=== PATIENT | female | born 1950 | race Caucasian/White ===

== ENCOUNTER 2018-03-25 13:15 | Inpatient (IN) | payer OTHER ==
[2018-03-25] MEDS ORDERED: morphine CARPU-JECT 4 MG/1 ML DISP.SYRIN IVPUSH ONE ×2 (14:17→17:52)
--- NOTE | 2018-03-25 14:26 | PDOC ---
History of Present Illness - General History Source: Patient Exam Limitations: No Limitations - History of Present Illness Initial Comments: 03/25/18 14:40 The patient is a 67 year old female with a significant PMH of HTN, DM, uterine cancer in remission, and recently diagnosed DVT who presents to the emergency department with worsening right sided hip pain. Patient had this right leg pain for the past 4 months, which seemed to improve after starting lovenox for a diagnosed dvt. Patient states she was taking oxycodone for pain but ran out of it this past week. Patient has been unable to ambulate secondary to the pain. Patient also had an MRI on 03/22/18 which showed a moderate L5/ S1 dis bulging and associated degenerative disc disease and foraminal stenosis with compression of L5 nerve root. disc protrusion of S1 right nerve root . She endorses chills but denies fever, chest pain, nausea, vomiting, vaginal bleeding, rectal bleeding, or changes with urination or bowel movements. Allergies: NKA Past surgical history: Social history: No reported PCP: Dr. Pryor [place] [phone] <Shameka Barker - Last Filed: 03/25/18 14:43> <Marilu Bazan - Last Filed: 03/25/18 18:24> - General Chief Complaint: Pain Stated Complaint: FOOT PAIN Time Seen by Provider: 03/25/18 13:30 Past History <Shameka Barker - Last Filed: 03/25/18 14:43> - Past Medical History COPD: No CHF: No DVT: Yes Diabetes: Yes HTN: Yes - Suicide/Smoking/Psychosocial Hx Smoking Status: No Smoking History: Never smoked Have you smoked in the past 12 months: No Number of Cigarettes Smoked Daily: 0 Information on smoking cessation initiated: No Hx Alcohol Use: No Drug/Substance Use Hx: No Substance Use Type: None <Marilu Bazan - Last Filed: 03/25/18 18:24> - Past Medical History Allergies/Adverse Reactions: Allergies Allergy/AdvReac Type Severity Reaction Status Date / Time No Known Allergies Allergy Verified 03/25/18 13:19 Home Medications: Ambulatory Orders Canagliflozin [Invokana] 100 mg PO DAILY 03/21/17 Clopidogrel Bisulfate [Clopidogrel] 75 mg PO DAILY 03/21/17 Duloxetine HCl 60 mg PO DAILY 03/21/17 Ibuprofen 600 mg PO PRN 03/21/17 Lisinopril 10 mg PO DAILY 03/21/17 Montelukast Na [Singulair -] 10 mg PO DAILY 03/21/17 Oxycodone HCl/Acetaminophen [Endocet 5-325 Tablet] 1 tab PO PRN 03/21/17 Prochlorperazine Maleate 10 mg PO DAILY 03/21/17 Famotidine [Pepcid] 20 mg PO BID PRN #28 tablet 03/22/17 Review of Systems - Review of Systems Able to Perform ROS?: Yes Comments:: 03/25/18 14:46 ADULT ROS GENERAL/CONSTITUTIONAL: No fever or chills. No weakness. HEAD, EYES, EARS, NOSE AND THROAT: No change in vision. No ear pain or discharge. No sore throat. CARDIOVASCULAR: No chest pain or shortness of breath. RESPIRATORY: No cough, wheezing, or hemoptysis. GASTROINTESTINAL: No nausea, vomiting, diarrhea or constipation. GENITOURINARY: No dysuria, frequency, or change in urination. MUSCULOSKELETAL: (+) Right hip pain. No neck or back pain. SKIN: No rash NEUROLOGIC: No headache, vertigo, loss of consciousness, or change in strength/ sensation. ENDOCRINE: No increased thirst. No abnormal weight change. HEMATOLOGIC/LYMPHATIC: No anemia, easy bleeding, or history of blood clots. ALLERGIC/IMMUNOLOGIC: No hives or skin allergy. <Shameka Barker - Last Filed: 03/25/18 14:43> *Physical Exam - Vital Signs Last Vital Signs Temp Pulse Resp BP Pulse Ox 98 F 95 H 16 102/60 98 03/25/18 13:22 03/25/18 13:22 03/25/18 13:22 03/25/18 13:22 03/25/18 13:22 - Physical Exam Comments: 03/25/18 14:40 ADULT EXAM GENERAL: Awake, alert, and fully oriented, in no acute distress HEAD: No signs of trauma EYES: PERRLA, EOMI, sclera anicteric, conjunctiva clear ENT: Auricles normal inspection, hearing grossly normal, nares patent. Moist mucosa NECK: Normal ROM, supple, no lymphadenopathy, JVD, or masses LUNGS: Breath sounds equal, clear to auscultation bilaterally. No wheezes, and no crackles HEART: Regular rate and rhythm, normal S1 and S2, no murmurs, rubs or gallops ABDOMEN: Soft, nontender, normoactive bowel sounds. No guarding, no rebound. No masses EXTREMITIES: (+) Right leg tenderness, pain with movement of the right hip. Dorsiflexion and plantar flexion is 5/5 strength. (+) Hip flexion limited due to pain. (+) Sensation decreased to the right inner thigh. No edema. Warm and well perfused. NEUROLOGICAL: Moves all extremities. Normal speech, normal gait SKIN: Warm, Dry, normal turgor, no rashes or lesions noted. <Shameka Barker - Last Filed: 03/25/18 14:43> - Vital Signs Last Vital Signs Temp Pulse Resp BP Pulse Ox 98 F 95 H 16 102/60 98 03/25/18 13:22 03/25/18 13:22 03/25/18 13:22 03/25/18 13:22 03/25/18 13:22 <Marilu Bazan - Last Filed: 03/25/18 18:24> ED Treatment Course - LABORATORY CBC & Chemistry Diagram: 03/25/18 14:58 03/25/18 15:04 - RADIOLOGY Radiology Studies Ordered: Category Date Time Status DUPLEX VASCUL US-1 LEG [US] Stat Ultrasound 03/25/18 14:17 Ordered <Marilu Bazan - Last Filed: 03/25/18 18:24> Medical Decision Making - Medical Decision Making 03/25/18 14:20 67 yo F with h/o uterine ca, dm, in remission, recently diagnosed right leg dvt , and back pain here today c/o worsening pain right leg. pt states she has been having pain for several months, became slightly better after starting lovenox for dvt, but then becamse acutely worse last pm. today is unable to walk due to pain. pt had recent MRI on 03/22/18 showing mod L5/ S1 dis bulging and associated dgd and foraminal stenosis with compression of L5 nerve root. disc protrusion of S1 right nerve root . she had been on cymbalta in the past , was also taking oxycodone for pain which she ran out of last few weeks. d/w pt pcp dr. Dc, who states he was unaware of dvt. differential : dvt worsenig, disc disease. plan cbc lytes rpt us , if pt unable to walk due to pain will madonna have to admit for pt 03/25/18 17:48 pt with no dvt on ultrasound. states on lovenox currently . states her decreased sensation in her right leg is new, but has had pain for 4 months. pt unable to ambulate, will require admission for pt eval, pain control and eval by nuerosurgery. dw dr flores, will admit 03/25/18 17:55 03/25/18 18:21 outpt MRI 03/22 shows: moderate L5S1 dis bulging and associated degenerative changes resulting in ild spinal canal stenosis and mild to moderate bilateral foraminal stenosis compressing L5 nerve roots. incomlete visualiation of possible small inferiorloy extruded right sided disc herniation ildly compressing the right s! nerve root . disc bulging and assoc degenerative changes L2-3, L4 -5 with mild thecal sac compresion wihtout significant spinal canal stenosis. post radiation fatty marrow replacemetn L5 through visuzlied sacrum . (only report no cd) obtained at [facility] [phone] <Marilu Bazan - Last Filed: 03/25/18 18:24> *DC/Admit/Observation/Transfer - Attestations Scribe Attestion: 03/25/18 14:49 Documentation prepared by Shameka Barker, acting as medical policy specialist for Marilu Bazan MD. <Shameka Barker - Last Filed: 03/25/18 14:43> - Discharge Dispostion Decision to Admit order: Yes <Marilu Bazan - Last Filed: 03/25/18 18:24> Diagnosis at time of Disposition: Back pain, Cannot walk
[2018-03-25 15:15] LABS: BASO % 0.4 % (0-2.0); EOS % 0.1 % (0-4.5); HEMATOCRIT 26.4 % (32.4-45.2); HEMOGLOBIN 8.5 GM/dL (10.7-15.3); LYMPH % 7.8 % (8-40); MCHC 32.2 g/dl (32.0-36.0); MEAN CELL VOLUME 80.7 fl (80-96); NEUT % 86.7 % (42.8-82.8); PLATELET COUNT 329 K/MM3 (134-434); RBC 3.27 M/mm3 (3.60-5.2); WHITE BLOOD COUNT 12.4 K/mm3 (4.0-10.0)
[2018-03-25 15:55] LABS: INR 1.33 (0.83-1.09); PROTHROMBIN TIME (PATIENT) 15.7 SEC (9.7-13.0)
[2018-03-25 15:57] LABS: ACTIVATED PTT 31.8 SECONDS (25.2-36.5)
[2018-03-25] MEDS ORDERED: DEXAMETHASONE SOD PHOSPHATE 20 MG/5 ML VIAL IVPB ONE (17:17)
[2018-03-25] MEDS ORDERED: ACETAMINOPHEN 1000 MG/100 ML VIAL (NON FORMULARY) IVPB ONE (17:52)
[2018-03-25] MEDS ORDERED: RANITIDINE HCL 150 MG TABLET (FP) PO PRN (19:54)
--- NOTE | 2018-03-25 19:54 | HP ---
Admitting History and Physical - Primary Care Physician PCP: Slim Zavala - Admission History of Present Illness: 67 year old female with a significant PMH of HTN, DM, uterine cancer in remission, and recently diagnosed DVT who presents to the emergency department with worsening right sided hip pain. Patient had this right leg pain for the past 4 months, which seemed to improve after starting lovenox for a diagnosed dvt. Patient states she was taking oxycodone for pain but ran out of it this past week. Patient has been unable to ambulate secondary to the pain. Patient also had an MRI on 03/22/18 which showed a moderate L5/ S1 dis bulging and associated degenerative disc disease and foraminal stenosis with compression of L5 nerve root. disc protrusion of S1 right nerve root . - Past Medical History Cardiovascular: Yes: HTN Endocrine: Yes: Diabetes Mellitus - Smoking History Smoking history: Never smoked Have you smoked in the past 12 months: No Aproximately how many cigarettes per day: 0 - Alcohol/Substance Use Hx Alcohol Use: No Home Medications - Allergies Allergies/Adverse Reactions: Allergies Allergy/AdvReac Type Severity Reaction Status Date / Time No Known Allergies Allergy Verified 03/25/18 13:19 - Home Medications Home Medications: Ambulatory Orders Canagliflozin [Invokana] 100 mg PO DAILY 03/21/17 Clopidogrel Bisulfate [Clopidogrel] 75 mg PO DAILY 03/21/17 Duloxetine HCl 60 mg PO DAILY 03/21/17 Ibuprofen 600 mg PO PRN 03/21/17 Lisinopril 10 mg PO DAILY 03/21/17 Montelukast Na [Singulair -] 10 mg PO DAILY 03/21/17 Oxycodone HCl/Acetaminophen [Endocet 5-325 Tablet] 1 tab PO PRN 03/21/17 Prochlorperazine Maleate 10 mg PO DAILY 03/21/17 Famotidine [Pepcid] 20 mg PO BID PRN #28 tablet 03/22/17 Physical Examination Vital Signs: Vital Signs Temperature 98 F 03/25/18 13:22 Pulse Rate 95 H 03/25/18 13:22 Respiratory Rate 16 03/25/18 13:22 Blood Pressure 102/60 03/25/18 13:22 O2 Sat by Pulse Oximetry (%) 98 03/25/18 13:22 Constitutional: Yes: No Distress HENT: Yes: Atraumatic Neck: Yes: Supple Cardiovascular: Yes: Regular Rate and Rhythm Respiratory: Yes: CTA Bilaterally Gastrointestinal: Yes: Normal Bowel Sounds Extremities: Yes: WNL Edema: No Peripheral Pulses WNL: Yes Neurological: Yes: Alert, Oriented ...Motor Strength: WNL Labs: CBC, BMP 03/25/18 14:58 03/25/18 15:04 Problem List - Problems (1) Back pain Assessment/Plan: prn pain meds mri done before neuro surery on board Code(s): M54.9 - DORSALGIA, UNSPECIFIED (2) Hypertension Assessment/Plan: on meds stable Code(s): I10 - ESSENTIAL (PRIMARY) HYPERTENSION Qualifiers: Hypertension type: essential hypertension Qualified Code(s): I10 - Essential (primary) hypertension (3) UTI (urinary tract infection) Assessment/Plan: on abx cxs sent Code(s): N39.0 - URINARY TRACT INFECTION, SITE NOT SPECIFIED Assessment/Plan Laboratory Tests 03/25/18 03/25/18 03/25/18 14:58 14:58 15:04 WBC 12.4 H RBC 3.27 L Hgb 8.5 L Hct 26.4 L MCV 80.7 MCH 26.0 D MCHC 32.2 RDW 18.0 H Plt Count 329 D MPV 9.0 Absolute Neuts (auto) 10.7 H Neutrophils % 86.7 H D Lymphocytes % 7.8 L D Monocytes % 5.0 Eosinophils % 0.1 Basophils % 0.4 Nucleated RBC % 0 PT with INR 15.70 H INR 1.33 H PTT (Actin FS) 31.8 Sodium Cancelled Potassium Cancelled Chloride Cancelled Carbon Dioxide Cancelled Anion Gap Cancelled BUN Cancelled Creatinine Cancelled Creat Clearance w eGFR Cancelled Random Glucose Cancelled Calcium Cancelled Total Bilirubin Cancelled AST Cancelled ALT Cancelled Alkaline Phosphatase Cancelled Total Protein Cancelled Albumin Cancelled Lipase Cancelled
[2018-03-25] MEDS ORDERED: ACETAMINOPHEN INJECTION 100 ML IVPB ONE (20:17)
[2018-03-25] MEDS ORDERED: DEXAMETHASONE SOD PHOSPHATE 10 MG/1 ML VIAL ONE (20:19)
[2018-03-26] MEDS: MONTELUKAST NA 10 MG TABLET PO SCH ×2 (02:01→23:04)
[2018-03-26] MEDS ORDERED: CANAGLIFLOZIN PO SCH (07:00)
[2018-03-26] MEDS: DULoxetine HCL 30 MG CAPSULE.DR (FP) PO SCH (09:19)
[2018-03-26] MEDS: LISINOPRIL 10 MG TABLET (FP) PO SCH (09:19)
[2018-03-26] MEDS: PROCHLORPERAZINE MALEATE 5 MG TABLET PO SCH (09:19)
[2018-03-26] MEDS: CLOPIDOGREL BISULFATE 75 MG TABLET (FP) PO SCH (09:19)
[2018-03-26] MEDS: oxyCODONE HCL 5 MG TABLET PO PRN ×2 (13:13→20:39)
--- NOTE | 2018-03-26 16:32 | PN ---
Progress Note, Physician History of Present Illness: pain little better - Current Medication List Current Medications: Active Medications Clopidogrel Bisulfate (Plavix -) 75 mg PO DAILY [facility] Last Admin: 03/26/18 09:19 Dose: 75 mg Duloxetine HCl (Cymbalta -) 60 mg PO DAILY [facility] Last Admin: 03/26/18 09:19 Dose: 60 mg Lisinopril (Prinivil) 10 mg PO DAILY [facility] Last Admin: 03/26/18 09:19 Dose: 10 mg Montelukast Sodium (Singulair -) 10 mg PO HS [facility] Last Admin: 03/26/18 02:01 Dose: Not Given Canagliflozin( Invokana) Patient's Own Medication (Non- Formulary) 100 mg PO ACBK [facility] Oxycodone HCl (Roxicodone -) 10 mg PO Q6H PRN PRN Reason: PAIN Last Admin: 03/26/18 13:13 Dose: 10 mg Prochlorperazine Maleate (Compazine -) 10 mg PO DAILY [facility] Last Admin: 03/26/18 09:19 Dose: 10 mg Ranitidine HCl (Zantac -) 150 mg PO BID PRN PRN Reason: Abdominal pain - Objective Vital Signs: Vital Signs Temperature 99 F 03/26/18 14:27 Pulse Rate 116 H 03/26/18 14:27 Respiratory Rate 20 03/26/18 14:27 Blood Pressure 126/72 03/26/18 14:27 O2 Sat by Pulse Oximetry (%) 98 03/26/18 13:00 Constitutional: Yes: No Distress HENT: Yes: Atraumatic Neck: Yes: Supple Cardiovascular: Yes: Regular Rate and Rhythm Respiratory: Yes: CTA Bilaterally Gastrointestinal: Yes: Normal Bowel Sounds Extremities: Yes: WNL Edema: No Peripheral Pulses WNL: Yes Neurological: Yes: Alert, Oriented Labs: CBC, BMP 03/25/18 14:58 03/25/18 15:04 INR, PTT INR 1.33 (0.83-1.09) H 03/25/18 14:58 Problem List - Problems (1) Back pain Assessment/Plan: prn pain meds mri done before neuro surery on board Code(s): M54.9 - DORSALGIA, UNSPECIFIED (2) Hypertension Assessment/Plan: on meds stable Code(s): I10 - ESSENTIAL (PRIMARY) HYPERTENSION Qualifiers: Hypertension type: essential hypertension Qualified Code(s): I10 - Essential (primary) hypertension (3) UTI (urinary tract infection) Assessment/Plan: on abx cxs sent Code(s): N39.0 - URINARY TRACT INFECTION, SITE NOT SPECIFIED
--- NOTE | 2018-03-26 17:32 | CONSULT ---
Consult - text type - Consultation Consultation Note: Kanika Dc was admitted from the [facility] ER with a long history of back and leg pains which have not responded to expectant management, medications and Physical Therapy. The patient describes recent progression of her pain and has both mechanical low back pain symptoms as well as radicular symptoms. The patient reports increase in pain associated with vibration and jostling such as riding in a car over a bumpy road, pot holes or railraod tracks. The patient also describes increased radicular pain associated with Valsalva's maneuver. MRI was performed at an outside institution and is not available for review. The patient's family will bring in this exam and I will review it and get back to her with potential treatment options. All questions were answered.
[2018-03-27] MEDS: oxyCODONE HCL 5 MG TABLET PO PRN ×3 (01:36→16:43)
[2018-03-27] MEDS: ACETAMINOPHEN 325 MG TABLET (FP) PO PRN ×2 (07:35→13:28)
[2018-03-27] MEDS: CLOPIDOGREL BISULFATE 75 MG TABLET (FP) PO SCH (09:56)
[2018-03-27] MEDS: DULoxetine HCL 30 MG CAPSULE.DR (FP) PO SCH (09:56)
[2018-03-27] MEDS: LISINOPRIL 10 MG TABLET (FP) PO SCH (09:56)
[2018-03-27] MEDS: PROCHLORPERAZINE MALEATE 5 MG TABLET PO SCH (09:56)
--- NOTE | 2018-03-27 11:17 | CON.ID ---
Consult Consult Specialty:: infectious diseases Referred by:: Reason for Consultation:: back pain,,cancer - History of Present Illness Chief Complaint: rt leg and back pain History of Present Illness: 67 year old female with a significant PMH of HTN, DM, uterine cancer in remission, and recently diagnosed DVT admitted with worsening right sided hip pain. Patient had this right leg pain for the past 4 months, which seemed to improve after starting lovenox for a diagnosed dvt. Patient states she was taking oxycodone for pain but ran out of it this past week. Patient has been unable to ambulate secondary to the pain. Patient also had an MRI on 03/22/18 which showed a moderate L5/ S1 dis bulging and associated degenerative disc disease and foraminal stenosis with compression of L5 nerve root. disc protrusion of S1 right nerve root . curreently her main complaint is pain she denies any fever or burning in the urine and has results from outside - History Source History Provided By: Caregiver Limitations to Obtaining History: Language Barrier - Past Medical History Cardio/Vascular: Yes: HTN ...: No Endocrine: Yes: Diabetes Mellitus - Alcohol/Substance Use Hx Alcohol Use: No - Smoking History Smoking history: Never smoked Have you smoked in the past 12 months: No Aproximately how many cigarettes per day: 0 Home Medications - Allergies Allergies/Adverse Reactions: Allergies Allergy/AdvReac Type Severity Reaction Status Date / Time No Known Allergies Allergy Verified 03/25/18 13:19 - Home Medications Home Medications: Ambulatory Orders Canagliflozin [Invokana] 100 mg PO DAILY 03/21/17 Clopidogrel Bisulfate [Clopidogrel] 75 mg PO DAILY 03/21/17 Duloxetine HCl 60 mg PO DAILY 03/21/17 Ibuprofen 600 mg PO PRN 03/21/17 Lisinopril 10 mg PO DAILY 03/21/17 Montelukast Na [Singulair -] 10 mg PO DAILY 03/21/17 Oxycodone HCl/Acetaminophen [Endocet 5-325 Tablet] 1 tab PO PRN 03/21/17 Prochlorperazine Maleate 10 mg PO DAILY 03/21/17 Famotidine [Pepcid] 20 mg PO BID PRN #28 tablet 03/22/17 Review of Systems - Review of Systems Constitutional: reports: No Symptoms Eyes: reports: No Symptoms HENT: reports: No Symptoms Neck: reports: No Symptoms Cardiovascular: reports: No Symptoms Respiratory: reports: No Symptoms Gastrointestinal: reports: No Symptoms Genitourinary: reports: No Symptoms Musculoskeletal: reports: Back Pain, Extremity Pain, Muscle Pain Integumentary: reports: No Symptoms Neurological: reports: No Symptoms, Numbness (rt leg) Hematology/Lymphatic: reports: No Symptoms Psychiatric: reports: No Symptoms Physical Exam Vital Signs: Vital Signs Temperature 99.1 F 03/27/18 10:00 Pulse Rate 128 H 03/27/18 10:00 Respiratory Rate 18 03/27/18 10:00 Blood Pressure 219/69 H 03/27/18 10:00 O2 Sat by Pulse Oximetry (%) 99 03/26/18 21:00 Constitutional: Yes: Calm, Mild Distress Eyes: Yes: Conjunctiva Clear Neck: Yes: Supple, Trachea Midline Cardiovascular: Yes: Regular Rate and Rhythm Respiratory: Yes: Regular, CTA Bilaterally Gastrointestinal: Yes: Normal Bowel Sounds, Soft Musculoskeletal: Yes: WNL Extremities: Yes: Other Neurological: Yes: Alert, Oriented Psychiatric: Yes: Alert, Oriented Labs: CBC, BMP 03/25/18 14:58 03/25/18 15:04 Assessment/Plan back pain h/o of dvt plan neurosurgery on case will not start any abx pain mgmt rest as per the team
[2018-03-27 12:53] LABS: BASO % 0.1 % (0-2.0); HEMATOCRIT 30.2 % (32.4-45.2); HEMOGLOBIN 9.4 GM/dL (10.7-15.3); LYMPH % 6.7 % (8-40); MCH 25.7 pg (25.7-33.7); MEAN CELL VOLUME 82.9 fl (80-96); MONO % 4.4 % (3.8-10.2); NEUT % 88.8 % (42.8-82.8); PLATELET COUNT 416 K/MM3 (134-434); RBC 3.64 M/mm3 (3.60-5.2); RDW 18.5 % (11.6-15.6); WHITE BLOOD COUNT 17.1 K/mm3 (4.0-10.0)
[2018-03-27 13:04] LABS: ALBUMIN 2.8 g/dl (3.4-5.0); ALK PHOS 303 U/L (45-117); ANION GAP 14 MMOL/L (8-16); BILIRUBIN,TOTAL 0.7 mg/dL (0.2-1); BLOOD UREA NITROGEN 15 mg/dL (7-18); CALCIUM 9.3 mg/dL (8.5-10.1); CHLORIDE 88 mmol/L (98-107); CO2 23 mmol/L (21-32); CREATININE 1.5 mg/dL (0.55-1.3); POTASSIUM 4.6 mmol/L (3.5-5.1); SGOT/AST 12 U/L (15-37); SGPT/ALT 37 U/L (13-61); SODIUM 126 mmol/L (136-145); TOT PROT 7.8 g/dl (6.4-8.2)
[2018-03-27 13:11] LABS: GLUCOSE,RANDOM 481 mg/dL (74-106)
[2018-03-27] MEDS ORDERED: SODIUM CHLORIDE 1,000 ML IV SCH ×2 (13:20→17:37)
[2018-03-27] MEDS ORDERED: PIPERACILLIN/TAZOBACTAM 3.375 GM VIAL IVPB ONE ×2 (13:58→16:38)
[2018-03-27] MEDS ORDERED: DEXTROSE 5%-WATER - 50 ML IVPB ONE ×2 (13:58→16:38)
[2018-03-27] MEDS ORDERED: VANCOMYCIN 1,250 MG in DEXTROSE 5%-WATER - 250 ML IVPB ONE (14:00)
[2018-03-27] MEDS ORDERED: PIPERACILLIN/TAZOB 3.375 GM 3.375 GM in DEXTROSE 5%-WATER - 50 ML IVPB SCH (14:00)
--- NOTE | 2018-03-27 14:45 | PN ---
Progress Note, Physician - Current Medication List Current Medications: Active Medications Acetaminophen (Tylenol -) 650 mg PO Q6H PRN PRN Reason: FEVER Last Admin: 03/27/18 13:28 Dose: 650 mg Clopidogrel Bisulfate (Plavix -) 75 mg PO DAILY [facility] Last Admin: 03/27/18 09:56 Dose: 75 mg Duloxetine HCl (Cymbalta -) 60 mg PO DAILY [facility] Last Admin: 03/27/18 09:56 Dose: 60 mg Sodium Chloride (Normal Saline -) 1,000 mls @ 100 mls/hr IV [facility]IR [facility] Last Admin: 03/27/18 14:15 Dose: 100 mls/hr Piperacillin Sod/Tazobactam (Sod 3.375 gm/ Dextrose) 50 mls @ 100 mls/hr IVPB Q8H-IV [facility]; Protocol Last Admin: 03/27/18 14:16 Dose: 100 mls/hr Vancomycin HCl 1,250 mg/ (Dextrose) 250 mls @ 250 mls/2 hr IVPB ONCE ONE; Protocol Stop: 03/27/18 15:59 Lisinopril (Prinivil) 10 mg PO DAILY [facility] Last Admin: 03/27/18 09:56 Dose: 10 mg Montelukast Sodium (Singulair -) 10 mg PO HS [facility] Last Admin: 03/26/18 23:04 Dose: 10 mg Canagliflozin( Invokana) Patient's Own Medication (Non- Formulary) 100 mg PO ACBK [facility] Oxycodone HCl (Roxicodone -) 10 mg PO Q6H PRN PRN Reason: PAIN Last Admin: 03/27/18 07:35 Dose: 10 mg Prochlorperazine Maleate (Compazine -) 10 mg PO DAILY [facility] Last Admin: 03/27/18 09:56 Dose: 10 mg Ranitidine HCl (Zantac -) 150 mg PO BID PRN PRN Reason: Abdominal pain - Objective Vital Signs: Vital Signs Temperature 99.1 F 03/27/18 10:00 Pulse Rate 128 H 03/27/18 10:00 Respiratory Rate 18 03/27/18 10:00 Blood Pressure 219/69 H 03/27/18 10:00 O2 Sat by Pulse Oximetry (%) 99 03/26/18 21:00 Labs: CBC, BMP 03/27/18 12:16 03/27/18 12:16 INR, PTT INR 1.33 (0.83-1.09) H 03/25/18 14:58 Problem List - Problems (1) Back pain Code(s): M54.9 - DORSALGIA, UNSPECIFIED
--- NOTE | 2018-03-27 15:27 | CONSULT ---
Consultation: REQUESTING PROVIDER: Dr. Zavala CONSULT REQUEST: We have been asked to medically evaluate this patient for sepsis. HISTORY OF PRESENT ILLNESS: Patient is a 67 year old female with past medical history of HTN, DM, and uterine cancer (diagnosed in 2016, on chemotherapy and radiation therapy since June), recently diagnosed DVT, presented with worsening right hip and right thigh pain since 5 days ago. Patient reported having the right leg pain since 4 months ago. She notes that she receives radiation therapy in that area. She was diagnosed with RLE DVT and was started on Lovenox 80mg BID and given Oxycodone for pain. Patient reported worsening of the low back pain and right groin pain radiating to the right lateral hip and down the right thigh in last 5 days, now 10/10 in severity and unable to ambulate because of the pain. Denies any leg swelling, numbness or weakness. MRI done on 03/22/18 showed a moderate L5/ S1 disc bulging and associated degenerative disc disease and foraminal stenosis with compression of L5 nerve root, disc protrusion of S1 right nerve root. In addition, patient was told that RLE DVT has resolved and not seen on MRI, her Lovenox was discontinued and she was started on "pills". She reports chills and loss of appetite but denies any fever, headache, nausea, vomiting, chest pain, shortness of breath, palpitations, abdominal pain, diarrhea, or urinary symptoms. On admission, patient was noted to be tachycardic, with leukocytosis and elevated lactic acid. She was transferred to the ICU for closer monitoring. Allergies: NKA Social history: denies smoking, EtOH use, illicit drug use. Lives alone, but recently here from [facility]. PCP: Sherri Martinsmo REVIEW OF SYSTEMS: CONSTITUTIONAL: loss of appetite, chills Absent: fever, diaphoresis, generalized weakness, malaise,weight change HEENT: Absent: rhinorrhea, nasal congestion, throat pain, throat swelling, difficulty swallowing, mouth swelling, ear pain, eye pain, visual changes CARDIOVASCULAR: Absent: chest pain, syncope, palpitations, irregular heart rate, lightheadedness , peripheral edema RESPIRATORY: orthopnea Absent: cough, shortness of breath, dyspnea with exertion, wheezing, stridor, hemoptysis GASTROINTESTINAL: Absent: abdominal pain, abdominal distension, nausea, vomiting, diarrhea, constipation, melena, hematochezia GENITOURINARY: Absent: dysuria, frequency, urgency, hesitancy, hematuria, flank pain, genital pain MUSCULOSKELETAL: back pain, right groin, hip and thigh pain Absent: myalgia, arthralgia, joint swelling, neck pain SKIN: Absent: rash, itching, pallor HEMATOLOGIC/IMMUNOLOGIC: Absent: easy bleeding, easy bruising, lymphadenopathy, frequent infections ENDOCRINE: Absent: unexplained weight gain, unexplained weight loss, heat intolerance, cold intolerance NEUROLOGIC: Absent: headache, focal weakness or paresthesias, dizziness, unsteady gait, seizure, mental status changes, bladder or bowel incontinence PSYCHIATRIC: Absent: anxiety, depression, suicidal or homicidal ideation, hallucinations. PHYSICAL EXAMINATION Vital Signs - 24 hr 03/26/18 03/26/18 03/26/18 18:00 21:00 22:00 Temperature 98.6 F 98.2 F Pulse Rate 114 H 100 H Respiratory 20 20 Rate Blood Pressure 108/62 125/78 O2 Sat by Pulse 99 Oximetry (%) 03/27/18 03/27/18 03/27/18 06:00 10:00 13:05 Temperature 100.5 F H 99.1 F 100.2 F H Pulse Rate 129 H 128 H 144 H Respiratory 20 18 18 Rate Blood Pressure 136/74 219/69 H 139/67 O2 Sat by Pulse Oximetry (%) GENERAL: Awake, alert, and fully oriented, in no acute distress. HEAD: Normal with no signs of trauma. EYES:PERRLA, EOMI, sclera anicteric, conjunctiva clear. EARS, NOSE, THROAT: Ears normal, nares patent, oropharynx clear without exudates. Moist mucous membranes. LUNGS: Breath sounds equal, clear to auscultation bilaterally. HEART: Tachycardic, normal S1 and S2 without murmur, rub or gallop. ABDOMEN: Soft, nontender, not distended, normoactive bowel sounds. MUSCULOSKELETAL: +paraspinal tenderness at the lumbar area UPPER EXTREMITIES: 2+ pulses, warm, well-perfused. No cyanosis. No clubbing. Cap refill <2 seconds. No peripheral edema. LOWER EXTREMITIES: 2+ pulses, warm, well-perfused. No calf tenderness. No peripheral edema. NEUROLOGICAL: Cranial nerves II-XII intact. Normal speech. Gait not observed. RLE: +tenderness on palpation of groin, hip and thigh, motor strength 4/5 limited by pain, sensation intact. LLE: motor strength 5/5, sensation intact PSYCHIATRIC: Cooperative. Good eye contact. Appropriate mood and affect. SKIN: Warm, dry, normal turgor, no rashes or lesions noted. Laboratory Results - last 24 hr 03/27/18 03/27/18 03/27/18 12:16 12:16 12:16 WBC 17.1 H RBC 3.64 Hgb 9.4 L Hct 30.2 L MCV 82.9 MCH 25.7 MCHC 31.0 L RDW 18.5 H Plt Count 416 D MPV 9.0 Absolute Neuts (auto) 15.2 H Neutrophils % 88.8 H Lymphocytes % 6.7 L Monocytes % 4.4 Eosinophils % 0.0 D Basophils % 0.1 Nucleated RBC % 0 Sodium 126 L Potassium 4.6 Chloride 88 L Carbon Dioxide 23 Anion Gap 14 BUN 15 Creatinine 1.5 H Creat Clearance w eGFR 34.85 Random Glucose 481 H* Lactic Acid 5.1 H* Calcium 9.3 Total Bilirubin 0.7 AST 12 L ALT 37 Alkaline Phosphatase 303 H Total Protein 7.8 Albumin 2.8 L Active Medications Generic Name Dose Route Start Last Admin Trade Name Freq PRN Reason Stop Dose Admin Acetaminophen 650 mg 03/27/18 07:04 03/27/18 13:28 Tylenol - PO 650 mg Q6H PRN Administration FEVER Chlorhexidine Gluconate 1 applic 03/27/18 22:00 Hibiclens For Decolonization - TP HS MIRA Clopidogrel Bisulfate 75 mg 03/26/18 10:00 03/27/18 09:56 Plavix - PO 75 mg DAILY MIRA Administration Duloxetine HCl 60 mg 03/26/18 10:00 03/27/18 09:56 Cymbalta - PO 60 mg DAILY MIRA Administration Sodium Chloride 1,000 mls @ 100 mls/hr 03/27/18 13:20 03/27/18 14:15 Normal Saline - IV 100 mls/hr ASDIR MIRA Administration Piperacillin Sod/Tazobactam 50 mls @ 100 mls/hr 03/27/18 14:00 03/27/18 14:16 Sod 3.375 gm/ Dextrose IVPB 100 mls/hr Q8H-IV MIRA Administration Protocol Vancomycin HCl 1,250 mg/ 250 mls @ 250 mls/2 hr 03/27/18 14:00 Dextrose IVPB 03/27/18 15:59 ONCE ONE Protocol Lisinopril 10 mg 03/26/18 10:00 03/27/18 09:56 Prinivil PO 10 mg DAILY MIRA Administration Montelukast Sodium 10 mg 03/25/18 22:00 03/26/18 23:04 Singulair - PO 10 mg HS MIRA Administration Mupirocin 1 applic 03/27/18 22:00 Bactroban Ointment (For Decolonization) - NS 04/01/18 21:59 BID MIRA Canagliflozin( 100 mg 03/26/18 07:00 Invokana) Patient's PO Own Medication (Non- [facility] Formulary) Oxycodone HCl 10 mg 03/25/18 19:55 03/27/18 07:35 Roxicodone - PO 10 mg Q6H PRN Administration PAIN Prochlorperazine Maleate 10 mg 03/26/18 10:00 03/27/18 09:56 Compazine - PO 10 mg DAILY MIRA Administration Ranitidine HCl 150 mg 03/25/18 19:54 Zantac - PO BID PRN Abdominal pain ASSESSMENT/PLAN: Patient is a 67 year old female with past medical history of HTN, DM, and uterine cancer (diagnosed in 2016, on chemotherapy and radiation therapy since June), recently diagnosed DVT, presented with worsening right hip and right thigh pain since 5 days ago. On admission, patient was noted to be tachycardic, with leukocytosis and elevated lactic acid. She was transferred to the ICU for closer monitoring. #Neurology 1)Low back pain likely 2/2 L5-S1 disc herniation -MRI (03/22/18)- moderate L5/ S1 disc bulging and associated degenerative disc disease and foraminal stenosis with compression of L5 nerve root, disc protrusion of S1 right nerve root. -Neurosurgery (Dr. Caban) consulted. Recommendations appreciated. -Currently the patient is not medically fit for a semi-elective procedure. -Agree with transfer to ICU. Will continue to follow. -Oxycodone 10mg q6h PRN and Tylenol for pain #Infectious disease 1)Sepsis, source unknown -Patient is tachycardic at 120s, leukocytosis with left shift and elevated lactic acid 5.7 -IV NS @100ml/hr. Added 500ml bolus -Will trend lactic acid -Blood cultures, urinalysis and urine cultures ordered. -ID (Dr. Gallegos) consulted. Recommendations appreciated. -Started on empiric vancomycin 1250mg and Zosyn 3.375gm q8h. -RLE CT scan done. Awaiting final read. -Monitor I/O -Daily weights -Maintain MAP >65 -UO >0.5cc/kg/hr #Cardiology 1)Hypertension: controlled -Continue home Lisinopril 10mg daily 2)Hx of RLE DVT -previously on Lovenox 80 mg BID -Plavix 75mg PO daily #Endocrinology 1)DM -BGM q6h -insulin sliding scale q6h #Oncology 1)Uterine cancer s/p chemo/radiation therapy #FEN -IV NS @ 100ml/hr -electrolytes wnl, routine bmp monitoring -sodium controlled diet #Prophylaxis 1)DVT - SCDs both legs 2)GI -Ranitidine 150mg PO BID PRN #Disposition -full code -transferred to ICU for closer monitoring Dispo: We will continue to follow the patient. Thank you for this consultative opportunity. Visit type - Emergency Visit Emergency Visit: Yes ED Registration Date: 03/26/18 Care time: The patient presented to the Emergency Department on the above date and was hospitalized for further evaluation of their emergent condition. - New Patient This patient is new to me today: Yes Date on this admission: 03/27/18 - Critical Care Critical Care patient: Yes Total Critical Care Time (in minutes): 40 Critical Care Statement: The care of this patient involved high complexity decision making to prevent further life threatening deterioration of the patient 's condition and/or to evaluate & treat vital organ system(s) failure or risk of failure.
[2018-03-27] MEDS ORDERED: SODIUM CHLORIDE 500 ML IV STA ×3 (16:08→21:37)
[2018-03-27] MEDS ORDERED: INSULIN SLIDING SCALE (NOVOLOG) 1 VIAL SQ SCH (16:30)
--- NOTE | 2018-03-27 16:34 | PN ---
Progress Note (short form) - Note Progress Note: Patient is lying in bed with fever to 102.7 looking and stating that she is clearly uncomfortable. MRI reviewed which shows degenerative changes at L5S1 with loss of disc space height, Modic changes and a disc protrusion with Right sided eccentricity. I reviewed the risks, benefits and alternatives to L5S1 decompression and fusion, however, currently the patient is not medically fit for a semi-elective procedure. Agree with Dr. Gallegos's plan for antibiotics and further evaluation in ICU. Will follow.
[2018-03-27] MEDS ORDERED: INSULIN (NOVOLOG) ASPART 100 UNITS/ML 10ML VIAL SQ ONE (17:56)
[2018-03-27] MEDS: INSULIN SLIDING SCALE (NOVOLOG) 1 VIAL SQ SCH ×3 (19:00→21:49)
--- NOTE | 2018-03-27 19:45 | PN ---
Progress Note, Physician History of Present Illness: in icu stable - Current Medication List Current Medications: Active Medications Acetaminophen (Tylenol -) 650 mg PO Q6H PRN PRN Reason: FEVER Last Admin: 03/27/18 13:28 Dose: 650 mg Acetaminophen (Ofirmev Injection -) 1,000 mg IVPB Q6H PRN PRN Reason: FEVER Chlorhexidine Gluconate (Hibiclens For Decolonization -) 1 applic TP HS [facility] Clopidogrel Bisulfate (Plavix -) 75 mg PO DAILY [facility] Last Admin: 03/27/18 09:56 Dose: 75 mg Duloxetine HCl (Cymbalta -) 60 mg PO DAILY [facility] Last Admin: 03/27/18 09:56 Dose: 60 mg Piperacillin Sod/Tazobactam (Sod 3.375 gm/ Dextrose) 50 mls @ 100 mls/hr IVPB Q8H-IV MIRA; Protocol Last Admin: 03/27/18 14:16 Dose: 100 mls/hr Sodium Chloride (Normal Saline -) 1,000 mls @ 200 mls/hr IV ASDIR [facility] Insulin Aspart (Novolog Vial Sliding Scale -) 1 vial SQ Q1H [facility]; Protocol Lisinopril (Prinivil) 10 mg PO DAILY [facility] Last Admin: 03/27/18 09:56 Dose: 10 mg Montelukast Sodium (Singulair -) 10 mg PO HS [facility] Last Admin: 03/26/18 23:04 Dose: 10 mg Mupirocin (Bactroban Ointment (For Decolonization) -) 1 applic NS BID [facility] Stop: 04/01/18 21:59 Oxycodone HCl (Roxicodone -) 10 mg PO Q6H PRN PRN Reason: PAIN Last Admin: 03/27/18 16:43 Dose: 10 mg Prochlorperazine Maleate (Compazine -) 10 mg PO DAILY [facility] Last Admin: 03/27/18 09:56 Dose: 10 mg Ranitidine HCl (Zantac -) 150 mg PO BID PRN PRN Reason: Abdominal pain - Objective Vital Signs: Vital Signs Temperature 98.2 F 03/27/18 17:00 Pulse Rate 124 H 03/27/18 17:00 Respiratory Rate 20 03/27/18 17:00 Blood Pressure 117/70 03/27/18 17:00 O2 Sat by Pulse Oximetry (%) 99 03/26/18 21:00 HENT: Yes: Atraumatic Neck: Yes: Supple Cardiovascular: Yes: Regular Rate and Rhythm Respiratory: Yes: CTA Bilaterally Gastrointestinal: Yes: Normal Bowel Sounds Extremities: Yes: WNL Edema: No Neurological: Yes: Alert, Oriented Labs: CBC, BMP 03/27/18 12:16 03/27/18 12:16 INR, PTT INR 1.33 (0.83-1.09) H 03/25/18 14:58 Problem List - Problems (1) Back pain Assessment/Plan: prn pain meds Code(s): M54.9 - DORSALGIA, UNSPECIFIED (2) Sepsis Assessment/Plan: on abx cxs sent Code(s): A41.9 - SEPSIS, UNSPECIFIED ORGANISM (3) Hypertension Assessment/Plan: on meds stable Code(s): I10 - ESSENTIAL (PRIMARY) HYPERTENSION Qualifiers: Hypertension type: essential hypertension Qualified Code(s): I10 - Essential (primary) hypertension Assessment/Plan icu 35 min
[2018-03-27] MEDS: ACETAMINOPHEN 1000 MG/100 ML VIAL (NON FORMULARY) IVPB PRN (20:00)
[2018-03-27 21:21] LABS: ANION GAP 13 MMOL/L (8-16); BLOOD UREA NITROGEN 13 mg/dL (7-18); CALCIUM 8.2 mg/dL (8.5-10.1); CHLORIDE 95 mmol/L (98-107); CO2 23 mmol/L (21-32); POTASSIUM 4.3 mmol/L (3.5-5.1); SODIUM 130 mmol/L (136-145)
[2018-03-27 21:32] LABS: GLUCOSE,RANDOM 350 mg/dL (74-106)
--- NOTE | 2018-03-27 21:53 | CON.NEURO ---
Consult Consult Specialty:: NEUROLOGY-LIDIA LOCKETT - History of Present Illness History of Present Illness: 67 year old female with a significant PMH of HTN, DM, uterine cancer in remission, and recently diagnosed DVT who presents to the emergency department with worsening right sided hip painx 2 weeks Patient had this right leg pain for the past 4 months, which seemed to improve after starting lovenox for a diagnosed dvt. Patient states she was taking oxycodone for pain but ran out of it this past week. Patient has been unable to ambulate secondary to the pain. At some point Lovenox was discontinued.Patient also had an MRI on 03/22/18 which showed a moderate L5/ S1 dis bulging and associated degenerative disc disease and foraminal stenosis with compression of L5 nerve root. disc protrusion of S1 right nerve root . CT LE/abd/pelvis reports diffuse enlargement of right IP?? hematoma/mass lesion/vs abscess with int. debris. +renal calculus. She is also septic with gram-growth. She has intense pain upon torso movement and movement of right leg. Also reports perineal diminished sensation to touch. She denies LE numbness/paresthesias. - Past Medical History Cardio/Vascular: Yes: HTN ...: No Endocrine: Yes: Diabetes Mellitus - Alcohol/Substance Use Hx Alcohol Use: No - Smoking History Smoking history: Never smoked Have you smoked in the past 12 months: No Aproximately how many cigarettes per day: 0 Home Medications - Allergies Allergies/Adverse Reactions: Allergies Allergy/AdvReac Type Severity Reaction Status Date / Time No Known Allergies Allergy Verified 03/25/18 13:19 - Home Medications Home Medications: Ambulatory Orders Canagliflozin [Invokana] 100 mg PO DAILY 03/21/17 Clopidogrel Bisulfate [Clopidogrel] 75 mg PO DAILY 03/21/17 Duloxetine HCl 60 mg PO DAILY 03/21/17 Ibuprofen 600 mg PO PRN 03/21/17 Lisinopril 10 mg PO DAILY 03/21/17 Montelukast Na [Singulair -] 10 mg PO DAILY 03/21/17 Oxycodone HCl/Acetaminophen [Endocet 5-325 Tablet] 1 tab PO PRN 03/21/17 Prochlorperazine Maleate 10 mg PO DAILY 03/21/17 Famotidine [Pepcid] 20 mg PO BID PRN #28 tablet 03/22/17 Physical Exam-Neuro Vital Signs: Vital Signs Temperature 98.2 F 03/27/18 17:00 Pulse Rate 124 H 03/27/18 17:00 Respiratory Rate 20 03/27/18 17:00 Blood Pressure 117/70 03/27/18 17:00 O2 Sat by Pulse Oximetry (%) 98 03/27/18 09:00 Constitutional: Yes: Ashen (appears toxic) Labs: CBC, BMP 03/27/18 12:16 03/27/18 20:00 INR, PTT INR 1.33 (0.83-1.09) H 03/25/18 14:58 - Neuro Exam Level Of Consciousness: Yes: Alert, Oriented to Person, Oriented to Place, Oriented to Time Eyes: Yes: PERRL Speech: WNL Dominant Hand: Right Mini Mental Exam: anxious, inattentive Cranial Nerves II-XII Intact: Yes DTR's: 0 Right Achilles (Absent right ankle jerk, left is 1+ as is left knee), 1 + Left Achilles, 2+ Left Bicep, 2+ Right Bicep, 2+ Left Tricep, 2+ Right Tricep , 2+ Left Brachioradialis, 2+ Right Brachioradialis Response to light touch: Abnormal (+ severe allodynia entire right thigh, she describes less sensing of touch in perineal region) Motor Strength: 3/5: Right Leg (IP-2/5, H-2/5, Q-3/5, ROM is very limited due to excruciating pain upon any RLE movement.), 5/5: Left Arm, Right Arm, Left Leg Gait: Deferred Assessment/Plan Pt. with pelvic/ lumbar/right hip region pain, right LE weakness and absent reflexes, allodynia in femoral nerve dist.-found to have right psoas region abscess(more likely given sepsis) vs hematoma(she has been on Lovenox). Other entity to consider is a lumbar epidural abscess if right psoas mass not considered to be source of gram -ve sepsis. Suggest: CT pelvis with contrast to help differentiate abscess vs hematoma. CT l/s spine together with this study now that she is having contrast injected to visualize cauda/conus.. U/A &C/S Management of sepsis Would place on a standing dose of Roxicodone 10mg q6H. Thank you. Stoney Garcia MD
--- NOTE | 2018-03-27 22:50 | PN ---
Progress Note (short form) - Note Progress Note: Patient arrived from the floors with a temperature of 103, tachycardic, and normotensive BP. IV Tylenol ordered and given. Chemistry called and reported gram negative growing on blood cultures Bladder scan done and patient was retaining >600. Toney placed. U/A ordered with Urine culture pending Neurologist, Dr. Garcia, at bedside and patient complains of severe right LE and pelvic pain, concerning for epidural abscess. Patient had CT without contrast done, which revealed right psoas region abscess vs. hematoma, likely abscess due to sepsis picture. On Neuro examination patient has LE weakness with absent reflexes. Spoke to Radiologist and Neurologist who recommended CT pelvis/LS spine with contrast to differentiate abscess bs hematoma and visualize any possible cauda/ conus. CT REPORT pending
[2018-03-28] MEDS: INSULIN SLIDING SCALE (NOVOLOG) 1 VIAL SQ SCH ×7 (00:32→21:59)
[2018-03-28] MEDS: MUPIROCIN 2% TOPICAL OINTMENT FOR DECOLONIZATION NS SCH ×3 (00:32→22:00)
[2018-03-28] MEDS: CHLORHEXIDINE GLUCONATE 4% CLEANSER FOR DECOLONIZATION TP SCH ×2 (00:33→22:04)
[2018-03-28] MEDS: SODIUM CHLORIDE 1,000 ML IV SCH (00:33)
[2018-03-28] MEDS ORDERED: DEXTROSE 5%-WATER - 50 ML IVPB ONE ×3 (00:37→16:12)
[2018-03-28] MEDS ORDERED: PIPERACILLIN/TAZOBACTAM 3.375 GM VIAL IVPB ONE ×3 (00:37→16:12)
[2018-03-28] MEDS: oxyCODONE HCL 5 MG TABLET PO PRN ×3 (00:51→22:06)
[2018-03-28] MEDS: ACETAMINOPHEN 1000 MG/100 ML VIAL (NON FORMULARY) IVPB PRN ×3 (00:51→14:20)
[2018-03-28] MEDS: RANITIDINE HCL 150 MG TABLET (FP) PO SCH ×3 (00:51→21:59)
[2018-03-28] MEDS: MONTELUKAST NA 10 MG TABLET PO SCH ×2 (00:52→21:59)
[2018-03-28] MEDS: PIPERACILLIN/TAZOB 3.375 GM 3.375 GM in DEXTROSE 5%-WATER - 50 ML IVPB SCH ×3 (01:30→17:03)
[2018-03-28 01:58] LABS: URINE APPEARANCE CLEAR; URINE BILIRUBIN NEGATIVE (<2.0 mg/dL); URINE COLOR LTYELLOW; URINE GLUCOSE (UA) 3+ (NEGATIVE); URINE KETONE NEGATIVE (NEGATIVE); URINE LEUK ESTERASE TRACE (NEGATIVE); URINE NITRITE NEGATIVE (NEGATIVE); URINE PROTEIN NEGATIVE (NEGATIVE); URINE UROBILINOGEN NEGATIVE mg/dL (0.2-1.0)
[2018-03-28 02:05] LABS: EPI CELLS RARE /HPF (FEW); URINE BACTERIA FEW /hpf (NONE SEEN)
[2018-03-28] MEDS ORDERED: SODIUM CHLORIDE 500 ML IV STA ×4 (02:12→23:28)
[2018-03-28 06:14] LABS: BASO % 0.1 % (0-2.0); HEMATOCRIT 21.8 % (32.4-45.2); LYMPH % 4.1 % (8-40); MCHC 31.6 g/dl (32.0-36.0); MEAN CELL VOLUME 82.2 fl (80-96); MEAN PLT VOLUME 8.3 fl (7.5-11.1); MONO % 5.9 % (3.8-10.2); NEUT % 89.9 % (42.8-82.8); PLATELET COUNT 257 K/MM3 (134-434); RBC 2.66 M/mm3 (3.60-5.2); RDW 18.1 % (11.6-15.6); WHITE BLOOD COUNT 14.8 K/mm3 (4.0-10.0)
[2018-03-28 06:41] LABS: HEMOGLOBIN 6.9 GM/dL (10.7-15.3)
[2018-03-28 06:54] LABS: ANION GAP 6 MMOL/L (8-16); BLOOD UREA NITROGEN 10 mg/dL (7-18); CALCIUM 7.6 mg/dL (8.5-10.1); CHLORIDE 103 mmol/L (98-107); CO2 24 mmol/L (21-32); CREATININE 0.9 mg/dL (0.55-1.3); GLUCOSE,RANDOM 269 mg/dL (74-106); MAGNESIUM 1.4 mg/dL (1.8-2.4); POTASSIUM 4.5 mmol/L (3.5-5.1); SODIUM 133 mmol/L (136-145)
[2018-03-28 08:10] LABS: HEMATOCRIT 22.9 % (32.4-45.2); HEMOGLOBIN 7.2 GM/dL (10.7-15.3); MCH 26.1 pg (25.7-33.7); MCHC 31.6 g/dl (32.0-36.0); MEAN CELL VOLUME 82.5 fl (80-96); MEAN PLT VOLUME 8.2 fl (7.5-11.1); PLATELET COUNT 268 K/MM3 (134-434); RBC 2.77 M/mm3 (3.60-5.2); RDW 17.9 % (11.6-15.6); WHITE BLOOD COUNT 15.3 K/mm3 (4.0-10.0)
[2018-03-28] MEDS ORDERED: MAGNESIUM SULF 50% (8.12 MEQ/2 ML-1 GM VIAL) IVPB ONE (09:00)
[2018-03-28 09:02] LABS: INR 1.39 (0.83-1.09); PROTHROMBIN TIME (PATIENT) 16.5 SEC (9.7-13.0)
[2018-03-28 09:05] LABS: ACTIVATED PTT 29.9 SECONDS (25.2-36.5)
[2018-03-28] MEDS: PROCHLORPERAZINE MALEATE 5 MG TABLET PO SCH (09:13)
[2018-03-28] MEDS: DULoxetine HCL 30 MG CAPSULE.DR (FP) PO SCH (09:13)
[2018-03-28] MEDS: LISINOPRIL 10 MG TABLET (FP) PO SCH (09:14)
[2018-03-28] MEDS ORDERED: CLOPIDOGREL BISULFATE 75 MG TABLET (FP) PO SCH (10:00)
--- NOTE | 2018-03-28 12:37 | CON.CARD ---
Consult Consult Specialty:: Cardiology Referred by:: Slim Zavala MD Reason for Consultation:: Pre-procedure cardiovascular evaluation - History of Present Illness Chief Complaint: Right thigh pain History of Present Illness: 67 year old female with a significant PMH of HTN, DM, uterine cancer in remission, and recently diagnosed DVT who presents to the emergency department with worsening right sided hip painx 2 weeks Patient had this right leg pain for the past 4 months, which seemed to improve after starting lovenox for a diagnosed dvt. Patient states she was taking oxycodone for pain but ran out of it this past week. Patient has been unable to ambulate secondary to the pain. Patient also had an MRI on 03/22/18 which showed a moderate L5/ S1 dis bulging and associated degenerative disc disease and foraminal stenosis with compression of L5 nerve root. disc protrusion of S1 right nerve root . CT LE/abd /pelvis reports diffuse enlargement of right psoas hematoma/mass lesion/vs abscess with int. debris. +renal calculus. She is also septic with gram-growth. She has intense pain upon torso movement and movement of right leg. Also reports perineal diminished sensation to touch. She denies LE numbness/ paresthesias, chest pain, dyspnea, palpitations, near or true syncope, orthopnea , PND or LE edema. - History Source History Provided By: Patient Limitations to Obtaining History: No Limitations - Past Medical History Cardio/Vascular: Yes: HTN ...: No Endocrine: Yes: Diabetes Mellitus - Alcohol/Substance Use Hx Alcohol Use: No - Smoking History Smoking history: Never smoked Have you smoked in the past 12 months: No Aproximately how many cigarettes per day: 0 Home Medications - Allergies Allergies/Adverse Reactions: Allergies Allergy/AdvReac Type Severity Reaction Status Date / Time No Known Allergies Allergy Verified 03/25/18 13:19 - Home Medications Home Medications: Ambulatory Orders Canagliflozin [Invokana] 100 mg PO DAILY 03/21/17 Clopidogrel Bisulfate [Clopidogrel] 75 mg PO DAILY 03/21/17 Duloxetine HCl 60 mg PO DAILY 03/21/17 Ibuprofen 600 mg PO PRN 03/21/17 Lisinopril 10 mg PO DAILY 03/21/17 Montelukast Na [Singulair -] 10 mg PO DAILY 03/21/17 Oxycodone HCl/Acetaminophen [Endocet 5-325 Tablet] 1 tab PO PRN 03/21/17 Prochlorperazine Maleate 10 mg PO DAILY 03/21/17 Famotidine [Pepcid] 20 mg PO BID PRN #28 tablet 03/22/17 Review of Systems - Review of Systems Musculoskeletal: reports: Extremity Pain (Right thigh pain) Vital Signs: Vital Signs Temperature 99.1 F 03/28/18 06:00 Pulse Rate 111 H 03/28/18 08:48 Respiratory Rate 16 03/28/18 08:48 Blood Pressure 117/56 L 03/28/18 08:48 O2 Sat by Pulse Oximetry (%) 98 03/28/18 08:47 Constitutional: Yes: No Distress, Calm Neck: Yes: Supple Respiratory: Yes: Regular, Diminished Gastrointestinal: Yes: Normal Bowel Sounds, Soft Cardiovascular: Yes: Regular Rate and Rhythm Heart Sounds: Yes: S1, S2 Edema: No - Other Data Labs, Other Data: CBC, BMP 03/28/18 07:00 03/28/18 05:30 INR, PTT INR 1.39 (0.83-1.09) H 03/28/18 07:00 Problem List - Problems (1) Psoas abscess, right Code(s): K68.12 - PSOAS MUSCLE ABSCESS (2) Hypertension Code(s): I10 - ESSENTIAL (PRIMARY) HYPERTENSION Qualifiers: Hypertension type: essential hypertension Qualified Code(s): I10 - Essential (primary) hypertension Assessment/Plan 1. Right psoas abscess 2. Gram Negative Bacteremia 3. UTI/Cystitis 4. Acute Kidney Injury 5. Lactic Acidosis 6. Uterine Ca on chemo/RT 7. HTN 8. DM Plan: 1. Abx course per C&S 2. Plavix held, continue lisinopril 10 qd 3. Patient may proceed with IR drainage of abscess from CV-standpoint w/o further testing, f/u would cultures 4. Thank you for consultative opportunity
--- NOTE | 2018-03-28 12:39 | PN ---
Teaching Attending Note Name of Resident: Hannah Isabel ATTENDING PHYSICIAN STATEMENT I saw and evaluated the patient. I reviewed the resident's note and discussed the case with the resident. I agree with the resident's findings and plan as documented. SUBJECTIVE: Pt seen and examined in the ICU. Remains borderline hypotensive but responding to IVF. Blood and urine cultures growing gram negative rods. Pelvis CT showing ileopsoas fluid collection. OBJECTIVE: Vital Signs Period Temp Pulse Resp BP Sys/Leija Pulse Ox Last 24 Hr 98.2 F-104.4 F 102-144 16-30 99-140/51-77 98-98 Intake & Output 03/25/18 03/26/18 03/27/18 03/28/18 23:59 23:59 23:59 23:59 Intake Total 750 1250 2800 Output Total 400 1400 Balance 218 925 6374 Weight 72.575 kg 72.575 kg Gen: somnolent but arousable Heart: tachycardic, regular Lung: decreased breath sounds at the bases Abd: soft, right flank tenderness Ext: no edema CBC, BMP 03/28/18 07:00 03/28/18 05:30 Active Medications Acetaminophen (Ofirmev Injection -) 1,000 mg IVPB Q6H PRN PRN Reason: FEVER Last Admin: 03/28/18 09:14 Dose: 1,000 mg Acetaminophen (Tylenol -) 650 mg PO Q6H PRN PRN Reason: FEVER Chlorhexidine Gluconate (Hibiclens For Decolonization -) 1 applic TP HS [facility] Last Admin: 03/28/18 00:33 Dose: 1 applic Clopidogrel Bisulfate (Plavix -) 75 mg PO DAILY [facility] Last Admin: 03/28/18 09:14 Dose: 75 mg Duloxetine HCl (Cymbalta -) 60 mg PO DAILY [facility] Last Admin: 03/28/18 09:13 Dose: 60 mg Piperacillin Sod/Tazobactam (Sod 3.375 gm/ Dextrose) 50 mls @ 100 mls/hr IVPB Q8H-IV [facility]; Protocol Last Admin: 03/28/18 09:12 Dose: 100 mls/hr Sodium Chloride (Normal Saline -) 1,000 mls @ 125 mls/hr IV ASDIR [facility] Last Admin: 03/28/18 00:33 Dose: 125 mls/hr Insulin Aspart (Novolog Vial Sliding Scale -) 1 vial SQ Q4HPO [facility]; Protocol Last Admin: 03/28/18 11:39 Dose: 10 units Lisinopril (Prinivil) 10 mg PO DAILY [facility] Last Admin: 03/28/18 09:14 Dose: 10 mg Montelukast Sodium (Singulair -) 10 mg PO HS [facility] Last Admin: 03/28/18 00:52 Dose: 10 mg Mupirocin (Bactroban Ointment (For Decolonization) -) 1 applic NS BID [facility] Stop: 04/01/18 21:59 Last Admin: 03/28/18 09:12 Dose: 1 applic Oxycodone HCl (Roxicodone -) 10 mg PO Q6H PRN PRN Reason: PAIN Last Admin: 03/28/18 00:51 Dose: 10 mg Prochlorperazine Maleate (Compazine -) 10 mg PO DAILY [facility] Last Admin: 03/28/18 09:13 Dose: 10 mg Ranitidine HCl (Zantac -) 150 mg PO BID [facility] Last Admin: 03/28/18 09:13 Dose: 150 mg ASSESSMENT AND PLAN: Pelvic Abscess Gram Negative Bacteremia UTI/Cystitis Severe Sepsis Acute Kidney Injury Lactic Acidosis Uterine Ca on chemo/RT HTN DM - continue antibiotics - f/u cultures - IR for CT guided drainage - transfuse platelets prior to drainage - IVF - monitor urine output, creatinine - monitor H/H - transfuse as needed - DVT prophylaxis - continue ICU monitoring critical care time spent in reviewing chart, evaluating patient and formulating plan 35 min
--- NOTE | 2018-03-28 14:06 | PN ---
Progress Note, Physician History of Present Illness: patient was worked up got ct scan found to have abscess in the psoas region patient going for drainage blood cx positive still spiking fevers - Current Medication List Current Medications: Active Medications Acetaminophen (Ofirmev Injection -) 1,000 mg IVPB Q6H PRN PRN Reason: FEVER Last Admin: 03/28/18 09:14 Dose: 1,000 mg Acetaminophen (Tylenol -) 650 mg PO Q6H PRN PRN Reason: FEVER Chlorhexidine Gluconate (Hibiclens For Decolonization -) 1 applic TP HS [facility] Last Admin: 03/28/18 00:33 Dose: 1 applic Clopidogrel Bisulfate (Plavix -) 75 mg PO DAILY [facility] Last Admin: 03/28/18 09:14 Dose: 75 mg Duloxetine HCl (Cymbalta -) 60 mg PO DAILY [facility] Last Admin: 03/28/18 09:13 Dose: 60 mg Piperacillin Sod/Tazobactam (Sod 3.375 gm/ Dextrose) 50 mls @ 100 mls/hr IVPB Q8H-IV [facility]; Protocol Last Admin: 03/28/18 09:12 Dose: 100 mls/hr Sodium Chloride (Normal Saline -) 1,000 mls @ 125 mls/hr IV ASDIR [facility] Last Admin: 03/28/18 00:33 Dose: 125 mls/hr Insulin Aspart (Novolog Vial Sliding Scale -) 1 vial SQ Q4HPO [facility]; Protocol Last Admin: 03/28/18 11:39 Dose: 10 units Lisinopril (Prinivil) 10 mg PO DAILY [facility] Last Admin: 03/28/18 09:14 Dose: 10 mg Montelukast Sodium (Singulair -) 10 mg PO HS [facility] Last Admin: 03/28/18 00:52 Dose: 10 mg Mupirocin (Bactroban Ointment (For Decolonization) -) 1 applic NS BID [facility] Stop: 04/01/18 21:59 Last Admin: 03/28/18 09:12 Dose: 1 applic Oxycodone HCl (Roxicodone -) 10 mg PO Q6H PRN PRN Reason: PAIN Last Admin: 03/28/18 00:51 Dose: 10 mg Prochlorperazine Maleate (Compazine -) 10 mg PO DAILY [facility] Last Admin: 03/28/18 09:13 Dose: 10 mg Ranitidine HCl (Zantac -) 150 mg PO BID [facility] Last Admin: 03/28/18 09:13 Dose: 150 mg - Objective Vital Signs: Vital Signs Temperature 99.1 F 03/28/18 06:00 Pulse Rate 111 H 03/28/18 08:48 Respiratory Rate 16 03/28/18 08:48 Blood Pressure 117/56 L 03/28/18 08:48 O2 Sat by Pulse Oximetry (%) 98 03/28/18 08:47 Constitutional: Yes: Calm Cardiovascular: Yes: Regular Rate and Rhythm Respiratory: Yes: Regular, CTA Bilaterally Gastrointestinal: Yes: Normal Bowel Sounds, Soft Musculoskeletal: Yes: WNL Extremities: Yes: Other (swelling of the leg present) Integumentary: Yes: Other Neurological: Yes: Alert, Oriented Psychiatric: Yes: Alert, Oriented Labs: CBC, BMP 03/28/18 07:00 03/28/18 05:30 INR, PTT INR 1.39 (0.83-1.09) H 03/28/18 07:00 - ....Imaging Cat Scan: Report Reviewed, Image Reviewed Assessment/Plan Pelvic Abscess Gram Negative Bacteremia UTI/Cystitis Severe Sepsis Acute Kidney Injury Lactic Acidosis Uterine Ca on chemo/RT HTN DM plan we will continue abx repeat blood cx monitor for fever rest as per icu patient going to get drainage still with fevers please send cx post drainage cc time 40 min
--- NOTE | 2018-03-28 14:53 | PN ---
Physical Exam: SUBJECTIVE: Patient seen and examined at bedside. Patient still reports right leg pain and back pain. Overnight, patient was noted to be tachycardic, hypotensive and febrile at 103.6. On IV NS @125 and IV Tylenol given. On CT scan , patient was noted to have distended bladder, avila catheter inserted. CT abdomen and pelvis with contrast showed right iliopsoas abscess. Patient was brought down for IR-guided drainage of the abscess. Blood culture and urine culture grew lactose fermenting gram negative bacilli. OBJECTIVE: Vital Signs Period Temp Pulse Resp BP Sys/Leija Pulse Ox Last 24 Hr 98.2 F-104.4 F 102-127 16-30 99-140/51-77 98-98 GENERAL: Awake, alert, and fully oriented, in no acute distress. HEAD: Normal with no signs of trauma. EYES:PERRLA, EOMI, sclera anicteric, conjunctiva clear. EARS, NOSE, THROAT: Ears normal, nares patent, oropharynx clear without exudates. Moist mucous membranes. LUNGS: Breath sounds equal, clear to auscultation bilaterally. HEART: Tachycardic, normal S1 and S2 without murmur, rub or gallop. ABDOMEN: Soft, nontender, not distended, normoactive bowel sounds. MUSCULOSKELETAL: +paraspinal tenderness at the lumbar area UPPER EXTREMITIES: 2+ pulses, warm, well-perfused. No cyanosis. No clubbing. Cap refill <2 seconds. No peripheral edema. LOWER EXTREMITIES: 2+ pulses, warm, well-perfused. No calf tenderness. No peripheral edema. NEUROLOGICAL: Cranial nerves II-XII intact. Normal speech. Gait not observed. RLE: +tenderness on palpation of groin, hip and thigh, motor strength 4/5 limited by pain, sensation intact. LLE: motor strength 5/5, sensation intact PSYCHIATRIC: Cooperative. Good eye contact. Appropriate mood and affect. SKIN: Warm, dry, normal turgor, no rashes or lesions noted. Laboratory Results - last 24 hr 03/27/18 03/27/18 03/27/18 18:45 19:57 20:00 WBC RBC Hgb Hct MCV MCH MCHC RDW Plt Count MPV Absolute Neuts (auto) Neutrophils % Lymphocytes % Monocytes % Eosinophils % Basophils % Nucleated RBC % PT with INR INR PTT (Actin FS) Sodium 130 L Potassium 4.3 Chloride 95 L Carbon Dioxide 23 Anion Gap 13 BUN 13 Creatinine 1.0 Creat Clearance w eGFR 55.64 POC Glucometer [phone] Random Glucose 350 H* Lactic Acid 4.3 H* Calcium 8.2 L Phosphorus Magnesium Urine Color Urine Appearance Urine pH Ur Specific [place] Urine Protein Urine Glucose (UA) Urine Ketones Urine Blood Urine Nitrite Urine Bilirubin Urine Urobilinogen Ur Leukocyte Esterase Urine WBC (Auto) Urine RBC (Auto) Ur Epithelial Cells Urine Bacteria Blood Type Antibody Screen Crossmatch 03/27/18 03/28/18 03/28/18 21:41 00:29 01:47 WBC RBC Hgb Hct MCV MCH MCHC RDW Plt Count MPV Absolute Neuts (auto) Neutrophils % Lymphocytes % Monocytes % Eosinophils % Basophils % Nucleated RBC % PT with INR INR PTT (Actin FS) Sodium Potassium Chloride Carbon Dioxide Anion Gap BUN Creatinine Creat Clearance w eGFR POC Glucometer [phone] Random Glucose Lactic Acid Calcium Phosphorus Magnesium Urine Color Ltyellow Urine Appearance Clear Urine pH 6.0 Ur Specific [place] 1.022 Urine Protein Negative Urine Glucose (UA) 3+ H Urine Ketones Negative Urine Blood 1+ H Urine Nitrite Negative Urine Bilirubin Negative Urine Urobilinogen Negative Ur Leukocyte Esterase Trace Urine WBC (Auto) 23 Urine RBC (Auto) <1 Ur Epithelial Cells Rare Urine Bacteria Few Blood Type Antibody Screen Crossmatch 03/28/18 03/28/18 03/28/18 05:30 05:30 05:30 WBC 14.8 H RBC 2.66 L Hgb 6.9 L* Hct 21.8 L D MCV 82.2 MCH 26.0 MCHC 31.6 L RDW 18.1 H Plt Count 257 D MPV 8.3 Absolute Neuts (auto) 13.3 H Neutrophils % 89.9 H Lymphocytes % 4.1 L D Monocytes % 5.9 Eosinophils % 0.0 Basophils % 0.1 Nucleated RBC % 0 PT with INR INR PTT (Actin FS) Sodium 133 L Potassium 4.5 Chloride 103 Carbon Dioxide 24 Anion Gap 6 L BUN 10 Creatinine 0.9 Creat Clearance w eGFR > 60 POC Glucometer Random Glucose 269 H Lactic Acid 0.5 Calcium 7.6 L Phosphorus 3.0 Magnesium 1.4 L Urine Color Urine Appearance Urine pH Ur Specific [place] Urine Protein Urine Glucose (UA) Urine Ketones Urine Blood Urine Nitrite Urine Bilirubin Urine Urobilinogen Ur Leukocyte Esterase Urine WBC (Auto) Urine RBC (Auto) Ur Epithelial Cells Urine Bacteria Blood Type Antibody Screen Crossmatch 03/28/18 03/28/18 03/28/18 06:25 07:00 07:00 WBC 15.3 H RBC 2.77 L Hgb 7.2 L Hct 22.9 L MCV 82.5 MCH 26.1 MCHC 31.6 L RDW 17.9 H Plt Count 268 MPV 8.2 Absolute Neuts (auto) Neutrophils % Lymphocytes % Monocytes % Eosinophils % Basophils % Nucleated RBC % PT with INR 16.50 H INR 1.39 H PTT (Actin FS) 29.9 Sodium Potassium Chloride Carbon Dioxide Anion Gap BUN Creatinine Creat Clearance w eGFR POC Glucometer [phone] Random Glucose Lactic Acid Calcium Phosphorus Magnesium Urine Color Urine Appearance Urine pH Ur Specific [place] Urine Protein Urine Glucose (UA) Urine Ketones Urine Blood Urine Nitrite Urine Bilirubin Urine Urobilinogen Ur Leukocyte Esterase Urine WBC (Auto) Urine RBC (Auto) Ur Epithelial Cells Urine Bacteria Blood Type Antibody Screen Crossmatch 03/28/18 03/28/18 03/28/18 10:55 11:00 11:30 WBC RBC Hgb Hct MCV MCH MCHC RDW Plt Count MPV Absolute Neuts (auto) Neutrophils % Lymphocytes % Monocytes % Eosinophils % Basophils % Nucleated RBC % PT with INR INR PTT (Actin FS) Sodium Potassium Chloride Carbon Dioxide Anion Gap BUN Creatinine Creat Clearance w eGFR POC Glucometer [phone] Random Glucose Lactic Acid Calcium Phosphorus Magnesium Urine Color Urine Appearance Urine pH Ur Specific [place] Urine Protein Urine Glucose (UA) Urine Ketones Urine Blood Urine Nitrite Urine Bilirubin Urine Urobilinogen Ur Leukocyte Esterase Urine WBC (Auto) Urine RBC (Auto) Ur Epithelial Cells Urine Bacteria Blood Type O POSITIVE O POSITIVE Antibody Screen Negative Crossmatch See Detail Active Medications Generic Name Dose Route Start Last Admin Trade Name Freq PRN Reason Stop Dose Admin Acetaminophen 1,000 mg 03/27/18 19:33 03/28/18 09:14 Ofirmev Injection - IVPB 1,000 mg Q6H PRN Administration FEVER Acetaminophen 650 mg 03/27/18 21:24 Tylenol - PO Q6H PRN FEVER Chlorhexidine Gluconate 1 applic 03/27/18 22:00 03/28/18 00:33 Hibiclens For Decolonization - TP 1 applic HS [facility] Administration Clopidogrel Bisulfate 75 mg 03/28/18 10:00 11/15/18 09:14 Plavix - PO 75 mg DAILY [facility] Administration Duloxetine HCl 60 mg 03/28/18 10:00 03/28/18 09:13 Cymbalta - PO 60 mg DAILY [facility] Administration Piperacillin Sod/Tazobactam 50 mls @ 100 mls/hr 03/28/18 02:00 03/28/18 09:12 Sod 3.375 gm/ Dextrose IVPB 100 mls/hr Q8H-IV [facility] Administration Protocol Sodium Chloride 1,000 mls @ 125 mls/hr 03/28/18 00:13 03/28/18 00:33 Normal Saline - IV 125 mls/hr ASDIR [facility] Administration Insulin Aspart 1 vial 03/28/18 02:00 03/28/18 11:39 Novolog Vial Sliding Scale - SQ 10 units Q4HPO [facility] Administration Protocol Lisinopril 10 mg 03/28/18 10:00 03/28/18 09:14 Prinivil PO 10 mg DAILY [facility] Administration Montelukast Sodium 10 mg 03/27/18 22:00 03/28/18 00:52 Singulair - PO 10 mg HS [facility] Administration Mupirocin 1 applic 03/27/18 22:00 03/28/18 09:12 Bactroban Ointment (For Decolonization) - NS 04/01/18 21:59 1 applic BID [facility] Administration Oxycodone HCl 10 mg 03/27/18 21:24 03/28/18 00:51 Roxicodone - PO 10 mg Q6H PRN Administration PAIN Prochlorperazine Maleate 10 mg 03/28/18 10:00 03/28/18 09:13 Compazine - PO 10 mg DAILY [facility] Administration Ranitidine HCl 150 mg 03/27/18 22:00 03/28/18 09:13 Zantac - PO 150 mg BID [facility] Administration ASSESSMENT/PLAN: Patient is a 67 year old female with past medical history of HTN, DM, and uterine cancer (diagnosed in 2016, on chemotherapy and radiation therapy since June), recently diagnosed DVT, presented with worsening right hip and right thigh pain since 5 days ago. On admission, patient was noted to be tachycardic, with leukocytosis and elevated lactic acid. She was transferred to the ICU for closer monitoring. #Neurology 1)Low back pain 2/2 L5-S1 degenerative disc disease -MRI (03/22/18)- moderate L5/ S1 disc bulging and associated degenerative disc disease and foraminal stenosis with compression of L5 nerve root, disc protrusion of S1 right nerve root. -Neurosurgery (Dr. Caban) consulted. Recommendations appreciated. -Currently the patient is not medically fit for a semi-elective procedure. -Agree with transfer to ICU. Will continue to follow. -Oxycodone 10mg q6h PRN and Tylenol for pain #Infectious disease 1)Severe sepsis, likely 2/2 right iliopsoas abscess -CT abdomen/pelvis with contrast - Large low-attenuation masslike density in the right iliopsoas muscle with faint peripheral enhancement and stranding of the surrounding adjacent fat suspicious for an abscess that appears to be extending inferiorly to superior margin of the right hip joint and involving the right obturator internus. -Dr. Rodriguez consulted. -For IR-guided drainage of the abscess -s/p 1unit FFP, patient on Plavix, dose given in the morning -HR at 100s this morning, WBC trending down to 14.8 -Lactic acid 5.7 --> 4.3 --> 0.5 -Remained febrile with Tmax 102. IV Tyenol given PRN. -Continue IV NS @125ml/hr -Blood cultures and urine cultures - positive for lactose fermenting gram negative bacilli -ID (Dr. Gallegos) consulted. Recommendations appreciated. -Continue Zosyn 3.375gm q8h. -Monitor I/O -Daily weights -Maintain MAP >65 -UO >0.5cc/kg/hr #Cardiology 1)Hypertension: controlled -Continue home Lisinopril 10mg daily 2)Hx of RLE DVT -previously on Lovenox 80 mg BID -Plavix 75mg PO daily #Hematology 1)Normocytic anemia -H/H 7.2/21.8 -may be hemodilution from IVF -will monitor CBC and transfuse with Hgb <7 #Endocrinology 1)DM -BGM q6h -insulin sliding scale q6h #Nephrology 1)Hypomagnesemia: 1.4 -IV Mag 2gm given -will continue to monitor and replete PRN #Oncology 1)Uterine cancer s/p chemo/radiation therapy #FEN -IV NS @ 125ml/hr -routine bmp monitoring -sodium controlled diet #Prophylaxis 1)DVT - SCDs both legs 2)GI -Ranitidine 150mg PO BID PRN #Disposition -full code -transferred to ICU for closer monitoring Dispo: We will continue to follow the patient. Thank you for this consultative opportunity. Visit type - Emergency Visit Emergency Visit: Yes ED Registration Date: 03/26/18 Care time: The patient presented to the Emergency Department on the above date and was hospitalized for further evaluation of their emergent condition. - New Patient This patient is new to me today: Yes Date on this admission: 03/29/18 - Critical Care Critical Care patient: Yes Total Critical Care Time (in minutes): 40 Critical Care Statement: The care of this patient involved high complexity decision making to prevent further life threatening deterioration of the patient 's condition and/or to evaluate & treat vital organ system(s) failure or risk of failure.
[2018-03-28] MEDS ORDERED: ACETAMINOPHEN 1000 MG/100 ML VIAL (NON FORMULARY) IVPB ONE (15:02)
--- NOTE | 2018-03-28 15:24 | PN ---
Progress Note, Physician - Current Medication List Current Medications: Active Medications Acetaminophen (Ofirmev Injection -) 1,000 mg IVPB Q6H PRN PRN Reason: FEVER Last Admin: 03/28/18 09:14 Dose: 1,000 mg Acetaminophen (Tylenol -) 650 mg PO Q6H PRN PRN Reason: FEVER Chlorhexidine Gluconate (Hibiclens For Decolonization -) 1 applic TP HS [facility] Last Admin: 03/28/18 00:33 Dose: 1 applic Clopidogrel Bisulfate (Plavix -) 75 mg PO DAILY [facility] Last Admin: 03/28/18 09:14 Dose: 75 mg Duloxetine HCl (Cymbalta -) 60 mg PO DAILY [facility] Last Admin: 03/28/18 09:13 Dose: 60 mg Piperacillin Sod/Tazobactam (Sod 3.375 gm/ Dextrose) 50 mls @ 100 mls/hr IVPB Q8H-IV [facility] [place]; Protocol Last Admin: 03/28/18 09:12 Dose: 100 mls/hr Sodium Chloride (Normal Saline -) 1,000 mls @ 125 mls/hr IV ASDIR [facility] [place] Last Admin: 03/28/18 00:33 Dose: 125 mls/hr Insulin Aspart (Novolog Vial Sliding Scale -) 1 vial SQ Q4HPO [facility] [place]; Protocol Last Admin: 03/28/18 15:18 Dose: Not Given Lisinopril (Prinivil) 10 mg PO DAILY [facility] Last Admin: 03/28/18 09:14 Dose: 10 mg Montelukast Sodium (Singulair -) 10 mg PO [facility] Last Admin: 03/28/18 00:52 Dose: 10 mg Mupirocin (Bactroban Ointment (For Decolonization) -) 1 applic NS BID [facility] Stop: 04/01/18 21:59 Last Admin: 03/28/18 09:12 Dose: 1 applic Oxycodone HCl (Roxicodone -) 10 mg PO Q6H PRN PRN Reason: PAIN Last Admin: 03/28/18 00:51 Dose: 10 mg Prochlorperazine Maleate (Compazine -) 10 mg PO DAILY [facility] Last Admin: 03/28/18 09:13 Dose: 10 mg Ranitidine HCl (Zantac -) 150 mg PO BID [facility] Last Admin: 03/28/18 09:13 Dose: 150 mg - Objective Vital Signs: Vital Signs Temperature 99.1 F 03/28/18 06:00 Pulse Rate 117 H 03/28/18 15:05 Respiratory Rate 24 H 03/28/18 15:05 Blood Pressure 124/61 03/28/18 15:05 O2 Sat by Pulse Oximetry (%) 100 03/28/18 15:05 Constitutional: Yes: Anxious HENT: Yes: Atraumatic Neck: Yes: Supple Cardiovascular: Yes: Regular Rate and Rhythm Respiratory: Yes: CTA Bilaterally Gastrointestinal: Yes: Normal Bowel Sounds Extremities: Yes: WNL Edema: No Neurological: Yes: Alert, Oriented Labs: CBC, BMP 03/28/18 07:00 03/28/18 05:30 INR, PTT INR 1.39 (0.83-1.09) H 03/28/18 07:00 Problem List - Problems (1) Back pain Assessment/Plan: prn pain meds Code(s): M54.9 - DORSALGIA, UNSPECIFIED (2) Sepsis Assessment/Plan: on abx cxs sent Code(s): A41.9 - SEPSIS, UNSPECIFIED ORGANISM (3) Hypertension Assessment/Plan: on meds stable Code(s): I10 - ESSENTIAL (PRIMARY) HYPERTENSION Qualifiers: Hypertension type: essential hypertension Qualified Code(s): I10 - Essential (primary) hypertension
--- NOTE | 2018-03-28 16:18 | PN ---
Progress Note (short form) - Note Progress Note: Patient returned after she had IR guided aspiration, was found to have hematoma. A small amount was aspirated and sent for culture. Currently, she is stable. Plavix on hold from today.
--- NOTE | 2018-03-28 18:24 | PN ---
Progress Note (short form) - Note Progress Note: Patient spiked fever. Spoke with Dr. stoner who requested to escalate the Abx zosyn coverage to 4.5 dosage. order changed.
[2018-03-28 18:30] LABS: HEMATOCRIT 22.5 % (32.4-45.2); HEMOGLOBIN 7.3 GM/dL (10.7-15.3); MCH 26.7 pg (25.7-33.7); MCHC 32.6 g/dl (32.0-36.0); MEAN CELL VOLUME 81.8 fl (80-96); MEAN PLT VOLUME 8.5 fl (7.5-11.1); PLATELET COUNT 301 K/MM3 (134-434); RBC 2.75 M/mm3 (3.60-5.2); RDW 18.2 % (11.6-15.6); WHITE BLOOD COUNT 15.5 K/mm3 (4.0-10.0)
[2018-03-29] MEDS ORDERED: PIPERACILLIN/TAZOBACTAM 4.5 GM VIAL IVPB ONE ×4 (01:58→23:17)
[2018-03-29] MEDS ORDERED: DEXTROSE 5%-WATER 100 ML IVPB ONE ×4 (01:58→23:17)
[2018-03-29] MEDS: PIPERACILLIN/TAZOB 4.5 GM 4.5 GM in DEXTROSE 5%-WATER 100 ML IVPB SCH ×3 (02:04→17:15)
[2018-03-29] MEDS: INSULIN SLIDING SCALE (NOVOLOG) 1 VIAL SQ SCH ×6 (02:05→21:27)
[2018-03-29] MEDS: SODIUM CHLORIDE 1,000 ML IV SCH ×3 (02:20→17:15)
[2018-03-29] MEDS: oxyCODONE HCL 5 MG TABLET PO PRN ×2 (05:14→17:15)
[2018-03-29 06:22] LABS: ANION GAP 8 MMOL/L (8-16); BLOOD UREA NITROGEN 7 mg/dL (7-18); CALCIUM 8.1 mg/dL (8.5-10.1); CHLORIDE 108 mmol/L (98-107); CO2 23 mmol/L (21-32); CREATININE 0.8 mg/dL (0.55-1.3); GLUCOSE,RANDOM 185 mg/dL (74-106); PHOSPHOROUS 2.5 mg/dL (2.5-4.9); POTASSIUM 4.2 mmol/L (3.5-5.1); SODIUM 138 mmol/L (136-145)
[2018-03-29 06:36] LABS: BASO % 0.1 % (0-2.0); EOS % 0.1 % (0-4.5); LYMPH % 4.5 % (8-40); MCH 25.7 pg (25.7-33.7); MCHC 31.5 g/dl (32.0-36.0); MEAN CELL VOLUME 81.8 fl (80-96); MEAN PLT VOLUME 8.9 fl (7.5-11.1); NEUT % 91.3 % (42.8-82.8); PLATELET COUNT 285 K/MM3 (134-434); RBC 2.59 M/mm3 (3.60-5.2); RDW 18.4 % (11.6-15.6); WHITE BLOOD COUNT 19.2 K/mm3 (4.0-10.0)
[2018-03-29 06:41] LABS: HEMOGLOBIN 6.7 GM/dL (10.7-15.3)
[2018-03-29 06:42] LABS: HEMATOCRIT 21.2 % (32.4-45.2)
[2018-03-29] MEDS: ACETAMINOPHEN 1000 MG/100 ML VIAL (NON FORMULARY) IVPB PRN (07:09)
[2018-03-29] MEDS: DULoxetine HCL 30 MG CAPSULE.DR (FP) PO SCH (10:20)
[2018-03-29] MEDS: RANITIDINE HCL 150 MG TABLET (FP) PO SCH ×2 (10:20→21:27)
[2018-03-29] MEDS: PROCHLORPERAZINE MALEATE 5 MG TABLET PO SCH (10:20)
[2018-03-29] MEDS: MUPIROCIN 2% TOPICAL OINTMENT FOR DECOLONIZATION NS SCH ×2 (10:21→21:27)
[2018-03-29 10:33] LABS: ANISOCYTOSIS 2+; MACROCYTOSIS 0; PLATELET ESTIMATE NORMAL; TARGET CELLS 1+
--- NOTE | 2018-03-29 12:22 | PN ---
Progress Note, Physician History of Present Illness: patient continues to spike fever repeat blood cx still positive sensitivities noted from last blood cx drop in h and h wbc still on the higher side - Current Medication List Current Medications: Active Medications Acetaminophen (Tylenol -) 650 mg PO Q6H PRN PRN Reason: FEVER Chlorhexidine Gluconate (Hibiclens For Decolonization -) 1 applic TP HS [facility] Last Admin: 03/28/18 22:04 Dose: 1 applic Duloxetine HCl (Cymbalta -) 60 mg PO DAILY [facility] Last Admin: 03/29/18 10:20 Dose: 60 mg Sodium Chloride (Normal Saline -) 1,000 mls @ 125 mls/hr IV ASDIR [facility] Last Admin: 03/29/18 06:09 Dose: 125 mls/hr Piperacillin Sod/Tazobactam (Sod 4.5 gm/ Dextrose) 100 mls @ 200 mls/hr IVPB Q8H-IV [facility]; Protocol Last Admin: 03/29/18 10:19 Dose: 200 mls/hr Insulin Aspart (Novolog Vial Sliding Scale -) 1 vial SQ Q4HPO [facility]; Protocol Last Admin: 03/29/18 11:34 Dose: Not Given Lisinopril (Prinivil) 10 mg PO DAILY [facility] Last Admin: 03/28/18 09:14 Dose: 10 mg Montelukast Sodium (Singulair -) 10 mg PO HS [facility] Last Admin: 03/28/18 21:59 Dose: 10 mg Mupirocin (Bactroban Ointment (For Decolonization) -) 1 applic NS BID [facility] Stop: 04/01/18 21:59 Last Admin: 03/29/18 10:21 Dose: 1 applic Oxycodone HCl (Roxicodone -) 10 mg PO Q6H PRN PRN Reason: PAIN Last Admin: 03/29/18 05:14 Dose: 10 mg Prochlorperazine Maleate (Compazine -) 10 mg PO DAILY [facility] Last Admin: 03/29/18 10:20 Dose: 10 mg Ranitidine HCl (Zantac -) 150 mg PO BID [facility] Last Admin: 03/29/18 10:20 Dose: 150 mg - Objective Vital Signs: Vital Signs Temperature 99.4 F 03/29/18 10:00 Pulse Rate 110 H 03/29/18 12:02 Respiratory Rate 18 03/29/18 12:02 Blood Pressure 108/63 03/29/18 12:02 O2 Sat by Pulse Oximetry (%) 100 03/29/18 09:00 Constitutional: Yes: Calm, Mild Distress Cardiovascular: Yes: Regular Rate and Rhythm Respiratory: Yes: Regular, CTA Bilaterally Gastrointestinal: Yes: Normal Bowel Sounds, Soft Musculoskeletal: Yes: Other (thigh size still bigger) Neurological: Yes: Alert, Oriented Psychiatric: Yes: Alert, Oriented Labs: CBC, BMP 03/29/18 05:15 03/29/18 05:15 INR, PTT INR 1.39 (0.83-1.09) H 03/28/18 07:00 Assessment/Plan Pelvic Abscess Gram Negative Bacteremia UTI/Cystitis Severe Sepsis Acute Kidney Injury Lactic Acidosis Uterine Ca on chemo/RT HTN DM plan we will continue abx repeat blood cx monitor for fever rest as per icu still with fevers close watch monitor fo compartment syndrome cc time 40 min
[2018-03-29] MEDS: ACETAMINOPHEN 325 MG TABLET (FP) PO PRN (14:08)
[2018-03-29] MEDS: LISINOPRIL 10 MG TABLET (FP) PO SCH (14:10)
--- NOTE | 2018-03-29 14:45 | PN ---
Teaching Attending Note Name of Resident: Hannah Isabel ATTENDING PHYSICIAN STATEMENT I saw and evaluated the patient. I reviewed the resident's note and discussed the case with the resident. I agree with the resident's findings and plan as documented. SUBJECTIVE: Patient seen and examined in the ICU. Noted drop in H&H. Receiving 2 units of pRBCs. Hemodynamics have remained relatively stable. No CP or SOB. Increased pain in her right thigh A line of demarcation has been drawn. No indication of compartment syndrome. OBJECTIVE: Intake & Output 03/26/18 03/27/18 03/28/18 03/29/18 23:59 23:59 23:59 23:59 Intake Total 750 1250 4000 1025 Output Total 400 3400 1800 Balance 750 850 600 -775 Weight 160 lb Last Vital Signs Temp Pulse Resp BP Pulse Ox 100.4 F H 109 H 18 108/59 L 100 03/29/18 14:00 03/29/18 14:00 03/29/18 14:00 03/29/18 14:00 03/29/18 09:00 Active Medications Acetaminophen (Tylenol -) 650 mg PO Q6H PRN PRN Reason: FEVER Last Admin: 03/29/18 14:08 Dose: 650 mg Chlorhexidine Gluconate (Hibiclens For Decolonization -) 1 applic TP HS [facility] Last Admin: 03/28/18 22:04 Dose: 1 applic Duloxetine HCl (Cymbalta -) 60 mg PO DAILY [facility] Last Admin: 03/29/18 10:20 Dose: 60 mg Sodium Chloride (Normal Saline -) 1,000 mls @ 125 mls/hr IV ASDIR [facility] Last Admin: 03/29/18 06:09 Dose: 125 mls/hr Piperacillin Sod/Tazobactam (Sod 4.5 gm/ Dextrose) 100 mls @ 200 mls/hr IVPB Q8H-IV [facility]; Protocol Last Admin: 03/29/18 10:19 Dose: 200 mls/hr Insulin Aspart (Novolog Vial Sliding Scale -) 1 vial SQ Q4HPO [facility]; Protocol Last Admin: 03/29/18 11:34 Dose: Not Given Lisinopril (Prinivil) 10 mg PO DAILY [facility] Last Admin: 03/29/18 14:10 Dose: 10 mg Montelukast Sodium (Singulair -) 10 mg PO [facility] Last Admin: 03/28/18 21:59 Dose: 10 mg Mupirocin (Bactroban Ointment (For Decolonization) -) 1 applic NS BID [facility] Stop: 04/01/18 21:59 Last Admin: 03/29/18 10:21 Dose: 1 applic Oxycodone HCl (Roxicodone -) 10 mg PO Q6H PRN PRN Reason: PAIN Last Admin: 03/29/18 05:14 Dose: 10 mg Prochlorperazine Maleate (Compazine -) 10 mg PO DAILY [facility] Last Admin: 03/29/18 10:20 Dose: 10 mg Ranitidine HCl (Zantac -) 150 mg PO BID [facility] Last Admin: 03/29/18 10:20 Dose: 150 mg Gen: Awake and alert and oriented Heart: tachycardic, regular Lung: decreased breath sounds at the bases Abd: soft, right flank tenderness Ext: (+) Tenderness and swelling of the right thigh to the mid-level [employer] IN[employer]: non-focal Intake & Output 03/26/18 03/27/18 03/28/18 03/29/18 23:59 23:59 23:59 23:59 Intake Total 750 1250 4000 1025 Output Total 400 3400 1800 Balance 750 850 600 -775 Weight 160 lb Last Vital Signs Temp Pulse Resp BP Pulse Ox 100.4 F H 109 H 18 108/59 L 100 03/29/18 14:00 03/29/18 14:00 03/29/18 14:00 03/29/18 14:00 03/29/18 09:00 Active Medications Acetaminophen (Tylenol -) 650 mg PO Q6H PRN PRN Reason: FEVER Last Admin: 03/29/18 14:08 Dose: 650 mg Chlorhexidine Gluconate (Hibiclens For Decolonization -) 1 applic TP HS [facility] Last Admin: 03/28/18 22:04 Dose: 1 applic Duloxetine HCl (Cymbalta -) 60 mg PO DAILY [facility] Last Admin: 03/29/18 10:20 Dose: 60 mg Sodium Chloride (Normal Saline -) 1,000 mls @ 125 mls/hr IV ASDIR [facility] Last Admin: 03/29/18 06:09 Dose: 125 mls/hr Piperacillin Sod/Tazobactam (Sod 4.5 gm/ Dextrose) 100 mls @ 200 mls/hr IVPB Q8H-IV [facility]; Protocol Last Admin: 03/29/18 10:19 Dose: 200 mls/hr Insulin Aspart (Novolog Vial Sliding Scale -) 1 vial SQ Q4HPO [facility]; Protocol Last Admin: 03/29/18 11:34 Dose: Not Given Lisinopril (Prinivil) 10 mg PO DAILY [facility] Last Admin: 03/29/18 14:10 Dose: 10 mg Montelukast Sodium (Singulair -) 10 mg PO HS [facility] Last Admin: 03/28/18 21:59 Dose: 10 mg Mupirocin (Bactroban Ointment (For Decolonization) -) 1 applic NS BID [facility] Stop: 04/01/18 21:59 Last Admin: 03/29/18 10:21 Dose: 1 applic Oxycodone HCl (Roxicodone -) 10 mg PO Q6H PRN PRN Reason: PAIN Last Admin: 03/29/18 05:14 Dose: 10 mg Prochlorperazine Maleate (Compazine -) 10 mg PO DAILY [facility] Last Admin: 03/29/18 10:20 Dose: 10 mg Ranitidine HCl (Zantac -) 150 mg PO BID [facility] Last Admin: 03/29/18 10:20 Dose: 150 mg ASSESSMENT AND PLAN: Pelvic Abscess Gram Negative Bacteremia UTI/Cystitis Severe Sepsis Acute Kidney Injury Lactic Acidosis Uterine Ca on chemo/RT HTN DM Hematoma - Close monitoring of H&H - Normal transfusion thresholds - ABX per ID - f/u cultures - IVF - monitor urine output, creatinine - monitor H/H - transfuse as needed - DVT prophylaxis - continue ICU monitoring for tenuous status Dr De Luna Critical care time spent in reviewing chart, evaluating patient and formulating plan 35 min
--- NOTE | 2018-03-29 15:55 | PN ---
Physical Exam: SUBJECTIVE: Patient seen and examined at bedside. Patient was noted to have high fevers yesterday afternoon with Tmax 103.1. IV Tylenol given PRN and patient put on cooling blankets. Overnight no fever episodes. Today, patient again had fever and was given Tylenol. Yesterday, IR-guided drainage was done and patient was noted to have hematoma on the iliopsoas. A sample was taken for culture. Patient has been noted to have progressive right thigh swelling, measuring 29cm in diameter this morning. Patient also noted to have anemia with Hgb 6.7, 1 unit pRBC transfused. Patient reporting right thigh pain, and today has RLQ pain. OBJECTIVE: Vital Signs Period Temp Pulse Resp BP Sys/Leija Pulse Ox Last 24 Hr 97.8 F-103.1 F 109-123 15-31 88-149/49-65 100-100 GENERAL: Awake, alert, and fully oriented, in no acute distress. HEAD: Normal with no signs of trauma. EYES:PERRLA, EOMI, sclera anicteric, conjunctiva clear. EARS, NOSE, THROAT: Ears normal, nares patent, oropharynx clear without exudates. Moist mucous membranes. LUNGS: Breath sounds equal, clear to auscultation bilaterally. HEART: Tachycardic, normal S1 and S2 without murmur, rub or gallop. ABDOMEN: Soft, +RLQ tenderness, not distended, normoactive bowel sounds. MUSCULOSKELETAL: +paraspinal tenderness at the lumbar area UPPER EXTREMITIES: 2+ pulses, warm, well-perfused. No cyanosis. No clubbing. Cap refill <2 seconds. No peripheral edema. LOWER EXTREMITIES: 2+ pulses, warm, well-perfused. No calf tenderness. + tenderness and nonpitting edema of right thigh NEUROLOGICAL: Cranial nerves II-XII intact. Normal speech. Gait not observed. RLE: +tenderness on palpation of groin, hip and thigh, motor strength 4/5 limited by pain, sensation intact. LLE: motor strength 5/5, sensation intact PSYCHIATRIC: Cooperative. Good eye contact. Appropriate mood and affect. SKIN: Warm, dry, normal turgor, no rashes or lesions noted. Laboratory Results - last 24 hr 03/27/18 03/27/18 03/27/18 16:31 17:44 17:45 WBC RBC Hgb Hct MCV MCH MCHC RDW Plt Count MPV Absolute Neuts (auto) Neutrophils % Neutrophils % (Manual) Band Neutrophils % Lymphocytes % Lymphocytes % (Manual) Monocytes % Monocytes % (Manual) Eosinophils % Eosinophils % (Manual) Basophils % Basophils % (Manual) Myelocytes % (Man) Promyelocytes % (Man) Blast Cells % (Manual) Nucleated RBC % Metamyelocytes Hypochromia Platelet Estimate Polychromasia Poikilocytosis Anisocytosis Microcytosis Macrocytosis Target Cells Schistocytes Sodium Potassium Chloride Carbon Dioxide Anion Gap BUN Creatinine Creat Clearance w eGFR POC Glucometer 503 502 510 Random Glucose Calcium Phosphorus Magnesium Influenza A (Rapid) Influenza B (Rapid) Blood Type Antibody Screen Crossmatch 03/27/18 03/28/18 03/28/18 18:27 11:00 17:10 WBC RBC Hgb Hct MCV MCH MCHC RDW Plt Count MPV Absolute Neuts (auto) Neutrophils % Neutrophils % (Manual) Band Neutrophils % Lymphocytes % Lymphocytes % (Manual) Monocytes % Monocytes % (Manual) Eosinophils % Eosinophils % (Manual) Basophils % Basophils % (Manual) Myelocytes % (Man) Promyelocytes % (Man) Blast Cells % (Manual) Nucleated RBC % Metamyelocytes Hypochromia Platelet Estimate Polychromasia Poikilocytosis Anisocytosis Microcytosis Macrocytosis Target Cells Schistocytes Sodium Potassium Chloride Carbon Dioxide Anion Gap BUN Creatinine Creat Clearance w eGFR POC Glucometer [phone] Random Glucose Calcium Phosphorus Magnesium Influenza A (Rapid) Influenza B (Rapid) Blood Type O POSITIVE Antibody Screen Negative Crossmatch See Detail 03/28/18 03/28/18 03/28/18 17:30 18:30 21:54 WBC 15.5 H RBC 2.75 L Hgb 7.3 L Hct 22.5 L MCV 81.8 MCH 26.7 MCHC 32.6 RDW 18.2 H Plt Count 301 MPV 8.5 Absolute Neuts (auto) Neutrophils % Neutrophils % (Manual) Band Neutrophils % Lymphocytes % Lymphocytes % (Manual) Monocytes % Monocytes % (Manual) Eosinophils % Eosinophils % (Manual) Basophils % Basophils % (Manual) Myelocytes % (Man) Promyelocytes % (Man) Blast Cells % (Manual) Nucleated RBC % Metamyelocytes Hypochromia Platelet Estimate Polychromasia Poikilocytosis Anisocytosis Microcytosis Macrocytosis Target Cells Schistocytes Sodium Potassium Chloride Carbon Dioxide Anion Gap BUN Creatinine Creat Clearance w eGFR POC Glucometer [phone] Random Glucose Calcium Phosphorus Magnesium Influenza A (Rapid) Negative Influenza B (Rapid) Negative Blood Type Antibody Screen Crossmatch 03/29/18 03/29/18 03/29/18 01:56 05:15 05:15 WBC 19.2 H RBC 2.59 L Hgb 6.7 L* Hct 21.2 L MCV 81.8 MCH 25.7 MCHC 31.5 L RDW 18.4 H Plt Count 285 MPV 8.9 Absolute Neuts (auto) 17.6 H Neutrophils % 91.3 H Neutrophils % (Manual) 67.0 Band Neutrophils % 22.0 Lymphocytes % 4.5 L Lymphocytes % (Manual) 5.0 L Monocytes % 4.0 Monocytes % (Manual) 5 Eosinophils % 0.1 D Eosinophils % (Manual) 0.0 Basophils % 0.1 Basophils % (Manual) 0.0 Myelocytes % (Man) 0 Promyelocytes % (Man) 0 Blast Cells % (Manual) 0 Nucleated RBC % 0 Metamyelocytes 1 Hypochromia 0 Platelet Estimate Normal Polychromasia 0 Poikilocytosis 1+ Anisocytosis 2+ Microcytosis 2+ Macrocytosis 0 Target Cells 1+ Schistocytes 1+ Sodium 138 Potassium 4.2 Chloride 108 H Carbon Dioxide 23 Anion Gap 8 BUN 7 Creatinine 0.8 Creat Clearance w eGFR > 60 POC Glucometer [phone] Random Glucose 185 H Calcium 8.1 L Phosphorus 2.5 Magnesium 2.0 Influenza A (Rapid) Influenza B (Rapid) Blood Type Antibody Screen Crossmatch 03/29/18 06:00 WBC RBC Hgb Hct MCV MCH MCHC RDW Plt Count MPV Absolute Neuts (auto) Neutrophils % Neutrophils % (Manual) Band Neutrophils % Lymphocytes % Lymphocytes % (Manual) Monocytes % Monocytes % (Manual) Eosinophils % Eosinophils % (Manual) Basophils % Basophils % (Manual) Myelocytes % (Man) Promyelocytes % (Man) Blast Cells % (Manual) Nucleated RBC % Metamyelocytes Hypochromia Platelet Estimate Polychromasia Poikilocytosis Anisocytosis Microcytosis Macrocytosis Target Cells Schistocytes Sodium Potassium Chloride Carbon Dioxide Anion Gap BUN Creatinine Creat Clearance w eGFR POC Glucometer [phone] Random Glucose Calcium Phosphorus Magnesium Influenza A (Rapid) Influenza B (Rapid) Blood Type Antibody Screen Crossmatch Active Medications Generic Name Dose Route Start Last Admin Trade Name Freq PRN Reason Stop Dose Admin Acetaminophen 650 mg 03/27/18 21:24 03/29/18 14:08 Tylenol - PO 650 mg Q6H PRN Administration FEVER Chlorhexidine Gluconate 1 applic 03/27/18 22:00 03/28/18 22:04 Hibiclens For Decolonization - TP 1 applic HS [facility] Administration Duloxetine HCl 60 mg 03/28/18 10:00 03/29/18 10:20 Cymbalta - PO 60 mg DAILY [facility] Administration Sodium Chloride 1,000 mls @ 125 mls/hr 03/28/18 00:13 03/29/18 06:09 Normal Saline - IV 125 mls/hr ASDIR [facility] Administration Piperacillin Sod/Tazobactam 100 mls @ 200 mls/hr 03/29/18 02:00 03/29/18 10: 19 Sod 4.5 gm/ Dextrose IVPB 200 mls/hr Q8H-IV [facility] Administration Protocol Insulin Aspart 1 vial 03/28/18 02:00 03/29/18 11:34 Novolog Vial Sliding Scale - SQ Not Given Q4HPO [facility] Protocol Lisinopril 10 mg 03/28/18 10:00 03/29/18 14:10 Prinivil PO 10 mg DAILY [facility] Administration Montelukast Sodium 10 mg 03/27/18 22:00 03/28/18 21:59 Singulair - PO 10 mg HS [facility] Administration Mupirocin 1 applic 03/27/18 22:00 03/29/18 10:21 Bactroban Ointment (For Decolonization) - NS 04/01/18 21:59 1 applic BID [facility] Administration Oxycodone HCl 10 mg 03/27/18 21:24 03/29/18 05:14 Roxicodone - PO 10 mg Q6H PRN Administration PAIN Prochlorperazine Maleate 10 mg 03/28/18 10:00 03/29/18 10:20 Compazine - PO 10 mg DAILY [facility] Administration Ranitidine HCl 150 mg 03/27/18 22:00 03/29/18 10:20 Zantac - PO 150 mg BID [facility] Administration ASSESSMENT/PLAN: Patient is a 67 year old female with past medical history of HTN, DM, and uterine cancer (diagnosed in 2016, on chemotherapy and radiation therapy since June), recently diagnosed DVT, presented with worsening right hip and right thigh pain since 5 days ago. On admission, patient was noted to be tachycardic, with leukocytosis and elevated lactic acid. She was transferred to the ICU for closer monitoring. #Neurology 1)Low back pain 2/2 L5-S1 degenerative disc disease -MRI (03/22/18)- moderate L5/ S1 disc bulging and associated degenerative disc disease and foraminal stenosis with compression of L5 nerve root, disc protrusion of S1 right nerve root. -Neurosurgery (Dr. Caban) consulted. Recommendations appreciated. -Currently the patient is not medically fit for a semi-elective procedure. -Agree with transfer to ICU. Will continue to follow. -Oxycodone 10mg q6h PRN and Tylenol for pain #Infectious disease 1)Severe sepsis, likely 2/2 UTI -CT abdomen/pelvis with contrast - Large low-attenuation masslike density in the right iliopsoas muscle with faint peripheral enhancement and stranding of the surrounding adjacent fat suspicious for an abscess that appears to be extending inferiorly to superior margin of the right hip joint and involving the right obturator internus. -IR-guided drainage done yesterday, revealed hematoma. -Sample taken and sent for culture. -Lactic acid 5.7 --> 4.3 --> 0.5 -Remained febrile with Tmax 103. IV Tyenol given PRN. -Continue IV NS @125ml/hr -Blood cultures and urine cultures - positive for E.coli -ID (Dr. Gallegos) consulted. Recommendations appreciated. -Zosyn increased to 4.5gm q8h. -Monitor I/O -Daily weights -Maintain MAP >65 -UO >0.5cc/kg/hr #Cardiology 1)Hypertension: controlled -Continue home Lisinopril 10mg daily 2)Hx of RLE DVT -previously on Lovenox 80 mg BID -Plavix 75mg PO daily #Hematology 1)Normocytic anemia -H/H 7.2/21.8 -may be hemodilution from IVF -will monitor CBC and transfuse with Hgb <7 2)Right iliopsoas hematoma, likely 2/2 to Lovenox and Plavix use -Stopped all AC -Last dose of plavix given at 03/28 -Will continue monitoring vital signs and CBC q6h -May need Desmopressin -Measure RLE daily, likely have active bleeding #Endocrinology 1)DM -BGM ACHS -insulin sliding scale ACHS #Nephrology 1)Hypomagnesemia: resolved -2.0 today -will continue to monitor and replete PRN #Oncology 1)Uterine cancer s/p chemo/radiation therapy #FEN -IV NS @ 125ml/hr -routine bmp monitoring -sodium controlled diet #Prophylaxis 1)DVT - SCDs both legs. No chemical PPx 2)GI -Ranitidine 150mg PO BID #Disposition -full code -transferred to ICU for closer monitoring Dispo: We will continue to follow the patient. Thank you for this consultative opportunity. Visit type - Emergency Visit Emergency Visit: Yes ED Registration Date: 03/26/18 Care time: The patient presented to the Emergency Department on the above date and was hospitalized for further evaluation of their emergent condition. - New Patient This patient is new to me today: Yes Date on this admission: 03/29/18 - Critical Care Critical Care patient: Yes Total Critical Care Time (in minutes): 40 Critical Care Statement: The care of this patient involved high complexity decision making to prevent further life threatening deterioration of the patient 's condition and/or to evaluate & treat vital organ system(s) failure or risk of failure.
[2018-03-29 16:24] LABS: HEMATOCRIT 27.6 % (32.4-45.2); HEMOGLOBIN 8.7 GM/dL (10.7-15.3); MCH 26.7 pg (25.7-33.7); MCHC 31.7 g/dl (32.0-36.0); MEAN CELL VOLUME 84.3 fl (80-96); MEAN PLT VOLUME 9.1 fl (7.5-11.1); PLATELET COUNT 291 K/MM3 (134-434); RBC 3.28 M/mm3 (3.60-5.2); WHITE BLOOD COUNT 20.5 K/mm3 (4.0-10.0)
[2018-03-29] MEDS ORDERED: ACETAMINOPHEN 1000 MG/100 ML VIAL (NON FORMULARY) IVPB ONE (17:15)
--- NOTE | 2018-03-29 17:17 | PN ---
Progress Note, Physician History of Present Illness: Low grade fevers, underwent IR drainage of right iliopsoas abscess. Transfused pRBC for post-procedure hematoma. - Current Medication List Current Medications: Active Medications Acetaminophen (Tylenol -) 650 mg PO Q6H PRN PRN Reason: FEVER Last Admin: 03/29/18 14:08 Dose: 650 mg Acetaminophen (Ofirmev Injection -) 1,000 mg IVPB ONCE ONE Stop: 03/29/18 17:16 Chlorhexidine Gluconate (Hibiclens For Decolonization -) 1 applic TP HS [facility] Last Admin: 03/28/18 22:04 Dose: 1 applic Duloxetine HCl (Cymbalta -) 60 mg PO DAILY [facility] Last Admin: 03/29/18 10:20 Dose: 60 mg Sodium Chloride (Normal Saline -) 1,000 mls @ 125 mls/hr IV ASDIR [facility] Last Admin: 03/29/18 06:09 Dose: 125 mls/hr Piperacillin Sod/Tazobactam (Sod 4.5 gm/ Dextrose) 100 mls @ 200 mls/hr IVPB Q8H-IV [facility]; Protocol Last Admin: 03/29/18 10:19 Dose: 200 mls/hr Insulin Aspart (Novolog Vial Sliding Scale -) 1 vial SQ ACHS [facility]; Protocol Lisinopril (Prinivil) 10 mg PO DAILY [facility] Last Admin: 03/29/18 14:10 Dose: 10 mg Montelukast Sodium (Singulair -) 10 mg PO HS [facility] Last Admin: 03/28/18 21:59 Dose: 10 mg Mupirocin (Bactroban Ointment (For Decolonization) -) 1 applic NS BID [facility] Stop: 04/01/18 21:59 Last Admin: 03/29/18 10:21 Dose: 1 applic Oxycodone HCl (Roxicodone -) 10 mg PO Q6H PRN PRN Reason: PAIN Last Admin: 03/29/18 05:14 Dose: 10 mg Prochlorperazine Maleate (Compazine -) 10 mg PO DAILY [facility] Last Admin: 03/29/18 10:20 Dose: 10 mg Ranitidine HCl (Zantac -) 150 mg PO BID [facility] Last Admin: 03/29/18 10:20 Dose: 150 mg - Objective Vital Signs: Vital Signs Temperature 100.4 F H 03/29/18 14:00 Pulse Rate 109 H 03/29/18 14:00 Respiratory Rate 18 03/29/18 14:00 Blood Pressure 108/59 L 03/29/18 14:00 O2 Sat by Pulse Oximetry (%) 100 03/29/18 09:00 Constitutional: Yes: No Distress, Calm Neck: Yes: Supple Cardiovascular: Yes: Regular Rate and Rhythm Respiratory: Yes: Regular, Diminished, On Nasal O2 Gastrointestinal: Yes: Soft, Hypoactive Bowel Sounds Edema: No Labs: CBC, BMP 03/29/18 15:52 03/29/18 05:15 INR, PTT INR 1.39 (0.83-1.09) H 03/28/18 07:00 Problem List - Problems (1) Psoas abscess, right Code(s): K68.12 - PSOAS MUSCLE ABSCESS (2) Hypertension Code(s): I10 - ESSENTIAL (PRIMARY) HYPERTENSION Qualifiers: Hypertension type: essential hypertension Qualified Code(s): I10 - Essential (primary) hypertension (3) Anemia Code(s): D64.9 - ANEMIA, UNSPECIFIED Qualifiers: Iron deficiency anemia type: chronic blood loss Assessment/Plan 1. Right iliopsoas abscess s/p IR drainage 2. Gram Negative Bacteremia 3. UTI/Cystitis 4. Acute Kidney Injury 5. Lactic Acidosis 6. Uterine Ca on chemo/RT 7. HTN 8. DM 9. Anemia post transfusion Plan: 1. Abx course per blood and wound C&S 2. Plavix held pending hemostasis, continue lisinopril 10 qd, monitor Hgb post transfusion
[2018-03-29 18:09] LABS: HEMATOCRIT 24.8 % (32.4-45.2); MCH 26.8 pg (25.7-33.7); MCHC 32.3 g/dl (32.0-36.0); MEAN CELL VOLUME 82.9 fl (80-96); MEAN PLT VOLUME 8.8 fl (7.5-11.1); PLATELET COUNT 294 K/MM3 (134-434); RBC 2.99 M/mm3 (3.60-5.2); WHITE BLOOD COUNT 17.5 K/mm3 (4.0-10.0)
--- NOTE | 2018-03-29 19:32 | PN ---
Progress Note, Physician - Current Medication List Current Medications: Active Medications Acetaminophen (Tylenol -) 650 mg PO Q6H PRN PRN Reason: FEVER Last Admin: 03/29/18 14:08 Dose: 650 mg Chlorhexidine Gluconate (Hibiclens For Decolonization -) 1 applic TP HS [facility] Last Admin: 03/28/18 22:04 Dose: 1 applic Duloxetine HCl (Cymbalta -) 60 mg PO DAILY [facility] Last Admin: 03/29/18 10:20 Dose: 60 mg Sodium Chloride (Normal Saline -) 1,000 mls @ 125 mls/hr IV ASDIR [facility] Last Admin: 03/29/18 17:15 Dose: 125 mls/hr Piperacillin Sod/Tazobactam (Sod 4.5 gm/ Dextrose) 100 mls @ 200 mls/hr IVPB Q8H-IV [facility]; Protocol Last Admin: 03/29/18 17:15 Dose: 200 mls/hr Insulin Aspart (Novolog Vial Sliding Scale -) 1 vial SQ ACHS [facility]; Protocol Last Admin: 03/29/18 17:00 Dose: 6 units Lisinopril (Prinivil) 10 mg PO DAILY [facility] Last Admin: 03/29/18 14:10 Dose: 10 mg Montelukast Sodium (Singulair -) 10 mg PO HS [facility] Last Admin: 03/28/18 21:59 Dose: 10 mg Mupirocin (Bactroban Ointment (For Decolonization) -) 1 applic NS BID [facility] Stop: 04/01/18 21:59 Last Admin: 03/29/18 10:21 Dose: 1 applic Oxycodone HCl (Roxicodone -) 10 mg PO Q6H PRN PRN Reason: PAIN Last Admin: 03/29/18 17:15 Dose: 10 mg Prochlorperazine Maleate (Compazine -) 10 mg PO DAILY [facility] Last Admin: 03/29/18 10:20 Dose: 10 mg Ranitidine HCl (Zantac -) 150 mg PO BID [facility] Last Admin: 03/29/18 10:20 Dose: 150 mg - Objective Vital Signs: Vital Signs Temperature 100.7 F H 03/29/18 18:17 Pulse Rate 110 H 03/29/18 18:17 Respiratory Rate 24 H 03/29/18 18:17 Blood Pressure 112/59 L 03/29/18 18:17 O2 Sat by Pulse Oximetry (%) 100 03/29/18 09:00 Constitutional: Yes: No Distress HENT: Yes: Atraumatic Neck: Yes: Supple Cardiovascular: Yes: Regular Rate and Rhythm Respiratory: Yes: CTA Bilaterally Gastrointestinal: Yes: Normal Bowel Sounds Extremities: Yes: WNL Edema: No Neurological: Yes: Alert, Oriented Labs: CBC, BMP 03/29/18 17:00 03/29/18 05:15 INR, PTT INR 1.39 (0.83-1.09) H 03/28/18 07:00 Problem List - Problems (1) Back pain Assessment/Plan: prn pain meds Code(s): M54.9 - DORSALGIA, UNSPECIFIED (2) Sepsis Assessment/Plan: on abx cxs noted id on board Code(s): A41.9 - SEPSIS, UNSPECIFIED ORGANISM (3) Hematoma Assessment/Plan: h/h trending down R thigh size increasing...monitoring thigh size Code(s): T14.8XXA - OTHER INJURY OF UNSPECIFIED BODY REGION, INITIAL ENCOUNTER (4) UTI (urinary tract infection) Assessment/Plan: on abx cxs noted Code(s): N39.0 - URINARY TRACT INFECTION, SITE NOT SPECIFIED (5) Anemia Assessment/Plan: monitor h/h transfuse prbc as needed Code(s): D64.9 - ANEMIA, UNSPECIFIED Qualifiers: Iron deficiency anemia type: chronic blood loss (6) Psoas abscess, right Code(s): K68.12 - PSOAS MUSCLE ABSCESS Assessment/Plan Diagnoses Pelvic Abscess Gram Negative Bacteremia UTI/Cystitis Severe Sepsis Acute Kidney Injury Lactic Acidosis Uterine Ca on chemo/RT HTN DM Hematoma -
[2018-03-29] MEDS: CHLORHEXIDINE GLUCONATE 4% CLEANSER FOR DECOLONIZATION TP SCH (21:27)
[2018-03-29] MEDS: MONTELUKAST NA 10 MG TABLET PO SCH (21:27)
[2018-03-29 22:21] LABS: HEMATOCRIT 23.4 % (32.4-45.2); HEMOGLOBIN 7.6 GM/dL (10.7-15.3); MCHC 32.4 g/dl (32.0-36.0); MEAN CELL VOLUME 83.2 fl (80-96); MEAN PLT VOLUME 8.8 fl (7.5-11.1); PLATELET COUNT 284 K/MM3 (134-434); RBC 2.81 M/mm3 (3.60-5.2); WHITE BLOOD COUNT 15.9 K/mm3 (4.0-10.0)
[2018-03-30] MEDS: SODIUM CHLORIDE 1,000 ML IV SCH ×3 (00:30→17:40)
[2018-03-30 02:29] LABS: HEMATOCRIT 24.9 % (32.4-45.2); HEMOGLOBIN 8.1 GM/dL (10.7-15.3); MCH 27.2 pg (25.7-33.7); MCHC 32.7 g/dl (32.0-36.0); MEAN CELL VOLUME 83.3 fl (80-96); MEAN PLT VOLUME 8.7 fl (7.5-11.1); PLATELET COUNT 331 K/MM3 (134-434); RBC 2.99 M/mm3 (3.60-5.2); RDW 17.8 % (11.6-15.6); WHITE BLOOD COUNT 18.6 K/mm3 (4.0-10.0)
[2018-03-30] MEDS ORDERED: DEXTROSE 5%-WATER 100 ML IVPB ONE ×2 (02:30→08:46)
[2018-03-30] MEDS ORDERED: PIPERACILLIN/TAZOBACTAM 4.5 GM VIAL IVPB ONE ×3 (02:30→17:18)
[2018-03-30] MEDS: ACETAMINOPHEN 325 MG TABLET (FP) PO PRN ×4 (02:55→21:32)
[2018-03-30 03:00] LABS: INR 1.18 (0.83-1.09)
[2018-03-30] MEDS: PIPERACILLIN/TAZOB 4.5 GM 4.5 GM in DEXTROSE 5%-WATER 100 ML IVPB SCH ×3 (03:00→17:39)
[2018-03-30] MEDS: oxyCODONE HCL 5 MG TABLET PO PRN ×3 (05:43→22:45)
[2018-03-30 06:18] LABS: HEMATOCRIT 22.7 % (32.4-45.2); HEMOGLOBIN 7.2 GM/dL (10.7-15.3); MCH 26.4 pg (25.7-33.7); MCHC 31.7 g/dl (32.0-36.0); MEAN CELL VOLUME 83.3 fl (80-96); MEAN PLT VOLUME 8.7 fl (7.5-11.1); PLATELET COUNT 294 K/MM3 (134-434); RBC 2.72 M/mm3 (3.60-5.2); WHITE BLOOD COUNT 16.4 K/mm3 (4.0-10.0)
[2018-03-30 06:34] LABS: ANION GAP 9 MMOL/L (8-16); BLOOD UREA NITROGEN 12 mg/dL (7-18); CALCIUM 8.2 mg/dL (8.5-10.1); CHLORIDE 106 mmol/L (98-107); CO2 23 mmol/L (21-32); CREATININE 0.8 mg/dL (0.55-1.3); GLUCOSE,RANDOM 215 mg/dL (74-106); MAGNESIUM 1.9 mg/dL (1.8-2.4); PHOSPHOROUS 2.4 mg/dL (2.5-4.9); POTASSIUM 3.9 mmol/L (3.5-5.1); SODIUM 138 mmol/L (136-145)
[2018-03-30] MEDS: INSULIN SLIDING SCALE (NOVOLOG) 1 VIAL SQ SCH ×4 (06:52→21:39)
[2018-03-30] MEDS ORDERED: PT OWN MED DRAWER 7, Y5N ONE (08:46)
--- NOTE | 2018-03-30 09:18 | PN ---
Progress Note (short form) - Note Progress Note: SUBJECTIVE: Patient seen and examined in the ICU. -crit still dropping slowly, rechecking this am -low grade temp, + blood cxl from yesterday -thigh warm but not hot, peripheral pulses intact No indication of compartment syndrome. OBJECTIVE: Active Medications Acetaminophen (Tylenol -) 650 mg PO Q6H PRN PRN Reason: FEVER Last Admin: 03/30/18 02:55 Dose: 650 mg Chlorhexidine Gluconate (Hibiclens For Decolonization -) 1 applic TP HS [facility] Last Admin: 03/29/18 21:27 Dose: 1 applic Duloxetine HCl (Cymbalta -) 60 mg PO DAILY [facility] Last Admin: 03/29/18 10:20 Dose: 60 mg Sodium Chloride (Normal Saline -) 1,000 mls @ 125 mls/hr IV ASDIR [facility] Last Admin: 03/30/18 00:30 Dose: Not Given Piperacillin Sod/Tazobactam (Sod 4.5 gm/ Dextrose) 100 mls @ 200 mls/hr IVPB Q8H-IV [facility]; Protocol Last Admin: 03/30/18 03:00 Dose: 200 mls/hr Insulin Aspart (Novolog Vial Sliding Scale -) 1 vial SQ ACHS [facility]; Protocol Last Admin: 03/30/18 06:52 Dose: 6 units Lisinopril (Prinivil) 10 mg PO DAILY [facility] Last Admin: 03/29/18 14:10 Dose: 10 mg Montelukast Sodium (Singulair -) 10 mg PO [facility] Last Admin: 03/29/18 21:27 Dose: 10 mg Mupirocin (Bactroban Ointment (For Decolonization) -) 1 applic NS BID [facility] Stop: 04/01/18 21:59 Last Admin: 03/29/18 21:27 Dose: 1 applic Oxycodone HCl (Roxicodone -) 10 mg PO Q6H PRN PRN Reason: PAIN Last Admin: 03/30/18 05:43 Dose: 10 mg Prochlorperazine Maleate (Compazine -) 10 mg PO DAILY [facility] Last Admin: 03/29/18 10:20 Dose: 10 mg Ranitidine HCl (Zantac -) 150 mg PO BID [facility] Last Admin: 03/29/18 21:27 Dose: 150 mg Gen: Awake and alert and oriented Heart: tachycardic, regular Lung: decreased breath sounds at the bases Abd: soft, right flank tenderness Ext: (+) Tenderness and swelling of the right thigh to the mid-level , warm but not hot, no mottling COMPLEX DIRECTOR: non-focal Vital Signs Temp 100.4 F H 03/30/18 07:00 Pulse 102 H 03/30/18 07:00 Resp 24 H 03/30/18 07:00 BP 129/72 03/30/18 07:00 Pulse Ox 99 03/30/18 08:52 Intake & Output 03/29/18 03/29/18 03/30/18 11:59 23:59 11:59 Intake Total 1025 2125 1687 Output Total 800 1700 420 Balance 053 710 8770 Weight 35.153 kg Intake: IV 875 875 900 Normal Saline - 1,000 ml 875 875 900 @ 125 mls/hr IV ASDIR [facility] Rx#:[id number] IVPB 100 400 150 Oral 50 500 200 Packed Cells 350 Fresh Frozen Plasma 233 Platelets 204 Output: Urine 800 1700 420 Toney 800 1700 420 Other: Voiding Method Indwelling Catheter Indwelling Catheter Indwelling Catheter Bowel Movement No No Body Mass Index (BMI) 26.6 Weight Measurement Method Built in [facility] Laboratory Results - last 24 hr 03/27/18 03/27/18 03/27/18 16:31 17:44 17:45 WBC RBC Hgb Hct MCV MCH MCHC RDW Plt Count MPV Neutrophils % (Manual) Band Neutrophils % Lymphocytes % (Manual) Monocytes % (Manual) Eosinophils % (Manual) Basophils % (Manual) Myelocytes % (Man) Promyelocytes % (Man) Blast Cells % (Manual) Nucleated RBC % Metamyelocytes Hypochromia Platelet Estimate Polychromasia Poikilocytosis Anisocytosis Microcytosis Macrocytosis Target Cells Schistocytes PT with INR INR Sodium Potassium Chloride Carbon Dioxide Anion Gap BUN Creatinine Creat Clearance w eGFR POC Glucometer 503 502 510 Random Glucose Calcium Phosphorus Magnesium Blood Type Antibody Screen Crossmatch 03/27/18 03/28/18 03/29/18 18:27 11:00 05:15 WBC RBC Hgb Hct MCV MCH MCHC RDW Plt Count MPV Neutrophils % (Manual) 67.0 Band Neutrophils % 22.0 Lymphocytes % (Manual) 5.0 L Monocytes % (Manual) 5 Eosinophils % (Manual) 0.0 Basophils % (Manual) 0.0 Myelocytes % (Man) 0 Promyelocytes % (Man) 0 Blast Cells % (Manual) 0 Nucleated RBC % 0 Metamyelocytes 1 Hypochromia 0 Platelet Estimate Normal Polychromasia 0 Poikilocytosis 1+ Anisocytosis 2+ Microcytosis 2+ Macrocytosis 0 Target Cells 1+ Schistocytes 1+ PT with INR INR Sodium Potassium Chloride Carbon Dioxide Anion Gap BUN Creatinine Creat Clearance w eGFR POC Glucometer 451 Random Glucose Calcium Phosphorus Magnesium Blood Type O POSITIVE Antibody Screen Negative Crossmatch See Detail 03/29/18 03/29/18 03/29/18 11:28 15:52 17:00 WBC 20.5 H 17.5 H RBC 3.28 L 2.99 L Hgb 8.7 L 8.0 L Hct 27.6 L D 24.8 L MCV 84.3 82.9 MCH 26.7 26.8 MCHC 31.7 L 32.3 RDW 18.0 H 18.0 H Plt Count 291 294 MPV 9.1 8.8 Neutrophils % (Manual) Band Neutrophils % Lymphocytes % (Manual) Monocytes % (Manual) Eosinophils % (Manual) Basophils % (Manual) Myelocytes % (Man) Promyelocytes % (Man) Blast Cells % (Manual) Nucleated RBC % Metamyelocytes Hypochromia Platelet Estimate Polychromasia Poikilocytosis Anisocytosis Microcytosis Macrocytosis Target Cells Schistocytes PT with INR INR Sodium Potassium Chloride Carbon Dioxide Anion Gap BUN Creatinine Creat Clearance w eGFR POC Glucometer [phone] Random Glucose Calcium Phosphorus Magnesium Blood Type Antibody Screen Crossmatch 03/29/18 03/30/18 03/30/18 22:00 02:00 02:00 WBC 15.9 H 18.6 H RBC 2.81 L 2.99 L Hgb 7.6 L 8.1 L Hct 23.4 L 24.9 L MCV 83.2 83.3 MCH 27.0 27.2 MCHC 32.4 32.7 RDW 18.0 H 17.8 H Plt Count 284 331 MPV 8.8 8.7 Neutrophils % (Manual) Band Neutrophils % Lymphocytes % (Manual) Monocytes % (Manual) Eosinophils % (Manual) Basophils % (Manual) Myelocytes % (Man) Promyelocytes % (Man) Blast Cells % (Manual) Nucleated RBC % Metamyelocytes Hypochromia Platelet Estimate Polychromasia Poikilocytosis Anisocytosis Microcytosis Macrocytosis Target Cells Schistocytes PT with INR 14.00 H INR 1.18 H Sodium Potassium Chloride Carbon Dioxide Anion Gap BUN Creatinine Creat Clearance w eGFR POC Glucometer Random Glucose Calcium Phosphorus Magnesium Blood Type Antibody Screen Crossmatch 03/30/18 03/30/18 05:30 05:30 WBC 16.4 H RBC 2.72 L Hgb 7.2 L Hct 22.7 L MCV 83.3 MCH 26.4 MCHC 31.7 L RDW 18.0 H Plt Count 294 MPV 8.7 Neutrophils % (Manual) Band Neutrophils % Lymphocytes % (Manual) Monocytes % (Manual) Eosinophils % (Manual) Basophils % (Manual) Myelocytes % (Man) Promyelocytes % (Man) Blast Cells % (Manual) Nucleated RBC % Metamyelocytes Hypochromia Platelet Estimate Polychromasia Poikilocytosis Anisocytosis Microcytosis Macrocytosis Target Cells Schistocytes PT with INR INR Sodium 138 Potassium 3.9 Chloride 106 Carbon Dioxide 23 Anion Gap 9 BUN 12 Creatinine 0.8 Creat Clearance w eGFR > 60 POC Glucometer Random Glucose 215 H Calcium 8.2 L Phosphorus 2.4 L Magnesium 1.9 Blood Type Antibody Screen Crossmatch Microbiology 03/29/18 05:15 Blood - Peripheral Venous Blood Culture - Preliminary NO GROWTH OBTAINED AFTER 24 HOURS, INCUBATION TO CONTINUE FOR 4 DAYS. 03/29/18 05:35 Blood - Peripheral Venous Blood Culture - Preliminary Pending Organism 03/28/18 15:15 Abscess YOAV Preparation - Preliminary 03/28/18 15:15 Abscess Fungal Culture - Preliminary 03/27/18 06:45 Blood - Peripheral Venous Blood Culture - Final Lactose Fermenting Neg Bacilli 03/27/18 06:00 Blood - Peripheral Venous Blood Culture - Final Escherichia Coli 03/27/18 12:20 Urine - Urine Clean Catch Urine Culture - Preliminary Lactose Fermenting Neg Bacilli 03/28/18 15:15 Abscess Gram Stain - Final 03/28/18 15:15 Abscess AFB Smear Concentration - Preliminary 03/28/18 15:15 Abscess Mycobacterial Culture - Preliminary ASSESSMENT AND PLAN: Pelvic Abscess Gram Negative Bacteremia UTI/Cystitis Severe Sepsis Acute Kidney Injury Lactic Acidosis Uterine Ca on chemo/RT HTN DM Hematoma - Close monitoring of H&H , repeat now - Normal transfusion thresholds - ABX per ID , resend blood cxl given + from yesterday - may need repeat imaging - f/u cultures - IVF - monitor urine output, creatinine - monitor H/H - transfuse as needed - DVT prophylaxis - continue ICU monitoring Nevin ACNP 3214 35 min CCT
[2018-03-30] MEDS: LISINOPRIL 10 MG TABLET (FP) PO SCH (09:19)
[2018-03-30] MEDS: PROCHLORPERAZINE MALEATE 5 MG TABLET PO SCH (09:19)
[2018-03-30] MEDS: RANITIDINE HCL 150 MG TABLET (FP) PO SCH ×2 (09:19→21:32)
[2018-03-30] MEDS: DULoxetine HCL 30 MG CAPSULE.DR (FP) PO SCH (09:22)
[2018-03-30 10:28] LABS: HEMATOCRIT 23.7 % (32.4-45.2); HEMOGLOBIN 7.6 GM/dL (10.7-15.3); MCH 26.6 pg (25.7-33.7); MCHC 32.2 g/dl (32.0-36.0); MEAN CELL VOLUME 82.5 fl (80-96); MEAN PLT VOLUME 8.8 fl (7.5-11.1); PLATELET COUNT 314 K/MM3 (134-434); RBC 2.87 M/mm3 (3.60-5.2); RDW 17.8 % (11.6-15.6); WHITE BLOOD COUNT 15.4 K/mm3 (4.0-10.0)
[2018-03-30] MEDS: MUPIROCIN 2% TOPICAL OINTMENT FOR DECOLONIZATION NS SCH ×2 (10:30→21:32)
--- NOTE | 2018-03-30 12:13 | PN ---
Progress Note, Physician History of Present Illness: in icu stable - Current Medication List Current Medications: Active Medications Acetaminophen (Tylenol -) 650 mg PO Q6H PRN PRN Reason: FEVER Last Admin: 03/30/18 09:00 Dose: 650 mg Chlorhexidine Gluconate (Hibiclens For Decolonization -) 1 applic TP HS [facility] Last Admin: 03/29/18 21:27 Dose: 1 applic Duloxetine HCl (Cymbalta -) 60 mg PO DAILY [facility] Last Admin: 03/30/18 09:22 Dose: 60 mg Sodium Chloride (Normal Saline -) 1,000 mls @ 125 mls/hr IV ASDIR [facility] Last Admin: 03/30/18 00:30 Dose: Not Given Piperacillin Sod/Tazobactam (Sod 4.5 gm/ Dextrose) 100 mls @ 200 mls/hr IVPB Q8H-IV [facility]; Protocol Last Admin: 03/30/18 09:15 Dose: 200 mls/hr Insulin Aspart (Novolog Vial Sliding Scale -) 1 vial SQ ACHS [facility]; Protocol Last Admin: 03/30/18 12:01 Dose: 4 units Lisinopril (Prinivil) 10 mg PO DAILY [facility] Last Admin: 03/30/18 09:19 Dose: 10 mg Montelukast Sodium (Singulair -) 10 mg PO HS [facility] Last Admin: 03/29/18 21:27 Dose: 10 mg Mupirocin (Bactroban Ointment (For Decolonization) -) 1 applic NS BID [facility] Stop: 04/01/18 21:59 Last Admin: 03/30/18 10:30 Dose: 1 applic Oxycodone HCl (Roxicodone -) 10 mg PO Q6H PRN PRN Reason: PAIN Last Admin: 03/30/18 05:43 Dose: 10 mg Prochlorperazine Maleate (Compazine -) 10 mg PO DAILY [facility] Last Admin: 03/30/18 09:19 Dose: 10 mg Ranitidine HCl (Zantac -) 150 mg PO BID [facility] Last Admin: 03/30/18 09:19 Dose: 150 mg - Objective Vital Signs: Vital Signs Temperature 100.2 F H 03/30/18 11:00 Pulse Rate 104 H 03/30/18 11:00 Respiratory Rate 22 H 03/30/18 11:00 Blood Pressure 120/62 03/30/18 11:00 O2 Sat by Pulse Oximetry (%) 99 03/30/18 08:52 Constitutional: Yes: No Distress HENT: Yes: Atraumatic Neck: Yes: Supple Cardiovascular: Yes: Regular Rate and Rhythm Respiratory: Yes: CTA Bilaterally Extremities: Yes: WNL, Other (R thigh bigger than left thigh) Neurological: Yes: Alert, Oriented Labs: CBC, BMP 03/30/18 05:30 INR, PTT INR 1.18 (0.83-1.09) H 03/30/18 02:00 Problem List - Problems (1) Back pain Assessment/Plan: prn pain meds Code(s): M54.9 - DORSALGIA, UNSPECIFIED (2) Sepsis Assessment/Plan: on abx cxs noted id on board Code(s): A41.9 - SEPSIS, UNSPECIFIED ORGANISM (3) Hematoma Assessment/Plan: h/h trending down R thigh size increasing...monitoring thigh size Code(s): T14.8XXA - OTHER INJURY OF UNSPECIFIED BODY REGION, INITIAL ENCOUNTER (4) UTI (urinary tract infection) Assessment/Plan: on abx cxs noted Code(s): N39.0 - URINARY TRACT INFECTION, SITE NOT SPECIFIED (5) Anemia Assessment/Plan: monitor h/h transfuse prbc as needed Code(s): D64.9 - ANEMIA, UNSPECIFIED Qualifiers: Iron deficiency anemia type: chronic blood loss (6) Psoas abscess, right Code(s): K68.12 - PSOAS MUSCLE ABSCESS Assessment/Plan Diagnoses Pelvic Abscess Gram Negative Bacteremia UTI/Cystitis Severe Sepsis Acute Kidney Injury Lactic Acidosis Uterine Ca on chemo/RT HTN DM Hematoma - cc time 35 min icu
--- NOTE | 2018-03-30 12:15 | PN ---
Progress Note, Physician History of Present Illness: Low grade fevers, underwent IR drainage of right iliopsoas abscess, reports improving discomfort. Transfused pRBC for post-procedure hematoma. - Current Medication List Current Medications: Active Medications Acetaminophen (Tylenol -) 650 mg PO Q6H PRN PRN Reason: FEVER Last Admin: 03/30/18 09:00 Dose: 650 mg Chlorhexidine Gluconate (Hibiclens For Decolonization -) 1 applic TP HS [facility] Last Admin: 03/29/18 21:27 Dose: 1 applic Duloxetine HCl (Cymbalta -) 60 mg PO DAILY [facility] Last Admin: 03/30/18 09:22 Dose: 60 mg Sodium Chloride (Normal Saline -) 1,000 mls @ 125 mls/hr IV ASDIR [facility] Last Admin: 03/30/18 00:30 Dose: Not Given Piperacillin Sod/Tazobactam (Sod 4.5 gm/ Dextrose) 100 mls @ 200 mls/hr IVPB Q8H-IV [facility]; Protocol Last Admin: 03/30/18 09:15 Dose: 200 mls/hr Insulin Aspart (Novolog Vial Sliding Scale -) 1 vial SQ ACHS [facility]; Protocol Last Admin: 03/30/18 12:01 Dose: 4 units Lisinopril (Prinivil) 10 mg PO DAILY [facility] Last Admin: 03/30/18 09:19 Dose: 10 mg Montelukast Sodium (Singulair -) 10 mg PO HS [facility] Last Admin: 03/29/18 21:27 Dose: 10 mg Mupirocin (Bactroban Ointment (For Decolonization) -) 1 applic NS BID [facility] Stop: 04/01/18 21:59 Last Admin: 03/30/18 10:30 Dose: 1 applic Oxycodone HCl (Roxicodone -) 10 mg PO Q6H PRN PRN Reason: PAIN Last Admin: 03/30/18 05:43 Dose: 10 mg Prochlorperazine Maleate (Compazine -) 10 mg PO DAILY [facility] Last Admin: 03/30/18 09:19 Dose: 10 mg Ranitidine HCl (Zantac -) 150 mg PO BID [facility] Last Admin: 03/30/18 09:19 Dose: 150 mg - Objective Vital Signs: Vital Signs Temperature 100.2 F H 03/30/18 11:00 Pulse Rate 104 H 03/30/18 11:00 Respiratory Rate 22 H 03/30/18 11:00 Blood Pressure 120/62 03/30/18 11:00 O2 Sat by Pulse Oximetry (%) 99 03/30/18 08:52 Constitutional: Yes: No Distress, Calm Neck: Yes: Supple Cardiovascular: Yes: Regular Rate and Rhythm Respiratory: Yes: Regular, Diminished, On Nasal O2 Gastrointestinal: Yes: Normal Bowel Sounds, Soft, Abdomen, Obese Edema: No Labs: CBC, BMP 03/30/18 05:30 INR, PTT INR 1.18 (0.83-1.09) H 03/30/18 02:00 Problem List - Problems (1) Psoas abscess, right Code(s): K68.12 - PSOAS MUSCLE ABSCESS (2) Hypertension Code(s): I10 - ESSENTIAL (PRIMARY) HYPERTENSION Qualifiers: Hypertension type: essential hypertension Qualified Code(s): I10 - Essential (primary) hypertension (3) Anemia Code(s): D64.9 - ANEMIA, UNSPECIFIED Qualifiers: Iron deficiency anemia type: chronic blood loss Assessment/Plan 1. Right iliopsoas abscess s/p IR drainage 2. Gram Negative Bacteremia 3. UTI/Cystitis 4. Acute Kidney Injury 5. Lactic Acidosis 6. Uterine Ca on chemo/RT 7. HTN 8. DM 9. Anemia post transfusion Plan: 1. Abx course per blood and wound C&S, analgesia as needed 2. Plavix held pending hemostasis, continue lisinopril 10 qd, monitor Hgb post transfusion
[2018-03-30 12:36] LABS: HEMATOCRIT 23.9 % (32.4-45.2); HEMOGLOBIN 7.5 GM/dL (10.7-15.3); MCH 26.3 pg (25.7-33.7); MCHC 31.3 g/dl (32.0-36.0); MEAN CELL VOLUME 83.9 fl (80-96); MEAN PLT VOLUME 8.8 fl (7.5-11.1); PLATELET COUNT 299 K/MM3 (134-434); RBC 2.85 M/mm3 (3.60-5.2); RDW 17.7 % (11.6-15.6); WHITE BLOOD COUNT 16.7 K/mm3 (4.0-10.0)
--- NOTE | 2018-03-30 14:54 | PN ---
Progress Note, Physician History of Present Illness: patient continues to spike fever repeat blood cx still positive sensitivities noted from last blood cx drop in h and h wbc still on the higher side - Current Medication List Current Medications: Active Medications Acetaminophen (Tylenol -) 650 mg PO Q6H PRN PRN Reason: FEVER Last Admin: 03/30/18 09:00 Dose: 650 mg Chlorhexidine Gluconate (Hibiclens For Decolonization -) 1 applic TP HS [facility] Last Admin: 03/29/18 21:27 Dose: 1 applic Duloxetine HCl (Cymbalta -) 60 mg PO DAILY [facility] Last Admin: 03/30/18 09:22 Dose: 60 mg Sodium Chloride (Normal Saline -) 1,000 mls @ 125 mls/hr IV ASDIR [facility] Last Admin: 03/30/18 07:00 Dose: 125 mls/hr Piperacillin Sod/Tazobactam (Sod 4.5 gm/ Dextrose) 100 mls @ 200 mls/hr IVPB Q8H-IV [facility]; Protocol Last Admin: 03/30/18 09:15 Dose: 200 mls/hr Insulin Aspart (Novolog Vial Sliding Scale -) 1 vial SQ ACHS [facility]; Protocol Last Admin: 03/30/18 12:01 Dose: 4 units Lisinopril (Prinivil) 10 mg PO DAILY [facility] Last Admin: 03/30/18 09:19 Dose: 10 mg Montelukast Sodium (Singulair -) 10 mg PO HS [facility] Last Admin: 03/29/18 21:27 Dose: 10 mg Mupirocin (Bactroban Ointment (For Decolonization) -) 1 applic NS BID [facility] Stop: 04/01/18 21:59 Last Admin: 03/30/18 10:30 Dose: 1 applic Oxycodone HCl (Roxicodone -) 10 mg PO Q6H PRN PRN Reason: PAIN Last Admin: 03/30/18 05:43 Dose: 10 mg Prochlorperazine Maleate (Compazine -) 10 mg PO DAILY [facility] Last Admin: 03/30/18 09:19 Dose: 10 mg Ranitidine HCl (Zantac -) 150 mg PO BID [facility] Last Admin: 03/30/18 09:19 Dose: 150 mg - Objective Vital Signs: Vital Signs Temperature 101 F H 03/30/18 13:59 Pulse Rate 108 H 03/30/18 13:00 Respiratory Rate 20 03/30/18 13:00 Blood Pressure 125/68 03/30/18 13:00 O2 Sat by Pulse Oximetry (%) 99 03/30/18 08:52 Constitutional: Yes: Calm, Mild Distress Cardiovascular: Yes: Regular Rate and Rhythm Respiratory: Yes: Regular, CTA Bilaterally Gastrointestinal: Yes: Normal Bowel Sounds, Soft Musculoskeletal: Yes: Other Extremities: Yes: Other Neurological: Yes: Alert, Oriented Psychiatric: Yes: Alert, Oriented Labs: CBC, BMP 03/30/18 12:00 03/30/18 05:30 INR, PTT INR 1.18 (0.83-1.09) H 03/30/18 02:00 - ....Imaging Chest X-ray: Report Reviewed, Image Reviewed Assessment/Plan Pelvic Abscess Gram Negative Bacteremia UTI/Cystitis Severe Sepsis Acute Kidney Injury Lactic Acidosis Uterine Ca on chemo/RT HTN DM plan we will continue abx repeat blood cx monitor for fever rest as per icu still with fevers await identification of the organism from the fluid cc time 40 min
[2018-03-30] MEDS ORDERED: DEXTROSE 5%-WATER 200 ML IVPB ONE (17:18)
[2018-03-30 18:16] LABS: HEMOGLOBIN 8.9 GM/dL (10.7-15.3); MCH 26.7 pg (25.7-33.7); MCHC 31.7 g/dl (32.0-36.0); MEAN CELL VOLUME 84.2 fl (80-96); MEAN PLT VOLUME 8.8 fl (7.5-11.1); PLATELET COUNT 334 K/MM3 (134-434); RBC 3.33 M/mm3 (3.60-5.2); RDW 18.2 % (11.6-15.6); WHITE BLOOD COUNT 16.3 K/mm3 (4.0-10.0)
[2018-03-30] MEDS: CHLORHEXIDINE GLUCONATE 4% CLEANSER FOR DECOLONIZATION TP SCH (21:32)
[2018-03-30] MEDS: MONTELUKAST NA 10 MG TABLET PO SCH (21:32)
[2018-03-31 00:12] LABS: HEMATOCRIT 22.3 % (32.4-45.2); HEMOGLOBIN 7.4 GM/dL (10.7-15.3); MCH 27.2 pg (25.7-33.7); MEAN CELL VOLUME 82.6 fl (80-96); MEAN PLT VOLUME 8.8 fl (7.5-11.1); PLATELET COUNT 311 K/MM3 (134-434); RDW 18.3 % (11.6-15.6)
[2018-03-31] MEDS: PIPERACILLIN/TAZOB 4.5 GM 4.5 GM in DEXTROSE 5%-WATER 100 ML IVPB SCH ×3 (02:00→17:15)
[2018-03-31] MEDS: SODIUM CHLORIDE 1,000 ML IV SCH ×2 (03:00→23:16)
[2018-03-31] MEDS: oxyCODONE HCL 5 MG TABLET PO PRN ×3 (05:50→23:13)
[2018-03-31 05:59] LABS: HEMATOCRIT 22.1 % (32.4-45.2); MCH 26.6 pg (25.7-33.7); MCHC 31.9 g/dl (32.0-36.0); MEAN CELL VOLUME 83.3 fl (80-96); MEAN PLT VOLUME 8.7 fl (7.5-11.1); PLATELET COUNT 292 K/MM3 (134-434); RBC 2.65 M/mm3 (3.60-5.2); WHITE BLOOD COUNT 14.5 K/mm3 (4.0-10.0)
[2018-03-31] MEDS: INSULIN SLIDING SCALE (NOVOLOG) 1 VIAL SQ SCH ×4 (06:59→23:15)
[2018-03-31] MEDS ORDERED: DEXTROSE 5%-WATER 100 ML IVPB ONE ×2 (09:16→17:01)
[2018-03-31] MEDS ORDERED: PIPERACILLIN/TAZOBACTAM 4.5 GM VIAL IVPB ONE ×2 (09:16→17:01)
[2018-03-31] MEDS: LISINOPRIL 10 MG TABLET (FP) PO SCH (09:49)
[2018-03-31] MEDS: MUPIROCIN 2% TOPICAL OINTMENT FOR DECOLONIZATION NS SCH ×2 (09:56→23:15)
[2018-03-31] MEDS: RANITIDINE HCL 150 MG TABLET (FP) PO SCH ×2 (09:56→23:16)
[2018-03-31] MEDS: DULoxetine HCL 30 MG CAPSULE.DR (FP) PO SCH (09:56)
[2018-03-31] MEDS ORDERED: PT OWN MED DRAWER 7, Y5N ONE (09:58)
[2018-03-31] MEDS: PROCHLORPERAZINE MALEATE 5 MG TABLET PO SCH (09:59)
--- NOTE | 2018-03-31 10:08 | PN ---
Progress Note (short form) - Note Progress Note: SUBJECTIVE: Patient seen and examined in the ICU. -slow drop in crit -low grade temp, + blood cxl from 16th -pt says less pain No indication of compartment syndrome. good pulses peripherally OBJECTIVE: Vital Signs Temp 99.0 F 03/31/18 02:00 Pulse 109 H 03/31/18 08:00 Resp 28 H 03/31/18 08:20 BP 120/58 L 03/31/18 08:00 Pulse Ox 96 03/31/18 08:20 Intake & Output 03/30/18 03/30/18 03/31/18 11:59 23:59 11:59 Intake Total 1687 2050 1600 Output Total 420 1300 400 Balance 8994 271 6683 Weight 80.422 kg Intake: IV 900 1000 1500 Normal Saline - 1,000 ml 900 1000 1500 @ 125 mls/hr IV ASDIR [facility] Rx#:[id number] IVPB 150 250 100 Oral 200 800 Fresh Frozen Plasma 233 Platelets 204 Output: Urine 420 1300 400 Toney 420 1300 400 Other: Voiding Method Indwelling Catheter Indwelling Catheter Indwelling Catheter Bowel Movement No No No Weight Measurement Method Built in [facility] Active Medications Acetaminophen (Tylenol -) 650 mg PO Q6H PRN PRN Reason: FEVER Last Admin: 03/30/18 21:32 Dose: 650 mg Chlorhexidine Gluconate (Hibiclens For Decolonization -) 1 applic TP HS [facility] Last Admin: 03/30/18 21:32 Dose: 1 applic Duloxetine HCl (Cymbalta -) 60 mg PO DAILY [facility] Last Admin: 03/31/18 09:56 Dose: 60 mg Sodium Chloride (Normal Saline -) 1,000 mls @ 125 mls/hr IV ASDIR [facility] Last Admin: 03/31/18 03:00 Dose: 125 mls/hr Piperacillin Sod/Tazobactam (Sod 4.5 gm/ Dextrose) 100 mls @ 200 mls/hr IVPB Q8H-IV [facility]; Protocol Last Admin: 03/31/18 09:49 Dose: 200 mls/hr Insulin Aspart (Novolog Vial Sliding Scale -) 1 vial SQ ACHS [facility]; Protocol Last Admin: 03/31/18 06:59 Dose: 2 units Lisinopril (Prinivil) 10 mg PO DAILY [facility] Last Admin: 03/31/18 09:49 Dose: 10 mg Montelukast Sodium (Singulair -) 10 mg PO HS [facility] Last Admin: 03/30/18 21:32 Dose: 10 mg Mupirocin (Bactroban Ointment (For Decolonization) -) 1 applic NS BID [facility] Stop: 04/01/18 21:59 Last Admin: 03/31/18 09:56 Dose: 1 applic Oxycodone HCl (Roxicodone -) 10 mg PO Q6H PRN PRN Reason: PAIN Last Admin: 03/31/18 05:50 Dose: 10 mg Prochlorperazine Maleate (Compazine -) 10 mg PO DAILY [facility] Last Admin: 03/31/18 09:59 Dose: 10 mg Ranitidine HCl (Zantac -) 150 mg PO BID [facility] Last Admin: 03/31/18 09:56 Dose: 150 mg Gen: Awake and alert and oriented Heart: regular, no mrg appreciated Lung: clear anterior Abd: soft, right flank tenderness Ext: (+) Tenderness and swelling of the right thigh to the mid-level , warm but not hot, no mottling + pulses 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 03/28/18 15:15 Abscess AFB Smear Concentration - Preliminary 03/28/18 15:15 Abscess Mycobacterial Culture - Preliminary 03/27/18 12:20 Urine - Urine Clean Catch Urine Culture - Final Escherichia Coli 03/29/18 05:35 Blood - Peripheral Venous Blood Culture - Preliminary Lactose Fermenting Neg Bacilli 03/28/18 15:15 Abscess Gram Stain - Final 03/28/18 15:15 Abscess Body Fluid Culture - Preliminary Lactose Fermenting Neg Bacilli 03/28/18 15:15 Abscess YOAV Preparation - Preliminary 03/28/18 15:15 Abscess Fungal Culture - Preliminary 03/27/18 06:45 Blood - Peripheral Venous Blood Culture - Final Lactose Fermenting Neg Bacilli 03/27/18 06:00 Blood - Peripheral Venous Blood Culture - Final Escherichia Coli ASSESSMENT AND PLAN: Pelvic Abscess Gram Negative Bacteremia UTI/Cystitis Severe Sepsis Acute Kidney Injury Lactic Acidosis Uterine Ca on chemo/RT HTN DM Hematoma - Close monitoring of H&H , repeat now, slow drop - Normal transfusion thresholds - ABX per ID , resend blood cxl given + from yesterday, still appears to be Ecoli - may need repeat imaging CT today, back to IR vs surgery? - f/u cultures - IVF - monitor urine output, creatinine - monitor H/H - transfuse as needed - DVT prophylaxis - continue ICU monitoring Nevin [facility] 1638 35 min CCT
--- NOTE | 2018-03-31 11:49 | PN ---
Progress Note, Physician History of Present Illness: in icu stable - Current Medication List Current Medications: Active Medications Acetaminophen (Tylenol -) 650 mg PO Q6H PRN PRN Reason: FEVER Last Admin: 03/30/18 21:32 Dose: 650 mg Chlorhexidine Gluconate (Hibiclens For Decolonization -) 1 applic TP HS [facility] Last Admin: 03/30/18 21:32 Dose: 1 applic Duloxetine HCl (Cymbalta -) 60 mg PO DAILY [facility] Last Admin: 03/31/18 09:56 Dose: 60 mg Sodium Chloride (Normal Saline -) 1,000 mls @ 125 mls/hr IV ASDIR [facility] Last Admin: 03/31/18 03:00 Dose: 125 mls/hr Piperacillin Sod/Tazobactam (Sod 4.5 gm/ Dextrose) 100 mls @ 200 mls/hr IVPB Q8H-IV [facility]; Protocol Last Admin: 03/31/18 09:49 Dose: 200 mls/hr Insulin Aspart (Novolog Vial Sliding Scale -) 1 vial SQ ACHS [facility]; Protocol Last Admin: 03/31/18 06:59 Dose: 2 units Lisinopril (Prinivil) 10 mg PO DAILY [facility] Last Admin: 03/31/18 09:49 Dose: 10 mg Montelukast Sodium (Singulair -) 10 mg PO HS [facility] Last Admin: 03/30/18 21:32 Dose: 10 mg Mupirocin (Bactroban Ointment (For Decolonization) -) 1 applic NS BID [facility] Stop: 04/01/18 21:59 Last Admin: 03/31/18 09:56 Dose: 1 applic Oxycodone HCl (Roxicodone -) 10 mg PO Q6H PRN PRN Reason: PAIN Last Admin: 03/31/18 05:50 Dose: 10 mg Prochlorperazine Maleate (Compazine -) 10 mg PO DAILY [facility] Last Admin: 03/31/18 09:59 Dose: 10 mg Ranitidine HCl (Zantac -) 150 mg PO BID [facility] Last Admin: 03/31/18 09:56 Dose: 150 mg - Objective Vital Signs: Vital Signs Temperature 99.0 F 03/31/18 02:00 Pulse Rate 109 H 03/31/18 08:00 Respiratory Rate 28 H 03/31/18 08:20 Blood Pressure 120/58 L 11/18/18 08:00 O2 Sat by Pulse Oximetry (%) 96 03/31/18 08:20 Constitutional: Yes: No Distress HENT: Yes: Atraumatic Neck: Yes: Supple Cardiovascular: Yes: Regular Rate and Rhythm Respiratory: Yes: CTA Bilaterally Gastrointestinal: Yes: Normal Bowel Sounds Extremities: Yes: Other (r thigh bigger than left) Neurological: Yes: Alert, Oriented Labs: CBC, BMP 03/31/18 05:30 03/30/18 05:30 INR, PTT INR 1.18 (0.83-1.09) H 03/30/18 02:00 Problem List - Problems (1) Back pain Assessment/Plan: prn pain meds Code(s): M54.9 - DORSALGIA, UNSPECIFIED (2) Sepsis Assessment/Plan: on abx cxs noted id on board Code(s): A41.9 - SEPSIS, UNSPECIFIED ORGANISM (3) Hematoma Code(s): T14.8XXA - OTHER INJURY OF UNSPECIFIED BODY REGION, INITIAL ENCOUNTER (4) UTI (urinary tract infection) Assessment/Plan: on abx cxs noted Code(s): N39.0 - URINARY TRACT INFECTION, SITE NOT SPECIFIED (5) Anemia Assessment/Plan: monitor h/h transfuse prbc as needed Code(s): D64.9 - ANEMIA, UNSPECIFIED Qualifiers: Iron deficiency anemia type: chronic blood loss (6) Psoas abscess, right Code(s): K68.12 - PSOAS MUSCLE ABSCESS
[2018-03-31 12:19] LABS: HEMOGLOBIN 7.8 GM/dL (10.7-15.3); MCH 27.4 pg (25.7-33.7); MCHC 32.7 g/dl (32.0-36.0); MEAN CELL VOLUME 83.9 fl (80-96); MEAN PLT VOLUME 8.6 fl (7.5-11.1); PLATELET COUNT 333 K/MM3 (134-434); RBC 2.86 M/mm3 (3.60-5.2); RDW 18.7 % (11.6-15.6); WHITE BLOOD COUNT 14.5 K/mm3 (4.0-10.0)
[2018-03-31] MEDS: ACETAMINOPHEN 325 MG TABLET (FP) PO PRN ×2 (12:33→19:00)
--- NOTE | 2018-03-31 13:55 | PN ---
Progress Note, Physician History of Present Illness: continues to drop h and h fevers repeat blood cx awaited postive from the 16 - Current Medication List Current Medications: Active Medications Acetaminophen (Tylenol -) 650 mg PO Q6H PRN PRN Reason: FEVER Last Admin: 03/31/18 12:33 Dose: 650 mg Chlorhexidine Gluconate (Hibiclens For Decolonization -) 1 applic TP HS [facility] Last Admin: 03/30/18 21:32 Dose: 1 applic Duloxetine HCl (Cymbalta -) 60 mg PO DAILY [facility] Last Admin: 03/31/18 09:56 Dose: 60 mg Sodium Chloride (Normal Saline -) 1,000 mls @ 125 mls/hr IV [facility] Last Admin: 03/31/18 03:00 Dose: 125 mls/hr Piperacillin Sod/Tazobactam (Sod 4.5 gm/ Dextrose) 100 mls @ 200 mls/hr IVPB Q8H-IV [facility]; Protocol Last Admin: 03/31/18 09:49 Dose: 200 mls/hr Insulin Aspart (Novolog Vial Sliding Scale -) 1 vial SQ ACHS [facility]; Protocol Last Admin: 03/31/18 12:30 Dose: 4 units Lisinopril (Prinivil) 10 mg PO DAILY [facility] Last Admin: 03/31/18 09:49 Dose: 10 mg Montelukast Sodium (Singulair -) 10 mg PO HS [facility] Last Admin: 03/30/18 21:32 Dose: 10 mg Mupirocin (Bactroban Ointment (For Decolonization) -) 1 applic NS BID [facility] Stop: 04/01/18 21:59 Last Admin: 03/31/18 09:56 Dose: 1 applic Oxycodone HCl (Roxicodone -) 10 mg PO Q6H PRN PRN Reason: PAIN Last Admin: 03/31/18 05:50 Dose: 10 mg Prochlorperazine Maleate (Compazine -) 10 mg PO DAILY [facility] Last Admin: 03/31/18 09:59 Dose: 10 mg Ranitidine HCl (Zantac -) 150 mg PO BID [facility] Last Admin: 03/31/18 09:56 Dose: 150 mg - Objective Vital Signs: Vital Signs Temperature 99.0 F 03/31/18 02:00 Pulse Rate 109 H 03/31/18 08:00 Respiratory Rate 28 H 03/31/18 08:20 Blood Pressure 120/58 L 03/31/18 08:00 O2 Sat by Pulse Oximetry (%) 96 03/31/18 08:20 Constitutional: Yes: Calm, Mild Distress Cardiovascular: Yes: Regular Rate and Rhythm Respiratory: Yes: Regular, CTA Bilaterally Gastrointestinal: Yes: Normal Bowel Sounds, Soft Musculoskeletal: Yes: WNL Extremities: Yes: Other (swelling of thigh) Neurological: Yes: Alert, Oriented Psychiatric: Yes: Alert, Oriented Labs: CBC, BMP 03/31/18 11:45 03/30/18 05:30 INR, PTT INR 1.18 (0.83-1.09) H 03/30/18 02:00 Assessment/Plan Pelvic Abscess Gram Negative Bacteremia UTI/Cystitis Severe Sepsis Acute Kidney Injury Lactic Acidosis Uterine Ca on chemo/RT HTN DM plan abx changed to toño repeat blood cx monitor for fever rest as per icu still with fevers close watch consider imaging studies monitor fo compartment syndrome cc time 40 min
[2018-03-31] MEDS: CHLORHEXIDINE GLUCONATE 4% CLEANSER FOR DECOLONIZATION TP SCH (23:15)
[2018-03-31] MEDS: MONTELUKAST NA 10 MG TABLET PO SCH (23:16)
[2018-03-31] MEDS: SENNOSIDES 8.6MG TABLET (FP) PO PRN (23:18)
[2018-03-31] MEDS: ACETAMINOPHEN 1000 MG/100 ML VIAL (NON FORMULARY) IVPB PRN (23:46)
[2018-04-01] MEDS ORDERED: DEXTROSE 5%-WATER 100 ML IVPB ONE ×2 (01:17→08:45)
[2018-04-01] MEDS ORDERED: PIPERACILLIN/TAZOBACTAM 4.5 GM VIAL IVPB ONE ×2 (01:17→08:45)
[2018-04-01] MEDS: PIPERACILLIN/TAZOB 4.5 GM 4.5 GM in DEXTROSE 5%-WATER 100 ML IVPB SCH ×2 (01:24→11:00)
[2018-04-01] MEDS: INSULIN SLIDING SCALE (NOVOLOG) 1 VIAL SQ SCH ×4 (06:07→22:44)
[2018-04-01 06:13] LABS: HEMATOCRIT 24.8 % (32.4-45.2); HEMOGLOBIN 7.9 GM/dL (10.7-15.3); MCH 26.4 pg (25.7-33.7); MCHC 31.7 g/dl (32.0-36.0); MEAN CELL VOLUME 83.3 fl (80-96); MEAN PLT VOLUME 8.6 fl (7.5-11.1); PLATELET COUNT 304 K/MM3 (134-434); RBC 2.98 M/mm3 (3.60-5.2); RDW 18.6 % (11.6-15.6); WHITE BLOOD COUNT 17.4 K/mm3 (4.0-10.0)
[2018-04-01 07:23] LABS: ALBUMIN 1.7 g/dl (3.4-5.0); ALK PHOS 408 U/L (45-117); ANION GAP 10 MMOL/L (8-16); BLOOD UREA NITROGEN 8 mg/dL (7-18); CALCIUM 8.6 mg/dL (8.5-10.1); CHLORIDE 104 mmol/L (98-107); CO2 23 mmol/L (21-32); CREATININE 0.7 mg/dL (0.55-1.3); GLUCOSE,RANDOM 204 mg/dL (74-106); MAGNESIUM 1.7 mg/dL (1.8-2.4); POTASSIUM 3.9 mmol/L (3.5-5.1); SGOT/AST 29 U/L (15-37); SGPT/ALT 41 U/L (13-61); SODIUM 138 mmol/L (136-145); TOT PROT 5.8 g/dl (6.4-8.2)
[2018-04-01] MEDS: oxyCODONE HCL 5 MG TABLET PO PRN ×3 (08:51→22:01)
[2018-04-01] MEDS: ACETAMINOPHEN 325 MG TABLET (FP) PO PRN (08:53)
[2018-04-01] MEDS: MUPIROCIN 2% TOPICAL OINTMENT FOR DECOLONIZATION NS SCH (10:00)
[2018-04-01] MEDS: DULoxetine HCL 30 MG CAPSULE.DR (FP) PO SCH (10:57)
[2018-04-01] MEDS: RANITIDINE HCL 150 MG TABLET (FP) PO SCH ×2 (10:57→22:02)
[2018-04-01] MEDS: LISINOPRIL 10 MG TABLET (FP) PO SCH (10:57)
--- NOTE | 2018-04-01 11:57 | PN ---
Progress Note, Physician History of Present Illness: Fever spike overnight, underwent IR drainage of right iliopsoas abscess, reports improving discomfort. - Current Medication List Current Medications: Active Medications Acetaminophen (Tylenol -) 650 mg PO Q6H PRN PRN Reason: FEVER Last Admin: 04/01/18 08:53 Dose: 650 mg Acetaminophen (Ofirmev Injection -) 1,000 mg IVPB Q6H PRN PRN Reason: FEVER Last Admin: 03/31/18 23:46 Dose: 1,000 mg Chlorhexidine Gluconate (Hibiclens For Decolonization -) 1 applic TP HS [facility] Last Admin: 03/31/18 23:15 Dose: 1 applic Duloxetine HCl (Cymbalta -) 60 mg PO DAILY [facility] Last Admin: 04/01/18 10:57 Dose: 60 mg Sodium Chloride (Normal Saline -) 1,000 mls @ 125 mls/hr IV [facility] Last Admin: 03/31/18 23:16 Dose: 125 mls/hr Piperacillin Sod/Tazobactam (Sod 4.5 gm/ Dextrose) 100 mls @ 200 mls/hr IVPB Q8H-IV [facility]; Protocol Last Admin: 04/01/18 11:00 Dose: 200 mls/hr Insulin Aspart (Novolog Vial Sliding Scale -) 1 vial SQ ACHS [facility]; Protocol Last Admin: 04/01/18 11:45 Dose: 6 units Lisinopril (Prinivil) 10 mg PO DAILY [facility] Last Admin: 04/01/18 10:57 Dose: 10 mg Montelukast Sodium (Singulair -) 10 mg PO HS [facility] Last Admin: 03/31/18 23:16 Dose: 10 mg Mupirocin (Bactroban Ointment (For Decolonization) -) 1 applic NS BID [facility] Stop: 04/01/18 21:59 Last Admin: 04/01/18 10:00 Dose: 1 applic Oxycodone HCl (Roxicodone -) 10 mg PO Q6H PRN PRN Reason: PAIN Last Admin: 04/01/18 08:51 Dose: 10 mg Prochlorperazine Maleate (Compazine -) 10 mg PO DAILY [facility] Last Admin: 03/31/18 09:59 Dose: 10 mg Ranitidine HCl (Zantac -) 150 mg PO BID [facility] Last Admin: 04/01/18 10:57 Dose: 150 mg Senna (Senna -) 2 tab PO HS PRN PRN Reason: CONSTIPATION Last Admin: 03/31/18 23:18 Dose: 2 tab - Objective Vital Signs: Vital Signs Temperature 99 F 04/01/18 06:00 Pulse Rate 96 H 04/01/18 08:00 Respiratory Rate 20 04/01/18 09:00 Blood Pressure 117/73 04/01/18 08:00 O2 Sat by Pulse Oximetry (%) 96 04/01/18 09:00 Constitutional: Yes: No Distress, Calm Neck: Yes: Supple Cardiovascular: Yes: Regular Rate and Rhythm Respiratory: Yes: Regular, Diminished, On Nasal O2 Gastrointestinal: Yes: Normal Bowel Sounds, Soft Edema: No Labs: CBC, BMP 04/01/18 05:30 04/01/18 05:30 INR, PTT INR 1.18 (0.83-1.09) H 03/30/18 02:00 Problem List - Problems (1) Psoas abscess, right Code(s): K68.12 - PSOAS MUSCLE ABSCESS (2) Hypertension Code(s): I10 - ESSENTIAL (PRIMARY) HYPERTENSION Qualifiers: Hypertension type: essential hypertension Qualified Code(s): I10 - Essential (primary) hypertension (3) Anemia Code(s): D64.9 - ANEMIA, UNSPECIFIED Qualifiers: Iron deficiency anemia type: chronic blood loss (4) E. coli sepsis Code(s): A41.51 - SEPSIS DUE TO ESCHERICHIA COLI [E. COLI] Assessment/Plan 1. Right iliopsoas abscess s/p IR drainage 2. E. coli bacteremia 3. UTI/Cystitis 4. Acute Kidney Injury 5. Lactic Acidosis 6. Uterine Ca on chemo/RT 7. HTN 8. DM 9. Anemia post transfusion Plan: 1. Abx course per blood and wound C&S, analgesia as needed, f/u surveillance cx to document clearance 2. Plavix held pending hemostasis, continue lisinopril 10 qd, monitor Hgb post transfusion 3. May need repeat imaging CT, back to IR vs surgery?
[2018-04-01] MEDS: PROCHLORPERAZINE MALEATE 5 MG TABLET PO SCH (12:00)
--- NOTE | 2018-04-01 12:28 | PN ---
Addendum entered and electronically signed by La Souza, RESIDENT 23:20: ROS Gen: Admits to f/c, denies gallo/d/la Lungs: Denies sob, orthopnea, cough CV: Denies cp, palpitations GI: Denies abd pain, constipation/diarrhea, blood urine/stool Ext: Admits to RLE pain upon movement and R upper thigh swelling Original Note: <La Souza - Last Filed: 04/01/18 22:51> Physical Exam: SUBJECTIVE: Patient seen and examined. No acute events overnight. Pt still complaining of R thigh pain. OBJECTIVE: Vital Signs Period Temp Pulse Resp BP Sys/Leija Pulse Ox Last 24 Hr 97.4 F-103.8 F 94-120 17-26 117-159/59-81 96-96 GENERAL: AAOx3. NAD. HEENT: AT/NC. EOMI. DEAN. Moist mucus membranes. NECK: Supple, no LAD/JVD. LUNGS: CTA B/L. No wheezes noted. HEART: RRR. Normal S1, S2. No murmurs noted. ABDOMEN: Tender to deep palpation in RLQ. Soft, ND. +BS in all 4Qs. EXTREMITIES: 2+ pulses, warm, well-perfused, no edema. R upper thigh edema noted. NEUROLOGICAL: Responds to commands. PSYCH: Normal mood, normal affect. SKIN: Warm, dry, normal turgor, no rashes or lesions noted Laboratory Results - last 24 hr 03/28/18 03/29/18 03/30/18 11:00 21:19 05:46 WBC RBC Hgb Hct MCV MCH MCHC RDW Plt Count MPV Sodium Potassium Chloride Carbon Dioxide Anion Gap BUN Creatinine Creat Clearance w eGFR POC Glucometer [phone] Random Glucose Lactic Acid Calcium Phosphorus Magnesium Total Bilirubin AST ALT Alkaline Phosphatase Total Protein Albumin Blood Type O POSITIVE Antibody Screen Negative Crossmatch See Detail 03/31/18 03/31/18 03/31/18 06:53 12:27 17:36 WBC RBC Hgb Hct MCV MCH MCHC RDW Plt Count MPV Sodium Potassium Chloride Carbon Dioxide Anion Gap BUN Creatinine Creat Clearance w eGFR POC Glucometer 195.47588 221.55109 214.23726 Random Glucose Lactic Acid Calcium Phosphorus Magnesium Total Bilirubin AST ALT Alkaline Phosphatase Total Protein Albumin Blood Type Antibody Screen Crossmatch 03/31/18 04/01/18 04/01/18 22:16 05:30 05:30 WBC 17.4 H RBC 2.98 L Hgb 7.9 L Hct 24.8 L MCV 83.3 MCH 26.4 MCHC 31.7 L RDW 18.6 H Plt Count 304 MPV 8.6 Sodium Potassium Chloride Carbon Dioxide Anion Gap BUN Creatinine Creat Clearance w eGFR POC Glucometer [phone] Random Glucose Lactic Acid 1.0 Calcium Phosphorus Magnesium Total Bilirubin AST ALT Alkaline Phosphatase Total Protein Albumin Blood Type Antibody Screen Crossmatch 04/01/18 04/01/18 05:30 06:02 WBC RBC Hgb Hct MCV MCH MCHC RDW Plt Count MPV Sodium 138 Potassium 3.9 Chloride 104 Carbon Dioxide 23 Anion Gap 10 BUN 8 Creatinine 0.7 Creat Clearance w eGFR > 60 POC Glucometer [phone] Random Glucose 204 H Lactic Acid Calcium 8.6 Phosphorus 3.0 Magnesium 1.7 L Total Bilirubin 1.0 AST 29 ALT 41 Alkaline Phosphatase 408 H Total Protein 5.8 L Albumin 1.7 L Blood Type Antibody Screen Crossmatch Active Medications Generic Name Dose Route Start Last Admin Trade Name Freq PRN Reason Stop Dose Admin Acetaminophen 650 mg 03/27/18 21:24 04/01/18 08:53 Tylenol - PO 650 mg Q6H PRN Administration FEVER Acetaminophen 1,000 mg 03/31/18 23:36 03/31/18 23:46 Ofirmev Injection - IVPB 1,000 mg Q6H PRN Administration FEVER Chlorhexidine Gluconate 1 applic 03/27/18 22:00 03/31/18 23:15 Hibiclens For Decolonization - TP 1 applic HS [facility] Administration Duloxetine HCl 60 mg 03/28/18 10:00 04/01/18 10:57 Cymbalta - PO 60 mg DAILY [facility] Administration Sodium Chloride 1,000 mls @ 125 mls/hr 03/28/18 00:13 03/31/18 23:16 Normal Saline - IV 125 mls/hr ASD[facility] Administration Piperacillin Sod/Tazobactam 100 mls @ 200 mls/hr 03/29/18 02:00 04/01/18 11: 00 Sod 4.5 gm/ Dextrose IVPB 200 mls/hr Q8H-IV [facility] Administration Protocol Insulin Aspart 1 vial 03/29/18 16:30 04/01/18 11:45 Novolog Vial Sliding Scale - SQ 6 units ACHS [facility] Administration Protocol Lisinopril 10 mg 03/28/18 10:00 04/01/18 10:57 Prinivil PO 10 mg DAILY [facility] Administration Montelukast Sodium 10 mg 03/27/18 22:00 03/31/18 23:16 Singulair - PO 10 mg HS [facility] Administration Mupirocin 1 applic 03/27/18 22:00 04/01/18 10:00 Bactroban Ointment (For Decolonization) - NS 04/01/18 21:59 1 applic BID [facility] Administration Oxycodone HCl 10 mg 03/27/18 21:24 04/01/18 08:51 Roxicodone - PO 10 mg Q6H PRN Administration PAIN Prochlorperazine Maleate 10 mg 03/28/18 10:00 03/31/18 09:59 Compazine - PO 10 mg DAILY [facility] Administration Ranitidine HCl 150 mg 03/27/18 22:00 04/01/18 10:57 Zantac - PO 150 mg BID [facility] Administration Senna 2 tab 03/31/18 14:09 03/31/18 23:18 Senna - PO 2 tab HS PRN Administration CONSTIPATION ASSESSMENT/PLAN: 67F with past medical history of HTN, DM, and uterine cancer (diagnosed in 2016 , on chemotherapy and radiation therapy since June), recently diagnosed DVT , presented with worsening right hip and right thigh pain since 5 days ago. On admission, patient was noted to be tachycardic, with leukocytosis and elevated lactic acid. She was transferred to the ICU for closer monitoring. Neurology #Low back pain 2/2 L5-S1 degenerative disc disease -MRI (03/22/18)- moderate L5/ S1 disc bulging and associated degenerative disc disease and foraminal stenosis with compression of L5 nerve root, disc protrusion of S1 right nerve root. -Per neurosurgery (Dr. Caban) consulted. Recommendations appreciated. -Currently the patient is not medically fit for a semi-elective procedure. -Oxycodone 10mg Q6H PRN and Tylenol for pain Infectious disease #Severe sepsis, likely 2/2 UTI -s/p IR-guided drainage revealed hematoma. -BCx, UCx, and abscess drainage showed E. coli -Per ID: Meropenem 1gm (started 04/01/18); Zosyn d/c'd -Continue IV NS @125ml/hr -Monitor I/O; daily weights -Maintain MAP >65 -UO >0.5cc/kg/hr Cardiology #Hypertension: controlled -Continue home Lisinopril 10mg daily #Hx of RLE DVT -Plavix held Hematology #Normocytic anemia -H/H 7.2/21.8 -may be hemodilution from IVF -will monitor CBC and transfuse with Hgb <7 #Right iliopsoas hematoma, likely 2/2 to Lovenox and Plavix use -Stopped all AC -Last dose of plavix given at 03/28 -Will continue monitoring vital signs and CBC q6h -May need Desmopressin -Measure RLE daily, likely have active bleeding Endocrinology #DM -BGM ACHS -insulin sliding scale ACHS Nephrology #Hypomagnesemia: resolved -will continue to monitor and replete PRN Oncology #Uterine cancer s/p chemo/radiation therapy -outpatient followup FEN -IV NS @ 125ml/hr -routine bmp monitoring -sodium controlled diet Prophylaxis DVT - SCDs both legs. No chemical PPx GI -Ranitidine 150mg PO BID Disposition -full code -cont to monitor in ICU Visit type - Emergency Visit Emergency Visit: Yes ED Registration Date: 03/26/18 Care time: The patient presented to the Emergency Department on the above date and was hospitalized for further evaluation of their emergent condition. - New Patient This patient is new to me today: Yes Date on this admission: 04/01/18 - Critical Care Critical Care patient: Yes Total Critical Care Time (in minutes): 50 Critical Care Statement: The care of this patient involved high complexity decision making to prevent further life threatening deterioration of the patient 's condition and/or to evaluate & treat vital organ system(s) failure or risk of failure. <Alejandro De Luna - Last Filed: 04/02/18 12:35> Physical Exam: SUBJECTIVE: Patient seen and examined OBJECTIVE: Vital Signs Period Temp Pulse Resp BP Sys/Leija Pulse Ox Last 24 Hr 98 F-102 F 90-126 17-24 102-174/53-80 100 GENERAL: The patient is awake, alert, and fully oriented, in no acute distress. HEAD: Normal with no signs of trauma. EYES: PERRL, extraocular movements intact, sclera anicteric, conjunctiva clear. No ptosis. ENT: Ears normal, nares patent, oropharynx clear without exudates, moist mucous membranes. NECK: Trachea midline, full range of motion, supple. LUNGS: Breath sounds equal, clear to auscultation bilaterally, no wheezes, no crackles, no accessory muscle use. HEART: Regular rate and rhythm, S1, S2 without murmur, rub or gallop. ABDOMEN: Soft, nontender, nondistended, normoactive bowel sounds, no guarding, no rebound, no hepatosplenomegaly, no masses. EXTREMITIES: 2+ pulses, warm, well-perfused, no edema. NEUROLOGICAL: Cranial nerves II through XII grossly intact. Normal speech, gait not observed. PSYCH: Normal mood, normal affect. SKIN: Warm, dry, normal turgor, no rashes or lesions noted Laboratory Results - last 24 hr 03/28/18 04/01/18 04/01/18 11:00 11:39 16:59 WBC RBC Hgb Hct MCV MCH MCHC RDW Plt Count MPV Sodium Potassium Chloride Carbon Dioxide Anion Gap BUN Creatinine Creat Clearance w eGFR POC Glucometer 275.34205 264.66221 Random Glucose Calcium Phosphorus Magnesium Total Bilirubin AST ALT Alkaline Phosphatase Total Protein Albumin Crossmatch See Detail 04/01/18 04/02/18 04/02/18 22:29 05:30 05:30 WBC 15.3 H RBC 2.82 L Hgb 7.5 L Hct 23.7 L MCV 83.9 MCH 26.5 MCHC 31.5 L RDW 18.6 H Plt Count 259 MPV 8.5 Sodium 139 Potassium 3.2 L Chloride 104 Carbon Dioxide 21 Anion Gap 13 BUN 8 Creatinine 0.7 Creat Clearance w eGFR > 60 POC Glucometer [phone] Random Glucose 193 H Calcium 8.0 L Phosphorus 2.5 Magnesium 1.5 L Total Bilirubin 0.6 AST 13 L ALT 32 Alkaline Phosphatase 364 H Total Protein 5.4 L Albumin 1.5 L Crossmatch 04/02/18 06:07 WBC RBC Hgb Hct MCV MCH MCHC RDW Plt Count MPV Sodium Potassium Chloride Carbon Dioxide Anion Gap BUN Creatinine Creat Clearance w eGFR POC Glucometer [phone] Random Glucose Calcium Phosphorus Magnesium Total Bilirubin AST ALT Alkaline Phosphatase Total Protein Albumin Crossmatch Active Medications Generic Name Dose Route Start Last Admin Trade Name Freq PRN Reason Stop Dose Admin Acetaminophen 650 mg 03/27/18 21:24 04/01/18 08:53 Tylenol - PO 650 mg Q6H PRN Administration FEVER Chlorhexidine Gluconate 1 applic 03/27/18 22:00 04/02/18 02:31 Hibiclens For Decolonization - TP 1 applic HS [facility] Administration Duloxetine HCl 60 mg 03/28/18 10:00 04/02/18 09:35 Cymbalta - PO 60 mg DAILY [facility] Administration Sodium Chloride 1,000 mls @ 125 mls/hr 03/28/18 00:13 04/02/18 00:30 Normal Saline - IV 125 mls/hr ASDIR [facility] Administration Meropenem 1 gm/ Dextrose 100 mls @ 200 mls/hr 04/01/18 12:45 04/02/18 11:36 IVPB 200 mls/hr Q8H-IV [facility] Administration Insulin Aspart 1 vial 03/29/18 16:30 04/02/18 11:36 Novolog Vial Sliding Scale - SQ 4 units ACHS [facility] Administration Protocol Lisinopril 5 mg 04/02/18 10:00 04/02/18 09:43 Prinivil PO 5 mg DAILY [facility] Administration Metoprolol Tartrate 25 mg 04/02/18 10:00 04/02/18 09:43 Lopressor - PO 25 mg BID [facility] Administration Montelukast Sodium 10 mg 03/27/18 22:00 04/01/18 22:01 Singulair - PO 10 mg HS [facility] Administration Oxycodone HCl 10 mg 04/01/18 22:26 04/02/18 05:34 Roxicodone - PO 10 mg Q6H PRN Administration PAIN LEVEL 6-10 Prochlorperazine Maleate 10 mg 03/28/18 10:00 04/02/18 09:37 Compazine - PO 10 mg DAILY [facility] Administration Ranitidine HCl 150 mg 03/27/18 22:00 04/02/18 09:36 Zantac - PO 150 mg BID [facility] Administration Senna 2 tab 03/31/18 14:09 03/31/18 23:18 Senna - PO 2 tab HS PRN Administration CONSTIPATION ASSESSMENT/PLAN: I saw the patient with the resident on rounds. I agree with the assessment and plan. Dr De Luna Critical care time spent in reviewing chart, evaluating patient and formulating plan - 36 minutes.
--- NOTE | 2018-04-01 12:34 | PN ---
Progress Note, Physician History of Present Illness: repeat scan done patients mobility of the leg slightly better - Current Medication List Current Medications: Active Medications Acetaminophen (Tylenol -) 650 mg PO Q6H PRN PRN Reason: FEVER Last Admin: 04/01/18 08:53 Dose: 650 mg Acetaminophen (Ofirmev Injection -) 1,000 mg IVPB Q6H PRN PRN Reason: FEVER Last Admin: 03/31/18 23:46 Dose: 1,000 mg Chlorhexidine Gluconate (Hibiclens For Decolonization -) 1 applic TP HS [facility] Last Admin: 03/31/18 23:15 Dose: 1 applic Duloxetine HCl (Cymbalta -) 60 mg PO DAILY [facility] Last Admin: 04/01/18 10:57 Dose: 60 mg Sodium Chloride (Normal Saline -) 1,000 mls @ 125 mls/hr IV ASDIR [facility] Last Admin: 03/31/18 23:16 Dose: 125 mls/hr Piperacillin Sod/Tazobactam (Sod 4.5 gm/ Dextrose) 100 mls @ 200 mls/hr IVPB Q8H-IV [facility]; Protocol Last Admin: 04/01/18 11:00 Dose: 200 mls/hr Insulin Aspart (Novolog Vial Sliding Scale -) 1 vial SQ ACHS [facility]; Protocol Last Admin: 04/01/18 11:45 Dose: 6 units Lisinopril (Prinivil) 10 mg PO DAILY [facility] Last Admin: 04/01/18 10:57 Dose: 10 mg Montelukast Sodium (Singulair -) 10 mg PO [facility] Last Admin: 03/31/18 23:16 Dose: 10 mg Mupirocin (Bactroban Ointment (For Decolonization) -) 1 applic NS BID [facility] Stop: 04/01/18 21:59 Last Admin: 04/01/18 10:00 Dose: 1 applic Oxycodone HCl (Roxicodone -) 10 mg PO Q6H PRN PRN Reason: PAIN Last Admin: 04/01/18 08:51 Dose: 10 mg Prochlorperazine Maleate (Compazine -) 10 mg PO DAILY [facility] Last Admin: 03/31/18 09:59 Dose: 10 mg Ranitidine HCl (Zantac -) 150 mg PO BID [facility] Last Admin: 04/01/18 10:57 Dose: 150 mg Senna (Senna -) 2 tab PO HS PRN PRN Reason: CONSTIPATION Last Admin: 03/31/18 23:18 Dose: 2 tab - Objective Vital Signs: Vital Signs Temperature 99 F 04/01/18 06:00 Pulse Rate 96 H 04/01/18 08:00 Respiratory Rate 20 04/01/18 09:00 Blood Pressure 117/73 04/01/18 08:00 O2 Sat by Pulse Oximetry (%) 96 04/01/18 09:00 Constitutional: Yes: Calm, Mild Distress Cardiovascular: Yes: S1, S2 Respiratory: Yes: Regular, CTA Bilaterally Gastrointestinal: Yes: Normal Bowel Sounds, Soft Musculoskeletal: Yes: WNL Extremities: Yes: Other (thigh still big in size) Neurological: Yes: Alert, Oriented Labs: CBC, BMP 04/01/18 05:30 04/01/18 05:30 INR, PTT INR 1.18 (0.83-1.09) H 03/30/18 02:00 Assessment/Plan Pelvic Abscess Gram Negative Bacteremia UTI/Cystitis Severe Sepsis Acute Kidney Injury Lactic Acidosis Uterine Ca on chemo/RT HTN DM plan continue abx surgery consult called monitor for fever rest as per icu still with fevers close watch consider imaging studies cc time 40 min
[2018-04-01] MEDS ORDERED: MORPHINE SULFATE 2 MG/ML VIAL IVPUSH ONE ×2 (14:29→15:18)
[2018-04-01] MEDS ORDERED: morphine SULFATE 4 MG/ML VIAL ONE (14:31)
[2018-04-01] MEDS: MEROPENEM 1 GM in DEXTROSE 5%-WATER 100 ML IVPB SCH ×2 (15:00→19:38)
--- NOTE | 2018-04-01 15:25 | CONSULT ---
Consult Consult Specialty:: General Surgery Reason for Consultation:: right leg pain and hematoma - History of Present Illness Chief Complaint: infected psoas hematoma History of Present Illness: 67 year old female with a significant PMH of HTN, DM, uterine cancer in remission, and recently diagnosed DVT who presents to the emergency department with worsening right sided hip pain. Patient had this right leg pain for the past 4 months, which seemed to improve after starting lovenox for a diagnosed dvt. Patient states she was taking oxycodone for pain but ran out of it this past week. Patient has been unable to ambulate secondary to the pain. Patient also had an MRI on 03/22/18 which showed a moderate L5/ S1 dis bulging and associated degenerative disc disease and foraminal stenosis with compression of L5 nerve root. disc protrusion of S1 right nerve root . we were asked to assess - History Source History Provided By: Patient, Medical Record Limitations to Obtaining History: No Limitations - Past Medical History Cardio/Vascular: Yes: HTN ...: No Endocrine: Yes: Diabetes Mellitus - Alcohol/Substance Use Hx Alcohol Use: No - Smoking History Smoking history: Never smoked Have you smoked in the past 12 months: No Aproximately how many cigarettes per day: 0 Home Medications - Allergies Allergies/Adverse Reactions: Allergies Allergy/AdvReac Type Severity Reaction Status Date / Time No Known Allergies Allergy Verified 03/25/18 13:19 - Home Medications Home Medications: Ambulatory Orders Canagliflozin [Invokana] 100 mg PO DAILY 03/21/17 Clopidogrel Bisulfate [Clopidogrel] 75 mg PO DAILY 03/21/17 Duloxetine HCl 60 mg PO DAILY 03/21/17 Ibuprofen 600 mg PO PRN 03/21/17 Lisinopril 10 mg PO DAILY 03/21/17 Montelukast Na [Singulair -] 10 mg PO DAILY 03/21/17 Oxycodone HCl/Acetaminophen [Endocet 5-325 Tablet] 1 tab PO PRN 03/21/17 Prochlorperazine Maleate 10 mg PO DAILY 03/21/17 Famotidine [Pepcid] 20 mg PO BID PRN #28 tablet 03/22/17 Review of Systems - Review of Systems Constitutional: reports: Fever. denies: Chills Eyes: denies: Blind Spots, Recent Change in Vision HENT: denies: Difficult Swallowing, Throat Pain Neck: denies: Decreased ROM, Tenderness Cardiovascular: denies: Chest Pain, Palpitations Respiratory: denies: Cough, SOB Gastrointestinal: reports: Abdominal Pain. denies: Constipation, Diarrhea Genitourinary: denies: Burning, Discharge, Dysuria Breasts: reports: No Symptoms Reported. denies: Pain Musculoskeletal: reports: Joint Pain, Joint Swelling, Muscle Pain, Muscle Weakness Integumentary: denies: Erythema, Pallor, Rash Neurological: denies: Seizure, Syncope Endocrine: denies: Unexplained Weight Gain, Unexplained Weight Loss Hematology/Lymphatic: denies: Easily Bruised, Excessive Bleeding Psychiatric: denies: Anxiety, Depression Physical Exam Vital Signs: Vital Signs Temperature 99 F 04/01/18 06:00 Pulse Rate 96 H 04/01/18 08:00 Respiratory Rate 20 04/01/18 09:00 Blood Pressure 117/73 04/01/18 08:00 O2 Sat by Pulse Oximetry (%) 96 04/01/18 09:00 Constitutional: Yes: Well Nourished, No Distress, Calm, Obese Eyes: Yes: Conjunctiva Clear, EOM Intact HENT: Yes: Atraumatic, Normocephalic Neck: Yes: Supple, Trachea Midline Cardiovascular: Yes: Regular Rate and Rhythm, S1, S2 Respiratory: Yes: Regular Gastrointestinal: Yes: Normal Bowel Sounds, Soft, Abdomen, Obese. No: Tenderness, Tenderness, Epigastrium, Tenderness, Rebound ...Rectal Exam: Yes: Deferred Renal/: No: CVA Tenderness - Left, CVA Tenderness - Right Musculoskeletal: Yes: Joint Stiffness, Joint Swelling, Muscle Weakness (RLE tenderness and swelling) Labs: CBC, BMP 04/01/18 05:30 04/01/18 05:30 Imaging - Results Cat Scan: Report Reviewed (Right psoas hematoma), Image Reviewed Ultrasound: Report Reviewed, Image Reviewed Problem List - Problems (1) Hematoma Assessment/Plan: 67 yo female with infected pelvic hematoma and right leg pain and swelling. no acute intervention from general surgery. Agree with repeat imaging and IR input right leg elevation above the heart vascular surgery evaluation - Extrinsic compression of right femoral vessels? Thank you for the opportunity to participate in the care of this patient. Code(s): T14.8XXA - OTHER INJURY OF UNSPECIFIED BODY REGION, INITIAL ENCOUNTER (2) Anemia Code(s): D64.9 - ANEMIA, UNSPECIFIED Qualifiers: Iron deficiency anemia type: chronic blood loss (3) Hypertension Code(s): I10 - ESSENTIAL (PRIMARY) HYPERTENSION Qualifiers: Hypertension type: essential hypertension Qualified Code(s): I10 - Essential (primary) hypertension (4) Psoas abscess, right Code(s): K68.12 - PSOAS MUSCLE ABSCESS (5) Sepsis Code(s): A41.9 - SEPSIS, UNSPECIFIED ORGANISM (6) Weakness Code(s): R53.1 - WEAKNESS
[2018-04-01] MEDS ORDERED: PT OWN MED DRAWER 7, Y5N ONE ×2 (15:31→19:32)
[2018-04-01] MEDS: ACETAMINOPHEN 1000 MG/100 ML VIAL (NON FORMULARY) IVPB PRN ×2 (16:47→22:02)
--- NOTE | 2018-04-01 17:21 | PN ---
Progress Note, Physician History of Present Illness: comfortable no complaint - Current Medication List Current Medications: Active Medications Acetaminophen (Tylenol -) 650 mg PO Q6H PRN PRN Reason: FEVER Last Admin: 04/01/18 08:53 Dose: 650 mg Acetaminophen (Ofirmev Injection -) 1,000 mg IVPB Q6H PRN PRN Reason: FEVER Last Admin: 04/01/18 16:47 Dose: 1,000 mg Chlorhexidine Gluconate (Hibiclens For Decolonization -) 1 applic TP HS [facility] Last Admin: 03/31/18 23:15 Dose: 1 applic Duloxetine HCl (Cymbalta -) 60 mg PO DAILY [facility] Last Admin: 04/01/18 10:57 Dose: 60 mg Sodium Chloride (Normal Saline -) 1,000 mls @ 125 mls/hr IV ASDIR [facility] Last Admin: 03/31/18 23:16 Dose: 125 mls/hr Meropenem 1 gm/ Dextrose 100 mls @ 200 mls/hr IVPB Q8H-IV [facility] Last Admin: 04/01/18 15:00 Dose: 200 mls/hr Insulin Aspart (Novolog Vial Sliding Scale -) 1 vial SQ ACHS [facility]; Protocol Last Admin: 04/01/18 17:01 Dose: 6 units Lisinopril (Prinivil) 10 mg PO DAILY [facility] Last Admin: 04/01/18 10:57 Dose: 10 mg Montelukast Sodium (Singulair -) 10 mg PO HS [facility] Last Admin: 03/31/18 23:16 Dose: 10 mg Mupirocin (Bactroban Ointment (For Decolonization) -) 1 applic NS BID [facility] Stop: 04/01/18 21:59 Last Admin: 04/01/18 10:00 Dose: 1 applic Oxycodone HCl (Roxicodone -) 10 mg PO Q6H PRN PRN Reason: PAIN Last Admin: 04/01/18 16:47 Dose: 10 mg Prochlorperazine Maleate (Compazine -) 10 mg PO DAILY [facility] Last Admin: 04/01/18 12:00 Dose: 10 mg Ranitidine HCl (Zantac -) 150 mg PO BID [facility] Last Admin: 04/01/18 10:57 Dose: 150 mg Senna (Senna -) 2 tab PO HS PRN PRN Reason: CONSTIPATION Last Admin: 03/31/18 23:18 Dose: 2 tab - Objective Vital Signs: Vital Signs Temperature 99 F 04/01/18 06:00 Pulse Rate 96 H 04/01/18 08:00 Respiratory Rate 20 04/01/18 09:00 Blood Pressure 117/73 04/01/18 08:00 O2 Sat by Pulse Oximetry (%) 96 04/01/18 09:00 Constitutional: Yes: No Distress HENT: Yes: Atraumatic Neck: Yes: Supple Cardiovascular: Yes: Regular Rate and Rhythm Respiratory: Yes: CTA Bilaterally Extremities: Yes: Other (R thigh is larger than yesterday, non tender not tense) Peripheral Pulses WNL: Yes Neurological: Yes: Alert, Oriented Labs: CBC, BMP 04/01/18 05:30 04/01/18 05:30 INR, PTT INR 1.18 (0.83-1.09) H 03/30/18 02:00 Problem List - Problems (1) Back pain Assessment/Plan: prn pain meds Code(s): M54.9 - DORSALGIA, UNSPECIFIED (2) Hypertension Assessment/Plan: on meds stable Code(s): I10 - ESSENTIAL (PRIMARY) HYPERTENSION Qualifiers: Hypertension type: essential hypertension Qualified Code(s): I10 - Essential (primary) hypertension (3) UTI (urinary tract infection) Assessment/Plan: on abx cxs noted Code(s): N39.0 - URINARY TRACT INFECTION, SITE NOT SPECIFIED (4) Hematoma Assessment/Plan: h/h trending down R thigh size increasing...monitoring thigh size dr cole saw patient...conservative approach Code(s): T14.8XXA - OTHER INJURY OF UNSPECIFIED BODY REGION, INITIAL ENCOUNTER (5) E. coli sepsis Assessment/Plan: on abx per id Code(s): A41.51 - SEPSIS DUE TO ESCHERICHIA COLI [E. COLI] Assessment/Plan cc time 35 min
--- NOTE | 2018-04-01 19:15 | PN ---
Progress Note (short form) - Note Progress Note: Vascular Surgery Pt seen and examined with medical team. Pelvic CT reviewed. Iliopsoas hematoma. Right thigh is swollen. No signs of compartment syndrome. Palpable DP pulse. No need for any surgical intervention. IV antibiotics for positive blood cultures. PT for range of motion exercises of right leg. David Zhao DO
[2018-04-01] MEDS: MONTELUKAST NA 10 MG TABLET PO SCH (22:01)
[2018-04-02] MEDS: SODIUM CHLORIDE 1,000 ML IV SCH ×2 (00:30→18:21)
[2018-04-02] MEDS: MEROPENEM 1 GM in DEXTROSE 5%-WATER 100 ML IVPB SCH ×3 (02:30→17:02)
[2018-04-02] MEDS: CHLORHEXIDINE GLUCONATE 4% CLEANSER FOR DECOLONIZATION TP SCH (02:31)
[2018-04-02] MEDS: ACETAMINOPHEN 1000 MG/100 ML VIAL (NON FORMULARY) IVPB PRN (04:59)
[2018-04-02] MEDS: oxyCODONE HCL 5 MG TABLET PO PRN ×2 (05:34→14:51)
[2018-04-02] MEDS: INSULIN SLIDING SCALE (NOVOLOG) 1 VIAL SQ SCH ×4 (06:12→21:51)
[2018-04-02 06:29] LABS: HEMATOCRIT 23.7 % (32.4-45.2); HEMOGLOBIN 7.5 GM/dL (10.7-15.3); MCH 26.5 pg (25.7-33.7); MCHC 31.5 g/dl (32.0-36.0); MEAN CELL VOLUME 83.9 fl (80-96); MEAN PLT VOLUME 8.5 fl (7.5-11.1); PLATELET COUNT 259 K/MM3 (134-434); RBC 2.82 M/mm3 (3.60-5.2); RDW 18.6 % (11.6-15.6); WHITE BLOOD COUNT 15.3 K/mm3 (4.0-10.0)
--- NOTE | 2018-04-02 06:51 | PN ---
Progress Note (short form) - Note Progress Note: Chief Complaint: Events noted, notes reviewed, complaining of right thigh discomfort, sinus tachycardia noted History of Present Illness: Seen and examined in the ICU. Events noted, notes reviewed, complaining of right thigh discomfort, sinus tachycardia noted - Current Medication List Current Medications Acetaminophen (Tylenol -) 650 mg PO Q6H PRN PRN Reason: FEVER Last Admin: 04/01/18 08:53 Dose: 650 mg Chlorhexidine Gluconate (Hibiclens For Decolonization -) 1 applic TP HS [facility] Last Admin: 04/02/18 02:31 Dose: 1 applic Duloxetine HCl (Cymbalta -) 60 mg PO DAILY [facility] Last Admin: 04/01/18 10:57 Dose: 60 mg Sodium Chloride (Normal Saline -) 1,000 mls @ 125 mls/hr IV ASDIR [facility] Last Admin: 04/02/18 00:30 Dose: 125 mls/hr Meropenem 1 gm/ Dextrose 100 mls @ 200 mls/hr IVPB Q8H-IV [facility] Last Admin: 04/02/18 02:30 Dose: 200 mls/hr Insulin Aspart (Novolog Vial Sliding Scale -) 1 vial SQ ACHS [facility]; Protocol Last Admin: 04/02/18 06:12 Dose: 4 units Lisinopril (Prinivil) 10 mg PO DAILY [facility] Last Admin: 04/01/18 10:57 Dose: 10 mg Montelukast Sodium (Singulair -) 10 mg PO HS [facility] Last Admin: 04/01/18 22:01 Dose: 10 mg Oxycodone HCl (Roxicodone -) 10 mg PO Q6H PRN PRN Reason: PAIN LEVEL 6-10 Last Admin: 04/02/18 05:34 Dose: 10 mg Prochlorperazine Maleate (Compazine -) 10 mg PO DAILY [facility] Last Admin: 04/01/18 12:00 Dose: 10 mg Ranitidine HCl (Zantac -) 150 mg PO BID [facility] Last Admin: 04/01/18 22:02 Dose: 150 mg Senna (Senna -) 2 tab PO HS PRN PRN Reason: CONSTIPATION Last Admin: 03/31/18 23:18 Dose: 2 tab Review of Systems - Review of Systems Constitutional: denies: Chills or Fever Cardiovascular: as noted above Gastrointestinal: denies: Nausea, Vomiting, Diarrhea, Constipation or Abdominal Pain Genitourinary: No symptoms reported Neurological: No symptoms reported - Objective Vital Signs: Last Vital Signs Temp Pulse Resp BP Pulse Ox 99.1 F 91 H 20 129/59 L 100 04/02/18 06:00 04/02/18 06:00 04/02/18 06:00 04/02/18 06:00 04/02/18 00:38 Intake & Output 03/30/18 03/31/18 04/01/18 04/02/18 23:59 23:59 23:59 23:59 Intake Total 3737 3235 4000 1600 Output Total 1720 2000 2300 Balance 2017 1235 1700 1600 Weight 177 lb 4.8 oz 188 lb 2 oz 194 lb 0.108 oz Neck: Supple Negative JVD No Bruit Cardiovascular: S1 S2 Regular Rate and Rhythm Tachycardia Chest: Diminished Breath Sounds Bilaterally Gastrointestinal: Soft Benign Normal Bowel Sounds Ext: Trace Edema Labs: CBC, BMP 04/02/18 05:30 BMP pending from this AM Assessment/Plan ASSESSMENT: 1. Right iliopsoas abscess post IR drainage 2. E. coli bacteremia/sepsis syndrome 3. UTI/Cystitis 4. Acute Kidney Injury 5. Lactic Acidosis related to above 6. Uterine carcinoma on chemo/RT 7. HTN 8. DM 9. Anemia post transfusion PLAN: 1. Antibiotics as per the primary team 2. Add B-Blockers, hemodynamics permitting 3. Continue Lisinopril, hemodynamics permitting 4. Transfuse to maintain Hg equal or > 8.0 Jerson Ha MD
[2018-04-02 08:10] LABS: ALBUMIN 1.5 g/dl (3.4-5.0); ALK PHOS 364 U/L (45-117); ANION GAP 13 MMOL/L (8-16); BILIRUBIN,TOTAL 0.6 mg/dL (0.2-1); BLOOD UREA NITROGEN 8 mg/dL (7-18); CHLORIDE 104 mmol/L (98-107); CO2 21 mmol/L (21-32); CREATININE 0.7 mg/dL (0.55-1.3); GLUCOSE,RANDOM 193 mg/dL (74-106); MAGNESIUM 1.5 mg/dL (1.8-2.4); PHOSPHOROUS 2.5 mg/dL (2.5-4.9); POTASSIUM 3.2 mmol/L (3.5-5.1); SGOT/AST 13 U/L (15-37); SGPT/ALT 32 U/L (13-61); SODIUM 139 mmol/L (136-145); TOT PROT 5.4 g/dl (6.4-8.2)
[2018-04-02] MEDS ORDERED: LISINOPRIL 5 MG TABLET (FP) PO SCH ×2 (08:14→10:00)
[2018-04-02] MEDS ORDERED: POTASSIUM CHLORIDE TABS 20 MEQ TABLET.ER (FP) PO ONE (08:16)
[2018-04-02] MEDS ORDERED: MAGNESIUM SULF 50% (8.12 MEQ/2 ML-1 GM VIAL) IVPB ONE (08:18)
[2018-04-02] MEDS ORDERED: MAGNESIUM SULFATE IN WATER 2 GM/50 ML IVPB IVPB ONE (09:30)
[2018-04-02] MEDS ORDERED: PT OWN MED DRAWER 7, Y5N ONE ×3 (09:33→17:51)
[2018-04-02] MEDS: DULoxetine HCL 30 MG CAPSULE.DR (FP) PO SCH (09:35)
[2018-04-02] MEDS: RANITIDINE HCL 150 MG TABLET (FP) PO SCH ×2 (09:36→21:51)
[2018-04-02] MEDS: PROCHLORPERAZINE MALEATE 5 MG TABLET PO SCH (09:37)
[2018-04-02] MEDS: KCL 10 MEQ IVPB 10 MEQ/100 ML INFUS.BAG IVPB SCH ×3 (09:37→13:13)
[2018-04-02] MEDS ORDERED: METOPROLOL TARTRATE 25 MG TABLET (FP) PO SCH (10:00)
--- NOTE | 2018-04-02 12:34 | PN ---
Teaching Attending Note Name of Resident: La Souza ATTENDING PHYSICIAN STATEMENT I saw and evaluated the patient. I reviewed the resident's note and discussed the case with the resident. I agree with the resident's findings and plan as documented. SUBJECTIVE: Patient seen and examined in the ICU. H&H relatively stable. Seen by vascular surgery and no surgical intervention was recommended. Pain in her right thigh seems a little better today. No indication of compartment syndrome. OBJECTIVE: Intake & Output 03/30/18 03/31/18 04/01/18 04/02/18 23:59 23:59 23:59 23:59 Intake Total 3737 3235 4000 1740 Output Total 1720 2000 2300 Balance 2017 1235 1700 1740 Weight 177 lb 4.8 oz 188 lb 2 oz 194 lb 0.108 oz Last Vital Signs Temp Pulse Resp BP Pulse Ox 98 F 90 22 H 117/62 100 04/02/18 10:00 04/02/18 12:00 04/02/18 12:00 04/02/18 12:00 04/02/18 00:38 Active Medications Acetaminophen (Tylenol -) 650 mg PO Q6H PRN PRN Reason: FEVER Last Admin: 04/01/18 08:53 Dose: 650 mg Chlorhexidine Gluconate (Hibiclens For Decolonization -) 1 applic TP HS [facility] Last Admin: 04/02/18 02:31 Dose: 1 applic Duloxetine HCl (Cymbalta -) 60 mg PO DAILY [facility] Last Admin: 04/02/18 09:35 Dose: 60 mg Sodium Chloride (Normal Saline -) 1,000 mls @ 125 mls/hr IV ASDIR [facility] Last Admin: 04/02/18 00:30 Dose: 125 mls/hr Meropenem 1 gm/ Dextrose 100 mls @ 200 mls/hr IVPB Q8H-IV [facility] Last Admin: 04/02/18 11:36 Dose: 200 mls/hr Insulin Aspart (Novolog Vial Sliding Scale -) 1 vial SQ ACHS [facility]; Protocol Last Admin: 04/02/18 11:36 Dose: 4 units Lisinopril (Prinivil) 5 mg PO DAILY [facility] Last Admin: 04/02/18 09:43 Dose: 5 mg Metoprolol Tartrate (Lopressor -) 25 mg PO BID [facility] Last Admin: 04/02/18 09:43 Dose: 25 mg Montelukast Sodium (Singulair -) 10 mg PO HS [facility] Last Admin: 04/01/18 22:01 Dose: 10 mg Oxycodone HCl (Roxicodone -) 10 mg PO Q6H PRN PRN Reason: PAIN LEVEL 6-10 Last Admin: 04/02/18 05:34 Dose: 10 mg Prochlorperazine Maleate (Compazine -) 10 mg PO DAILY [facility] Last Admin: 04/02/18 09:37 Dose: 10 mg Ranitidine HCl (Zantac -) 150 mg PO BID [facility] Last Admin: 04/02/18 09:36 Dose: 150 mg Senna (Senna -) 2 tab PO HS PRN PRN Reason: CONSTIPATION Last Admin: 03/31/18 23:18 Dose: 2 tab Gen: Awake and alert and oriented Heart: tachycardic, regular Lung: decreased breath sounds at the bases Abd: soft, right flank tenderness Ext: (+) Tenderness and swelling of the right thigh to the mid-level [employer]: non-focal Laboratory Results - last 24 hr 03/28/18 04/01/18 04/01/18 11:00 11:39 16:59 WBC RBC Hgb Hct MCV MCH MCHC RDW Plt Count MPV Sodium Potassium Chloride Carbon Dioxide Anion Gap BUN Creatinine Creat Clearance w eGFR POC Glucometer [phone] Random Glucose Calcium Phosphorus Magnesium Total Bilirubin AST ALT Alkaline Phosphatase Total Protein Albumin Crossmatch See Detail 04/01/18 04/02/18 04/02/18 22:29 05:30 05:30 WBC 15.3 H RBC 2.82 L Hgb 7.5 L Hct 23.7 L MCV 83.9 MCH 26.5 MCHC 31.5 L RDW 18.6 H Plt Count 259 MPV 8.5 Sodium 139 Potassium 3.2 L Chloride 104 Carbon Dioxide 21 Anion Gap 13 BUN 8 Creatinine 0.7 Creat Clearance w eGFR > 60 POC Glucometer [phone] Random Glucose 193 H Calcium 8.0 L Phosphorus 2.5 Magnesium 1.5 L Total Bilirubin 0.6 AST 13 L ALT 32 Alkaline Phosphatase 364 H Total Protein 5.4 L Albumin 1.5 L Crossmatch 04/02/18 06:07 WBC RBC Hgb Hct MCV MCH MCHC RDW Plt Count MPV Sodium Potassium Chloride Carbon Dioxide Anion Gap BUN Creatinine Creat Clearance w eGFR POC Glucometer [phone] Random Glucose Calcium Phosphorus Magnesium Total Bilirubin AST ALT Alkaline Phosphatase Total Protein Albumin Crossmatch Active Medications Acetaminophen (Tylenol -) 650 mg PO Q6H PRN PRN Reason: FEVER Last Admin: 03/29/18 14:08 Dose: 650 mg Chlorhexidine Gluconate (Hibiclens For Decolonization -) 1 applic TP HS [facility] Last Admin: 03/28/18 22:04 Dose: 1 applic Duloxetine HCl (Cymbalta -) 60 mg PO DAILY [facility] Last Admin: 03/29/18 10:20 Dose: 60 mg Sodium Chloride (Normal Saline -) 1,000 mls @ 125 mls/hr IV ASDIR [facility] Last Admin: 03/29/18 06:09 Dose: 125 mls/hr Piperacillin Sod/Tazobactam (Sod 4.5 gm/ Dextrose) 100 mls @ 200 mls/hr IVPB Q8H-IV [facility]; Protocol Last Admin: 03/29/18 10:19 Dose: 200 mls/hr Insulin Aspart (Novolog Vial Sliding Scale -) 1 vial SQ Q4HPO [facility]; Protocol Last Admin: 03/29/18 11:34 Dose: Not Given Lisinopril (Prinivil) 10 mg PO DAILY [facility] Last Admin: 03/29/18 14:10 Dose: 10 mg Montelukast Sodium (Singulair -) 10 mg PO HS [facility] Last Admin: 03/28/18 21:59 Dose: 10 mg Mupirocin (Bactroban Ointment (For Decolonization) -) 1 applic NS BID [facility] Stop: 04/01/18 21:59 Last Admin: 03/29/18 10:21 Dose: 1 applic Oxycodone HCl (Roxicodone -) 10 mg PO Q6H PRN PRN Reason: PAIN Last Admin: 03/29/18 05:14 Dose: 10 mg Prochlorperazine Maleate (Compazine -) 10 mg PO DAILY [facility] Last Admin: 03/29/18 10:20 Dose: 10 mg Ranitidine HCl (Zantac -) 150 mg PO BID [facility] Last Admin: 03/29/18 10:20 Dose: 150 mg ASSESSMENT AND PLAN: Pelvic Abscess Gram Negative Bacteremia UTI/Cystitis Severe Sepsis Acute Kidney Injury Lactic Acidosis Uterine Ca on chemo/RT HTN DM Hematoma - Close monitoring of H&H - Normal transfusion thresholds - ABX per ID - Need to repeat cultures - IVF - monitor urine output, creatinine - monitor H/H - SCDs - 4W/4S monitoring Dr De Luna
--- NOTE | 2018-04-02 13:33 | PN ---
Progress Note, Physician History of Present Illness: fever still repeat blood cx still positive will again repeat blood cx - Current Medication List Current Medications: Active Medications Acetaminophen (Tylenol -) 650 mg PO Q6H PRN PRN Reason: FEVER Last Admin: 04/01/18 08:53 Dose: 650 mg Chlorhexidine Gluconate (Hibiclens For Decolonization -) 1 applic TP HS [facility] Last Admin: 04/02/18 02:31 Dose: 1 applic Duloxetine HCl (Cymbalta -) 60 mg PO DAILY [facility] Last Admin: 04/02/18 09:35 Dose: 60 mg Sodium Chloride (Normal Saline -) 1,000 mls @ 125 mls/hr IV ASDIR [facility] Last Admin: 04/02/18 00:30 Dose: 125 mls/hr Meropenem 1 gm/ Dextrose 100 mls @ 200 mls/hr IVPB Q8H-IV [facility] Last Admin: 04/02/18 11:36 Dose: 200 mls/hr Insulin Aspart (Novolog Vial Sliding Scale -) 1 vial SQ ACHS [facility]; Protocol Last Admin: 04/02/18 11:36 Dose: 4 units Lisinopril (Prinivil) 5 mg PO DAILY [facility] Last Admin: 04/02/18 09:43 Dose: 5 mg Metoprolol Tartrate (Lopressor -) 25 mg PO BID [facility] Last Admin: 04/02/18 09:43 Dose: 25 mg Montelukast Sodium (Singulair -) 10 mg PO HS [facility] Last Admin: 04/01/18 22:01 Dose: 10 mg Oxycodone HCl (Roxicodone -) 10 mg PO Q6H PRN PRN Reason: PAIN LEVEL 6-10 Last Admin: 04/02/18 05:34 Dose: 10 mg Prochlorperazine Maleate (Compazine -) 10 mg PO DAILY [facility] Last Admin: 04/02/18 09:37 Dose: 10 mg Ranitidine HCl (Zantac -) 150 mg PO BID [facility] Last Admin: 04/02/18 09:36 Dose: 150 mg Senna (Senna -) 2 tab PO HS PRN PRN Reason: CONSTIPATION Last Admin: 03/31/18 23:18 Dose: 2 tab - Objective Vital Signs: Vital Signs Temperature 98 F 04/02/18 10:00 Pulse Rate 90 04/02/18 12:00 Respiratory Rate 22 H 04/02/18 12:00 Blood Pressure 117/62 04/02/18 12:00 O2 Sat by Pulse Oximetry (%) 100 04/02/18 00:38 Constitutional: Yes: Calm, Mild Distress Cardiovascular: Yes: S1, S2 Respiratory: Yes: Regular, CTA Bilaterally Gastrointestinal: Yes: Normal Bowel Sounds, Soft Musculoskeletal: Yes: Other Extremities: Yes: Other (increased swelling of the rt thigh) Neurological: Yes: Alert, Oriented Psychiatric: Yes: Alert, Oriented Labs: CBC, BMP 04/02/18 05:30 04/02/18 05:30 INR, PTT INR 1.18 (0.83-1.09) H 03/30/18 02:00 Assessment/Plan Pelvic Abscess Gram Negative Bacteremia UTI/Cystitis Severe Sepsis Acute Kidney Injury Lactic Acidosis Uterine Ca on chemo/RT HTN DM plan continue abx monitor for fever rest as per icu still with fevers close watch i think we should get vascular involved cc time 40 min
[2018-04-02 14:06] VITALS: BMI 32.3
[2018-04-02] MEDS: SENNOSIDES 8.6MG TABLET (FP) PO PRN (14:51)
--- NOTE | 2018-04-02 15:01 | PN ---
Physical Exam: SUBJECTIVE: Patient seen and examined at bedside. Per nurse, pt was febrile at 101.9. Denies cp, sob. Pt says her R thigh pain is unchanged from yesterday. August PO intake. REVIEW OF SYMPTOMS Gen: Denies gallo/d/la. Neck: Denies neck pain/stifffness. Lungs: Denies cough, sob, orthopnea. CV: Denies chest pain, palpitations. Abd: Denies abd pain, constipation/diarrhea. Ext: Admits to R thigh pain, although unchanged since yesterday. OBJECTIVE: Vital Signs Period Temp Pulse Resp BP Sys/Leija Pulse Ox Last 24 Hr 98.4 F-102 F 88-126 17-24 102-174/53-80 98-100 GENERAL: AAOx3. NAD. HEENT: AT/NC. EOMI. DEAN. Moist mucus membranes. NECK: Supple, no LAD/JVD. LUNGS: CTA B/L. No wheezes noted. HEART: RRR. Normal S1, S2. No murmurs noted. ABDOMEN: Tender to deep palpation in RLQ. Soft, ND. +BS in all 4Qs. EXTREMITIES: 2+ pulses, warm, well-perfused, no edema. R upper thigh edema noted. NEUROLOGICAL: Responds to commands. PSYCH: Normal mood, normal affect. SKIN: Warm, dry, normal turgor, no rashes or lesions noted Laboratory Results - last 24 hr 03/28/18 04/01/18 04/01/18 11:00 11:39 16:59 WBC RBC Hgb Hct MCV MCH MCHC RDW Plt Count MPV Sodium Potassium Chloride Carbon Dioxide Anion Gap BUN Creatinine Creat Clearance w eGFR POC Glucometer [phone] Random Glucose Calcium Phosphorus Magnesium Total Bilirubin AST ALT Alkaline Phosphatase Total Protein Albumin Crossmatch See Detail 04/01/18 04/02/18 04/02/18 22:29 05:30 05:30 WBC 15.3 H RBC 2.82 L Hgb 7.5 L Hct 23.7 L MCV 83.9 MCH 26.5 MCHC 31.5 L RDW 18.6 H Plt Count 259 MPV 8.5 Sodium 139 Potassium 3.2 L Chloride 104 Carbon Dioxide 21 Anion Gap 13 BUN 8 Creatinine 0.7 Creat Clearance w eGFR > 60 POC Glucometer [phone] Random Glucose 193 H Calcium 8.0 L Phosphorus 2.5 Magnesium 1.5 L Total Bilirubin 0.6 AST 13 L ALT 32 Alkaline Phosphatase 364 H Total Protein 5.4 L Albumin 1.5 L Crossmatch 04/02/18 06:07 WBC RBC Hgb Hct MCV MCH MCHC RDW Plt Count MPV Sodium Potassium Chloride Carbon Dioxide Anion Gap BUN Creatinine Creat Clearance w eGFR POC Glucometer [phone] Random Glucose Calcium Phosphorus Magnesium Total Bilirubin AST ALT Alkaline Phosphatase Total Protein Albumin Crossmatch Active Medications Generic Name Dose Route Start Last Admin Trade Name Freq PRN Reason Stop Dose Admin Acetaminophen 650 mg 04/02/18 15:00 Tylenol - PO Q4H PRN PAIN OR FEVER Chlorhexidine Gluconate 1 applic 03/27/18 22:00 04/02/18 02:31 Hibiclens For Decolonization - TP 1 applic HS [facility] Administration Duloxetine HCl 60 mg 03/28/18 10:00 04/02/18 09:35 Cymbalta - PO 60 mg DAILY [facility] Administration Sodium Chloride 1,000 mls @ 125 mls/hr 03/28/18 00:13 04/02/18 00:30 Normal Saline - IV 125 mls/hr ASDIR [facility] Administration Meropenem 1 gm/ Dextrose 100 mls @ 200 mls/hr 04/01/18 12:45 04/02/18 11:36 IVPB 200 mls/hr Q8H-IV [facility] Administration Insulin Aspart 1 vial 03/29/18 16:30 04/02/18 11:36 Novolog Vial Sliding Scale - SQ 4 units ACHS [facility] Administration Protocol Lisinopril 5 mg 04/02/18 10:00 04/02/18 09:43 Prinivil PO 5 mg DAILY [facility] Administration Metoprolol Tartrate 25 mg 04/02/18 10:00 04/02/18 09:43 Lopressor - PO 25 mg BID [facility] Administration Montelukast Sodium 10 mg 03/27/18 22:00 04/01/18 22:01 Singulair - PO 10 mg HS [facility] Administration Oxycodone HCl 10 mg 04/01/18 22:26 04/02/18 14:51 Roxicodone - PO 10 mg Q6H PRN Administration PAIN LEVEL 6-10 Prochlorperazine Maleate 10 mg 03/28/18 10:00 04/02/18 09:37 Compazine - PO 10 mg DAILY [facility] Administration Ranitidine HCl 150 mg 03/27/18 22:00 04/02/18 09:36 Zantac - PO 150 mg BID [facility] Administration Senna 2 tab 04/02/18 15:01 Senna - PO DAILY PRN CONSTIPATION ASSESSMENT/PLAN: 67F with past medical history of HTN, DM, and uterine cancer (diagnosed in 2016 , on chemotherapy and radiation therapy since June), recently diagnosed DVT , presented with worsening right hip and right thigh pain since 5 days ago. On admission, patient was noted to be tachycardic, with leukocytosis and elevated lactic acid. She was transferred to the ICU for closer monitoring. Neurology #Low back pain 2/2 L5-S1 degenerative disc disease -MRI (03/22/18)- moderate L5/ S1 disc bulging and associated degenerative disc disease and foraminal stenosis with compression of L5 nerve root, disc protrusion of S1 right nerve root. -Per neurosurgery (Dr. Caban) consulted. Recommendations appreciated. -Currently the patient is not medically fit for a semi-elective procedure. -Oxycodone 10mg Q6H PRN and Tylenol for pain Infectious disease #Severe sepsis, likely 2/2 UTI -s/p IR-guided drainage revealed hematoma. -BCx, UCx, and abscess drainage showed E. coli -Per ID: Meropenem 1gm (started 04/01/18); Zosyn d/c'd -Continue IV NS @125ml/hr -Monitor I/O; daily weights -Maintain MAP >65 -UO >0.5cc/kg/hr Cardiology #Hypertension: controlled -Continue home Lisinopril 10mg daily #Hx of RLE DVT -Plavix held -IVC filter in place -RLE duplex neg for DVT Hematology #Normocytic anemia -H/H 7.2/21.8 -may be hemodilution from IVF -will monitor CBC and transfuse with Hgb <7 #Right iliopsoas hematoma, likely 2/2 to Lovenox and Plavix use -Stopped all AC; last dose of plavix given at 03/28 -Will continue monitoring vital signs and CBC q6h -Measure RLE daily, 74cm, previously 71cm, although CTAP showed decreasing size of hematoma. Endocrinology #DM -BGM ACHS -insulin sliding scale ACHS Nephrology #Hypomagnesemia: resolved -will continue to monitor and replete PRN Oncology #Uterine cancer s/p chemo/radiation therapy -outpatient followup FEN -IV NS @ 125ml/hr -routine bmp monitoring -sodium controlled diet Prophylaxis DVT - SCDs both legs. No chemical PPx GI -Ranitidine 150mg PO BID Disposition -full code -transfer to tele Visit type - Emergency Visit Emergency Visit: Yes ED Registration Date: 03/26/18 Care time: The patient presented to the Emergency Department on the above date and was hospitalized for further evaluation of their emergent condition. - New Patient This patient is new to me today: No - Critical Care Critical Care patient: Yes Total Critical Care Time (in minutes): 30 Critical Care Statement: The care of this patient involved high complexity decision making to prevent further life threatening deterioration of the patient 's condition and/or to evaluate & treat vital organ system(s) failure or risk of failure.
--- NOTE | 2018-04-02 16:21 | PN ---
Progress Note, Physician History of Present Illness: no complaints - Current Medication List Current Medications: Active Medications Acetaminophen (Tylenol -) 650 mg PO Q4H PRN PRN Reason: PAIN OR FEVER Chlorhexidine Gluconate (Hibiclens For Decolonization -) 1 applic TP HS [facility] Last Admin: 04/02/18 02:31 Dose: 1 applic Duloxetine HCl (Cymbalta -) 60 mg PO DAILY [facility] Last Admin: 04/02/18 09:35 Dose: 60 mg Sodium Chloride (Normal Saline -) 1,000 mls @ 125 mls/hr IV ASDIR [facility] Last Admin: 04/02/18 00:30 Dose: 125 mls/hr Meropenem 1 gm/ Dextrose 100 mls @ 200 mls/hr IVPB Q8H-IV [facility] Last Admin: 04/02/18 11:36 Dose: 200 mls/hr Insulin Aspart (Novolog Vial Sliding Scale -) 1 vial SQ ACHS [facility]; Protocol Last Admin: 04/02/18 11:36 Dose: 4 units Lisinopril (Prinivil) 5 mg PO DAILY [facility] Last Admin: 04/02/18 09:43 Dose: 5 mg Metoprolol Tartrate (Lopressor -) 25 mg PO BID [facility] Last Admin: 04/02/18 09:43 Dose: 25 mg Montelukast Sodium (Singulair -) 10 mg PO [facility] Last Admin: 04/01/18 22:01 Dose: 10 mg Oxycodone HCl (Roxicodone -) 10 mg PO Q6H PRN PRN Reason: PAIN LEVEL 6-10 Last Admin: 04/02/18 14:51 Dose: 10 mg Prochlorperazine Maleate (Compazine -) 10 mg PO DAILY [facility] Last Admin: 04/02/18 09:37 Dose: 10 mg Ranitidine HCl (Zantac -) 150 mg PO BID [facility] Last Admin: 04/02/18 09:36 Dose: 150 mg Senna (Senna -) 2 tab PO DAILY PRN PRN Reason: CONSTIPATION - Objective Vital Signs: Vital Signs Temperature 99.5 F 04/02/18 14:00 Pulse Rate 88 04/02/18 14:00 Respiratory Rate 21 H 04/02/18 14:00 Blood Pressure 113/69 04/02/18 14:00 O2 Sat by Pulse Oximetry (%) 98 04/02/18 09:00 Constitutional: Yes: No Distress HENT: Yes: Atraumatic Neck: Yes: Supple Cardiovascular: Yes: Regular Rate and Rhythm Respiratory: Yes: CTA Bilaterally Gastrointestinal: Yes: Normal Bowel Sounds Extremities: Yes: Other (R thigh same size as yesterday mild tenderness to touch ) Peripheral Pulses WNL: Yes Neurological: Yes: Alert, Oriented Labs: CBC, BMP 04/02/18 05:30 04/02/18 05:30 INR, PTT INR 1.18 (0.83-1.09) H 03/30/18 02:00 Problem List - Problems (1) Back pain Assessment/Plan: prn pain meds Code(s): M54.9 - DORSALGIA, UNSPECIFIED (2) Sepsis Assessment/Plan: on abx cxs noted id on board Code(s): A41.9 - SEPSIS, UNSPECIFIED ORGANISM (3) Hematoma Assessment/Plan: h/h trending down R thigh size increasing...monitoring thigh size Code(s): T14.8XXA - OTHER INJURY OF UNSPECIFIED BODY REGION, INITIAL ENCOUNTER (4) UTI (urinary tract infection) Assessment/Plan: on abx cxs noted Code(s): N39.0 - URINARY TRACT INFECTION, SITE NOT SPECIFIED (5) Anemia Assessment/Plan: monitor h/h transfuse prbc as needed Code(s): D64.9 - ANEMIA, UNSPECIFIED Qualifiers: Iron deficiency anemia type: chronic blood loss (6) Psoas abscess, right Code(s): K68.12 - PSOAS MUSCLE ABSCESS
[2018-04-02] MEDS ORDERED: oxyCODONE HCL 5 MG TABLET PO ONE (20:15)
[2018-04-02] MEDS: ACETAMINOPHEN 325 MG TABLET (FP) PO PRN (20:42)
[2018-04-02] MEDS: METOPROLOL TARTRATE 25 MG TABLET (FP) PO SCH (21:51)
[2018-04-02] MEDS: MONTELUKAST NA 10 MG TABLET PO SCH (21:51)
[2018-04-03] MEDS ORDERED: PT OWN MED DRAWER 7, Y5N ONE ×3 (01:55→19:57)
[2018-04-03] MEDS: MEROPENEM 1 GM in DEXTROSE 5%-WATER 100 ML IVPB SCH ×3 (01:59→20:03)
[2018-04-03] MEDS: oxyCODONE HCL 5 MG TABLET PO PRN ×2 (03:53→10:30)
[2018-04-03] MEDS: SODIUM CHLORIDE 1,000 ML IV SCH (06:36)
[2018-04-03] MEDS: INSULIN SLIDING SCALE (NOVOLOG) 1 VIAL SQ SCH ×4 (06:37→21:40)
[2018-04-03 06:49] LABS: MCH 26.4 pg (25.7-33.7); MCHC 31.3 g/dl (32.0-36.0); MEAN CELL VOLUME 84.3 fl (80-96); MEAN PLT VOLUME 8.8 fl (7.5-11.1); PLATELET COUNT 267 K/MM3 (134-434); RBC 2.61 M/mm3 (3.60-5.2); RDW 18.8 % (11.6-15.6)
[2018-04-03 08:07] LABS: ALBUMIN 1.5 g/dl (3.4-5.0); ALK PHOS 497 U/L (45-117); ANION GAP 12 MMOL/L (8-16); BILIRUBIN,TOTAL 0.6 mg/dL (0.2-1); BLOOD UREA NITROGEN 9 mg/dL (7-18); CALCIUM 8.5 mg/dL (8.5-10.1); CHLORIDE 104 mmol/L (98-107); CO2 21 mmol/L (21-32); CREATININE 0.6 mg/dL (0.55-1.3); GLUCOSE,RANDOM 234 mg/dL (74-106); POTASSIUM 3.6 mmol/L (3.5-5.1); SGOT/AST 59 U/L (15-37); SGPT/ALT 43 U/L (13-61); SODIUM 137 mmol/L (136-145); TOT PROT 5.4 g/dl (6.4-8.2)
[2018-04-03 08:22] LABS: HEMOGLOBIN 6.9 GM/dL (10.7-15.3)
[2018-04-03] MEDS: METOPROLOL TARTRATE 25 MG TABLET (FP) PO SCH ×2 (10:29→21:39)
[2018-04-03] MEDS: DULoxetine HCL 30 MG CAPSULE.DR (FP) PO SCH (10:29)
[2018-04-03] MEDS: RANITIDINE HCL 150 MG TABLET (FP) PO SCH ×2 (10:29→21:39)
[2018-04-03] MEDS: LISINOPRIL 5 MG TABLET (FP) PO SCH (10:29)
[2018-04-03] MEDS: PROCHLORPERAZINE MALEATE 5 MG TABLET PO SCH (10:30)
--- NOTE | 2018-04-03 11:52 | CONSULT ---
Consultation: REQUESTING PROVIDER: Dr. Zavala CONSULT REQUEST FOR HEMATOLOGY/ONCOLOGY: We have been asked to medically evaluate this patient for Anemia. HISTORY OF PRESENT ILLNESS: Patient is a 67 year old female wit a PMHx of HTN, NIDDMII, Uterine cancer ( diagnosed in 2017 on Chemo and radiation), recent diagnosis of DVT (On Lovenox) who presented with worsening right hip and thigh pain within the last two weeks. Patient was found to be in Sepsis with gram negative cultures growing and CT of abdomen/Pelvis/ LE revealed a right psoas hematoma with internal debris. Patient had IR drainage done of hematoma and then sent to the ICU for further sepsis management. Patient is currently lethargic and drowsy. Reports feeling weak and unable to keep her eyes open due to the weakness. is at bedside and states patient to him is getting worse. Patient reports right thigh pain and is unable to move her leg. Otherwise, patient denies any abdominal pain, chest pain, vomiting, headaches, shortness of breath, diarrhea, constipation, denies any weight loss of night sweats. Patient denies any history of steroids, hormone therapy, immobilization (until the last few days due to worsening right thigh pain), recent travel, surgery, family history of blood disorders. Patient does have history of Uterine cancer and reports having IV chemotherapy and radiation back in May at [facility]. Unable to give exact dates of therapy and name of medications. Patient unsure if she ever had Colonoscopy Denies any Jaundice, rectal bleeding, hematochezia, melena, jaundice. Patient (04/03/18) was found to have anemia with a Hgb drop to 6.9 and we were consulted for further management. REVIEW OF SYSTEMS: CONSTITUTIONAL: fever, chills, generalized weakness, malaise, loss of appetite Absent: diaphoresis,weight change HEENT: Absent: rhinorrhea, nasal congestion, throat pain, throat swelling, difficulty swallowing, mouth swelling, ear pain, eye pain, visual changes CARDIOVASCULAR: Absent: chest pain, syncope, palpitations, irregular heart rate, lightheadedness , peripheral edema RESPIRATORY: Absent: cough, shortness of breath, dyspnea with exertion, orthopnea, wheezing, stridor, hemoptysis GASTROINTESTINAL: Absent: abdominal pain, abdominal distension, nausea, vomiting, diarrhea, constipation, melena, hematochezia GENITOURINARY: Absent: dysuria, frequency, urgency, hesitancy, hematuria, flank pain, genital pain MUSCULOSKELETAL: back pain, , right thigh pain Absent: myalgia, arthralgia, joint swelling, neck pain SKIN: Absent: rash, itching, pallor HEMATOLOGIC/IMMUNOLOGIC: History of uterine cancer, History of DVT Absent: easy bleeding, easy bruising, lymphadenopathy, frequent infections ENDOCRINE: Absent: unexplained weight gain, unexplained weight loss, heat intolerance, cold intolerance NEUROLOGIC: Absent: headache, focal weakness or paresthesias, dizziness, unsteady gait, seizure, mental status changes, bladder or bowel incontinence PSYCHIATRIC: Absent: anxiety, depression, suicidal or homicidal ideation, hallucinations. PHYSICAL EXAMINATION Vital Signs - 24 hr 04/03/18 04/03/18 05:00 10:20 Temperature 99.4 F 98.6 F Pulse Rate 104 H 110 H Respiratory 20 20 Rate Blood Pressure 144/75 163/78 O2 Sat by Pulse Oximetry (%) GENERAL: Drowsy,fully oriented, warm to touch, HEAD: Normal with no signs of trauma. EYES: Pupils equal, round and reactive to light, extraocular movements intact, sclera anicteric, conjunctiva clear. EARS, NOSE, THROAT: Oral thrush. Moist mucous membranes. NECK: (-)lymphadenopathy, JVD, or masses. LUNGS: Breath sounds equal, clear to auscultation bilaterally. No wheezes, and no crackles. No accessory muscle use. HEART: Tachycardic with regular rhythm, normal S1 and S2 without murmur, rub or gallop. ABDOMEN: Soft, nontender, not distended, normoactive bowel sounds, no guarding, no rebound, no masses. No hepatomegaly or splenomegaly. BREAST: No discreet masses, nipple discharge, or discoloration. UPPER EXTREMITIES: Several large ecchymosis of bilateral forearms. No peripheral edema. LOWER EXTREMITIES: Right upper and lower thigh edema and tenderness NEUROLOGICAL: Cranial nerves II-XII intact. Normal speech. PSYCHIATRIC: Poor eye contact SKIN: Warm, dry, normal turgor Laboratory Results - last 24 hr 04/02/18 04/03/18 04/03/18 21:38 05:30 06:00 WBC 16.0 H RBC 2.61 L Hgb 6.9 L* Hct 22.0 L MCV 84.3 MCH 26.4 MCHC 31.3 L RDW 18.8 H Plt Count 267 MPV 8.8 Sodium Potassium Chloride Carbon Dioxide Anion Gap BUN Creatinine Creat Clearance w eGFR POC Glucometer 265 254 Random Glucose Calcium Total Bilirubin AST ALT Alkaline Phosphatase Total Protein Albumin Crossmatch 04/03/18 04/03/18 06:00 10:40 WBC RBC Hgb Hct MCV MCH MCHC RDW Plt Count MPV Sodium 137 Potassium 3.6 Chloride 104 Carbon Dioxide 21 Anion Gap 12 BUN 9 Creatinine 0.6 Creat Clearance w eGFR > 60 POC Glucometer Random Glucose 234 H Calcium 8.5 Total Bilirubin 0.6 AST 59 H ALT 43 Alkaline Phosphatase 497 H Total Protein 5.4 L Albumin 1.5 L Crossmatch See Detail Active Medications Generic Name Dose Route Start Last Admin Trade Name Freq PRN Reason Stop Dose Admin Acetaminophen 650 mg 04/02/18 15:00 04/02/18 20:42 Tylenol - PO 650 mg Q4H PRN Administration PAIN OR FEVER Duloxetine HCl 60 mg 04/03/18 10:00 04/03/18 10:29 Cymbalta - PO 60 mg DAILY [facility] Administration Meropenem 1 gm/ Dextrose 100 mls @ 200 mls/hr 04/03/18 02:00 04/03/18 10:29 IVPB 200 mls/hr Q8H-IV [facility] Administration Sodium Chloride 1,000 mls @ 125 mls/hr 04/02/18 18:09 04/03/18 06:36 Normal Saline - IV 125 mls/hr ASDIR [facility] Administration Insulin Aspart 1 vial 04/02/18 22:00 04/03/18 06:37 Novolog Vial Sliding Scale - SQ 6 units ACHS [facility] Administration Protocol Lisinopril 5 mg 04/03/18 10:00 04/03/18 10:29 Prinivil PO 5 mg DAILY [facility] Administration Metoprolol Tartrate 25 mg 04/02/18 22:00 04/03/18 10:29 Lopressor - PO 25 mg BID [facility] Administration Montelukast Sodium 10 mg 04/02/18 22:00 04/02/18 21:51 Singulair - PO 10 mg HS [facility] Administration Oxycodone HCl 10 mg 04/02/18 18:09 04/03/18 10:30 Roxicodone - PO 10 mg Q6H PRN Administration PAIN LEVEL 6-10 Prochlorperazine Maleate 10 mg 04/03/18 10:00 04/03/18 10:30 Compazine - PO 10 mg DAILY [facility] Administration Ranitidine HCl 150 mg 04/02/18 22:00 04/03/18 10:29 Zantac - PO 150 mg BID [facility] Administration Senna 2 tab 04/02/18 15:01 Senna - PO DAILY PRN CONSTIPATION ASSESSMENT/PLAN: Patient is a 67 year old female who presented for right leg and thigh pain and found to have a large hematoma in the right psoas with gram negative bacteremia. We were consulted due to low hemoglobin and anemia. Problem List: Right Iliopsoas Hematoma s/p IR Drainage History of RLE DVT (on Lovenox) UTI with E.Coli Bacteremia Uterine Cancer Normocytic Anemia, likely anemia of chronic disease Oral thrush HTN NIDDMII PLAN: -Patient with right iliopsoas hematoma s/p one unit PRBC due to hgb of 6.9. Records reviewed and CBC reviewed as far back as 2016. Patient has had Low Hgb possibly from anemia of chronic disease due to malignancy. -Would need to outweigh risks vs. benefits of Anticoagulation use in the setting of iliopsoas hematoma as well as patient being in hypercoagulable state due to Sepsis, Malignancy, Obesity, and previous DVT, which makes her high risk. Can compromise currently and can place patient on DVT prophylaxis rather than full anticoagulation in view of risk of additional bleeding in hematoma. -Iron studies compatible with anemia of chronic disease however in view of low Iron, cannot exclude Iron Deficiency. -Due to history of uterine cancer, recommend work up to rule out Vizcarra Syndrome. Stool Guaic ordered -Will need records from her oncologists office, [facility] -Swish and swallow for Oral thrush -IV antiboitics, as per ID Visit type - Emergency Visit Emergency Visit: Yes ED Registration Date: 03/26/18 Care time: The patient presented to the Emergency Department on the above date and was hospitalized for further evaluation of their emergent condition. - New Patient This patient is new to me today: Yes Date on this admission: 04/03/18 - Critical Care Critical Care patient: No
--- NOTE | 2018-04-03 12:07 | PN ---
Progress Note, Physician History of Present Illness: patient still spiking fevers awaiting repeat cx patient still with very uncomfortable swelling of the thigh still present - Current Medication List Current Medications: Active Medications Acetaminophen (Tylenol -) 650 mg PO Q4H PRN PRN Reason: PAIN OR FEVER Last Admin: 04/02/18 20:42 Dose: 650 mg Duloxetine HCl (Cymbalta -) 60 mg PO DAILY [facility] Last Admin: 04/03/18 10:29 Dose: 60 mg Meropenem 1 gm/ Dextrose 100 mls @ 200 mls/hr IVPB Q8H-IV [facility] Last Admin: 04/03/18 10:29 Dose: 200 mls/hr Sodium Chloride (Normal Saline -) 1,000 mls @ 125 mls/hr IV ASDIR [facility] Last Admin: 04/03/18 06:36 Dose: 125 mls/hr Insulin Aspart (Novolog Vial Sliding Scale -) 1 vial SQ ACHS [facility]; Protocol Last Admin: 04/03/18 06:37 Dose: 6 units Lisinopril (Prinivil) 5 mg PO DAILY [facility] Last Admin: 04/03/18 10:29 Dose: 5 mg Metoprolol Tartrate (Lopressor -) 25 mg PO BID [facility] Last Admin: 04/03/18 10:29 Dose: 25 mg Montelukast Sodium (Singulair -) 10 mg PO HS [facility] Last Admin: 04/02/18 21:51 Dose: 10 mg Oxycodone HCl (Roxicodone -) 10 mg PO Q6H PRN PRN Reason: PAIN LEVEL 6-10 Last Admin: 04/03/18 10:30 Dose: 10 mg Prochlorperazine Maleate (Compazine -) 10 mg PO DAILY [facility] Last Admin: 04/03/18 10:30 Dose: 10 mg Ranitidine HCl (Zantac -) 150 mg PO BID [facility] Last Admin: 04/03/18 10:29 Dose: 150 mg Senna (Senna -) 2 tab PO DAILY PRN PRN Reason: CONSTIPATION - Objective Vital Signs: Vital Signs Temperature 98.6 F 04/03/18 10:20 Pulse Rate 110 H 04/03/18 10:20 Respiratory Rate 20 04/03/18 10:20 Blood Pressure 163/78 04/03/18 10:20 O2 Sat by Pulse Oximetry (%) 100 04/02/18 22:00 Constitutional: Yes: Calm, Moderate Distress Cardiovascular: Yes: Regular Rate and Rhythm Respiratory: Yes: Regular, CTA Bilaterally Gastrointestinal: Yes: Normal Bowel Sounds, Soft Musculoskeletal: Yes: WNL Extremities: Yes: Other (swelling of thigh) Integumentary: Yes: Erythema Neurological: Yes: Alert, Oriented Psychiatric: Yes: Alert, Oriented Labs: CBC, BMP 04/03/18 06:00 04/03/18 06:00 INR, PTT INR 1.18 (0.83-1.09) H 03/30/18 02:00 Assessment/Plan Pelvic Abscess Gram Negative Bacteremia UTI/Cystitis Severe Sepsis Acute Kidney Injury Lactic Acidosis Uterine Ca on chemo/RT HTN DM plan abx changed await for cx report monitor for fever rest as per icu still with fevers close watch i think we should get vascular involved cc time 40 min
--- NOTE | 2018-04-03 12:16 | PN ---
Progress Note, Physician History of Present Illness: Fever spike overnight, underwent IR drainage of right iliopsoas abscess, right thigh discomfort. - Current Medication List Current Medications: Active Medications Acetaminophen (Tylenol -) 650 mg PO Q4H PRN PRN Reason: PAIN OR FEVER Last Admin: 04/02/18 20:42 Dose: 650 mg Duloxetine HCl (Cymbalta -) 60 mg PO DAILY [facility] Last Admin: 04/03/18 10:29 Dose: 60 mg Meropenem 1 gm/ Dextrose 100 mls @ 200 mls/hr IVPB Q8H-IV [facility] Last Admin: 04/03/18 10:29 Dose: 200 mls/hr Sodium Chloride (Normal Saline -) 1,000 mls @ 125 mls/hr IV ASDIR [facility] Last Admin: 04/03/18 06:36 Dose: 125 mls/hr Insulin Aspart (Novolog Vial Sliding Scale -) 1 vial SQ ACHS [facility]; Protocol Last Admin: 04/03/18 12:06 Dose: 8 units Lisinopril (Prinivil) 5 mg PO DAILY [facility] Last Admin: 04/03/18 10:29 Dose: 5 mg Metoprolol Tartrate (Lopressor -) 25 mg PO BID [facility] Last Admin: 04/03/18 10:29 Dose: 25 mg Montelukast Sodium (Singulair -) 10 mg PO HS [facility] Last Admin: 04/02/18 21:51 Dose: 10 mg Oxycodone HCl (Roxicodone -) 10 mg PO Q6H PRN PRN Reason: PAIN LEVEL 6-10 Last Admin: 04/03/18 10:30 Dose: 10 mg Prochlorperazine Maleate (Compazine -) 10 mg PO DAILY [facility] Last Admin: 04/03/18 10:30 Dose: 10 mg Ranitidine HCl (Zantac -) 150 mg PO BID [facility] Last Admin: 04/03/18 10:29 Dose: 150 mg Senna (Senna -) 2 tab PO DAILY PRN PRN Reason: CONSTIPATION - Objective Vital Signs: Vital Signs Temperature 98.6 F 04/03/18 10:20 Pulse Rate 110 H 04/03/18 10:20 Respiratory Rate 20 04/03/18 10:20 Blood Pressure 163/78 04/03/18 10:20 O2 Sat by Pulse Oximetry (%) 100 04/02/18 22:00 Constitutional: Yes: No Distress, Calm Neck: Yes: Supple Cardiovascular: Yes: Regular Rate and Rhythm Respiratory: Yes: Regular, Diminished, On Nasal O2 Gastrointestinal: Yes: Normal Bowel Sounds, Soft Edema: Yes Edema: LLE: 1+, RLE: 1+ Labs: CBC, BMP 04/03/18 06:00 04/03/18 06:00 INR, PTT INR 1.18 (0.83-1.09) H 03/30/18 02:00 Problem List - Problems (1) Psoas abscess, right Code(s): K68.12 - PSOAS MUSCLE ABSCESS (2) Hypertension Code(s): I10 - ESSENTIAL (PRIMARY) HYPERTENSION Qualifiers: Qualified Code(s): I10 - Essential (primary) hypertension (3) Anemia Code(s): D64.9 - ANEMIA, UNSPECIFIED Qualifiers: Qualified Code(s): D50.0 - Iron deficiency anemia secondary to blood loss ( chronic) (4) E. coli sepsis Code(s): A41.51 - SEPSIS DUE TO ESCHERICHIA COLI [E. COLI] Assessment/Plan 1. Right iliopsoas abscess s/p IR drainage 2. E. coli bacteremia 3. UTI/Cystitis 4. Acute Kidney Injury resolved 5. Lactic Acidosis 6. Uterine Ca on chemo/RT 7. HTN 8. DM 9. Hematoma, anemia post transfusion Plan: 1. Abx course per blood and wound C&S, analgesia as needed, f/u surveillance cx to document clearance 2. Plavix held pending hemostasis, continue lopressor 25 bid, lisinopril 5 qd, monitor Hgb and transfuse to maintain Hgb>8.0 3. D/c IVF
--- NOTE | 2018-04-03 16:51 | PN ---
Progress Note, Physician - Current Medication List Current Medications: Active Medications Acetaminophen (Tylenol -) 650 mg PO Q4H PRN PRN Reason: PAIN OR FEVER Last Admin: 04/02/18 20:42 Dose: 650 mg Duloxetine HCl (Cymbalta -) 60 mg PO DAILY [facility] Last Admin: 04/03/18 10:29 Dose: 60 mg Meropenem 1 gm/ Dextrose 100 mls @ 200 mls/hr IVPB Q8H-IV [facility] Last Admin: 04/03/18 10:29 Dose: 200 mls/hr Insulin Aspart (Novolog Vial Sliding Scale -) 1 vial SQ ACHS [facility]; Protocol Last Admin: 04/03/18 12:06 Dose: 8 units Lisinopril (Prinivil) 5 mg PO DAILY [facility] Last Admin: 04/03/18 10:29 Dose: 5 mg Metoprolol Tartrate (Lopressor -) 25 mg PO BID [facility] Last Admin: 04/03/18 10:29 Dose: 25 mg Montelukast Sodium (Singulair -) 10 mg PO HS [facility] Last Admin: 04/02/18 21:51 Dose: 10 mg Oxycodone HCl (Roxicodone -) 10 mg PO Q6H PRN PRN Reason: PAIN LEVEL 6-10 Last Admin: 04/03/18 10:30 Dose: 10 mg Prochlorperazine Maleate (Compazine -) 10 mg PO DAILY [facility] Last Admin: 04/03/18 10:30 Dose: 10 mg Ranitidine HCl (Zantac -) 150 mg PO BID [facility] Last Admin: 04/03/18 10:29 Dose: 150 mg Senna (Senna -) 2 tab PO DAILY PRN PRN Reason: CONSTIPATION - Objective Vital Signs: Vital Signs Temperature 99.7 F H 04/03/18 15:14 Pulse Rate 97 H 04/03/18 15:14 Respiratory Rate 20 04/03/18 15:14 Blood Pressure 144/69 04/03/18 15:14 O2 Sat by Pulse Oximetry (%) 100 04/02/18 22:00 Constitutional: Yes: No Distress HENT: Yes: Atraumatic Neck: Yes: Supple Cardiovascular: Yes: Regular Rate and Rhythm Respiratory: Yes: CTA Bilaterally Gastrointestinal: Yes: Normal Bowel Sounds Extremities: Yes: WNL Edema: No Peripheral Pulses WNL: Yes Neurological: Yes: Alert, Oriented Labs: CBC, BMP 04/03/18 06:00 04/03/18 06:00 INR, PTT INR 1.18 (0.83-1.09) H 03/30/18 02:00 Problem List - Problems (1) Back pain Assessment/Plan: prn pain meds Code(s): M54.9 - DORSALGIA, UNSPECIFIED (2) Sepsis Assessment/Plan: on abx cxs noted id on board Code(s): A41.9 - SEPSIS, UNSPECIFIED ORGANISM (3) Hematoma Code(s): T14.8XXA - OTHER INJURY OF UNSPECIFIED BODY REGION, INITIAL ENCOUNTER (4) UTI (urinary tract infection) Assessment/Plan: on abx cxs noted Code(s): N39.0 - URINARY TRACT INFECTION, SITE NOT SPECIFIED (5) Anemia Assessment/Plan: monitor h/h transfuse prbc as needed Code(s): D64.9 - ANEMIA, UNSPECIFIED Qualifiers: Iron deficiency anemia type: chronic blood loss (6) Psoas abscess, right Code(s): K68.12 - PSOAS MUSCLE ABSCESS
[2018-04-03] MEDS: MONTELUKAST NA 10 MG TABLET PO SCH (21:39)
[2018-04-03] MEDS: ACETAMINOPHEN 325 MG TABLET (FP) PO PRN (21:40)
[2018-04-04] MEDS ORDERED: PT OWN MED DRAWER 7, Y5N ONE ×3 (01:28→17:28)
[2018-04-04] MEDS: MEROPENEM 1 GM in DEXTROSE 5%-WATER 100 ML IVPB SCH ×3 (01:40→16:59)
[2018-04-04] MEDS: oxyCODONE HCL 5 MG TABLET PO PRN ×2 (03:51→16:48)
[2018-04-04] MEDS: SENNOSIDES 8.6MG TABLET (FP) PO PRN (06:41)
[2018-04-04] MEDS: INSULIN SLIDING SCALE (NOVOLOG) 1 VIAL SQ SCH ×4 (06:42→21:42)
[2018-04-04 06:50] LABS: BASO % 0.3 % (0-2.0); EOS % 0.2 % (0-4.5); HEMATOCRIT 24.3 % (32.4-45.2); HEMOGLOBIN 7.9 GM/dL (10.7-15.3); LYMPH % 7.3 % (8-40); MCH 26.6 pg (25.7-33.7); MCHC 32.5 g/dl (32.0-36.0); MEAN CELL VOLUME 81.8 fl (80-96); MEAN PLT VOLUME 8.4 fl (7.5-11.1); MONO % 4.5 % (3.8-10.2); NEUT % 87.7 % (42.8-82.8); PLATELET COUNT 263 K/MM3 (134-434); RBC 2.97 M/mm3 (3.60-5.2); RDW 19.2 % (11.6-15.6); WHITE BLOOD COUNT 13.3 K/mm3 (4.0-10.0)
[2018-04-04 08:06] LABS: SERUM IRON SATURATION 12 % (15-55); TOTAL IRON BINDING CAPACITY 131 ug/dL (250-450); UIBC 115 ug/dL (118-369)
[2018-04-04 08:27] LABS: ALBUMIN 1.5 g/dl (3.4-5.0); ALK PHOS 445 U/L (45-117); ANION GAP 8 MMOL/L (8-16); BILIRUBIN,TOTAL 0.6 mg/dL (0.2-1); BLOOD UREA NITROGEN 8 mg/dL (7-18); CALCIUM 8.3 mg/dL (8.5-10.1); CHLORIDE 102 mmol/L (98-107); CO2 26 mmol/L (21-32); CREATININE 0.7 mg/dL (0.55-1.3); GLUCOSE,RANDOM 253 mg/dL (74-106); POTASSIUM 3.8 mmol/L (3.5-5.1); SGOT/AST 29 U/L (15-37); SGPT/ALT 48 U/L (13-61); SODIUM 136 mmol/L (136-145); TOT PROT 5.5 g/dl (6.4-8.2)
--- NOTE | 2018-04-04 10:10 | PN ---
Teaching Attending Note Name of Resident: Veronica Chaudhary ATTENDING PHYSICIAN STATEMENT I saw and evaluated the patient. I reviewed the resident's note and discussed the case with the resident. I agree with the resident's findings and plan as documented. SUBJECTIVE: Patient seen and examined Complex case of patient with history of endometrial ca - s/p therapy ? chemotheray and Rt earlier this year. Had DVT 4 months earlier ( timing not clear from history) Was on lovenox and presented with ilipsoas hematoma and anemia. Has become sedentary and has had pain with significant immobility of RLE Last Vital Signs Temp Pulse Resp BP Pulse Ox 98.4 F 87 20 145/71 96 04/04/18 02:00 04/04/18 02:00 04/04/18 02:00 04/04/18 02:00 04/03/18 22:00 HEENT: ANDRE, EOM Intact Oropharynx: thrush, No mucositis Neck: Supple Nodes: Without adenopathy Breasts: Without masses Cor: RSR, No murmurs, No gallops Lungs: Clear to P&A Abd: Soft, Normal bowel sounds, No organomegaly Ext:decreased ROM - RLE with pain on movement Skin: No rashes, Integument intact CBC, BMP 04/04/18 06:00 04/04/18 06:00 Current Medications Generic Name Dose Route Start Last Admin Trade Name Freq PRN Reason Stop Dose Admin Acetaminophen 650 mg 04/02/18 15:00 04/03/18 21:40 Tylenol - PO 650 mg Q4H PRN Administration PAIN OR FEVER Duloxetine HCl 60 mg 04/03/18 10:00 04/03/18 10:29 Cymbalta - PO 60 mg DAILY [facility] Administration Meropenem 1 gm/ Dextrose 100 mls @ 200 mls/hr 04/03/18 02:00 04/04/18 01:40 IVPB 200 mls/hr Q8H-IV [facility] Administration Insulin Aspart 1 vial 04/02/18 22:00 04/04/18 06:42 Novolog Vial Sliding Scale - SQ 8 units ACHS [facility] Administration Protocol Lisinopril 5 mg 04/03/18 10:00 04/03/18 10:29 Prinivil PO 5 mg DAILY [facility] Administration Metoprolol Tartrate 25 mg 04/02/18 22:00 04/03/18 21:39 Lopressor - PO 25 mg BID [facility] Administration Montelukast Sodium 10 mg 04/02/18 22:00 04/03/18 21:39 Singulair - PO 10 mg HS [facility] Administration Oxycodone HCl 10 mg 04/02/18 18:09 04/04/18 03:51 Roxicodone - PO 10 mg Q6H PRN Administration PAIN LEVEL 6-10 Prochlorperazine Maleate 10 mg 04/03/18 10:00 04/03/18 10:30 Compazine - PO 10 mg DAILY [facility] Administration Ranitidine HCl 150 mg 04/02/18 22:00 04/03/18 21:39 Zantac - PO 150 mg BID [facility] Administration Senna 2 tab 04/02/18 15:01 04/04/18 06:41 Senna - PO 2 tab DAILY PRN Administration CONSTIPATION OBJECTIVE: ASSESSMENT AND PLAN: Endometrial ca History of DVT History of A/C with lovenox History of E.Coli sepsis and urosepsis History of iliopsoas hematoma Fe++ studies compatible with chronic disease, although cannot exclude component of blood loss Thrush Complex case - Hypercoagulable - sedentary, obese, history of DVT, history of malignancy, history of chemotherapy and RT sepsis. Has iliopsoas hematoma. This is a risk benefit problem. A compromise might be initially to begin patient on DVT prophylaxis with subq lovenox and monitor hematoma. In interim, treating with antibiotics. Will begin nystatin for thrush. Needs stool guaics. Will begin lovenox - 30 mg daily. Difficult problem
[2018-04-04] MEDS: PROCHLORPERAZINE MALEATE 5 MG TABLET PO SCH (10:43)
[2018-04-04] MEDS: ENOXAPARIN NA (PORCINE) 30 MG/0.3 ML DISP.SYRIN SQ SCH (10:43)
[2018-04-04] MEDS: RANITIDINE HCL 150 MG TABLET (FP) PO SCH ×2 (10:44→21:43)
[2018-04-04] MEDS: LISINOPRIL 5 MG TABLET (FP) PO SCH (10:44)
[2018-04-04] MEDS: DULoxetine HCL 30 MG CAPSULE.DR (FP) PO SCH (10:44)
[2018-04-04] MEDS: METOPROLOL TARTRATE 25 MG TABLET (FP) PO SCH ×2 (10:44→21:43)
--- NOTE | 2018-04-04 11:03 | PN ---
Progress Note (short form) - Note Progress Note: Chief Complaint: Events noted, notes reviewed, complaining of right thigh discomfort but improved, persistent sinus tachycardia noted History of Present Illness: Seen and examined on telemetry. Events noted, notes reviewed, complaining of right thigh discomfort but improved, persistent sinus tachycardia noted - Current Medication List Current Medications Acetaminophen (Tylenol -) 650 mg PO Q4H PRN PRN Reason: PAIN OR FEVER Last Admin: 04/03/18 21:40 Dose: 650 mg Duloxetine HCl (Cymbalta -) 60 mg PO DAILY [facility] Last Admin: 04/04/18 10:44 Dose: 60 mg Enoxaparin Sodium (Lovenox -) 30 mg SQ DAILY [facility] Last Admin: 04/04/18 10:43 Dose: 30 mg Meropenem 1 gm/ Dextrose 100 mls @ 200 mls/hr IVPB Q8H-IV [facility] Last Admin: 04/04/18 10:44 Dose: 200 mls/hr Insulin Aspart (Novolog Vial Sliding Scale -) 1 vial SQ ACHS [facility]; Protocol Last Admin: 04/04/18 06:42 Dose: 8 units Lisinopril (Prinivil) 5 mg PO DAILY [facility] Last Admin: 04/04/18 10:44 Dose: 5 mg Metoprolol Tartrate (Lopressor -) 25 mg PO BID [facility] Last Admin: 04/04/18 10:44 Dose: 25 mg Montelukast Sodium (Singulair -) 10 mg PO HS [facility] Last Admin: 04/03/18 21:39 Dose: 10 mg Nystatin (Nystatin Oral Suspension -) 500,000 units PO Q6HPO [facility] Oxycodone HCl (Roxicodone -) 10 mg PO Q6H PRN PRN Reason: PAIN LEVEL 6-10 Last Admin: 04/04/18 03:51 Dose: 10 mg Prochlorperazine Maleate (Compazine -) 10 mg PO DAILY [facility] Last Admin: 04/04/18 10:43 Dose: 10 mg Ranitidine HCl (Zantac -) 150 mg PO BID [facility] Last Admin: 04/04/18 10:44 Dose: 150 mg Senna (Senna -) 2 tab PO DAILY PRN PRN Reason: CONSTIPATION Last Admin: 04/04/18 06:41 Dose: 2 tab Review of Systems - Review of Systems Constitutional: denies: Chills or Fever Cardiovascular: as noted above Gastrointestinal: denies: Nausea, Vomiting, Diarrhea, Constipation or Abdominal Pain Genitourinary: No symptoms reported Neurological: No symptoms reported - Objective Vital Signs: Last Vital Signs Temp Pulse Resp BP Pulse Ox 98.2 F 87 20 145/76 96 04/04/18 10:00 04/04/18 10:00 04/04/18 10:00 04/04/18 10:00 04/04/18 09:00 Intake & Output 04/01/18 04/02/18 04/03/18 04/04/18 23:59 23:59 23:59 23:59 Intake Total 4000 4185 2240 Output Total 2300 1700 2850 700 Balance 1700 2485 -610 -700 Weight 188 lb 2 oz 194 lb 0.108 oz Neck: Supple Negative JVD No Bruit Cardiovascular: S1 S2 Regular Rate and Rhythm Tachycardia Chest: Diminished Breath Sounds Bilaterally Gastrointestinal: Soft Benign Normal Bowel Sounds Ext: Trace Edema Labs: CBC, BMP 04/04/18 06:00 04/04/18 06:00 Assessment/Plan ASSESSMENT: 1. Right iliopsoas abscess post IR drainage 2. E. coli bacteremia/sepsis syndrome 3. UTI/Cystitis, resolving 4. Acute Kidney Injury, resolved 5. Lactic Acidosis related to above, resolved 6. Uterine carcinoma on chemo/RT 7. HTN 8. DM 9. Anemia PLAN: 1. Antibiotics as per the primary team 2. Continue Lopressor, hemodynamics permitting 3. Continue Lisinopril, hemodynamics permitting 4. Transfuse to maintain Hg equal or > 8.0 Jerson Ha MD
[2018-04-04] MEDS: NYSTATIN 500,000 UNITS/5 ML SUSPENSION PO SCH ×2 (11:31→16:59)
--- NOTE | 2018-04-04 15:17 | PN ---
Progress Note, Physician History of Present Illness: still with pain swelling still present - Current Medication List Current Medications: Active Medications Acetaminophen (Tylenol -) 650 mg PO Q4H PRN PRN Reason: PAIN OR FEVER Last Admin: 04/03/18 21:40 Dose: 650 mg Duloxetine HCl (Cymbalta -) 60 mg PO DAILY [facility] Last Admin: 04/04/18 10:44 Dose: 60 mg Enoxaparin Sodium (Lovenox -) 30 mg SQ DAILY [facility] Last Admin: 04/04/18 10:43 Dose: 30 mg Meropenem 1 gm/ Dextrose 100 mls @ 200 mls/hr IVPB Q8H-IV [facility] Last Admin: 04/04/18 10:44 Dose: 200 mls/hr Insulin Aspart (Novolog Vial Sliding Scale -) 1 vial SQ ACHS [facility]; Protocol Last Admin: 04/04/18 11:30 Dose: 8 units Lisinopril (Prinivil) 5 mg PO DAILY [facility] Last Admin: 04/04/18 10:44 Dose: 5 mg Metoprolol Tartrate (Lopressor -) 25 mg PO BID [facility] Last Admin: 04/04/18 10:44 Dose: 25 mg Montelukast Sodium (Singulair -) 10 mg PO HS [facility] Last Admin: 04/03/18 21:39 Dose: 10 mg Nystatin (Nystatin Oral Suspension -) 500,000 units PO Q6HPO [facility] Last Admin: 04/04/18 11:31 Dose: 500,000 units Oxycodone HCl (Roxicodone -) 10 mg PO Q6H PRN PRN Reason: PAIN LEVEL 6-10 Last Admin: 04/04/18 03:51 Dose: 10 mg Prochlorperazine Maleate (Compazine -) 10 mg PO DAILY [facility] Last Admin: 04/04/18 10:43 Dose: 10 mg Ranitidine HCl (Zantac -) 150 mg PO BID [facility] Last Admin: 04/04/18 10:44 Dose: 150 mg Senna (Senna -) 2 tab PO DAILY PRN PRN Reason: CONSTIPATION Last Admin: 04/04/18 06:41 Dose: 2 tab - Objective Vital Signs: Vital Signs Temperature 98.2 F 04/04/18 10:00 Pulse Rate 87 04/04/18 10:00 Respiratory Rate 20 04/04/18 10:00 Blood Pressure 145/76 11/22/18 10:00 O2 Sat by Pulse Oximetry (%) 96 04/04/18 09:00 Constitutional: Yes: Calm, Mild Distress Cardiovascular: Yes: S1, S2 Respiratory: Yes: Regular, CTA Bilaterally Musculoskeletal: Yes: WNL Extremities: Yes: Erythema, Other Neurological: Yes: Alert, Oriented Psychiatric: Yes: Alert, Oriented Labs: CBC, BMP 04/04/18 06:00 04/04/18 06:00 INR, PTT INR 1.18 (0.83-1.09) H 03/30/18 02:00 Assessment/Plan Pelvic Abscess Gram Negative Bacteremia UTI/Cystitis Severe Sepsis Acute Kidney Injury Lactic Acidosis Uterine Ca on chemo/RT HTN DM plan abx to continues await for cx report monitor for fever rest as per icu still with fevers close watch i think we should get vascular involved
--- NOTE | 2018-04-04 15:59 | PN ---
Progress Note, Physician - Current Medication List Current Medications: Active Medications Acetaminophen (Tylenol -) 650 mg PO Q4H PRN PRN Reason: PAIN OR FEVER Last Admin: 04/03/18 21:40 Dose: 650 mg Duloxetine HCl (Cymbalta -) 60 mg PO DAILY [facility] Last Admin: 04/04/18 10:44 Dose: 60 mg Enoxaparin Sodium (Lovenox -) 30 mg SQ DAILY [facility] Last Admin: 04/04/18 10:43 Dose: 30 mg Meropenem 1 gm/ Dextrose 100 mls @ 200 mls/hr IVPB Q8H-IV [facility] Last Admin: 04/04/18 10:44 Dose: 200 mls/hr Insulin Aspart (Novolog Vial Sliding Scale -) 1 vial SQ ACHS [facility]; Protocol Last Admin: 04/04/18 11:30 Dose: 8 units Lisinopril (Prinivil) 5 mg PO DAILY [facility] Last Admin: 04/04/18 10:44 Dose: 5 mg Metoprolol Tartrate (Lopressor -) 25 mg PO BID [facility] Last Admin: 04/04/18 10:44 Dose: 25 mg Montelukast Sodium (Singulair -) 10 mg PO HS [facility] Last Admin: 04/03/18 21:39 Dose: 10 mg Nystatin (Nystatin Oral Suspension -) 500,000 units PO Q6HPO [facility] Last Admin: 04/04/18 11:31 Dose: 500,000 units Oxycodone HCl (Roxicodone -) 10 mg PO Q6H PRN PRN Reason: PAIN LEVEL 6-10 Last Admin: 04/04/18 03:51 Dose: 10 mg Prochlorperazine Maleate (Compazine -) 10 mg PO DAILY [facility] Last Admin: 04/04/18 10:43 Dose: 10 mg Ranitidine HCl (Zantac -) 150 mg PO BID [facility] Last Admin: 04/04/18 10:44 Dose: 150 mg Senna (Senna -) 2 tab PO DAILY PRN PRN Reason: CONSTIPATION Last Admin: 04/04/18 06:41 Dose: 2 tab - Objective Vital Signs: Vital Signs Temperature 98.2 F 04/04/18 10:00 Pulse Rate 87 04/04/18 10:00 Respiratory Rate 20 04/04/18 10:00 Blood Pressure 145/76 04/04/18 10:00 O2 Sat by Pulse Oximetry (%) 96 04/04/18 09:00 Constitutional: Yes: No Distress HENT: Yes: Atraumatic Neck: Yes: Supple Cardiovascular: Yes: Regular Rate and Rhythm Respiratory: Yes: CTA Bilaterally Extremities: Yes: Other (R thigh swollen and tender) Edema: Yes Peripheral Pulses WNL: Yes Neurological: Yes: Alert, Oriented Labs: CBC, BMP 04/04/18 06:00 04/04/18 06:00 INR, PTT INR 1.18 (0.83-1.09) H 03/30/18 02:00 Problem List - Problems (1) Back pain Assessment/Plan: prn pain meds Code(s): M54.9 - DORSALGIA, UNSPECIFIED (2) Sepsis Assessment/Plan: on abx cxs noted id on board Code(s): A41.9 - SEPSIS, UNSPECIFIED ORGANISM (3) Hematoma Assessment/Plan: f/u h/h and r thigh size Code(s): T14.8XXA - OTHER INJURY OF UNSPECIFIED BODY REGION, INITIAL ENCOUNTER (4) UTI (urinary tract infection) Assessment/Plan: on abx cxs noted Code(s): N39.0 - URINARY TRACT INFECTION, SITE NOT SPECIFIED (5) Anemia Assessment/Plan: monitor h/h transfuse prbc as needed Code(s): D64.9 - ANEMIA, UNSPECIFIED Qualifiers: Iron deficiency anemia type: chronic blood loss (6) Psoas abscess, right Code(s): K68.12 - PSOAS MUSCLE ABSCESS
[2018-04-04] MEDS: ACETAMINOPHEN 325 MG TABLET (FP) PO PRN (21:43)
[2018-04-04] MEDS: MONTELUKAST NA 10 MG TABLET PO SCH (21:43)
[2018-04-05] MEDS: oxyCODONE HCL 5 MG TABLET PO PRN ×4 (00:24→21:42)
[2018-04-05] MEDS: NYSTATIN 500,000 UNITS/5 ML SUSPENSION PO SCH ×4 (00:29→17:19)
[2018-04-05] MEDS ORDERED: PT OWN MED DRAWER 7, Y5N ONE ×4 (02:43→19:42)
[2018-04-05] MEDS: MEROPENEM 1 GM in DEXTROSE 5%-WATER 100 ML IVPB SCH ×3 (02:45→17:19)
[2018-04-05] MEDS: INSULIN SLIDING SCALE (NOVOLOG) 1 VIAL SQ SCH ×4 (06:22→22:40)
[2018-04-05] MEDS: DULoxetine HCL 30 MG CAPSULE.DR (FP) PO SCH (09:45)
[2018-04-05] MEDS: ENOXAPARIN NA (PORCINE) 30 MG/0.3 ML DISP.SYRIN SQ SCH (09:45)
[2018-04-05] MEDS: LISINOPRIL 5 MG TABLET (FP) PO SCH (09:46)
[2018-04-05] MEDS: RANITIDINE HCL 150 MG TABLET (FP) PO SCH ×2 (09:46→21:45)
[2018-04-05] MEDS: METOPROLOL TARTRATE 25 MG TABLET (FP) PO SCH ×2 (09:48→21:44)
[2018-04-05] MEDS: PROCHLORPERAZINE MALEATE 5 MG TABLET PO SCH (09:49)
--- NOTE | 2018-04-05 10:32 | PN ---
Progress Note (short form) - Note Progress Note: Chief Complaint: Events noted, notes reviewed, lethargic but arousable, complaining of persistent right thigh discomfort but improved History of Present Illness: Seen and examined on telemetry. Events noted, notes reviewed, lethargic but arousable, complaining of persistent right thigh discomfort but improved - Current Medication List Current Medications Acetaminophen (Tylenol -) 650 mg PO Q4H PRN PRN Reason: PAIN OR FEVER Last Admin: 04/04/18 21:43 Dose: 650 mg Duloxetine HCl (Cymbalta -) 60 mg PO DAILY [facility] Last Admin: 04/05/18 09:45 Dose: 60 mg Enoxaparin Sodium (Lovenox -) 30 mg SQ DAILY [facility] Last Admin: 04/05/18 09:45 Dose: 30 mg Meropenem 1 gm/ Dextrose 100 mls @ 200 mls/hr IVPB Q8H-IV [facility] Last Admin: 04/05/18 09:44 Dose: 200 mls/hr Insulin Aspart (Novolog Vial Sliding Scale -) 1 vial SQ ACHS [facility]; Protocol Last Admin: 04/05/18 06:22 Dose: 8 units Lisinopril (Prinivil) 5 mg PO DAILY [facility] Last Admin: 04/05/18 09:46 Dose: 5 mg Metoprolol Tartrate (Lopressor -) 25 mg PO BID [facility] Last Admin: 04/05/18 09:48 Dose: 25 mg Montelukast Sodium (Singulair -) 10 mg PO HS [facility] Last Admin: 04/04/18 21:43 Dose: 10 mg Nystatin (Nystatin Oral Suspension -) 500,000 units PO Q6HPO [facility] Last Admin: 04/05/18 06:20 Dose: 500,000 units Oxycodone HCl (Roxicodone -) 10 mg PO Q6H PRN PRN Reason: PAIN LEVEL 6-10 Last Admin: 04/05/18 06:24 Dose: 10 mg Prochlorperazine Maleate (Compazine -) 10 mg PO DAILY [facility] Last Admin: 04/05/18 09:49 Dose: 10 mg Ranitidine HCl (Zantac -) 150 mg PO BID [facility] Last Admin: 04/05/18 09:46 Dose: 150 mg Senna (Senna -) 2 tab PO DAILY PRN PRN Reason: CONSTIPATION Last Admin: 04/04/18 06:41 Dose: 2 tab Review of Systems - Review of Systems Constitutional: denies: Chills or Fever Cardiovascular: as noted above Gastrointestinal: denies: Nausea, Vomiting, Diarrhea, Constipation or Abdominal Pain Genitourinary: No symptoms reported Neurological: No symptoms reported - Objective Vital Signs: Last Vital Signs Temp Pulse Resp BP Pulse Ox 98.2 F 93 H 18 140/70 96 04/05/18 08:00 04/05/18 08:00 04/05/18 08:00 04/05/18 08:00 04/04/18 21:00 Intake & Output 04/02/18 04/03/18 04/04/18 04/05/18 23:59 23:59 23:59 23:59 Intake Total 4185 2240 120 100 Output Total 1700 2850 2300 750 Balance 4962 -651 -2180 -504 Weight 194 lb 0.108 oz Neck: Supple Negative JVD No Bruit Cardiovascular: S1 S2 Regular Rate and Rhythm Chest: Diminished Breath Sounds Bilaterally Gastrointestinal: Soft Benign Normal Bowel Sounds Ext: Trace Edema Labs: CBC, BMP 04/04/18 06:00 04/04/18 06:00 Assessment/Plan ASSESSMENT: 1. Right iliopsoas abscess post IR drainage 2. E. coli bacteremia/sepsis syndrome, resolved 3. UTI/Cystitis, resolving 4. Acute Kidney Injury, resolved 5. Lactic Acidosis related to above, resolved 6. Uterine carcinoma on chemo/RT 7. HTN 8. DM 9. Anemia PLAN: 1. Antibiotics as per the primary team 2. Continue Lopressor, hemodynamics permitting 3. Continue Lisinopril, hemodynamics permitting 4. As outlined in prior notes transfuse to maintain Hg equal or > 8.0 Jerson Ha MD
--- NOTE | 2018-04-05 10:44 | PN ---
Progress Note, Physician History of Present Illness: still with pain swelling still present patient improving repeat cx negative - Current Medication List Current Medications: Active Medications Acetaminophen (Tylenol -) 650 mg PO Q4H PRN PRN Reason: PAIN OR FEVER Last Admin: 04/04/18 21:43 Dose: 650 mg Duloxetine HCl (Cymbalta -) 60 mg PO DAILY [facility] Last Admin: 04/05/18 09:45 Dose: 60 mg Enoxaparin Sodium (Lovenox -) 30 mg SQ DAILY [facility] Last Admin: 04/05/18 09:45 Dose: 30 mg Meropenem 1 gm/ Dextrose 100 mls @ 200 mls/hr IVPB Q8H-IV [facility] Last Admin: 04/05/18 09:44 Dose: 200 mls/hr Insulin Aspart (Novolog Vial Sliding Scale -) 1 vial SQ ACHS [facility]; Protocol Last Admin: 04/05/18 06:22 Dose: 8 units Lisinopril (Prinivil) 5 mg PO DAILY [facility] Last Admin: 04/05/18 09:46 Dose: 5 mg Metoprolol Tartrate (Lopressor -) 25 mg PO BID [facility] Last Admin: 04/05/18 09:48 Dose: 25 mg Montelukast Sodium (Singulair -) 10 mg PO HS [facility] Last Admin: 04/04/18 21:43 Dose: 10 mg Nystatin (Nystatin Oral Suspension -) 500,000 units PO Q6HPO [facility] Last Admin: 04/05/18 06:20 Dose: 500,000 units Oxycodone HCl (Roxicodone -) 10 mg PO Q6H PRN PRN Reason: PAIN LEVEL 6-10 Last Admin: 04/05/18 06:24 Dose: 10 mg Prochlorperazine Maleate (Compazine -) 10 mg PO DAILY [facility] Last Admin: 04/05/18 09:49 Dose: 10 mg Ranitidine HCl (Zantac -) 150 mg PO BID [facility] Last Admin: 04/05/18 09:46 Dose: 150 mg Senna (Senna -) 2 tab PO DAILY PRN PRN Reason: CONSTIPATION Last Admin: 04/04/18 06:41 Dose: 2 tab - Objective Vital Signs: Vital Signs Temperature 98.2 F 04/05/18 08:00 Pulse Rate 93 H 04/05/18 08:00 Respiratory Rate 18 04/05/18 08:00 Blood Pressure 140/70 04/05/18 08:00 O2 Sat by Pulse Oximetry (%) 96 04/04/18 21:00 Constitutional: Yes: No Distress, Calm Cardiovascular: Yes: Regular Rate and Rhythm Respiratory: Yes: Regular, CTA Bilaterally Gastrointestinal: Yes: Normal Bowel Sounds, Soft Musculoskeletal: Yes: WNL Extremities: Yes: Other Neurological: Yes: Alert, Oriented Psychiatric: Yes: Alert, Oriented Labs: CBC, BMP 04/04/18 06:00 04/04/18 06:00 INR, PTT INR 1.18 (0.83-1.09) H 03/30/18 02:00 Assessment/Plan Pelvic Abscess Gram Negative Bacteremia UTI/Cystitis Severe Sepsis Acute Kidney Injury Lactic Acidosis Uterine Ca on chemo/RT HTN DM plan abx to continues monitor for fever fevers improving close watch i think we should get vascular involved
--- NOTE | 2018-04-05 11:05 | PN ---
Progress Note (short form) - Note Progress Note: PROGRESS NOTE FOR HEMATOLOGY/ONCOLOGY Patient seen and examined by me at bedside Patient more sleepy today but states she feels tired. Still complains of right leg pain but has adequate pain control when taking the medications Otherwise, Patient denies chest pain, palpitations, shortness of breath, abdominal pain Vital Signs Temperature 98.2 F 04/05/18 10:00 Pulse Rate 93 H 04/05/18 10:00 Respiratory Rate 18 04/05/18 10:00 Blood Pressure 140/70 04/05/18 10:00 O2 Sat by Pulse Oximetry (%) 93 L 04/05/18 09:00 PHYSICAL EXAM GENERAL: Drowsy,fully oriented, warm to touch, EYES: Pupils equal, round and reactive to light, extraocular movements intact, sclera anicteric, conjunctiva clear. EARS, NOSE, THROAT: Oral thrush. Moist mucous membranes. NECK: (-)lymphadenopathy, JVD, or masses. LUNGS: CTA B/L. No accessory muscle use HEART: Tachycardic with regular rhythm, normal S1 and S2 without murmur, rub or gallop. ABDOMEN: Soft, nontender, not distended, normoactive bowel sounds LOWER EXTREMITIES: Right upper and lower thigh edema and tenderness ASSESSMENT/PLAN: Patient is a 67 year old female who presented for right leg and thigh pain and found to have a large hematoma in the right psoas with gram negative bacteremia. We were consulted due to low hemoglobin and anemia. Problem List: Right Iliopsoas Hematoma s/p IR Drainage History of RLE DVT (on Lovenox) UTI with E.Coli Bacteremia Uterine Cancer Normocytic Anemia, likely anemia of chronic disease Oral thrush HTN NIDDMII PLAN: -Patient with right iliopsoas hematoma -When outweighing Risks vs. benefits of Anticoagulation use in the setting of iliopsoas hematoma as well as patient being in hypercoagulable state due to Sepsis, Malignancy, Obesity, and previous DVT, may compromise currently and can place patient on DVT prophylaxis rather than full anticoagulation in view of risk of additional bleeding in hematoma. -May Continue Lovenox but need to continue monitoring BMP -Iron studies compatible with anemia of chronic disease however in view of low Iron, cannot exclude Iron Deficiency. -Due to history of uterine cancer, recommend work up to rule out Vizcarra Syndrome. -Stool Guaic still pending, patient was refusing due to pain of right leg. -Continue Swish and swallow for Oral thrush -IV antiboitics, as per ID
[2018-04-05 12:34] LABS: INR 1.3 (0.83-1.09); PROTHROMBIN TIME (PATIENT) 15.4 SEC (9.7-13.0)
[2018-04-05 12:37] LABS: ACTIVATED PTT 32.4 SECONDS (25.2-36.5)
[2018-04-05 12:39] LABS: ALBUMIN 1.5 g/dl (3.4-5.0); ALK PHOS 387 U/L (45-117); ANION GAP 10 MMOL/L (8-16); BILIRUBIN,TOTAL 0.6 mg/dL (0.2-1); BLOOD UREA NITROGEN 7 mg/dL (7-18); CHLORIDE 101 mmol/L (98-107); CO2 27 mmol/L (21-32); CREATININE 0.6 mg/dL (0.55-1.3); GLUCOSE,RANDOM 266 mg/dL (74-106); POTASSIUM 3.5 mmol/L (3.5-5.1); SGOT/AST 25 U/L (15-37); SGPT/ALT 63 U/L (13-61); SODIUM 137 mmol/L (136-145); TOT PROT 5.3 g/dl (6.4-8.2)
--- NOTE | 2018-04-05 14:13 | PN ---
Teaching Attending Note Name of Resident: Veronica Chaudhary ATTENDING PHYSICIAN STATEMENT I saw and evaluated the patient. I reviewed the resident's note and discussed the case with the resident. I agree with the resident's findings and plan as documented. SUBJECTIVE: Patient seen and examined Little change in tenderness or swelling of RLE proximally. Pain on minimal motion Last Vital Signs Temp Pulse Resp BP Pulse Ox 98.2 F 93 H 18 140/70 93 L 04/05/18 10:00 04/05/18 10:00 04/05/18 10:00 04/05/18 10:00 04/05/18 09:00 HEENT: ANDRE, EOM Intact Oropharynx: thrush, No mucositis Cor: RSR,systolic murmur, Lungs: Clear to P&A anteriorly Abd: Soft, Normal bowel sounds, No organomegaly Ext:tense , tender proximal right femur areaedema Skin: No rashes, Integument intact CBC, BMP 04/05/18 11:45 Current Medications Generic Name Dose Route Start Last Admin Trade Name Freq PRN Reason Stop Dose Admin Acetaminophen 650 mg 04/02/18 15:00 04/04/18 21:43 Tylenol - PO 650 mg Q4H PRN Administration PAIN OR FEVER Duloxetine HCl 60 mg 04/03/18 10:00 04/05/18 09:45 Cymbalta - PO 60 mg DAILY [facility] Administration Enoxaparin Sodium 30 mg 04/04/18 10:15 04/05/18 09:45 Lovenox - SQ 30 mg DAILY [facility] Administration Meropenem 1 gm/ Dextrose 100 mls @ 200 mls/hr 04/03/18 02:00 04/05/18 09:44 IVPB 200 mls/hr Q8H-IV [facility] Administration Insulin Aspart 1 vial 04/02/18 22:00 04/05/18 11:52 Novolog Vial Sliding Scale - SQ 6 units ACHS [facility] Administration Protocol Lisinopril 5 mg 04/03/18 10:00 04/05/18 09:46 Prinivil PO 5 mg DAILY [facility] Administration Metoprolol Tartrate 25 mg 04/02/18 22:00 04/05/18 09:48 Lopressor - PO 25 mg BID [facility] Administration Montelukast Sodium 10 mg 04/02/18 22:00 04/04/18 21:43 Singulair - PO 10 mg HS [facility] Administration Nystatin 500,000 units 04/04/18 12:00 04/05/18 11:53 Nystatin Oral Suspension - PO 500,000 units Q6HPO [facility] Administration Oxycodone HCl 10 mg 04/02/18 18:09 04/05/18 06:24 Roxicodone - PO 10 mg Q6H PRN Administration PAIN LEVEL 6-10 Prochlorperazine Maleate 10 mg 04/03/18 10:00 04/05/18 09:49 Compazine - PO 10 mg DAILY [facility] Administration Ranitidine HCl 150 mg 04/02/18 22:00 04/05/18 09:46 Zantac - PO 150 mg BID [facility] Administration Senna 2 tab 04/02/18 15:01 04/04/18 06:41 Senna - PO 2 tab DAILY PRN Administration CONSTIPATION OBJECTIVE:Impression: Iliopsoas hematoma Hypercoagulable state Plan : DVT prophylaxis monitor CBC and follow up CT scan . Antibiotics per ID. ASSESSMENT AND PLAN:
[2018-04-05 15:07] LABS: BASO % 0.4 % (0-2.0); EOS % 0.5 % (0-4.5); HEMATOCRIT 22.2 % (32.4-45.2); HEMOGLOBIN 7.7 GM/dL (10.7-15.3); LYMPH % 8.5 % (8-40); MCH 28.1 pg (25.7-33.7); MCHC 34.5 g/dl (32.0-36.0); MEAN CELL VOLUME 81.4 fl (80-96); MONO % 5.5 % (3.8-10.2); NEUT % 85.1 % (42.8-82.8); PLATELET COUNT 263 K/MM3 (134-434); RBC 2.73 M/mm3 (3.60-5.2); RDW 19.3 % (11.6-15.6); WHITE BLOOD COUNT 10.4 K/mm3 (4.0-10.0)
--- NOTE | 2018-04-05 19:17 | PN ---
Progress Note, Physician History of Present Illness: no complaints - Current Medication List Current Medications: Active Medications Acetaminophen (Tylenol -) 650 mg PO Q4H PRN PRN Reason: PAIN OR FEVER Last Admin: 04/04/18 21:43 Dose: 650 mg Duloxetine HCl (Cymbalta -) 60 mg PO DAILY [facility] Last Admin: 04/05/18 09:45 Dose: 60 mg Enoxaparin Sodium (Lovenox -) 30 mg SQ DAILY [facility] Last Admin: 04/05/18 09:45 Dose: 30 mg Meropenem 1 gm/ Dextrose 100 mls @ 200 mls/hr IVPB Q8H-IV [facility] Last Admin: 04/05/18 17:19 Dose: 200 mls/hr Insulin Aspart (Novolog Vial Sliding Scale -) 1 vial SQ ACHS [facility]; Protocol Last Admin: 04/05/18 17:11 Dose: 8 units Lisinopril (Prinivil) 5 mg PO DAILY [facility] Last Admin: 04/05/18 09:46 Dose: 5 mg Metoprolol Tartrate (Lopressor -) 25 mg PO BID [facility] Last Admin: 04/05/18 09:48 Dose: 25 mg Montelukast Sodium (Singulair -) 10 mg PO HS [facility] Last Admin: 04/04/18 21:43 Dose: 10 mg Nystatin (Nystatin Oral Suspension -) 500,000 units PO Q6HPO [facility] Last Admin: 04/05/18 17:19 Dose: 500,000 units Prochlorperazine Maleate (Compazine -) 10 mg PO DAILY [facility] Last Admin: 04/05/18 09:49 Dose: 10 mg Ranitidine HCl (Zantac -) 150 mg PO BID [facility] Last Admin: 04/05/18 09:46 Dose: 150 mg Senna (Senna -) 2 tab PO DAILY PRN PRN Reason: CONSTIPATION Last Admin: 04/04/18 06:41 Dose: 2 tab - Objective Vital Signs: Vital Signs Temperature 98.8 F 04/05/18 18:00 Pulse Rate 96 H 04/05/18 18:00 Respiratory Rate 18 04/05/18 18:00 Blood Pressure 142/70 04/05/18 18:00 O2 Sat by Pulse Oximetry (%) 93 L 04/05/18 09:00 Constitutional: Yes: No Distress HENT: Yes: Atraumatic Neck: Yes: Supple Cardiovascular: Yes: Regular Rate and Rhythm Respiratory: Yes: CTA Bilaterally Gastrointestinal: Yes: Normal Bowel Sounds Extremities: Yes: Other (R thigh softer , swelling less) Neurological: Yes: Alert, Oriented Labs: CBC, BMP 04/05/18 11:45 04/05/18 11:45 INR, PTT INR 1.30 (0.83-1.09) H 04/05/18 11:45 Problem List - Problems (1) Back pain Assessment/Plan: no more complaints Code(s): M54.9 - DORSALGIA, UNSPECIFIED (2) Sepsis Assessment/Plan: on abx cxs noted id on board Code(s): A41.9 - SEPSIS, UNSPECIFIED ORGANISM (3) Hematoma Assessment/Plan: f/u h/h and r thigh size h/h stable Code(s): T14.8XXA - OTHER INJURY OF UNSPECIFIED BODY REGION, INITIAL ENCOUNTER (4) UTI (urinary tract infection) Assessment/Plan: on abx cxs noted Code(s): N39.0 - URINARY TRACT INFECTION, SITE NOT SPECIFIED (5) Anemia Assessment/Plan: monitor h/h transfuse prbc as needed Code(s): D64.9 - ANEMIA, UNSPECIFIED Qualifiers: Iron deficiency anemia type: chronic blood loss (6) Psoas abscess, right Code(s): K68.12 - PSOAS MUSCLE ABSCESS
[2018-04-05] MEDS: MONTELUKAST NA 10 MG TABLET PO SCH (21:44)
[2018-04-06] MEDS: NYSTATIN 500,000 UNITS/5 ML SUSPENSION PO SCH ×5 (00:10→23:32)
[2018-04-06] MEDS: MEROPENEM 1 GM in DEXTROSE 5%-WATER 100 ML IVPB SCH ×3 (02:31→17:40)
[2018-04-06] MEDS: ACETAMINOPHEN 325 MG TABLET (FP) PO PRN ×2 (02:39→20:03)
[2018-04-06] MEDS: oxyCODONE HCL 5 MG TABLET PO PRN ×2 (04:17→14:43)
[2018-04-06] MEDS: INSULIN SLIDING SCALE (NOVOLOG) 1 VIAL SQ SCH ×4 (06:15→22:02)
[2018-04-06] MEDS ORDERED: PT OWN MED DRAWER 7, Y5N ONE ×2 (09:51→17:21)
[2018-04-06] MEDS: PROCHLORPERAZINE MALEATE 5 MG TABLET PO SCH (10:03)
[2018-04-06] MEDS: DULoxetine HCL 30 MG CAPSULE.DR (FP) PO SCH (10:03)
[2018-04-06] MEDS: ENOXAPARIN NA (PORCINE) 30 MG/0.3 ML DISP.SYRIN SQ SCH (10:03)
[2018-04-06] MEDS: METOPROLOL TARTRATE 25 MG TABLET (FP) PO SCH ×2 (10:03→22:01)
[2018-04-06] MEDS: RANITIDINE HCL 150 MG TABLET (FP) PO SCH ×2 (10:03→22:01)
[2018-04-06] MEDS: LISINOPRIL 5 MG TABLET (FP) PO SCH (10:03)
--- NOTE | 2018-04-06 11:18 | PN ---
Progress Note, Physician History of Present Illness: Pt seen and examined. Events noted. Currently patient states she feels better. Denies abdominal pain. Still has mild RLE pain. Remains afebrile. No other specific complaints. - Current Medication List Current Medications: Active Medications Acetaminophen (Tylenol -) 650 mg PO Q4H PRN PRN Reason: PAIN OR FEVER Last Admin: 04/06/18 02:39 Dose: 650 mg Duloxetine HCl (Cymbalta -) 60 mg PO DAILY [facility] Last Admin: 04/06/18 10:03 Dose: 60 mg Enoxaparin Sodium (Lovenox -) 30 mg SQ DAILY [facility] Last Admin: 04/06/18 10:03 Dose: 30 mg Meropenem 1 gm/ Dextrose 100 mls @ 200 mls/hr IVPB Q8H-IV [facility] Last Admin: 04/06/18 10:02 Dose: 200 mls/hr Insulin Aspart (Novolog Vial Sliding Scale -) 1 vial SQ ACHS [facility]; Protocol Last Admin: 04/06/18 06:15 Dose: 6 units Lisinopril (Prinivil) 5 mg PO DAILY [facility] Last Admin: 04/06/18 10:03 Dose: 5 mg Metoprolol Tartrate (Lopressor -) 25 mg PO BID [facility] Last Admin: 04/06/18 10:03 Dose: 25 mg Montelukast Sodium (Singulair -) 10 mg PO HS [facility] Last Admin: 04/05/18 21:44 Dose: 10 mg Nystatin (Nystatin Oral Suspension -) 500,000 units PO Q6HPO [facility] Last Admin: 04/06/18 05:52 Dose: 500,000 units Oxycodone HCl (Roxicodone -) 10 mg PO Q6H PRN PRN Reason: PAIN LEVEL 6-10 Last Admin: 04/06/18 04:17 Dose: 10 mg Prochlorperazine Maleate (Compazine -) 10 mg PO DAILY [facility] Last Admin: 04/06/18 10:03 Dose: 10 mg Ranitidine HCl (Zantac -) 150 mg PO BID [facility] Last Admin: 04/06/18 10:03 Dose: 150 mg Senna (Senna -) 2 tab PO DAILY PRN PRN Reason: CONSTIPATION Last Admin: 04/04/18 06:41 Dose: 2 tab - Objective Vital Signs: Vital Signs Temperature 98.1 F 04/06/18 06:00 Pulse Rate 90 04/06/18 06:00 Respiratory Rate 18 04/06/18 06:00 Blood Pressure 143/72 04/06/18 06:00 O2 Sat by Pulse Oximetry (%) 93 L 04/05/18 21:00 Constitutional: Yes: No Distress, Calm Cardiovascular: Yes: Regular Rate and Rhythm Respiratory: Yes: Regular Gastrointestinal: Yes: Normal Bowel Sounds, Soft Genitourinary: Yes: Toney Present Edema: RLE: 1+ Integumentary: Yes: WNL Neurological: Yes: Alert, Oriented Labs: CBC, BMP 04/05/18 11:45 04/05/18 11:45 INR, PTT INR 1.30 (0.83-1.09) H 04/05/18 11:45 Microbiology 04/02/18 12:10 Blood - Peripheral Venous Blood Culture - Preliminary NO GROWTH OBTAINED AFTER 72 HOURS, INCUBATION TO CONTINUE FOR 2 DAYS. 04/02/18 12:10 Blood - Peripheral Venous Blood Culture - Preliminary NO GROWTH OBTAINED AFTER 72 HOURS, INCUBATION TO CONTINUE FOR 2 DAYS. 03/31/18 12:00 Blood - Peripheral Venous Blood Culture - Final Escherichia Coli 03/29/18 05:15 Blood - Peripheral Venous Blood Culture - Final NO GROWTH AFTER 5 DAYS INCUBATION 03/31/18 11:45 Blood - Peripheral Venous Blood Culture - Final Escherichia Coli 03/28/18 15:15 Abscess AFB Smear Concentration - Final 03/28/18 15:15 Abscess Mycobacterial Culture - Preliminary 03/28/18 15:15 Abscess Gram Stain - Final 03/28/18 15:15 Abscess Body Fluid Culture - Final Escherichia Coli 03/28/18 15:15 Abscess Anaerobic Culture - Final NO ANAEROBES WERE ISOLATED 03/29/18 05:35 Blood - Peripheral Venous Blood Culture - Final Escherichia Coli 03/27/18 12:20 Urine - Urine Clean Catch Urine Culture - Final Escherichia Coli 03/28/18 15:15 Abscess YOAV Preparation - Preliminary 03/28/18 15:15 Abscess Fungal Culture - Preliminary 03/27/18 06:45 Blood - Peripheral Venous Blood Culture - Final Lactose Fermenting Neg Bacilli 03/27/18 06:00 Blood - Peripheral Venous Blood Culture - Final Escherichia Coli Problem List - Problems (1) E. coli sepsis Code(s): A41.51 - SEPSIS DUE TO ESCHERICHIA COLI [E. COLI] (2) Hematoma Code(s): T14.8XXA - OTHER INJURY OF UNSPECIFIED BODY REGION, INITIAL ENCOUNTER (3) Psoas abscess, right Code(s): K68.12 - PSOAS MUSCLE ABSCESS (4) Sepsis Code(s): A41.9 - SEPSIS, UNSPECIFIED ORGANISM (5) UTI (urinary tract infection) Code(s): N39.0 - URINARY TRACT INFECTION, SITE NOT SPECIFIED Assessment/Plan Iliopsoas Abscess/hematoma s/p drainage E. coli UTI/bacteremia s/p sepsis Uterine CA DVT DM -- continue antibiotics -- fever/leukocytosis resolved -- surveillance blood cultures - no growth continue monitor
--- NOTE | 2018-04-06 12:00 | PN ---
Progress Note (short form) - Note Progress Note: Chief Complaint: Events noted, notes reviewed, awake and alert, complaining of persistent right thigh discomfort but improved, denies any chest pain History of Present Illness: Seen and examined on telemetry. Events noted, notes reviewed, awake and alert, complaining of persistent right thigh discomfort but improved, denies any chest pain - Current Medication List Current Medications Acetaminophen (Tylenol -) 650 mg PO Q4H PRN PRN Reason: PAIN OR FEVER Last Admin: 04/06/18 02:39 Dose: 650 mg Duloxetine HCl (Cymbalta -) 60 mg PO DAILY [facility] Last Admin: 04/06/18 10:03 Dose: 60 mg Enoxaparin Sodium (Lovenox -) 30 mg SQ DAILY [facility] Last Admin: 04/06/18 10:03 Dose: 30 mg Meropenem 1 gm/ Dextrose 100 mls @ 200 mls/hr IVPB Q8H-IV [facility] Last Admin: 04/06/18 10:02 Dose: 200 mls/hr Insulin Aspart (Novolog Vial Sliding Scale -) 1 vial SQ ACHS [facility]; Protocol Last Admin: 04/06/18 11:24 Dose: 4 units Lisinopril (Prinivil) 5 mg PO DAILY [facility] Last Admin: 04/06/18 10:03 Dose: 5 mg Metoprolol Tartrate (Lopressor -) 25 mg PO BID [facility] Last Admin: 04/06/18 10:03 Dose: 25 mg Montelukast Sodium (Singulair -) 10 mg PO HS [facility] Last Admin: 04/05/18 21:44 Dose: 10 mg Nystatin (Nystatin Oral Suspension -) 500,000 units PO Q6HPO [facility] Last Admin: 04/06/18 11:22 Dose: 500,000 units Oxycodone HCl (Roxicodone -) 10 mg PO Q6H PRN PRN Reason: PAIN LEVEL 6-10 Last Admin: 04/06/18 04:17 Dose: 10 mg Prochlorperazine Maleate (Compazine -) 10 mg PO DAILY [facility] Last Admin: 04/06/18 10:03 Dose: 10 mg Ranitidine HCl (Zantac -) 150 mg PO BID [facility] Last Admin: 04/06/18 10:03 Dose: 150 mg Senna (Senna -) 2 tab PO DAILY PRN PRN Reason: CONSTIPATION Last Admin: 04/04/18 06:41 Dose: 2 tab Review of Systems - Review of Systems Constitutional: denies: Chills or Fever Cardiovascular: as noted above Gastrointestinal: denies: Nausea, Vomiting, Diarrhea, Constipation or Abdominal Pain Genitourinary: No symptoms reported Neurological: No symptoms reported - Objective Vital Signs: Last Vital Signs Temp Pulse Resp BP Pulse Ox 98.1 F 90 18 143/72 93 L 04/06/18 06:00 04/06/18 06:00 04/06/18 06:00 04/06/18 06:00 04/05/18 21:00 Intake & Output 04/03/18 04/04/18 04/05/18 04/06/18 23:59 23:59 23:59 23:59 Intake Total 2240 120 1010 Output Total 2850 2300 1850 700 Balance -610 -2180 -840 -700 Neck: Supple Negative JVD No Bruit Cardiovascular: S1 S2 Regular Rate and Rhythm Chest: Diminished Breath Sounds Bilaterally Gastrointestinal: Soft Benign Normal Bowel Sounds Ext: Edema RLE Labs: CBC, BMP 04/05/18 11:45 04/05/18 11:45 Assessment/Plan ASSESSMENT: 1. Right iliopsoas abscess post IR drainage 2. E. coli bacteremia/sepsis syndrome, resolved 3. UTI/Cystitis, resolving 4. Acute Kidney Injury, resolved 5. Lactic Acidosis related to above, resolved 6. Uterine carcinoma on chemo/RT 7. HTN 8. DM 9. Anemia PLAN: 1. Continue Lopressor, hemodynamics permitting and titrate dosage 2. Continue Lisinopril, hemodynamics permitting and titrate dosage 3. As outlined in prior notes transfuse to maintain Hg equal or > 8.0 Jerson Ha MD
--- NOTE | 2018-04-06 16:20 | PN ---
Progress Note, Physician - Current Medication List Current Medications: Active Medications Acetaminophen (Tylenol -) 650 mg PO Q4H PRN PRN Reason: PAIN OR FEVER Last Admin: 04/06/18 02:39 Dose: 650 mg Duloxetine HCl (Cymbalta -) 60 mg PO DAILY [facility] Last Admin: 04/06/18 10:03 Dose: 60 mg Enoxaparin Sodium (Lovenox -) 30 mg SQ DAILY [facility] Last Admin: 04/06/18 10:03 Dose: 30 mg Meropenem 1 gm/ Dextrose 100 mls @ 200 mls/hr IVPB Q8H-IV [facility] Last Admin: 04/06/18 10:02 Dose: 200 mls/hr Insulin Aspart (Novolog Vial Sliding Scale -) 1 vial SQ ACHS [facility]; Protocol Last Admin: 04/06/18 11:24 Dose: 4 units Lisinopril (Prinivil) 5 mg PO DAILY [facility] Last Admin: 04/06/18 10:03 Dose: 5 mg Metoprolol Tartrate (Lopressor -) 25 mg PO BID [facility] Last Admin: 04/06/18 10:03 Dose: 25 mg Montelukast Sodium (Singulair -) 10 mg PO HS [facility] Last Admin: 04/05/18 21:44 Dose: 10 mg Nystatin (Nystatin Oral Suspension -) 500,000 units PO Q6HPO [facility] Last Admin: 04/06/18 11:22 Dose: 500,000 units Oxycodone HCl (Roxicodone -) 10 mg PO Q6H PRN PRN Reason: PAIN LEVEL 6-10 Last Admin: 04/06/18 14:43 Dose: 10 mg Prochlorperazine Maleate (Compazine -) 10 mg PO DAILY [facility] Last Admin: 04/06/18 10:03 Dose: 10 mg Ranitidine HCl (Zantac -) 150 mg PO BID [facility] Last Admin: 04/06/18 10:03 Dose: 150 mg Senna (Senna -) 2 tab PO DAILY PRN PRN Reason: CONSTIPATION Last Admin: 04/04/18 06:41 Dose: 2 tab - Objective Vital Signs: Vital Signs Temperature 98.2 F 04/06/18 14:00 Pulse Rate 86 04/06/18 14:00 Respiratory Rate 18 04/06/18 14:00 Blood Pressure 164/84 04/06/18 14:00 O2 Sat by Pulse Oximetry (%) 94 L 04/06/18 09:00 Constitutional: Yes: No Distress HENT: Yes: Atraumatic Neck: Yes: Supple Cardiovascular: Yes: Regular Rate and Rhythm Respiratory: Yes: CTA Bilaterally Extremities: Yes: Other (R thigh sweling much improved, mild tenderness) Neurological: Yes: Alert, Oriented Labs: CBC, BMP 04/05/18 11:45 04/05/18 11:45 INR, PTT INR 1.30 (0.83-1.09) H 04/05/18 11:45 Problem List - Problems (1) Back pain Assessment/Plan: prn pain meds Code(s): M54.9 - DORSALGIA, UNSPECIFIED (2) Sepsis Assessment/Plan: on abx cxs noted id on board Code(s): A41.9 - SEPSIS, UNSPECIFIED ORGANISM (3) Hematoma Assessment/Plan: h/h stable R thigh softer less swelling Code(s): T14.8XXA - OTHER INJURY OF UNSPECIFIED BODY REGION, INITIAL ENCOUNTER (4) UTI (urinary tract infection) Assessment/Plan: on abx cxs noted Code(s): N39.0 - URINARY TRACT INFECTION, SITE NOT SPECIFIED (5) Anemia Assessment/Plan: monitor h/h transfuse prbc as needed Code(s): D64.9 - ANEMIA, UNSPECIFIED Qualifiers: Iron deficiency anemia type: chronic blood loss (6) Psoas abscess, right Code(s): K68.12 - PSOAS MUSCLE ABSCESS
[2018-04-06 20:16] LABS: BASO % 0.4 % (0-2.0); EOS % 0.3 % (0-4.5); HEMATOCRIT 24.9 % (32.4-45.2); HEMOGLOBIN 8.6 GM/dL (10.7-15.3); LYMPH % 7.6 % (8-40); MCH 27.9 pg (25.7-33.7); MCHC 34.5 g/dl (32.0-36.0); MEAN CELL VOLUME 80.9 fl (80-96); MEAN PLT VOLUME 8.7 fl (7.5-11.1); MONO % 5.9 % (3.8-10.2); NEUT % 85.8 % (42.8-82.8); PLATELET COUNT 321 K/MM3 (134-434); RBC 3.08 M/mm3 (3.60-5.2); RDW 19.3 % (11.6-15.6); WHITE BLOOD COUNT 9.9 K/mm3 (4.0-10.0)
[2018-04-06 20:59] LABS: ALBUMIN 1.7 g/dl (3.4-5.0); ALK PHOS 452 U/L (45-117); ANION GAP 10 MMOL/L (8-16); BILIRUBIN,TOTAL 0.6 mg/dL (0.2-1); BLOOD UREA NITROGEN 8 mg/dL (7-18); CALCIUM 8.6 mg/dL (8.5-10.1); CHLORIDE 96 mmol/L (98-107); CO2 29 mmol/L (21-32); CREATININE 0.6 mg/dL (0.55-1.3); GLUCOSE,RANDOM 257 mg/dL (74-106); POTASSIUM 3.9 mmol/L (3.5-5.1); SGOT/AST 73 U/L (15-37); SGPT/ALT 92 U/L (13-61); SODIUM 135 mmol/L (136-145)
[2018-04-06] MEDS: MONTELUKAST NA 10 MG TABLET PO SCH (22:01)
--- NOTE | 2018-04-07 00:04 | PN ---
Progress Note (short form) - Note Progress Note: Patient seen and examined 04/06/18 Left leg swelling AFVSS Cor: RSR, No murmurs, No gallops Lungs: Clear to P&A Abd: Soft, Normal bowel sounds, No organomegaly Ext:No significant edema Labs/Meds reviewed A/P 67 y/o patient with Iliopsoas ? abscess s/p drainae ? hematoma Hypercoagulable state -- h/o endometrial cancer ? s/p chemo/RT earlier this year , h/o DVT ? 4mos. back, obesity, sedentary Plan : DVT prophylaxis monitor CBC repeat duplex LLE vascular follow up on antibiotics
[2018-04-07] MEDS ORDERED: PT OWN MED DRAWER 7, Y5N ONE ×5 (01:05→17:13)
[2018-04-07] MEDS: oxyCODONE HCL 5 MG TABLET PO PRN ×3 (01:09→20:02)
[2018-04-07] MEDS: MEROPENEM 1 GM in DEXTROSE 5%-WATER 100 ML IVPB SCH ×3 (01:10→17:27)
[2018-04-07] MEDS: ACETAMINOPHEN 325 MG TABLET (FP) PO PRN (05:12)
[2018-04-07] MEDS: NYSTATIN 500,000 UNITS/5 ML SUSPENSION PO SCH ×3 (05:13→17:26)
[2018-04-07] MEDS: INSULIN SLIDING SCALE (NOVOLOG) 1 VIAL SQ SCH ×4 (06:53→21:08)
--- NOTE | 2018-04-07 09:31 | PN ---
Progress Note (short form) - Note Progress Note: Chief Complaint: Events noted, notes reviewed, complaining of abdominal discomfort attributed to constipation, denies any chest pain or dyspnea, thigh discomfort persistent but improved History of Present Illness: Seen and examined on telemetry. Events noted, notes reviewed, complaining of abdominal discomfort attributed to constipation, denies any chest pain or dyspnea, thigh discomfort persistent but improved - Current Medication List Current Medications Acetaminophen (Tylenol -) 650 mg PO Q4H PRN PRN Reason: PAIN OR FEVER Last Admin: 04/07/18 05:12 Dose: 650 mg Duloxetine HCl (Cymbalta -) 60 mg PO DAILY [facility] Last Admin: 04/06/18 10:03 Dose: 60 mg Enoxaparin Sodium (Lovenox -) 30 mg SQ DAILY [facility] Last Admin: 04/06/18 10:03 Dose: 30 mg Meropenem 1 gm/ Dextrose 100 mls @ 200 mls/hr IVPB Q8H-IV [facility] Last Admin: 04/07/18 01:10 Dose: 200 mls/hr Insulin Aspart (Novolog Vial Sliding Scale -) 1 vial SQ ACHS [facility]; Protocol Last Admin: 04/07/18 06:53 Dose: 6 units Lisinopril (Prinivil) 5 mg PO DAILY [facility] Last Admin: 04/06/18 10:03 Dose: 5 mg Metoprolol Tartrate (Lopressor -) 25 mg PO BID [facility] Last Admin: 04/06/18 22:01 Dose: 25 mg Montelukast Sodium (Singulair -) 10 mg PO HS [facility] Last Admin: 04/06/18 22:01 Dose: 10 mg Nystatin (Nystatin Oral Suspension -) 500,000 units PO Q6HPO [facility] Last Admin: 04/07/18 05:13 Dose: 500,000 units Oxycodone HCl (Roxicodone -) 10 mg PO Q6H PRN PRN Reason: PAIN LEVEL 6-10 Last Admin: 04/07/18 01:09 Dose: 10 mg Prochlorperazine Maleate (Compazine -) 10 mg PO DAILY [facility] Last Admin: 04/06/18 10:03 Dose: 10 mg Ranitidine HCl (Zantac -) 150 mg PO BID [facility] Last Admin: 04/06/18 22:01 Dose: 150 mg Senna (Senna -) 2 tab PO DAILY PRN PRN Reason: CONSTIPATION Last Admin: 04/04/18 06:41 Dose: 2 tab Review of Systems - Review of Systems Constitutional: denies: Chills or Fever Cardiovascular: as noted above Gastrointestinal: denies: Nausea, Vomiting, Diarrhea, Constipation or Abdominal Pain Genitourinary: No symptoms reported Neurological: No symptoms reported - Objective Vital Signs: Last Vital Signs Temp Pulse Resp BP Pulse Ox 97.8 F 103 H 20 159/78 98 04/07/18 06:00 04/07/18 06:00 04/07/18 06:00 04/07/18 06:00 04/06/18 22:00 Intake & Output 04/04/18 04/05/18 04/06/18 04/07/18 23:59 23:59 23:59 23:59 Intake Total 120 1010 890 Output Total 2300 1850 2880 1000 Balance -2180 -840 -1990 -1000 Neck: Supple Negative JVD No Bruit Cardiovascular: S1 S2 Regular Rate and Rhythm Chest: Diminished Breath Sounds Bilaterally Gastrointestinal: Soft Benign Normal Bowel Sounds Ext: Edema RLE Labs: CBC, BMP 04/06/18 20:02 04/06/18 20:02 Hepatic Panel Total Bilirubin 0.6 mg/dL (0.2-1) 04/06/18 20:02 AST 73 U/L (15-37) H 04/06/18 20:02 ALT 92 U/L (13-61) H 04/06/18 20:02 Alkaline Phosphatase 452 U/L (45-117) H 04/06/18 20:02 Albumin 1.7 g/dl (3.4-5.0) L 04/06/18 20:02 INR, PTT INR 1.30 (0.83-1.09) H 04/05/18 11:45 Assessment/Plan ASSESSMENT: 1. Right iliopsoas abscess post IR drainage 2. E. coli bacteremia/sepsis syndrome, resolved 3. UTI/Cystitis, resolving 4. Acute Kidney Injury, resolved 5. Lactic Acidosis related to above, resolved 6. Uterine carcinoma on chemo/RT 7. HTN 8. DM 9. Anemia 10. Abdominal pain, constipation PLAN: 1. Continue Lopressor, hemodynamics permitting and titrate dosage 2. Continue Lisinopril, hemodynamics permitting and titrate dosage 3. As outlined in prior notes transfuse to maintain Hg equal or > 8.0 4. Management of abdominal discomfort as per the primary team Jerson Ha MD
[2018-04-07] MEDS: ENOXAPARIN NA (PORCINE) 30 MG/0.3 ML DISP.SYRIN SQ SCH (10:43)
[2018-04-07] MEDS: DULoxetine HCL 30 MG CAPSULE.DR (FP) PO SCH (10:43)
[2018-04-07] MEDS: METOPROLOL TARTRATE 25 MG TABLET (FP) PO SCH ×2 (10:43→21:08)
[2018-04-07] MEDS: LISINOPRIL 10 MG TABLET (FP) PO SCH (10:43)
[2018-04-07] MEDS: RANITIDINE HCL 150 MG TABLET (FP) PO SCH ×2 (10:43→21:08)
[2018-04-07] MEDS: PROCHLORPERAZINE MALEATE 5 MG TABLET PO SCH (11:15)
--- NOTE | 2018-04-07 14:00 | PN ---
Progress Note, Physician History of Present Illness: improving still with lot of discomfort worked minimally with pt - Current Medication List Current Medications: Active Medications Acetaminophen (Tylenol -) 650 mg PO Q4H PRN PRN Reason: PAIN OR FEVER Last Admin: 04/07/18 05:12 Dose: 650 mg Duloxetine HCl (Cymbalta -) 60 mg PO DAILY [facility] Last Admin: 04/07/18 10:43 Dose: 60 mg Enoxaparin Sodium (Lovenox -) 30 mg SQ DAILY [facility] Last Admin: 04/07/18 10:43 Dose: 30 mg Meropenem 1 gm/ Dextrose 100 mls @ 200 mls/hr IVPB Q8H-IV [facility] Last Admin: 04/07/18 10:44 Dose: 200 mls/hr Insulin Aspart (Novolog Vial Sliding Scale -) 1 vial SQ ACHS [facility]; Protocol Last Admin: 04/07/18 11:23 Dose: 6 units Lisinopril (Prinivil) 10 mg PO DAILY [facility] Last Admin: 04/07/18 10:43 Dose: 10 mg Metoprolol Tartrate (Lopressor -) 25 mg PO BID [facility] Last Admin: 04/07/18 10:43 Dose: 25 mg Montelukast Sodium (Singulair -) 10 mg PO HS [facility] Last Admin: 04/06/18 22:01 Dose: 10 mg Nystatin (Nystatin Oral Suspension -) 500,000 units PO Q6HPO [facility] Last Admin: 04/07/18 11:16 Dose: 500,000 units Oxycodone HCl (Roxicodone -) 10 mg PO Q6H PRN PRN Reason: PAIN LEVEL 6-10 Last Admin: 04/07/18 11:19 Dose: 10 mg Prochlorperazine Maleate (Compazine -) 10 mg PO DAILY [facility] Last Admin: 04/07/18 11:15 Dose: 10 mg Ranitidine HCl (Zantac -) 150 mg PO BID [facility] Last Admin: 04/07/18 10:43 Dose: 150 mg Senna (Senna -) 2 tab PO DAILY PRN PRN Reason: CONSTIPATION Last Admin: 04/04/18 06:41 Dose: 2 tab - Objective Vital Signs: Vital Signs Temperature 97.9 F 04/07/18 13:51 Pulse Rate 83 04/07/18 13:51 Respiratory Rate 18 04/07/18 13:51 Blood Pressure 145/75 04/07/18 13:51 O2 Sat by Pulse Oximetry (%) 95 04/07/18 09:00 Constitutional: Yes: Calm, Mild Distress Cardiovascular: Yes: S1, S2 Respiratory: Yes: Regular, CTA Bilaterally Gastrointestinal: Yes: Normal Bowel Sounds, Soft Musculoskeletal: Yes: WNL Extremities: Yes: Other (swelling improving) Neurological: Yes: Alert, Oriented Psychiatric: Yes: Alert, Oriented Labs: CBC, BMP 04/06/18 20:02 04/06/18 20:02 INR, PTT INR 1.30 (0.83-1.09) H 04/05/18 11:45 Assessment/Plan Pelvic Abscess Gram Negative Bacteremia UTI/Cystitis Severe Sepsis Acute Kidney Injury Lactic Acidosis Uterine Ca on chemo/RT HTN DM plan continue abx monitor for fever will deescalte abx by sunday physio close monitoring rest as per the team
--- NOTE | 2018-04-07 19:27 | PN ---
Progress Note, Physician History of Present Illness: no complaints - Current Medication List Current Medications: Active Medications Acetaminophen (Tylenol -) 650 mg PO Q4H PRN PRN Reason: PAIN OR FEVER Last Admin: 04/07/18 05:12 Dose: 650 mg Duloxetine HCl (Cymbalta -) 60 mg PO DAILY [facility] Last Admin: 04/07/18 10:43 Dose: 60 mg Enoxaparin Sodium (Lovenox -) 30 mg SQ DAILY [facility] Last Admin: 04/07/18 10:43 Dose: 30 mg Meropenem 1 gm/ Dextrose 100 mls @ 200 mls/hr IVPB Q8H-IV [facility] Last Admin: 04/07/18 17:27 Dose: 200 mls/hr Insulin Aspart (Novolog Vial Sliding Scale -) 1 vial SQ ACHS [facility]; Protocol Last Admin: 04/07/18 17:23 Dose: 6 units Lisinopril (Prinivil) 10 mg PO DAILY [facility] Last Admin: 04/07/18 10:43 Dose: 10 mg Metoprolol Tartrate (Lopressor -) 25 mg PO BID [facility] Last Admin: 04/07/18 10:43 Dose: 25 mg Montelukast Sodium (Singulair -) 10 mg PO HS [facility] Last Admin: 04/06/18 22:01 Dose: 10 mg Nystatin (Nystatin Oral Suspension -) 500,000 units PO Q6HPO [facility] Last Admin: 04/07/18 17:26 Dose: 500,000 units Oxycodone HCl (Roxicodone -) 10 mg PO Q6H PRN PRN Reason: PAIN LEVEL 6-10 Last Admin: 04/07/18 11:19 Dose: 10 mg Prochlorperazine Maleate (Compazine -) 10 mg PO DAILY [facility] Last Admin: 04/07/18 11:15 Dose: 10 mg Ranitidine HCl (Zantac -) 150 mg PO BID [facility] Last Admin: 04/07/18 10:43 Dose: 150 mg Senna (Senna -) 2 tab PO DAILY PRN PRN Reason: CONSTIPATION Last Admin: 04/04/18 06:41 Dose: 2 tab - Objective Vital Signs: Vital Signs Temperature 99.5 F 04/07/18 18:15 Pulse Rate 97 H 04/07/18 18:15 Respiratory Rate 18 04/07/18 18:15 Blood Pressure 147/78 04/07/18 18:15 O2 Sat by Pulse Oximetry (%) 95 04/07/18 09:00 Constitutional: Yes: No Distress HENT: Yes: Atraumatic Neck: Yes: Supple Cardiovascular: Yes: Regular Rate and Rhythm Respiratory: Yes: CTA Bilaterally Gastrointestinal: Yes: Normal Bowel Sounds Extremities: Yes: WNL, Other (R thigh soft and less swollen) Neurological: Yes: Alert, Oriented Labs: CBC, BMP 04/06/18 20:02 04/06/18 20:02 INR, PTT INR 1.30 (0.83-1.09) H 04/05/18 11:45 Problem List - Problems (1) Back pain Assessment/Plan: no more complaints Code(s): M54.9 - DORSALGIA, UNSPECIFIED (2) Sepsis Assessment/Plan: on abx cxs noted id on board Code(s): A41.9 - SEPSIS, UNSPECIFIED ORGANISM (3) Hematoma Assessment/Plan: f/u h/h and r thigh size h/h stable Code(s): T14.8XXA - OTHER INJURY OF UNSPECIFIED BODY REGION, INITIAL ENCOUNTER (4) UTI (urinary tract infection) Assessment/Plan: on abx cxs noted Code(s): N39.0 - URINARY TRACT INFECTION, SITE NOT SPECIFIED (5) Anemia Assessment/Plan: monitor h/h transfuse prbc as needed Code(s): D64.9 - ANEMIA, UNSPECIFIED Qualifiers: Iron deficiency anemia type: chronic blood loss (6) Psoas abscess, right Code(s): K68.12 - PSOAS MUSCLE ABSCESS
[2018-04-07] MEDS: MONTELUKAST NA 10 MG TABLET PO SCH (21:08)
[2018-04-08] MEDS ORDERED: PT OWN MED DRAWER 7, Y5N ONE ×3 (00:32→18:44)
[2018-04-08] MEDS: NYSTATIN 500,000 UNITS/5 ML SUSPENSION PO SCH ×5 (00:58→23:21)
[2018-04-08] MEDS: NYSTATIN 100,000 UNIT/GM TOPICAL CREAM 15 GM TUBE TP SCH ×3 (00:58→21:48)
[2018-04-08] MEDS: MEROPENEM 1 GM in DEXTROSE 5%-WATER 100 ML IVPB SCH ×3 (00:59→17:54)
[2018-04-08] MEDS: oxyCODONE HCL 5 MG TABLET PO PRN ×2 (06:39→18:45)
[2018-04-08] MEDS: INSULIN SLIDING SCALE (NOVOLOG) 1 VIAL SQ SCH ×5 (06:39→21:47)
[2018-04-08] MEDS: LISINOPRIL 10 MG TABLET (FP) PO SCH (10:43)
[2018-04-08] MEDS: DULoxetine HCL 30 MG CAPSULE.DR (FP) PO SCH (10:43)
[2018-04-08] MEDS: ENOXAPARIN NA (PORCINE) 30 MG/0.3 ML DISP.SYRIN SQ SCH (10:44)
[2018-04-08] MEDS: PROCHLORPERAZINE MALEATE 5 MG TABLET PO SCH (10:44)
[2018-04-08] MEDS: METOPROLOL TARTRATE 25 MG TABLET (FP) PO SCH ×2 (10:44→21:46)
[2018-04-08] MEDS: RANITIDINE HCL 150 MG TABLET (FP) PO SCH ×2 (10:44→21:46)
--- NOTE | 2018-04-08 10:57 | PN ---
Progress Note, Physician History of Present Illness: improving swelling decreasing - Current Medication List Current Medications: Active Medications Acetaminophen (Tylenol -) 650 mg PO Q4H PRN PRN Reason: PAIN OR FEVER Last Admin: 04/07/18 05:12 Dose: 650 mg Duloxetine HCl (Cymbalta -) 60 mg PO DAILY [facility] Last Admin: 04/08/18 10:43 Dose: 60 mg Enoxaparin Sodium (Lovenox -) 30 mg SQ DAILY [facility] Last Admin: 04/08/18 10:44 Dose: 30 mg Meropenem 1 gm/ Dextrose 100 mls @ 200 mls/hr IVPB Q8H-IV [facility] Last Admin: 04/08/18 10:43 Dose: 200 mls/hr Insulin Aspart (Novolog Vial Sliding Scale -) 1 vial SQ ACHS [facility]; Protocol Last Admin: 04/08/18 06:39 Dose: 6 units Lisinopril (Prinivil) 10 mg PO DAILY [facility] Last Admin: 04/08/18 10:43 Dose: 10 mg Metoprolol Tartrate (Lopressor -) 25 mg PO BID [facility] Last Admin: 04/08/18 10:44 Dose: 25 mg Montelukast Sodium (Singulair -) 10 mg PO HS [facility] Last Admin: 04/07/18 21:08 Dose: 10 mg Nystatin (Nystatin Oral Suspension -) 500,000 units PO Q6HPO [facility] Last Admin: 04/08/18 05:37 Dose: 500,000 units Nystatin (Mycostatin Cream -) 1 applic TP BID [facility] Last Admin: 04/08/18 00:58 Dose: 1 applic Oxycodone HCl (Roxicodone -) 10 mg PO Q6H PRN PRN Reason: PAIN LEVEL 6-10 Last Admin: 04/08/18 06:39 Dose: 10 mg Prochlorperazine Maleate (Compazine -) 10 mg PO DAILY [facility] Last Admin: 04/08/18 10:44 Dose: 10 mg Ranitidine HCl (Zantac -) 150 mg PO BID [facility] Last Admin: 04/08/18 10:44 Dose: 150 mg Senna (Senna -) 2 tab PO DAILY PRN PRN Reason: CONSTIPATION Last Admin: 04/04/18 06:41 Dose: 2 tab - Objective Vital Signs: Vital Signs Temperature 98.2 F 04/08/18 06:00 Pulse Rate 95 H 04/08/18 02:14 Respiratory Rate 20 04/08/18 06:00 Blood Pressure 130/61 04/08/18 06:00 O2 Sat by Pulse Oximetry (%) 94 L 04/07/18 22:00 Constitutional: Yes: Calm, Mild Distress Cardiovascular: Yes: Regular Rate and Rhythm Respiratory: Yes: Regular, CTA Bilaterally Gastrointestinal: Yes: Normal Bowel Sounds, Soft Musculoskeletal: Yes: WNL Extremities: Yes: Other (swelling decreasing) Neurological: Yes: Alert, Oriented Psychiatric: Yes: Alert, Oriented Labs: CBC, BMP 04/06/18 20:02 04/06/18 20:02 INR, PTT INR 1.30 (0.83-1.09) H 04/05/18 11:45 Assessment/Plan Pelvic Abscess Gram Negative Bacteremia UTI/Cystitis Severe Sepsis Acute Kidney Injury Lactic Acidosis Uterine Ca on chemo/RT HTN DM plan continue abx monitor for fever will stop abx tomorrow physio close monitoring rest as per the team
--- NOTE | 2018-04-08 11:17 | PN ---
Progress Note, Physician History of Present Illness: Remains afebrile, RLE swelling negative for DVT. - Current Medication List Current Medications: Active Medications Acetaminophen (Tylenol -) 650 mg PO Q4H PRN PRN Reason: PAIN OR FEVER Last Admin: 04/07/18 05:12 Dose: 650 mg Duloxetine HCl (Cymbalta -) 60 mg PO DAILY [facility] Last Admin: 04/08/18 10:43 Dose: 60 mg Enoxaparin Sodium (Lovenox -) 30 mg SQ DAILY [facility] Last Admin: 04/08/18 10:44 Dose: 30 mg Meropenem 1 gm/ Dextrose 100 mls @ 200 mls/hr IVPB Q8H-IV [facility] Last Admin: 04/08/18 10:43 Dose: 200 mls/hr Insulin Aspart (Novolog Vial Sliding Scale -) 1 vial SQ ACHS [facility]; Protocol Last Admin: 04/08/18 06:39 Dose: 6 units Lisinopril (Prinivil) 10 mg PO DAILY [facility] Last Admin: 04/08/18 10:43 Dose: 10 mg Metoprolol Tartrate (Lopressor -) 25 mg PO BID [facility] Last Admin: 04/08/18 10:44 Dose: 25 mg Montelukast Sodium (Singulair -) 10 mg PO HS [facility] Last Admin: 04/07/18 21:08 Dose: 10 mg Nystatin (Nystatin Oral Suspension -) 500,000 units PO Q6HPO [facility] Last Admin: 04/08/18 05:37 Dose: 500,000 units Nystatin (Mycostatin Cream -) 1 applic TP BID [facility] Last Admin: 04/08/18 00:58 Dose: 1 applic Oxycodone HCl (Roxicodone -) 10 mg PO Q6H PRN PRN Reason: PAIN LEVEL 6-10 Last Admin: 04/08/18 06:39 Dose: 10 mg Prochlorperazine Maleate (Compazine -) 10 mg PO DAILY [facility] Last Admin: 04/08/18 10:44 Dose: 10 mg Ranitidine HCl (Zantac -) 150 mg PO BID [facility] Last Admin: 04/08/18 10:44 Dose: 150 mg Senna (Senna -) 2 tab PO DAILY PRN PRN Reason: CONSTIPATION Last Admin: 04/04/18 06:41 Dose: 2 tab - Objective Vital Signs: Vital Signs Temperature 98.2 F 11/26/18 06:00 Pulse Rate 95 H 04/08/18 02:14 Respiratory Rate 20 04/08/18 06:00 Blood Pressure 130/61 04/08/18 06:00 O2 Sat by Pulse Oximetry (%) 94 L 04/07/18 22:00 Constitutional: Yes: No Distress, Calm Neck: Yes: Supple Cardiovascular: Yes: Regular Rate and Rhythm Respiratory: Yes: Regular, Diminished Gastrointestinal: Yes: Normal Bowel Sounds, Soft, Abdomen, Obese Edema: Yes Edema: RLE: 1+ Labs: CBC, BMP 04/06/18 20:02 04/06/18 20:02 INR, PTT INR 1.30 (0.83-1.09) H 04/05/18 11:45 - ....Imaging EKG: Report Reviewed (Tele: SR) Problem List - Problems (1) Psoas abscess, right Code(s): K68.12 - PSOAS MUSCLE ABSCESS (2) Hypertension Code(s): I10 - ESSENTIAL (PRIMARY) HYPERTENSION Qualifiers: Hypertension type: essential hypertension Qualified Code(s): I10 - Essential (primary) hypertension (3) Anemia Code(s): D64.9 - ANEMIA, UNSPECIFIED Qualifiers: Iron deficiency anemia type: chronic blood loss (4) E. coli sepsis Code(s): A41.51 - SEPSIS DUE TO ESCHERICHIA COLI [E. COLI] Assessment/Plan 1. Right iliopsoas abscess post IR drainage 2. E. coli bacteremia/sepsis syndrome, resolved 3. UTI/Cystitis, resolving 4. Acute Kidney Injury, resolved 5. Lactic Acidosis related to above, resolved 6. Uterine carcinoma on chemo/RT 7. HTN 8. DM 9. Anemia 10. Abdominal pain, constipation Plan: 1. Complete abx course per blood and wound C&S, analgesia as needed, f/u surveillance cx to confirms clearance 2. Plavix held pending hemostasis, continue lopressor 25 bid, lisinopril 10 qd, monitor Hgb and transfuse to maintain Hgb>8.0 3. DVT prophylaxis
--- NOTE | 2018-04-08 12:01 | PN ---
Progress Note (short form) - Note Progress Note: PROGRESS NOTE FOR HEMATOLOGY/ONCOLOGY Patient seen and examined by me at bedside Patient still feels weak and tired Still complains of right leg pain but has adequate pain control when taking the medications Otherwise, Patient denies chest pain, palpitations, shortness of breath, abdominal pain Vital Signs Temperature 98.2 F 04/08/18 06:00 Pulse Rate 95 H 04/08/18 02:14 Respiratory Rate 20 04/08/18 06:00 Blood Pressure 130/61 04/08/18 06:00 O2 Sat by Pulse Oximetry (%) 94 L 04/07/18 22:00 PHYSICAL EXAM GENERAL: Awake, alert, fully oriented. No acute distress EYES: Pupils equal, sclera anicteric, conjunctiva clear. EARS, NOSE, THROAT: Oral thrush. Moist mucous membranes. LUNGS: CTA B/L. No accessory muscle use HEART: Regular rate and regular rhythm, normal S1 and S2 without murmur, rub or gallop. ABDOMEN: Soft, nontender, not distended, normoactive bowel sounds LOWER EXTREMITIES: Right upper and lower thigh tenderness with improved swelling. ASSESSMENT AND PLAN Patient is a 67 year old female who presented for right leg and thigh pain and found to have a large hematoma in the right psoas with gram negative bacteremia. We were consulted due to low hemoglobin and anemia. Problem List: Right Iliopsoas Hematoma s/p IR Drainage History of RLE DVT (on Lovenox) UTI with E.Coli Bacteremia Uterine Cancer Normocytic Anemia, likely anemia of chronic disease Oral thrush HTN NIDDMII PLAN: -Patient with right iliopsoas hematoma -When outweighing Risks vs. benefits of Anticoagulation use in the setting of iliopsoas hematoma as well as patient being in hypercoagulable state due to Sepsis, Malignancy, Obesity, and previous DVT, patient was started on DVT prophylaxis for now rather than full AC in view of risk of additional bleeding from hematoma. However, patient will eventually need to be placed on full AC once hematoma has resolved. -Would recommend repeat CT's for re-evaluation of hematoma -May Continue Lovenox for prophylaxis but need to continue monitoring BMP and CBC -Iron studies compatible with anemia of chronic disease however in view of low Iron, cannot exclude Iron Deficiency. -Continue Swish and swallow for Oral thrush -IV antiboitics, as per ID
[2018-04-08 13:24] LABS: BASO % 0.5 % (0-2.0); EOS % 0.2 % (0-4.5); HEMATOCRIT 25.6 % (32.4-45.2); HEMOGLOBIN 8.1 GM/dL (10.7-15.3); LYMPH % 6.4 % (8-40); MCHC 31.7 g/dl (32.0-36.0); MEAN PLT VOLUME 8.9 fl (7.5-11.1); MONO % 5.5 % (3.8-10.2); NEUT % 87.4 % (42.8-82.8); PLATELET COUNT 324 K/MM3 (134-434); RBC 3.13 M/mm3 (3.60-5.2); RDW 19.1 % (11.6-15.6); WHITE BLOOD COUNT 11.9 K/mm3 (4.0-10.0)
[2018-04-08 14:22] LABS: ALBUMIN 1.8 g/dl (3.4-5.0); ALK PHOS 381 U/L (45-117); ANION GAP 9 MMOL/L (8-16); BILIRUBIN,TOTAL 0.5 mg/dL (0.2-1); BLOOD UREA NITROGEN 8 mg/dL (7-18); CALCIUM 8.7 mg/dL (8.5-10.1); CHLORIDE 91 mmol/L (98-107); CO2 31 mmol/L (21-32); CREATININE 0.6 mg/dL (0.55-1.3); POTASSIUM 4.2 mmol/L (3.5-5.1); SGOT/AST 25 U/L (15-37); SGPT/ALT 60 U/L (13-61); SODIUM 131 mmol/L (136-145); TOT PROT 6.2 g/dl (6.4-8.2)
[2018-04-08 14:38] LABS: GLUCOSE,RANDOM 306 mg/dL (74-106)
--- NOTE | 2018-04-08 17:22 | PN ---
Progress Note, Physician History of Present Illness: no complaints - Current Medication List Current Medications: Active Medications Acetaminophen (Tylenol -) 650 mg PO Q4H PRN PRN Reason: PAIN OR FEVER Last Admin: 04/07/18 05:12 Dose: 650 mg Duloxetine HCl (Cymbalta -) 60 mg PO DAILY [facility] Last Admin: 04/08/18 10:43 Dose: 60 mg Enoxaparin Sodium (Lovenox -) 30 mg SQ DAILY [facility] Last Admin: 04/08/18 10:44 Dose: 30 mg Meropenem 1 gm/ Dextrose 100 mls @ 200 mls/hr IVPB Q8H-IV [facility] Last Admin: 04/08/18 10:43 Dose: 200 mls/hr Insulin Aspart (Novolog Vial Sliding Scale -) 1 vial SQ ACHS [facility]; Protocol Last Admin: 04/08/18 14:39 Dose: 8 units Lisinopril (Prinivil) 10 mg PO DAILY [facility] Last Admin: 04/08/18 10:43 Dose: 10 mg Metoprolol Tartrate (Lopressor -) 25 mg PO BID [facility] Last Admin: 04/08/18 10:44 Dose: 25 mg Montelukast Sodium (Singulair -) 10 mg PO HS [facility] Last Admin: 04/07/18 21:08 Dose: 10 mg Nystatin (Nystatin Oral Suspension -) 500,000 units PO Q6HPO [facility] Last Admin: 04/08/18 14:35 Dose: 500,000 units Nystatin (Mycostatin Cream -) 1 applic TP BID [facility] Last Admin: 04/08/18 14:32 Dose: 1 applic Oxycodone HCl (Roxicodone -) 10 mg PO Q6H PRN PRN Reason: PAIN LEVEL 6-10 Last Admin: 04/08/18 06:39 Dose: 10 mg Prochlorperazine Maleate (Compazine -) 10 mg PO DAILY [facility] Last Admin: 04/08/18 10:44 Dose: 10 mg Ranitidine HCl (Zantac -) 150 mg PO BID [facility] Last Admin: 04/08/18 10:44 Dose: 150 mg Senna (Senna -) 2 tab PO DAILY PRN PRN Reason: CONSTIPATION Last Admin: 04/04/18 06:41 Dose: 2 tab - Objective Vital Signs: Vital Signs Temperature 98.9 F 04/08/18 15:00 Pulse Rate 100 H 04/08/18 15:00 Respiratory Rate 18 04/08/18 15:00 Blood Pressure 127/60 04/08/18 15:00 O2 Sat by Pulse Oximetry (%) 96 04/08/18 09:00 Constitutional: Yes: No Distress HENT: Yes: Atraumatic Neck: Yes: Supple Cardiovascular: Yes: Regular Rate and Rhythm Respiratory: Yes: CTA Bilaterally Gastrointestinal: Yes: Normal Bowel Sounds Extremities: Yes: Other (R thigh less swollen and less tender) Edema: No Peripheral Pulses WNL: Yes Neurological: Yes: Alert, Oriented Labs: CBC, BMP 04/08/18 12:50 04/08/18 12:50 INR, PTT INR 1.30 (0.83-1.09) H 04/05/18 11:45 Problem List - Problems (1) Back pain Assessment/Plan: no more complaints Code(s): M54.9 - DORSALGIA, UNSPECIFIED (2) Sepsis Assessment/Plan: on abx cxs noted id on board Code(s): A41.9 - SEPSIS, UNSPECIFIED ORGANISM (3) Hematoma Assessment/Plan: f/u h/h and r thigh size h/h stable Code(s): T14.8XXA - OTHER INJURY OF UNSPECIFIED BODY REGION, INITIAL ENCOUNTER (4) UTI (urinary tract infection) Assessment/Plan: on abx cxs noted Code(s): N39.0 - URINARY TRACT INFECTION, SITE NOT SPECIFIED (5) Anemia Assessment/Plan: monitor h/h transfuse prbc as needed Code(s): D64.9 - ANEMIA, UNSPECIFIED Qualifiers: Iron deficiency anemia type: chronic blood loss (6) Psoas abscess, right Code(s): K68.12 - PSOAS MUSCLE ABSCESS
[2018-04-08] MEDS: ACETAMINOPHEN 325 MG TABLET (FP) PO PRN (21:46)
[2018-04-08] MEDS: MONTELUKAST NA 10 MG TABLET PO SCH (21:46)
[2018-04-09] MEDS: MEROPENEM 1 GM in DEXTROSE 5%-WATER 100 ML IVPB SCH ×3 (01:39→18:06)
[2018-04-09] MEDS ORDERED: PT OWN MED DRAWER 7, Y5N ONE ×3 (01:39→18:02)
[2018-04-09] MEDS: SENNOSIDES 8.6MG TABLET (FP) PO PRN (05:16)
[2018-04-09] MEDS: NYSTATIN 500,000 UNITS/5 ML SUSPENSION PO SCH ×4 (05:17→23:09)
[2018-04-09] MEDS: oxyCODONE HCL 5 MG TABLET PO PRN (05:17)
[2018-04-09] MEDS: INSULIN SLIDING SCALE (NOVOLOG) 1 VIAL SQ SCH ×4 (06:09→22:55)
--- NOTE | 2018-04-09 09:18 | PN ---
Progress Note (short form) - Note Progress Note: Chief Complaint: Events noted, notes reviewed, denies any chest pain or dyspnea , thigh discomfort persistent but improved significantly History of Present Illness: Seen and examined on telemetry. Events noted, notes reviewed, denies any chest pain or dyspnea, thigh discomfort persistent but improved significantly - Current Medication List Current Medications Acetaminophen (Tylenol -) 650 mg PO Q4H PRN PRN Reason: PAIN OR FEVER Last Admin: 04/08/18 21:46 Dose: 650 mg Duloxetine HCl (Cymbalta -) 60 mg PO DAILY [facility] Last Admin: 04/08/18 10:43 Dose: 60 mg Enoxaparin Sodium (Lovenox -) 30 mg SQ DAILY [facility] Last Admin: 04/08/18 10:44 Dose: 30 mg Meropenem 1 gm/ Dextrose 100 mls @ 200 mls/hr IVPB Q8H-IV [facility] Last Admin: 04/09/18 01:39 Dose: 200 mls/hr Insulin Aspart (Novolog Vial Sliding Scale -) 1 vial SQ ACHS [facility]; Protocol Last Admin: 04/09/18 06:09 Dose: 4 units Lisinopril (Prinivil) 10 mg PO DAILY [facility] Last Admin: 04/08/18 10:43 Dose: 10 mg Metoprolol Tartrate (Lopressor -) 25 mg PO BID [facility] Last Admin: 04/08/18 21:46 Dose: 25 mg Montelukast Sodium (Singulair -) 10 mg PO HS [facility] Last Admin: 04/08/18 21:46 Dose: 10 mg Nystatin (Nystatin Oral Suspension -) 500,000 units PO Q6HPO [facility] Last Admin: 04/09/18 05:17 Dose: 500,000 units Nystatin (Mycostatin Cream -) 1 applic TP BID [facility] Last Admin: 04/08/18 21:48 Dose: 1 applic Oxycodone HCl (Roxicodone -) 10 mg PO Q6H PRN PRN Reason: PAIN LEVEL 6-10 Last Admin: 04/09/18 05:17 Dose: 10 mg Prochlorperazine Maleate (Compazine -) 10 mg PO DAILY [facility] Last Admin: 04/08/18 10:44 Dose: 10 mg Ranitidine HCl (Zantac -) 150 mg PO BID [facility] Last Admin: 04/08/18 21:46 Dose: 150 mg Senna (Senna -) 2 tab PO DAILY PRN PRN Reason: CONSTIPATION Last Admin: 04/09/18 05:16 Dose: 2 tab Review of Systems - Review of Systems Constitutional: denies: Chills or Fever Cardiovascular: as noted above Gastrointestinal: denies: Nausea, Vomiting, Diarrhea, Constipation or Abdominal Pain Genitourinary: No symptoms reported Neurological: No symptoms reported - Objective Vital Signs: Last Vital Signs Temp Pulse Resp BP Pulse Ox 97.9 F 90 18 138/66 95 04/09/18 05:46 04/09/18 05:46 04/09/18 05:46 04/09/18 05:46 04/08/18 21:00 Intake & Output 04/06/18 04/07/18 04/08/18 04/09/18 23:59 23:59 23:59 23:59 Intake Total 302 879 7748 100 Output Total 2880 2600 900 1050 Balance -1989 -190 500 -950 Neck: Supple Negative JVD No Bruit Cardiovascular: S1 S2 Regular Rate and Rhythm Chest: Diminished Breath Sounds Bilaterally Gastrointestinal: Soft Benign Normal Bowel Sounds Ext: Edema RLE Labs: CBC, BMP 04/08/18 12:50 04/08/18 12:50 Assessment/Plan ASSESSMENT: 1. Right iliopsoas abscess post IR drainage 2. E. coli bacteremia/sepsis syndrome, resolved 3. UTI/Cystitis, resolved 4. Acute Kidney Injury, resolved 5. Lactic Acidosis related to above, resolved 6. Uterine carcinoma on chemo/RT 7. HTN 8. DM 9. Anemia PLAN: 1. Continue Lopressor, hemodynamics permitting and titrate dosage 2. Continue Lisinopril, hemodynamics permitting and titrate dosage 3. As outlined in prior notes monitor Hg and transfuse to maintain Hg equal or > 8.0 4. Antibiotics as per ID service Jerson Ha MD
--- NOTE | 2018-04-09 09:38 | PN ---
Progress Note (short form) - Note Progress Note: 67yo F h/o Rt thigh hematoma, pt seen initially by Dr. Zhao on 04/01/18. Vascular surgery reconsulted to reevaluate hematoma. Hematoma appears unchanged from previous exam. Pt no surgical intervention at this time, pt has good pulses and no numbness. Recommend warm compresses. Will take several months to resolve.
[2018-04-09] MEDS: ENOXAPARIN NA (PORCINE) 30 MG/0.3 ML DISP.SYRIN SQ SCH (10:01)
[2018-04-09] MEDS: RANITIDINE HCL 150 MG TABLET (FP) PO SCH ×2 (10:01→22:58)
[2018-04-09] MEDS: METOPROLOL TARTRATE 25 MG TABLET (FP) PO SCH ×2 (10:01→22:58)
[2018-04-09] MEDS: DULoxetine HCL 30 MG CAPSULE.DR (FP) PO SCH (10:01)
[2018-04-09] MEDS: LISINOPRIL 10 MG TABLET (FP) PO SCH (10:02)
[2018-04-09] MEDS: PROCHLORPERAZINE MALEATE 5 MG TABLET PO SCH (10:03)
[2018-04-09] MEDS: NYSTATIN 100,000 UNIT/GM TOPICAL CREAM 15 GM TUBE TP SCH ×4 (10:04→23:11)
[2018-04-09] MEDS: ACETAMINOPHEN 325 MG TABLET (FP) PO PRN ×3 (10:09→23:05)
[2018-04-09] MEDS ORDERED: INSULIN SLIDING SCALE (NOVOLOG) 1 VIAL SQ ONE (11:50)
--- NOTE | 2018-04-09 13:01 | PN ---
Progress Note, Physician History of Present Illness: feels much better swelling improving family in the room no fevers - Current Medication List Current Medications: Active Medications Acetaminophen (Tylenol -) 650 mg PO Q4H PRN PRN Reason: PAIN OR FEVER Last Admin: 04/09/18 10:09 Dose: 650 mg Duloxetine HCl (Cymbalta -) 60 mg PO DAILY [facility] Last Admin: 04/09/18 10:01 Dose: 60 mg Enoxaparin Sodium (Lovenox -) 30 mg SQ DAILY [facility] Last Admin: 04/09/18 10:01 Dose: 30 mg Meropenem 1 gm/ Dextrose 100 mls @ 200 mls/hr IVPB Q8H-IV [facility] Last Admin: 04/09/18 10:02 Dose: 200 mls/hr Insulin Aspart (Novolog Vial Sliding Scale -) 1 vial SQ ACHS [facility]; Protocol Last Admin: 04/09/18 12:10 Dose: 6 units Lisinopril (Prinivil) 10 mg PO DAILY [facility] Last Admin: 04/09/18 10:02 Dose: 10 mg Metoprolol Tartrate (Lopressor -) 25 mg PO BID [facility] Last Admin: 04/09/18 10:01 Dose: 25 mg Montelukast Sodium (Singulair -) 10 mg PO HS [facility] Last Admin: 04/08/18 21:46 Dose: 10 mg Nystatin (Nystatin Oral Suspension -) 500,000 units PO Q6HPO [facility] Last Admin: 04/09/18 05:17 Dose: 500,000 units Nystatin (Mycostatin Cream -) 1 applic TP BID [facility] Last Admin: 04/09/18 10:04 Dose: 1 applic Oxycodone HCl (Roxicodone -) 10 mg PO Q6H PRN PRN Reason: PAIN LEVEL 6-10 Last Admin: 04/09/18 05:17 Dose: 10 mg Prochlorperazine Maleate (Compazine -) 10 mg PO DAILY [facility] Last Admin: 04/09/18 10:03 Dose: 10 mg Ranitidine HCl (Zantac -) 150 mg PO BID [facility] Last Admin: 04/09/18 10:01 Dose: 150 mg Senna (Senna -) 2 tab PO DAILY PRN PRN Reason: CONSTIPATION Last Admin: 04/09/18 05:16 Dose: 2 tab - Objective Vital Signs: Vital Signs Temperature 97.9 F 11/27/18 05:46 Pulse Rate 90 04/09/18 05:46 Respiratory Rate 18 04/09/18 05:46 Blood Pressure 138/66 04/09/18 05:46 O2 Sat by Pulse Oximetry (%) 95 04/08/18 21:00 Constitutional: Yes: No Distress, Calm Cardiovascular: Yes: S1, S2 Respiratory: Yes: Regular, CTA Bilaterally Gastrointestinal: Yes: Normal Bowel Sounds, Soft Musculoskeletal: Yes: WNL Extremities: Yes: Other Neurological: Yes: Alert, Oriented Psychiatric: Yes: Alert, Oriented Labs: CBC, BMP 04/08/18 12:50 04/08/18 12:50 INR, PTT INR 1.30 (0.83-1.09) H 04/05/18 11:45 Assessment/Plan Pelvic Abscess Gram Negative Bacteremia UTI/Cystitis Severe Sepsis Acute Kidney Injury Lactic Acidosis Uterine Ca on chemo/RT HTN DM plan continue current mgmt patient doing well no other issues rest as per the team
--- NOTE | 2018-04-09 16:28 | PN ---
Progress Note, Physician History of Present Illness: no complaints - Current Medication List Current Medications: Active Medications Acetaminophen (Tylenol -) 650 mg PO Q4H PRN PRN Reason: PAIN OR FEVER Last Admin: 04/09/18 10:09 Dose: 650 mg Duloxetine HCl (Cymbalta -) 60 mg PO DAILY [facility] Last Admin: 04/09/18 10:01 Dose: 60 mg Enoxaparin Sodium (Lovenox -) 30 mg SQ DAILY [facility] Last Admin: 04/09/18 10:01 Dose: 30 mg Meropenem 1 gm/ Dextrose 100 mls @ 200 mls/hr IVPB Q8H-IV [facility] Last Admin: 04/09/18 10:02 Dose: 200 mls/hr Insulin Aspart (Novolog Vial Sliding Scale -) 1 vial SQ ACHS [facility]; Protocol Last Admin: 04/09/18 12:10 Dose: 6 units Lisinopril (Prinivil) 10 mg PO DAILY [facility] Last Admin: 04/09/18 10:02 Dose: 10 mg Metoprolol Tartrate (Lopressor -) 25 mg PO BID [facility] Last Admin: 04/09/18 10:01 Dose: 25 mg Montelukast Sodium (Singulair -) 10 mg PO HS [facility] Last Admin: 04/08/18 21:46 Dose: 10 mg Nystatin (Nystatin Oral Suspension -) 500,000 units PO Q6HPO [facility] Last Admin: 04/09/18 15:10 Dose: Not Given Nystatin (Mycostatin Cream -) 1 applic TP BID [facility] Last Admin: 04/09/18 10:04 Dose: 1 applic Oxycodone HCl (Roxicodone -) 10 mg PO Q6H PRN PRN Reason: PAIN LEVEL 6-10 Last Admin: 04/09/18 05:17 Dose: 10 mg Prochlorperazine Maleate (Compazine -) 10 mg PO DAILY [facility] Last Admin: 04/09/18 10:03 Dose: 10 mg Ranitidine HCl (Zantac -) 150 mg PO BID [facility] Last Admin: 04/09/18 10:01 Dose: 150 mg Senna (Senna -) 2 tab PO DAILY PRN PRN Reason: CONSTIPATION Last Admin: 04/09/18 05:16 Dose: 2 tab - Objective Vital Signs: Vital Signs Temperature 97.6 F 11/27/18 13:53 Pulse Rate 83 04/09/18 13:53 Respiratory Rate 16 04/09/18 13:53 Blood Pressure 113/57 L 04/09/18 13:53 O2 Sat by Pulse Oximetry (%) 94 L 04/09/18 10:00 Constitutional: Yes: No Distress HENT: Yes: Atraumatic Neck: Yes: Supple Cardiovascular: Yes: Regular Rate and Rhythm Respiratory: Yes: CTA Bilaterally Gastrointestinal: Yes: Normal Bowel Sounds Extremities: Yes: WNL, Other (R thigh not tender, swelling is down) Edema: No Neurological: Yes: Alert, Oriented Labs: CBC, BMP 04/08/18 12:50 04/08/18 12:50 INR, PTT INR 1.30 (0.83-1.09) H 04/05/18 11:45 Problem List - Problems (1) Back pain Assessment/Plan: no more complaints Code(s): M54.9 - DORSALGIA, UNSPECIFIED (2) Sepsis Assessment/Plan: stop abx per id Code(s): A41.9 - SEPSIS, UNSPECIFIED ORGANISM (3) Hematoma Assessment/Plan: f/u h/h and r thigh size h/h stable Code(s): T14.8XXA - OTHER INJURY OF UNSPECIFIED BODY REGION, INITIAL ENCOUNTER (4) UTI (urinary tract infection) Assessment/Plan: on abx cxs noted Code(s): N39.0 - URINARY TRACT INFECTION, SITE NOT SPECIFIED (5) Anemia Assessment/Plan: monitor h/h transfuse prbc as needed Code(s): D64.9 - ANEMIA, UNSPECIFIED Qualifiers: Iron deficiency anemia type: chronic blood loss (6) Psoas abscess, right Code(s): K68.12 - PSOAS MUSCLE ABSCESS Assessment/Plan DC PLANNING
--- NOTE | 2018-04-09 19:46 | DS ---
Physical Examination Vital Signs: Vital Signs Temperature 97.8 F 04/09/18 18:00 Pulse Rate 97 H 04/09/18 18:00 Respiratory Rate 18 04/09/18 18:00 Blood Pressure 131/67 04/09/18 18:00 O2 Sat by Pulse Oximetry (%) 94 L 04/09/18 10:00 Labs: CBC, BMP 04/08/18 12:50 04/08/18 12:50 Discharge Summary Reason For Visit: BACK PAIN Current Active Problems Anemia (Acute) Back pain (Acute) Cannot walk (Acute) E. coli sepsis (Acute) Hematoma (Acute) Hypertension (Acute) Psoas abscess, right (Acute) Sepsis (Acute) UTI (urinary tract infection) (Acute) - Instructions Diet, Activity, Other Instructions: HOLD PLAVIX DUE TO HEMATOMA SEE YOUR PMD 1 WEEK SEE YOUR OTHER DOCTORS PER APPOINTMENT Referrals: Slim Zavala MD [Staff Physician] - Ely Garcia MD [Staff Physician] - - Home Medications Comprehensive Discharge Medication List: Ambulatory Orders Canagliflozin [Invokana] 100 mg PO DAILY 03/21/17...ASK YOUR PMD Duloxetine HCl 60 mg PO DAILY 03/21/17 Lisinopril 10 mg PO DAILY 03/21/17 Montelukast Na [Singulair -] 10 mg PO DAILY 03/21/17 Oxycodone HCl/Acetaminophen [Endocet 5-325 Tablet] 1 tab PO PRN 03/21/17 Prochlorperazine Maleate 10 mg PO DAILY 03/21/17 Famotidine [Pepcid] 20 mg PO BID PRN #28 tablet 03/22/17 Metoprolol Tartrate [Lopressor -] 25 mg PO BID #60 tablet 04/09/18 Victoza - 04/09/18
[2018-04-09] MEDS: MONTELUKAST NA 10 MG TABLET PO SCH (22:58)
[2018-04-10] MEDS: ACETAMINOPHEN 325 MG TABLET (FP) PO PRN ×3 (03:50→15:39)
[2018-04-10] MEDS: INSULIN SLIDING SCALE (NOVOLOG) 1 VIAL SQ SCH ×2 (06:14→12:06)
[2018-04-10] MEDS: NYSTATIN 500,000 UNITS/5 ML SUSPENSION PO SCH ×2 (06:14→12:08)
[2018-04-10] MEDS: METOPROLOL TARTRATE 25 MG TABLET (FP) PO SCH (10:06)
[2018-04-10] MEDS: DULoxetine HCL 30 MG CAPSULE.DR (FP) PO SCH (10:06)
[2018-04-10] MEDS: ENOXAPARIN NA (PORCINE) 30 MG/0.3 ML DISP.SYRIN SQ SCH (10:06)
[2018-04-10] MEDS: LISINOPRIL 10 MG TABLET (FP) PO SCH (10:06)
[2018-04-10] MEDS: RANITIDINE HCL 150 MG TABLET (FP) PO SCH (10:06)
[2018-04-10] MEDS: oxyCODONE HCL 5 MG TABLET PO PRN (10:07)
[2018-04-10] MEDS: PROCHLORPERAZINE MALEATE 5 MG TABLET PO SCH (12:06)
[2018-04-10] MEDS: NYSTATIN 100,000 UNIT/GM TOPICAL CREAM 15 GM TUBE TP SCH (12:06)
--- NOTE | 2018-04-10 13:15 | PN ---
Progress Note, Physician History of Present Illness: doing well sitting in chair off of abx patient feels much better - Current Medication List Current Medications: Active Medications Acetaminophen (Tylenol -) 650 mg PO Q4H PRN PRN Reason: PAIN OR FEVER Last Admin: 04/10/18 10:07 Dose: 650 mg Duloxetine HCl (Cymbalta -) 60 mg PO DAILY [facility] Last Admin: 04/10/18 10:06 Dose: 60 mg Enoxaparin Sodium (Lovenox -) 30 mg SQ DAILY [facility] Last Admin: 04/10/18 10:06 Dose: 30 mg Insulin Aspart (Novolog Vial Sliding Scale -) 1 vial SQ ACHS [facility]; Protocol Last Admin: 04/10/18 12:06 Dose: 8 units Lisinopril (Prinivil) 10 mg PO DAILY [facility] Last Admin: 04/10/18 10:06 Dose: 10 mg Metoprolol Tartrate (Lopressor -) 25 mg PO BID [facility] Last Admin: 04/10/18 10:06 Dose: 25 mg Montelukast Sodium (Singulair -) 10 mg PO HS [facility] Last Admin: 04/09/18 22:58 Dose: 10 mg Nystatin (Nystatin Oral Suspension -) 500,000 units PO Q6HPO [facility] Last Admin: 04/10/18 12:08 Dose: 500,000 units Nystatin (Mycostatin Cream -) 1 applic TP BID [facility] Last Admin: 04/10/18 12:06 Dose: 1 applic Oxycodone HCl (Roxicodone -) 10 mg PO Q6H PRN PRN Reason: PAIN LEVEL 6-10 Last Admin: 04/10/18 10:07 Dose: 10 mg Prochlorperazine Maleate (Compazine -) 10 mg PO DAILY [facility] Last Admin: 04/10/18 12:06 Dose: Not Given Ranitidine HCl (Zantac -) 150 mg PO BID [facility] Last Admin: 04/10/18 10:06 Dose: 150 mg Senna (Senna -) 2 tab PO DAILY PRN PRN Reason: CONSTIPATION Last Admin: 04/09/18 05:16 Dose: 2 tab - Objective Vital Signs: Vital Signs Temperature 98.3 F 04/10/18 10:00 Pulse Rate 96 H 04/10/18 10:00 Respiratory Rate 20 04/10/18 10:00 Blood Pressure 141/68 04/10/18 10:00 O2 Sat by Pulse Oximetry (%) 94 L 04/09/18 10:00 Constitutional: Yes: No Distress, Calm Cardiovascular: Yes: S1, S2 Gastrointestinal: Yes: Normal Bowel Sounds, Soft Musculoskeletal: Yes: WNL Extremities: Yes: Other Neurological: Yes: Alert, Oriented Psychiatric: Yes: Alert, Oriented Labs: CBC, BMP 04/08/18 12:50 04/08/18 12:50 INR, PTT INR 1.30 (0.83-1.09) H 04/05/18 11:45 Assessment/Plan Pelvic Abscess Gram Negative Bacteremia UTI/Cystitis Severe Sepsis Acute Kidney Injury Lactic Acidosis Uterine Ca on chemo/RT HTN DM plan continue current mgmt physio rest as per the team patient improving
--- NOTE | 2018-04-10 14:21 | PN ---
Progress Note, Physician History of Present Illness: Remains afebrile, completed abx course. - Current Medication List Current Medications: Active Medications Acetaminophen (Tylenol -) 650 mg PO Q4H PRN PRN Reason: PAIN OR FEVER Last Admin: 04/10/18 10:07 Dose: 650 mg Duloxetine HCl (Cymbalta -) 60 mg PO DAILY [facility] Last Admin: 04/10/18 10:06 Dose: 60 mg Enoxaparin Sodium (Lovenox -) 30 mg SQ DAILY [facility] Last Admin: 04/10/18 10:06 Dose: 30 mg Insulin Aspart (Novolog Vial Sliding Scale -) 1 vial SQ ACHS [facility]; Protocol Last Admin: 04/10/18 12:06 Dose: 8 units Lisinopril (Prinivil) 10 mg PO DAILY [facility] Last Admin: 04/10/18 10:06 Dose: 10 mg Metoprolol Tartrate (Lopressor -) 25 mg PO BID [facility] Last Admin: 04/10/18 10:06 Dose: 25 mg Montelukast Sodium (Singulair -) 10 mg PO HS [facility] Last Admin: 04/09/18 22:58 Dose: 10 mg Nystatin (Nystatin Oral Suspension -) 500,000 units PO Q6HPO [facility] Last Admin: 04/10/18 12:08 Dose: 500,000 units Nystatin (Mycostatin Cream -) 1 applic TP BID [facility] Last Admin: 04/10/18 12:06 Dose: 1 applic Oxycodone HCl (Roxicodone -) 10 mg PO Q6H PRN PRN Reason: PAIN LEVEL 6-10 Last Admin: 04/10/18 10:07 Dose: 10 mg Prochlorperazine Maleate (Compazine -) 10 mg PO DAILY [facility] Last Admin: 04/10/18 12:06 Dose: Not Given Ranitidine HCl (Zantac -) 150 mg PO BID [facility] Last Admin: 04/10/18 10:06 Dose: 150 mg Senna (Senna -) 2 tab PO DAILY PRN PRN Reason: CONSTIPATION Last Admin: 04/09/18 05:16 Dose: 2 tab - Objective Vital Signs: Vital Signs Temperature 98.3 F 04/10/18 10:00 Pulse Rate 96 H 04/10/18 10:00 Respiratory Rate 20 04/10/18 10:00 Blood Pressure 141/68 04/10/18 10:00 O2 Sat by Pulse Oximetry (%) 94 L 04/09/18 10:00 Constitutional: Yes: No Distress, Calm Neck: Yes: Supple Cardiovascular: Yes: Regular Rate and Rhythm Respiratory: Yes: Regular, Diminished Gastrointestinal: Yes: Normal Bowel Sounds, Soft Edema: Yes Edema: RLE: Trace Labs: CBC, BMP 04/08/18 12:50 04/08/18 12:50 INR, PTT INR 1.30 (0.83-1.09) H 04/05/18 11:45 Problem List - Problems (1) Psoas abscess, right Code(s): K68.12 - PSOAS MUSCLE ABSCESS (2) Hypertension Code(s): I10 - ESSENTIAL (PRIMARY) HYPERTENSION Qualifiers: Hypertension type: essential hypertension Qualified Code(s): I10 - Essential (primary) hypertension (3) Anemia Code(s): D64.9 - ANEMIA, UNSPECIFIED Qualifiers: Iron deficiency anemia type: chronic blood loss (4) E. coli sepsis Code(s): A41.51 - SEPSIS DUE TO ESCHERICHIA COLI [E. COLI] Assessment/Plan 1. Right iliopsoas abscess post IR drainage and completed abx course 2. E. coli bacteremia/sepsis syndrome, resolved 3. UTI/Cystitis, resolved 4. Acute Kidney Injury, resolved 5. Lactic Acidosis related to above, resolved 6. Uterine carcinoma on chemo/RT 7. HTN 8. DM 9. Anemia PLAN: 1. Continue Lopressor 25 bid, hemodynamics permitting and titrate dosage 2. Continue Lisinopril 10 qd, hemodynamics permitting and titrate dosage 3. As outlined in prior notes monitor Hg and transfuse to maintain Hg equal or > 8.0 4. Completed antibiotic course as per ID service 5. DVT and GI prophylaxis, d/c planning
--- NOTE | 2018-04-10 15:48 | DS ---
Physical Examination Vital Signs: Vital Signs Temperature 98.0 F 04/10/18 13:54 Pulse Rate 88 04/10/18 13:54 Respiratory Rate 16 04/10/18 13:54 Blood Pressure 122/60 04/10/18 13:54 O2 Sat by Pulse Oximetry (%) 94 L 04/09/18 10:00 Constitutional: Yes: No Distress HENT: Yes: Atraumatic Neck: Yes: Supple Cardiovascular: Yes: Regular Rate and Rhythm Respiratory: Yes: CTA Bilaterally Gastrointestinal: Yes: Normal Bowel Sounds Extremities: Yes: WNL, Other ( r inessa mild swelling and tenderness) Neurological: Yes: Alert, Oriented Labs: CBC, BMP 04/08/18 12:50 04/08/18 12:50 Discharge Summary Reason For Visit: BACK PAIN Current Active Problems Anemia (Acute) Back pain (Acute) Cannot walk (Acute) E. coli sepsis (Acute) Hematoma (Acute) Hypertension (Acute) Psoas abscess, right (Acute) Sepsis (Acute) UTI (urinary tract infection) (Acute) - Instructions Diet, Activity, Other Instructions: HOLD PLAVIX DUE TO HEMATOMA SEE YOUR PMD 1 WEEK SEE YOUR OTHER DOCTORS PER APPOINTMENT Referrals: Slim Zavala MD [Staff Physician] - Ely Garcia MD [Staff Physician] - - Home Medications Comprehensive Discharge Medication List: Ambulatory Orders Canagliflozin [Invokana] 100 mg PO DAILY 03/21/17 Duloxetine HCl 60 mg PO DAILY 03/21/17 Lisinopril 10 mg PO DAILY 03/21/17 Montelukast Na [Singulair -] 10 mg PO DAILY 03/21/17 Oxycodone HCl/Acetaminophen [Endocet 5-325 Tablet] 1 tab PO PRN 03/21/17 Prochlorperazine Maleate 10 mg PO DAILY 03/21/17 Famotidine [Pepcid] 20 mg PO BID PRN #28 tablet 03/22/17 Metoprolol Tartrate [Lopressor -] 25 mg PO BID #60 tablet 04/09/18 Victoza - 04/09/18 family wants to take her home i d/w patient in the presence of rosalinda harmon to translate that it is better for her to go to rehab....patient refused and said wants to go home
[2018-04-10 17:34] VITALS: BP 117/60; PULSE 98; TEMP 98
== END 2018-04-10 18:30 | disposition home health service (06) | DRG 871 ==
LOC: JER 13:15 → INTOOBSV 17:57 → JERBED 17:57 → J7W 23:54 → OBSVTOIN 03-26 17:46 → JICU 03-27 19:13 → J4S 04-02 17:27
PROVIDERS: ADMIT Internal Medicine; ATTEND Internal Medicine
PROC: 0K9N3ZZ Drainage of Right Hip Muscle, Percutaneous Approach (ICD-10-PCS; principal; 2018-03-28)
PROC: 30233N1 Transfusion of Nonautologous Red Blood Cells into Peripheral Vein, Percutaneous Approach (ICD-10-PCS; 2018-03-28)
DX: A41.51 Sepsis due to Escherichia coli [E. coli] (principal); K68.12 Psoas muscle abscess; N39.0 Urinary tract infection, site not specified; E87.2 Acidosis; N17.9 Acute kidney failure, unspecified; D68.32 Hemorrhagic disorder due to extrinsic circulating anticoagulants; B37.0 Candidal stomatitis; I82.401 Acute embolism and thrombosis of unspecified deep veins of right lower extremity; I10 Essential (primary) hypertension; E11.9 Type 2 diabetes mellitus without complications; C55 Malignant neoplasm of uterus, part unspecified; Z92.21 Personal history of antineoplastic chemotherapy; M51.27 Other intervertebral disc displacement, lumbosacral region; M79.81 Nontraumatic hematoma of soft tissue; T45.515A Adverse effect of anticoagulants, initial encounter; E83.42 Hypomagnesemia; D64.9 Anemia, unspecified; R65.20 Severe sepsis without septic shock; E66.9 Obesity, unspecified; Z68.32 Body mass index [BMI] 32.0-32.9, adult; Z86.718 Personal history of other venous thrombosis and embolism; D63.8 Anemia in other chronic diseases classified elsewhere; K59.00 Constipation, unspecified; Z79.84 Long term (current) use of oral hypoglycemic drugs
CPT/HCPCS: 36415; 36430; 36511; 49407; 71045-TC-FY; 71046-TC-FY; 72132-TC; 72193-TC; 73700-TC-RT; 74176-TC; 80048; 80053; 81003; 81015; 82728; 82962; 83540; 83550; 83605; 83735; 84100; 84466; 85025; 85027; 85610; 85730; 86850; 86900; 86901; 86922; 87040; 87070; 87075; 87086; 87102; 87116; 87186; 87205; 87206; 87210; 87804; 93970-TC; 93971-TC; 97116-GP; 97162-GP; 99282-25; G0378; J0131; J7030; P9017; P9034; P9038; P9058

== ENCOUNTER 2018-04-27 19:52 | Inpatient (IN) | payer OTHER ==
[2018-04-27] MEDS ORDERED: SODIUM CHLORIDE 0.9% 500 ML INFUS.BAG IV ONE (19:57)
[2018-04-27] MEDS ORDERED: HEMOQUE TEST 1 EACH EACH ONE (20:12)
[2018-04-27] MEDS ORDERED: ACETAMINOPHEN 1000 MG/100 ML VIAL (NON FORMULARY) IVPB ONE ×2 (20:13→20:18)
--- NOTE | 2018-04-27 20:18 | PDOC ---
Attending Attestation - HPI HPI: 04/27/18 20:42 The patient is a 67 year old female, with a significant PMH of IDDM, uterine cancer, who presents to the emergency department via EMS for evaluation of altered mental status. As per family, the patient has been behaving different than her baseline behavior for 1 week and having hallucinations. At 7:20 pm, family reports the patient became unresponsive to voice and touch and so EMS was notified. EMS states when they arrive the patient was responsive to touch and moaning. EMS reports a blue substance was on the patients lips which the family states was medicine (family unsure name of medicine). Patient history limited secondary to clinical condition. Allergies: NKA Documentation prepared by Andrea Chaudhry, acting as medical research associate for Moriah Back MD. <Andrea Chaudhry - Last Filed: 04/27/18 20:42> - Resident Resident Name: Marlon Ovalle - ED Attending Attestation I have performed the following: I have examined & evaluated the patient, The case was reviewed & discussed with the resident, I agree w/resident's findings & plan - HPI HPI: 04/27/18 20:33 Pt comes with altered MS; she was slumped on the toilet difficulty breathing - Physicial Exam PE: 04/28/18 01:36 Pt is somnolent. Pt is having difficulty breathing. Pt has no abdominal pain. Pt has avila catheter in but<100ml urine in the avila bag. Pt has no flank pain. No coarse breath sounds. Pt is febrile. Pt is confused. O2sat on 100NRB is 100% Pt placed on BiPAP as she seems to have difficulty breathing and muscle weakness. - Medical Decision Making 04/28/18 01:40 Pt has Lactic Acid elevation; pt has DKA on her labs; she has low body pH on ABG. She is dehydrated, and she was treated with insulin drip and bolus and 4L NSS; She was given 1 amp of bicarb in one of her Liter boluses. Pt will be admitted to the ICU. <Moriah Back - Last Filed: 04/28/18 01:44>
[2018-04-27] MEDS ORDERED: ACETAMINOPHEN INJECTION 100 ML IVPB ONE (20:26)
[2018-04-27] MEDS ORDERED: INSULIN REGULAR 100 UNITS in SODIUM CHLORIDE 99 ML IVPB SCH (20:30)
[2018-04-27 20:31] LABS: BASO % 0.5 % (0-2.0); EOS % 0.1 % (0-4.5); HEMATOCRIT 25.6 % (32.4-45.2); HEMOGLOBIN 8.4 GM/dL (10.7-15.3); MCH 26.6 pg (25.7-33.7); MCHC 32.9 g/dl (32.0-36.0); MEAN CELL VOLUME 80.9 fl (80-96); MEAN PLT VOLUME 10.5 fl (7.5-11.1); PLATELET COUNT 289 K/MM3 (134-434); RBC 3.17 M/mm3 (3.60-5.2); WHITE BLOOD COUNT 8.2 K/mm3 (4.0-10.0)
[2018-04-27 20:32] LABS: VENOUS PC02 35.5 mmHg (38-52); VENOUS PH 7.36 (7.32-7.42)
[2018-04-27 20:34] LABS: VENOUS PO2 16.1 mmHg (28-48)
[2018-04-27] MEDS ORDERED: RAPID SEQUENCE INTUBATION KIT NR ONE (20:36)
[2018-04-27 20:44] LABS: INR 1.4 (0.83-1.09); PROTHROMBIN TIME (PATIENT) 16.6 SEC (9.7-13.0)
[2018-04-27 20:46] LABS: ACTIVATED PTT 22.5 SECONDS (25.2-36.5)
[2018-04-27 20:46] LABS: URINE APPEARANCE CLOUDY; URINE BILIRUBIN NEGATIVE (<2.0 mg/dL); URINE COLOR DKYELLOW; URINE GLUCOSE (UA) 3+ (NEGATIVE); URINE KETONE NEGATIVE (NEGATIVE); URINE LEUK ESTERASE 1+ (NEGATIVE); URINE NITRITE NEGATIVE (NEGATIVE); URINE PROTEIN 2+ (NEGATIVE); URINE UROBILINOGEN 4.0 E.U/dl mg/dL (0.2-1.0)
[2018-04-27] MEDS ORDERED: NALOXONE HCL 0.4 MG/ML VIAL IVPUSH ONE (20:46)
[2018-04-27] MEDS ORDERED: NALOXONE HCL 0.4 MG/ML VIAL ONE (20:47)
[2018-04-27] MEDS ORDERED: MAGNESIUM SULF 50% (8.12 MEQ/2 ML-1 GM VIAL) IVPB ONE (20:49)
[2018-04-27] MEDS ORDERED: INSULIN REGULAR HUMAN 100 UNITS/ML *VIAL ONE (20:49)
[2018-04-27] MEDS ORDERED: MAGNESIUM 1GM/D5W - 2 GM/200 ML IVPB IVPB ONE (20:51)
[2018-04-27 20:58] LABS: EPI CELLS RARE /HPF (FEW); URINE BACTERIA RARE /hpf (NONE SEEN); URINE HYALINE CAST 1 /lpf; URINE MUCUS RARE
[2018-04-27] MEDS ORDERED: KCL 10 MEQ IVPB 10 MEQ/100 ML INFUS.BAG IVPB ONE (20:58)
[2018-04-27 21:01] LABS: PLATELET ESTIMATE ADEQUATE
[2018-04-27 21:13] LABS: ALK PHOS 517 U/L (45-117); ANION GAP 14 MMOL/L (8-16); BILIRUBIN,TOTAL 2.4 mg/dL (0.2-1); BLOOD UREA NITROGEN 21 mg/dL (7-18); CHLORIDE 91 mmol/L (98-107); CO2 18 mmol/L (21-32); CREATININE 1.4 mg/dL (0.55-1.3); POTASSIUM 5.5 mmol/L (3.5-5.1); SGOT/AST 230 U/L (15-37); SGPT/ALT 145 U/L (13-61); SODIUM 122 mmol/L (136-145); TOT PROT 7.5 g/dl (6.4-8.2)
[2018-04-27 21:14] LABS: ARTERIAL BLD GAS O2 SATURATION 98.7 % (90-98.9); ARTERIAL BLOOD GAS BASE EXCESS -6.5 meq/l (-2-2); ARTERIAL BLOOD GAS PCO2 29.4 mmHg (35-45); ARTERIAL BLOOD GAS pH 7.39 (7.35-7.45); CARBOXYHEMOGLOBIN 1.7 gm% (0.5-2.0)
[2018-04-27 21:16] LABS: ALLENS TEST POSITIVE
--- NOTE | 2018-04-27 21:17 | PDOC ---
History of Present Illness - General Chief Complaint: Blood Sugar Problem Stated Complaint: SICK Time Seen by Provider: 04/27/18 19:53 History Source: Patient Exam Limitations: No Limitations - History of Present Illness Initial Comments: 04/27/18 21:09 67 yo F with a hx of HTN, IDDM, uterine cancer (last chemo Apr 2017 per family) , and a recent 2 week admission for psoas abscess and bacteremia presents to the emergency department [facility] with acute AMS. Per the family, the patient has been having hallucinations intermittently that are visual since her recent discharge with worsening over the past 2-3 days. At 11 am today,.they stated she was having altered speech and was making moaning sounds and un-intelligible speech. At approximately 5pm, the patient became unresponsive, began shaking her body with urinary incontinence, but denies LOC. This occurred for approximately 2-3 minutes. They called EMS when her intermittent weakness became constant which was approximately at 7 pm. Per EMS, they stated the patient was moaning with a field blood glucose in the 590s with tachycardia and warm to the touch. Per the family, they deny that she was feeling ill today and stated she did not complain of headaches, chest pain, lightheadedness, SOB, and diarrhea/nausea/vomiting. They deny she struck her head today. Per the patient, she states she only has pain in the right leg, but denies fevers, chills, headache, chest pain, SOB, hematochezia, melena, and lightheadedness. Past History - Past Medical History Allergies/Adverse Reactions: Allergies Allergy/AdvReac Type Severity Reaction Status Date / Time No Known Allergies Allergy Verified 04/27/18 20:23 Home Medications: Ambulatory Orders Canagliflozin [Invokana] 100 mg PO DAILY 03/21/17 Duloxetine HCl 60 mg PO DAILY 03/21/17 Lisinopril 10 mg PO DAILY 03/21/17 Montelukast Na [Singulair -] 10 mg PO DAILY 03/21/17 Oxycodone HCl/Acetaminophen [Endocet 5-325 Tablet] 1 tab PO PRN 03/21/17 Prochlorperazine Maleate 10 mg PO DAILY 03/21/17 Famotidine [Pepcid] 20 mg PO BID PRN #28 tablet 03/22/17 Metoprolol Tartrate [Lopressor -] 25 mg PO BID #60 tablet 04/09/18 Victoza - 04/09/18 Cancer: Yes (Uterus) COPD: No CHF: No DVT: Yes Diabetes: Yes HTN: Yes - Suicide/Smoking/Psychosocial Hx Smoking Status: No Smoking History: Never smoked Have you smoked in the past 12 months: No Number of Cigarettes Smoked Daily: 0 Information on smoking cessation initiated: No Hx Alcohol Use: No Drug/Substance Use Hx: No Substance Use Type: None Hx Substance Use Treatment: No *Physical Exam - Vital Signs Last Vital Signs Temp Pulse Resp BP Pulse Ox 123 H 28 H 150/86 92 L 04/27/18 19:55 04/27/18 19:55 04/27/18 19:55 04/27/18 19:55 Moderate Sedation - Procedure Monitoring Vital Signs: Procedure Monitoring Vital Signs Temperature Pulse Rate 123 H 04/27/18 19:55 Respiratory Rate 28 H 04/27/18 19:55 Blood Pressure 150/86 04/27/18 19:55 O2 Sat by Pulse Oximetry (%) 92 L 04/27/18 19:55 ED Treatment Course - LABORATORY CBC & Chemistry Diagram: 04/27/18 20:10 04/27/18 20:10 - ADDITIONAL ORDERS Additional order review: Laboratory Results 04/27/18 04/27/18 04/27/18 20:25 20:10 20:10 PT with INR 16.60 H INR 1.40 H PTT (Actin FS) 22.5 L VBG pH 7.36 POC VBG pCO2 35.5 L POC VBG pO2 16.1 L* Mixed VBG HCO3 19.4 Urine Color Dkyellow Urine Appearance Cloudy Urine pH 5.0 Ur Specific [place] 1.016 Urine Protein 2+ H Urine Glucose (UA) 3+ H Urine Ketones Negative Urine Blood 1+ H Urine Nitrite Negative Urine Bilirubin Negative Urine Urobilinogen 4.0 e.u/dl H Ur Leukocyte Esterase 1+ H Salicylates 04/27/18 20:10 PT with INR INR PTT (Actin FS) VBG pH POC VBG pCO2 POC VBG pO2 Mixed VBG HCO3 Urine Color Urine Appearance Urine pH Ur Specific [place] Urine Protein Urine Glucose (UA) Urine Ketones Urine Blood Urine Nitrite Urine Bilirubin Urine Urobilinogen Ur Leukocyte Esterase Salicylates < 1.7 L 04/27/18 20:10 RBC 3.17 L MCV 80.9 MCHC 32.9 RDW 20.0 H MPV 10.5 D Neutrophils % 75.0 Lymphocytes % 9.0 D Monocytes % 6.0 Eosinophils % 0.1 Basophils % 0.5 - Medications Given in the ED: ED Medications Discontinued Medications Generic Name Dose Route Start Last Admin Trade Name Pauloq PRN Reason Stop Dose Admin Acetaminophen 1,000 mg 04/27/18 20:13 04/27/18 20:31 Ofirmev Injection - IVPB 04/27/18 20:14 1,000 mg ONCE ONE Administration Acetaminophen 1,000 mg 04/27/18 20:18 04/27/18 20:35 Ofirmev Injection - IVPB 04/27/18 20:19 1,000 mg ONCE ONE Administration Magnesium Sulfate 2 gm 04/27/18 20:49 04/27/18 20:57 Magnesium Sulfate IVPB 04/27/18 20:50 2 gm ONCE ONE Administration Sodium Chloride 1,000 ml 04/27/18 19:57 04/27/18 20:10 Normal Saline - IV 04/27/18 19:58 1,000 ml ONCE ONE Administration Medical Decision Making - Medical Decision Making 04/27/18 22:06 67 yo F with a hx of HTN, IDDM, uterine cancer (last chemo Apr 2017 per family) , and a recent 2 week admission for psoas abscess and bacteremia presents to the emergency department BIBA with acute AMS. Initial vitals: Initial Vital Signs Pulse Resp BP Pulse Ox 123 H 28 H 150/86 92 L 04/27/18 19:55 04/27/18 19:55 04/27/18 19:55 04/27/18 19:55 Work up: ddx: AMS (intracranial pathology vs seizure (post ictal state?) vs sepsis ( diaphoretic, febrile, tachycardia) vs syncope (cardiac vs metabolic vs vasovagal ) vs DKA (IDDM with field BG 590s with AMS tachypnea). will order sepsis work up with the additional following: acetaminophen, salicylate, acetone, head CT Laboratory Tests 04/27/18 04/27/18 04/27/18 20:10 20:10 20:10 WBC 8.2 RBC 3.17 L Hgb 8.4 L Hct 25.6 L MCV 80.9 MCH 26.6 MCHC 32.9 RDW 20.0 H Plt Count 289 MPV 10.5 D Absolute Neuts (auto) 7.0 Neutrophils % 75.0 Lymphocytes % 9.0 D Monocytes % 6.0 Eosinophils % 0.1 Basophils % 0.5 Nucleated RBC % 0 Platelet Estimate Adequate Platelet Comment No clumping noted PT with INR INR PTT (Actin FS) Anticoagulation Therapy Puncture Site ABG pH ABG pCO2 at Pt Temp ABG pO2 at Pt Temp ABG HCO3 ABG O2 Sat (Measured) ABG O2 Content ABG Base Excess [place] Test VBG pH POC VBG pCO2 POC VBG pO2 Mixed VBG HCO3 Carboxyhemoglobin Methemoglobin O2 Delivery Device Oxygen Flow Rate Vent Mode Vent Rate Mechanical Rate Pressure Support Vent Sodium 122 L Potassium 5.5 H Chloride 91 L Carbon Dioxide 18 L Anion Gap 14 BUN 21 H Creatinine 1.4 H Creat Clearance w eGFR 37.74 Random Glucose 575 H* Lactic Acid Calcium 10.0 Total Bilirubin 2.4 H AST 230 H ALT 145 H Alkaline Phosphatase 517 H Creatine Kinase 86 Troponin I < 0.02 Total Protein 7.5 Albumin 2.0 L Urine Color Urine Appearance Urine pH Ur Specific [place] Urine Protein Urine Glucose (UA) Urine Ketones Urine Blood Urine Nitrite Urine Bilirubin Urine Urobilinogen Ur Leukocyte Esterase Urine WBC (Auto) Urine RBC (Auto) Ur Epithelial Cells Urine Bacteria Hyaline Casts Urine Mucus Salicylates < 1.7 L Acetaminophen < 2.0 L Acetone, Qual Trace H Influenza A (Rapid) Influenza B (Rapid) Blood Type Antibody Screen 04/27/18 04/27/18 04/27/18 20:10 20:10 20:10 WBC RBC Hgb Hct MCV MCH MCHC RDW Plt Count MPV Absolute Neuts (auto) Neutrophils % Lymphocytes % Monocytes % Eosinophils % Basophils % Nucleated RBC % Platelet Estimate Platelet Comment PT with INR 16.60 H INR 1.40 H PTT (Actin FS) 22.5 L Anticoagulation Therapy Puncture Site ABG pH ABG pCO2 at Pt Temp ABG pO2 at Pt Temp ABG HCO3 ABG O2 Sat (Measured) ABG O2 Content ABG Base Excess [place] Test VBG pH 7.36 POC VBG pCO2 35.5 L POC VBG pO2 16.1 L* Mixed VBG HCO3 19.4 Carboxyhemoglobin Methemoglobin O2 Delivery Device Oxygen Flow Rate Vent Mode Vent Rate Mechanical Rate Pressure Support Vent Sodium Potassium Chloride Carbon Dioxide Anion Gap BUN Creatinine Creat Clearance w eGFR Random Glucose Lactic Acid 6.4 H* Calcium Total Bilirubin AST ALT Alkaline Phosphatase Creatine Kinase Troponin I Total Protein Albumin Urine Color Urine Appearance Urine pH Ur Specific [place] Urine Protein Urine Glucose (UA) Urine Ketones Urine Blood Urine Nitrite Urine Bilirubin Urine Urobilinogen Ur Leukocyte Esterase Urine WBC (Auto) Urine RBC (Auto) Ur Epithelial Cells Urine Bacteria Hyaline Casts Urine Mucus Salicylates Acetaminophen Acetone, Qual Influenza A (Rapid) Influenza B (Rapid) Blood Type Antibody Screen 04/27/18 04/27/18 04/27/18 20:10 20:15 20:25 WBC RBC Hgb Hct MCV MCH MCHC RDW Plt Count MPV Absolute Neuts (auto) Neutrophils % Lymphocytes % Monocytes % Eosinophils % Basophils % Nucleated RBC % Platelet Estimate Platelet Comment PT with INR INR PTT (Actin FS) Anticoagulation Therapy Puncture Site ABG pH ABG pCO2 at Pt Temp ABG pO2 at Pt Temp ABG HCO3 ABG O2 Sat (Measured) ABG O2 Content ABG Base Excess [place] Test VBG pH POC VBG pCO2 POC VBG pO2 Mixed VBG HCO3 Carboxyhemoglobin Methemoglobin O2 Delivery Device Oxygen Flow Rate Vent Mode Vent Rate Mechanical Rate Pressure Support Vent Sodium Potassium Chloride Carbon Dioxide Anion Gap BUN Creatinine Creat Clearance w eGFR Random Glucose Lactic Acid Calcium Total Bilirubin AST ALT Alkaline Phosphatase Creatine Kinase Troponin I Total Protein Albumin Urine Color Dkyellow Urine Appearance Cloudy Urine pH 5.0 Ur Specific [place] 1.016 Urine Protein 2+ H Urine Glucose (UA) 3+ H Urine Ketones Negative Urine Blood 1+ H Urine Nitrite Negative Urine Bilirubin Negative Urine Urobilinogen 4.0 e.u/dl H Ur Leukocyte Esterase 1+ H Urine WBC (Auto) 70 Urine RBC (Auto) 2 Ur Epithelial Cells Rare Urine Bacteria Rare Hyaline Casts 1 Urine Mucus Rare Salicylates Acetaminophen Acetone, Qual Influenza A (Rapid) Negative Influenza B (Rapid) Negative Blood Type O POSITIVE Antibody Screen Negative 04/27/18 20:50 WBC RBC Hgb Hct MCV MCH MCHC RDW Plt Count MPV Absolute Neuts (auto) Neutrophils % Lymphocytes % Monocytes % Eosinophils % Basophils % Nucleated RBC % Platelet Estimate Platelet Comment PT with INR INR PTT (Actin FS) Anticoagulation Therapy No Result Required. Puncture Site Right radial ABG pH 7.39 ABG pCO2 at Pt Temp 29.4 L ABG pO2 at Pt Temp 116.0 H ABG HCO3 17.5 L ABG O2 Sat (Measured) 98.7 ABG O2 Content 6.5 L* ABG Base Excess -6.5 L [place] Test Positive VBG pH POC VBG pCO2 POC VBG pO2 Mixed VBG HCO3 Carboxyhemoglobin 1.7 Methemoglobin 0.0 L O2 Delivery Device Nrm Oxygen Flow Rate 100 Vent Mode No Result Required. Vent Rate No Result Required. Mechanical Rate No Result Required. Pressure Support Vent No Result Required. Sodium Potassium Chloride Carbon Dioxide Anion Gap BUN Creatinine Creat Clearance w eGFR Random Glucose Lactic Acid Calcium Total Bilirubin AST ALT Alkaline Phosphatase Creatine Kinase Troponin I Total Protein Albumin Urine Color Urine Appearance Urine pH Ur Specific [place] Urine Protein Urine Glucose (UA) Urine Ketones Urine Blood Urine Nitrite Urine Bilirubin Urine Urobilinogen Ur Leukocyte Esterase Urine WBC (Auto) Urine RBC (Auto) Ur Epithelial Cells Urine Bacteria Hyaline Casts Urine Mucus Salicylates Acetaminophen Acetone, Qual Influenza A (Rapid) Influenza B (Rapid) Blood Type Antibody Screen patient arrived with altered only responding to stimuli on presentation. a code germain was called and the patient was taken to CT where head CT was negative for intracranial hemorrhage. The patient was brought into the resuscitation room. Her pulse ox was unreliable initially do to poor peripheral pulses likely secondary to a septic picture. bipap was started and the patient's O2 were 98%+ Potassium is 5.5, lactic acid 6.4, BG in 575,
[2018-04-27 21:18] LABS: GLUCOSE,RANDOM 575 mg/dL (74-106)
[2018-04-27] MEDS ORDERED: SODIUM CHLORIDE 1,000 ML IV STA (21:22)
[2018-04-27] MEDS ORDERED: SODIUM BICARBONATE 8.4% 50 MEQ/50 ML DISP.SYRIN IVPUSH ONE (21:22)
[2018-04-27 21:36] LABS: ACETONE SERUM TRACE (NEGATIVE)
[2018-04-27] MEDS ORDERED: SODIUM BICARBONATE 8.4% 50 MEQ/50 ML VIAL ONE (21:39)
[2018-04-27] MEDS ORDERED: INSULIN REGULAR HUMAN 100 UNITS/ML *VIAL IVPUSH ONE (22:25)
[2018-04-27] MEDS ORDERED: LACTATED RINGERS SOLUTION 1,000 ML/1,000 ML INFUS.BAG IV SCH (22:30)
[2018-04-27] MEDS ORDERED: VANCOMYCIN 1 GRAM (PRE-DOCKED) 1,000 MG/250 ML BAG IVPB ONE (23:02)
--- NOTE | 2018-04-27 23:02 | HP ---
CHIEF COMPLAINT: altered mental status PCP: in [facility] HISTORY OF PRESENT ILLNESS: This is a 67 year old female with a history of uterine cancer s/p radiation/ chemo/total hysterectomy, hypertension, IDDM, dvt, recent hospitalization for gram negative bacteremia from UTI also with right iliopsoas abscess and severe sepsis (03/2018) who was BIBA due to altered mental status and lethargy at home. Mong[place]ian speaking family. Patient on bipap when I entered room. Family at bedside giving history. states that ever since she as discharged from the hospital, she has had increased lethargy, very little ambulation with walker due to pain in right hip, poor oral intake. Today she was not responding to him and was very cold and trembling, which provoked calling EMS. states that her urine is foul and admits to dysuria. He also states the past few night she woke up in sweats. Denies recorded fever at home, headache, blurry vision, chest pain, sob, abdominal pain, diarrhea, melena, n, v. ER: placed on BiPAP, given 4L ivf; lactic acid 6.6; glucose >500; she was started on insulin drip in ER; sepsis work up Recent Travel: [place] PAST MEDICAL HISTORY: uterine ca , htm, dm, gram negative bacteremia, spine pathology, arthritis, iliopsoas abscess right sided, dvt PAST SURGICAL HISTORY: total hysterectomy Social History: Smoking:no Alcohol:no Drugs: no Family History: Allergies No Known Allergies Allergy (Verified 04/27/18 20:23) HOME MEDICATIONS: Home Medications Medication Instructions Recorded Canagliflozin [Invokana] 100 mg PO DAILY 03/21/17 Duloxetine HCl 60 mg PO DAILY 03/21/17 Lisinopril 10 mg PO DAILY 03/21/17 Montelukast Na [Singulair -] 10 mg PO DAILY 03/21/17 Oxycodone HCl/Acetaminophen 1 tab PO PRN 03/21/17 [Endocet 5-325 Tablet] Prochlorperazine Maleate 10 mg PO DAILY 03/21/17 Famotidine [Pepcid] 20 mg PO BID PRN #28 tablet 03/22/17 Metoprolol Tartrate [Lopressor -] 25 mg PO BID #60 tablet 04/09/18 Victoza - 04/09/18 PHYSICAL EXAMINATION Vital Signs - 24 hr 04/27/18 04/27/18 04/27/18 19:55 21:00 21:15 Temperature 103.1 F H Pulse Rate 123 H 112 H Respiratory 28 H 18 Rate Blood Pressure 150/86 149/78 O2 Sat by Pulse 92 L 100 100 Oximetry (%) GENERAL: on BiPAP very lethargic HEAD: Normal with no signs of trauma. EYES: Pupils equal, round and reactive to light, extraocular movements intact, sclera anicteric, conjunctiva clear. No lid lag. LUNGS: decreased breath sounds b/l HEART: Regular rate and rhythm, normal S1 and S2 without murmur, rub or gallop. ABDOMEN: Soft, nontender, not distended, normoactive bowel sounds, no guarding, no rebound, no masses. No hepatomegaly or splenomegaly. MUSCULOSKELETAL: could not assess; UPPER EXTREMITIES: 2+ pulses, warm, well-perfused. No cyanosis. No clubbing. No peripheral edema. LOWER EXTREMITIES: 2+ pulses, warm, well-perfused. No calf tenderness. No peripheral edema. NEUROLOGICAL: lethargic ; able to give place and date SKIN: very cold Laboratory Results - last 24 hr 04/27/18 04/27/18 04/27/18 20:10 20:10 20:10 WBC 8.2 RBC 3.17 L Hgb 8.4 L Hct 25.6 L MCV 80.9 MCH 26.6 MCHC 32.9 RDW 20.0 H Plt Count 289 MPV 10.5 D Absolute Neuts (auto) 7.0 Neutrophils % 75.0 Lymphocytes % 9.0 D Monocytes % 6.0 Eosinophils % 0.1 Basophils % 0.5 Nucleated RBC % 0 Platelet Estimate Adequate Platelet Comment No clumping noted PT with INR INR PTT (Actin FS) Anticoagulation Therapy Puncture Site ABG pH ABG pCO2 at Pt Temp ABG pO2 at Pt Temp ABG HCO3 ABG O2 Sat (Measured) ABG O2 Content ABG Base Excess [place] Test VBG pH POC VBG pCO2 POC VBG pO2 Mixed VBG HCO3 Carboxyhemoglobin Methemoglobin O2 Delivery Device Oxygen Flow Rate Vent Mode Vent Rate Mechanical Rate Pressure Support Vent Sodium 122 L Potassium 5.5 H Chloride 91 L Carbon Dioxide 18 L Anion Gap 14 BUN 21 H Creatinine 1.4 H Creat Clearance w eGFR 37.74 Random Glucose 575 H* Lactic Acid Calcium 10.0 Total Bilirubin 2.4 H AST 230 H ALT 145 H Alkaline Phosphatase 517 H Creatine Kinase 86 Troponin I < 0.02 Total Protein 7.5 Albumin 2.0 L Urine Color Urine Appearance Urine pH Ur Specific [place] Urine Protein Urine Glucose (UA) Urine Ketones Urine Blood Urine Nitrite Urine Bilirubin Urine Urobilinogen Ur Leukocyte Esterase Urine WBC (Auto) Urine RBC (Auto) Ur Epithelial Cells Urine Bacteria Hyaline Casts Urine Mucus Salicylates < 1.7 L Acetaminophen < 2.0 L Acetone, Qual Trace H Influenza A (Rapid) Influenza B (Rapid) Blood Type Antibody Screen 04/27/18 04/27/18 04/27/18 20:10 20:10 20:10 WBC RBC Hgb Hct MCV MCH MCHC RDW Plt Count MPV Absolute Neuts (auto) Neutrophils % Lymphocytes % Monocytes % Eosinophils % Basophils % Nucleated RBC % Platelet Estimate Platelet Comment PT with INR 16.60 H INR 1.40 H PTT (Actin FS) 22.5 L Anticoagulation Therapy Puncture Site ABG pH ABG pCO2 at Pt Temp ABG pO2 at Pt Temp ABG HCO3 ABG O2 Sat (Measured) ABG O2 Content ABG Base Excess [place] Test VBG pH 7.36 POC VBG pCO2 35.5 L POC VBG pO2 16.1 L* Mixed VBG HCO3 19.4 Carboxyhemoglobin Methemoglobin O2 Delivery Device Oxygen Flow Rate Vent Mode Vent Rate Mechanical Rate Pressure Support Vent Sodium Potassium Chloride Carbon Dioxide Anion Gap BUN Creatinine Creat Clearance w eGFR Random Glucose Lactic Acid 6.4 H* Calcium Total Bilirubin AST ALT Alkaline Phosphatase Creatine Kinase Troponin I Total Protein Albumin Urine Color Urine Appearance Urine pH Ur Specific [place] Urine Protein Urine Glucose (UA) Urine Ketones Urine Blood Urine Nitrite Urine Bilirubin Urine Urobilinogen Ur Leukocyte Esterase Urine WBC (Auto) Urine RBC (Auto) Ur Epithelial Cells Urine Bacteria Hyaline Casts Urine Mucus Salicylates Acetaminophen Acetone, Qual Influenza A (Rapid) Influenza B (Rapid) Blood Type Antibody Screen 04/27/18 04/27/18 04/27/18 20:10 20:15 20:25 WBC RBC Hgb Hct MCV MCH MCHC RDW Plt Count MPV Absolute Neuts (auto) Neutrophils % Lymphocytes % Monocytes % Eosinophils % Basophils % Nucleated RBC % Platelet Estimate Platelet Comment PT with INR INR PTT (Actin FS) Anticoagulation Therapy Puncture Site ABG pH ABG pCO2 at Pt Temp ABG pO2 at Pt Temp ABG HCO3 ABG O2 Sat (Measured) ABG O2 Content ABG Base Excess [place] Test VBG pH POC VBG pCO2 POC VBG pO2 Mixed VBG HCO3 Carboxyhemoglobin Methemoglobin O2 Delivery Device Oxygen Flow Rate Vent Mode Vent Rate Mechanical Rate Pressure Support Vent Sodium Potassium Chloride Carbon Dioxide Anion Gap BUN Creatinine Creat Clearance w eGFR Random Glucose Lactic Acid Calcium Total Bilirubin AST ALT Alkaline Phosphatase Creatine Kinase Troponin I Total Protein Albumin Urine Color Dkyellow Urine Appearance Cloudy Urine pH 5.0 Ur Specific [place] 1.016 Urine Protein 2+ H Urine Glucose (UA) 3+ H Urine Ketones Negative Urine Blood 1+ H Urine Nitrite Negative Urine Bilirubin Negative Urine Urobilinogen 4.0 e.u/dl H Ur Leukocyte Esterase 1+ H Urine WBC (Auto) 70 Urine RBC (Auto) 2 Ur Epithelial Cells Rare Urine Bacteria Rare Hyaline Casts 1 Urine Mucus Rare Salicylates Acetaminophen Acetone, Qual Influenza A (Rapid) Negative Influenza B (Rapid) Negative Blood Type O POSITIVE Antibody Screen Negative 04/27/18 20:50 WBC RBC Hgb Hct MCV MCH MCHC RDW Plt Count MPV Absolute Neuts (auto) Neutrophils % Lymphocytes % Monocytes % Eosinophils % Basophils % Nucleated RBC % Platelet Estimate Platelet Comment PT with INR INR PTT (Actin FS) Anticoagulation Therapy No Result Required. Puncture Site Right radial ABG pH 7.39 ABG pCO2 at Pt Temp 29.4 L ABG pO2 at Pt Temp 116.0 H ABG HCO3 17.5 L ABG O2 Sat (Measured) 98.7 ABG O2 Content 6.5 L* ABG Base Excess -6.5 L [place] Test Positive VBG pH POC VBG pCO2 POC VBG pO2 Mixed VBG HCO3 Carboxyhemoglobin 1.7 Methemoglobin 0.0 L O2 Delivery Device Nrm Oxygen Flow Rate 100 Vent Mode No Result Required. Vent Rate No Result Required. Mechanical Rate No Result Required. Pressure Support Vent No Result Required. Sodium Potassium Chloride Carbon Dioxide Anion Gap BUN Creatinine Creat Clearance w eGFR Random Glucose Lactic Acid Calcium Total Bilirubin AST ALT Alkaline Phosphatase Creatine Kinase Troponin I Total Protein Albumin Urine Color Urine Appearance Urine pH Ur Specific [place] Urine Protein Urine Glucose (UA) Urine Ketones Urine Blood Urine Nitrite Urine Bilirubin Urine Urobilinogen Ur Leukocyte Esterase Urine WBC (Auto) Urine RBC (Auto) Ur Epithelial Cells Urine Bacteria Hyaline Casts Urine Mucus Salicylates Acetaminophen Acetone, Qual Influenza A (Rapid) Influenza B (Rapid) Blood Type Antibody Screen ASSESSMENT/PLAN: This is a 67 year old female with a history of dvt, dm, htn, uterine ca, gram negative bactermia, uti, psoas abscess in 2017, who presents with increased lethargy and not responsive at home with associated fever, chills, dysuria, septic picture with lactic acidosis and hyperglycemia. #ams #severe sepsis #uti #pna #lactic acidosis #hyperglycemia #alejo #transaminitis #hx uterine ca #hx of psoas abscess #hx dvt #hx anemia #altered mental status secondary to severe sepsis ; multiple etiology including PNA, UTI, r/o GI source acute cholecystitis due to to elevated lfts, alk phos and t bili, also with psoas abscess history need to eval, hyperglycemia also contributing, by be in hyperosmolar hyperglycemic state -complete sepsis work up -f/u cbc, cmp, blood culture, urine culture,cxr -start broad spectrum antibiotcs; IV vanc/zosyn -s/p 4L IVF; recheck lactic acid -bp stable; keep MAP >65 -keep oxygen >92; does not require Biapap at this time; try venti/nasal canula -trend lfts; possibly sepsis induced -alejo may be related to seps/dehydration; HHS? -f/u ultrasound abdominal.renal bladder. pelvic -not in DK; sq insulin; repeat bmp; r/o HHS; get serum osmols; IV fluid resuscitation; cont insulin drip; bgm -hyponatremia secondary to elevated glucose corrected 133 -low h/h hx of anemia; improved since last visit; transfuse if <7; will order FOBT, -htn: in light of sepsis picture will hold antihypertensives for now; monitor bp VTE sq heparin Disposition: monitor in ICU Visit type - Emergency Visit Emergency Visit: Yes ED Registration Date: 04/27/18 Care time: The patient presented to the Emergency Department on the above date and was hospitalized for further evaluation of their emergent condition. - New Patient This patient is new to me today: Yes Date on this admission: 04/28/18 - Critical Care Critical Care patient: No Total Critical Care Time (in minutes): 45 Critical Care Statement: The care of this patient involved high complexity decision making to prevent further life threatening deterioration of the patient 's condition and/or to evaluate & treat vital organ system(s) failure or risk of failure.
[2018-04-27] MEDS ORDERED: PIPERACILLIN/TAZOB 4.5 GM 4.5 GM in DEXTROSE 5%-WATER 100 ML IVPB ONE (23:15)
[2018-04-27 23:28] LABS: URINE APPEARANCE CLOUDY; URINE BILIRUBIN NEGATIVE (<2.0 mg/dL); URINE COLOR DKYELLOW; URINE GLUCOSE (UA) 3+ (NEGATIVE); URINE KETONE NEGATIVE (NEGATIVE); URINE LEUK ESTERASE 1+ (NEGATIVE); URINE NITRITE NEGATIVE (NEGATIVE); URINE PROTEIN 1+ (NEGATIVE); URINE UROBILINOGEN 4.0 E.U/dl mg/dL (0.2-1.0)
[2018-04-27 23:31] LABS: EPI CELLS RARE /HPF (FEW); URINE BACTERIA RARE /hpf (NONE SEEN); URINE HYALINE CAST 7 /lpf; URINE MUCUS RARE
[2018-04-27 23:39] LABS: COCAINE, UR NEGATIVE ng/ml (CUTOFF=300); METHADONE, UR NEGATIVE ng/ml (CUTOFF=300); OPIATES, URI NEGATIVE ng/ml (CUTOFF=300); PHENCYCLIDINE,URINE NEGATIVE ng/ml (CUTOFF=25); URINE AMPHETAMINES NEGATIVE ng/ml (CUTOFF=500); URINE BARBITURATES NEGATIVE ng/ml (CUTOFF=200); URINE BENZODIAZEPINES NEGATIVE ng/ml (CUTOFF=200)
--- NOTE | 2018-04-28 00:19 | PN ---
Teaching Attending Note Name of Resident: Kirstin Aguiar ATTENDING PHYSICIAN STATEMENT I saw and evaluated the patient. I reviewed the resident's note and discussed the case with the resident. I agree with the resident's findings and plan as documented. SUBJECTIVE: OBJECTIVE: ASSESSMENT AND PLAN: this is a 67 y/o female patient with hx of HTN, DL, IDDM, presented to the hospital with AMS, fever, and cold sweats, patient was found to have SIRS with sepsis 2/2 pneumonia associated with hyperglycemia, metabolic acidosis 2/2 lactic acidosis AMS: - 2/2 to sepsis - patient received 4 l of fluids in the ER mental status has been improving lactic acidosis - 2/2 sepsis - trend lactic acid q3hrs until <2.0 - start the patient on IVF @ 150cc/ then titrate accordingly SIRS with sepsis 2/2 HCAP - start the patient on vancomycin 1000mg - Star the patient on piperzillin/tazobactam 3.75mg - ID consult admit the patient to ICU critical care evaluation hyperglycemia; - 2/2 to sepsis - star the patient on insulin drip adjust accordingly
[2018-04-28] MEDS ORDERED: VANCOMYCIN 1 GRAM (PRE-DOCKED) 1,000 MG/250 ML BAG IVPB ONE (00:28)
[2018-04-28] MEDS ORDERED: SODIUM CHLORIDE 0.9% 500 ML INFUS.BAG IV ONE (00:42)
[2018-04-28] MEDS ORDERED: SODIUM CHLORIDE 1,000 ML IV ONE (00:42)
[2018-04-28] MEDS ORDERED: DEXTROSE 5%-WATER 100 ML IVPB ONE ×2 (03:32→15:30)
[2018-04-28] MEDS ORDERED: PIPERACILLIN/TAZOBACTAM 4.5 GM VIAL IVPB ONE ×2 (03:32→15:30)
[2018-04-28 04:39] LABS: ANION GAP 11 MMOL/L (8-16); BLOOD UREA NITROGEN 18 mg/dL (7-18); CALCIUM 8.9 mg/dL (8.5-10.1); CHLORIDE 99 mmol/L (98-107); CO2 22 mmol/L (21-32); CREATININE 0.8 mg/dL (0.55-1.3); GLUCOSE,RANDOM 236 mg/dL (74-106); POTASSIUM 3.7 mmol/L (3.5-5.1); SODIUM 133 mmol/L (136-145)
[2018-04-28] MEDS: KCL 10 MEQ IVPB 10 MEQ/100 ML INFUS.BAG IVPB SCH (05:31)
[2018-04-28 05:53] LABS: RATIO URIN PROTEIN/URIN CREAT 1.75 MG/DL
[2018-04-28] MEDS ORDERED: HEPARIN NA (PORCINE) 5,000 UNITS/ML 1ML VIAL SQ SCH (06:00)
[2018-04-28 06:49] LABS: BASO % 0.5 % (0-2.0); EOS % 0.1 % (0-4.5); HEMATOCRIT 18.1 % (32.4-45.2); LYMPH % 16.1 % (8-40); MCH 24.4 pg (25.7-33.7); MCHC 30.9 g/dl (32.0-36.0); MEAN CELL VOLUME 79.1 fl (80-96); MEAN PLT VOLUME 9.3 fl (7.5-11.1); MONO % 3.6 % (3.8-10.2); NEUT % 79.7 % (42.8-82.8); PLATELET COUNT 181 K/MM3 (134-434); RBC 2.29 M/mm3 (3.60-5.2); RDW 19.3 % (11.6-15.6); WHITE BLOOD COUNT 21.1 K/mm3 (4.0-10.0)
[2018-04-28 07:23] LABS: ALBUMIN 1.5 g/dl (3.4-5.0); ALK PHOS 343 U/L (45-117); ANION GAP 7 MMOL/L (8-16); BILIRUBIN,TOTAL 1.6 mg/dL (0.2-1); BLOOD UREA NITROGEN 16 mg/dL (7-18); CALCIUM 8.6 mg/dL (8.5-10.1); CHLORIDE 100 mmol/L (98-107); CO2 25 mmol/L (21-32); CREATININE 0.7 mg/dL (0.55-1.3); GLUCOSE,RANDOM 287 mg/dL (74-106); MAGNESIUM 1.6 mg/dL (1.8-2.4); POTASSIUM 3.7 mmol/L (3.5-5.1); SGOT/AST 104 U/L (15-37); SGPT/ALT 92 U/L (13-61); SODIUM 131 mmol/L (136-145); TOT PROT 5.3 g/dl (6.4-8.2)
[2018-04-28] MEDS ORDERED: LACTATED RINGERS SOLUTION 1,000 ML/1,000 ML INFUS.BAG IV STA (07:30)
--- NOTE | 2018-04-28 07:35 | CONSULT ---
Consult Consult Specialty:: PULM/CCM Referred by:: Dr. Sander Sadler Reason for Consultation:: Urosepsis - History of Present Illness Chief Complaint: AMS History of Present Illness: Ms. Dc is a 67 y/o woman w/ HTN, IDDM, and uterine CA s/p CHEMO/XRT/RAHUL c/b DVT. Most recently, the pt was hospitalized for a UTI w/ an E. coli bacteremia c /b iliopsoas abscess and severe sepsis (03/2018). The pt is BIBA from home now on 04/27 for AMS. In ED, describes a FTT type picture since last d/c from hospital highlighting poor PO intake, increased lethargy, & very little ambulation (uses a walker due to pain in right hip from psoas abscess). In addition, (for this admit) the family describes that the pt suddenly began presenting "cold and trembling" in the setting of dysuria and the states that lately her urine has been "foul" (as opposed to "fowl"). also states that the past few nights the pt has awaken in the middle of the night w/ "the sweats". A/p ED: family denied any actual recorded fever at home, no CP, SOB, abd pain, diarrhea, melena, N/V/D, GRIJALVA, or blurry vision. In the ED the pt was remark for UTI, delerium, & metabolic disarray. She is accepted to the ICU O/N for SIRS m/l urosepsis. - History Source History Provided By: Medical Record Limitations to Obtaining History: Language Barrier - Past Medical History Cardio/Vascular: Yes: HTN ...: No Endocrine: Yes: Diabetes Mellitus - Alcohol/Substance Use Hx Alcohol Use: No - Smoking History Smoking history: Never smoked Have you smoked in the past 12 months: No Aproximately how many cigarettes per day: 0 Home Medications - Allergies Allergies/Adverse Reactions: Allergies Allergy/AdvReac Type Severity Reaction Status Date / Time No Known Allergies Allergy Verified 04/27/18 20:23 - Home Medications Home Medications: Ambulatory Orders Canagliflozin [Invokana] 100 mg PO DAILY 03/21/17 Duloxetine HCl 60 mg PO DAILY 03/21/17 Lisinopril 10 mg PO DAILY 03/21/17 Montelukast Na [Singulair -] 10 mg PO DAILY 03/21/17 Oxycodone HCl/Acetaminophen [Endocet 5-325 Tablet] 1 tab PO PRN 03/21/17 Prochlorperazine Maleate 10 mg PO DAILY 03/21/17 Famotidine [Pepcid] 20 mg PO BID PRN #28 tablet 03/22/17 Metoprolol Tartrate [Lopressor -] 25 mg PO BID #60 tablet 04/09/18 Victoza - 04/09/18 Family Disease History - Family Disease History Family History: Unable to Obtain Review of Systems Unable to obtain ROS, reason: (Language barrier) Physical Exam Vital Signs: Vital Signs Temperature 97.2 F L 04/28/18 06:00 Pulse Rate 87 04/28/18 06:00 Respiratory Rate 25 H 04/28/18 06:00 Blood Pressure 125/63 04/28/18 06:00 O2 Sat by Pulse Oximetry (%) 98 04/28/18 02:00 Intake & Output 04/25/18 04/26/18 04/27/18 04/28/18 23:59 23:59 23:59 23:59 Intake Total 1150 Output Total 300 Balance 850 Weight 72.575 kg 68.946 kg Constitutional: Yes: Well Nourished, No Distress, Calm Eyes: Yes: WNL, Conjunctiva Clear, EOM Intact HENT: Yes: WNL, Atraumatic, Normocephalic Neck: Yes: WNL, Supple, Trachea Midline Cardiovascular: Yes: WNL, Regular Rate and Rhythm Respiratory: Yes: WNL, Regular, CTA Bilaterally Gastrointestinal: Yes: WNL, Normal Bowel Sounds, Soft ...Rectal Exam: Yes: Deferred Renal/: Yes: Oliguria Breast(s): Yes: WNL Musculoskeletal: Yes: WNL Extremities: Yes: WNL Edema: No Neurological: Yes: Weakness ...Motor Strength: WNL Psychiatric: Yes: WNL Labs: CBC, BMP 04/28/18 06:30 04/28/18 06:30 Urine Test Results Urine Color Dkyellow 04/27/18 23:15 Urine Appearance Cloudy 04/27/18 23:15 Urine pH 5.0 (5.0-8.0) 04/27/18 23:15 Ur Specific [place] 1.016 (1.010-1.035) 04/27/18 23:15 Urine Protein 1+ (NEGATIVE) H 04/27/18 23:15 Urine Glucose (UA) 3+ (NEGATIVE) H 04/27/18 23:15 Urine Ketones Negative (NEGATIVE) 04/27/18 23:15 Urine Blood 1+ (NEGATIVE) H 04/27/18 23:15 Urine Nitrite Negative (NEGATIVE) 04/27/18 23:15 Urine Bilirubin Negative (<2.0 mg/dL) 04/27/18 23:15 Ur Leukocyte Esterase 1+ (NEGATIVE) H 04/27/18 23:15 Ur Epithelial Cells Rare /HPF (FEW) 04/27/18 23:15 Urine Bacteria Rare /hpf (NONE SEEN) 04/27/18 23:15 Urine Mucus Rare 04/27/18 23:15 Abnormal Lab Results 04/27/18 04/27/18 04/27/18 20:10 20:10 20:10 WBC RBC 3.17 L Hgb 8.4 L Hct 25.6 L MCV MCH MCHC RDW 20.0 H Absolute Neuts (auto) Monocytes % PT with INR INR PTT (Actin FS) ABG pCO2 at Pt Temp ABG pO2 at Pt Temp ABG HCO3 ABG O2 Content ABG Base Excess POC VBG pCO2 POC VBG pO2 Methemoglobin Sodium 122 L Potassium 5.5 H Chloride 91 L Carbon Dioxide 18 L Anion Gap BUN 21 H Creatinine 1.4 H Random Glucose 575 H* Lactic Acid Phosphorus Magnesium Ferritin Total Bilirubin 2.4 H AST 230 H ALT 145 H Alkaline Phosphatase 517 H Total Protein Albumin 2.0 L Vitamin B12 Urine Protein Urine Glucose (UA) Urine Blood Urine Urobilinogen Ur Leukocyte Esterase U Random Total Protein Ur Random Sodium Ur Random Chloride Urine Creatinine Salicylates < 1.7 L Acetaminophen < 2.0 L Acetone, Qual Trace H 04/27/18 04/27/18 04/27/18 20:10 20:10 20:10 WBC RBC Hgb Hct MCV MCH MCHC RDW Absolute Neuts (auto) Monocytes % PT with INR 16.60 H INR 1.40 H PTT (Actin FS) 22.5 L ABG pCO2 at Pt Temp ABG pO2 at Pt Temp ABG HCO3 ABG O2 Content ABG Base Excess POC VBG pCO2 35.5 L POC VBG pO2 16.1 L* Methemoglobin Sodium Potassium Chloride Carbon Dioxide Anion Gap BUN Creatinine Random Glucose Lactic Acid 6.4 H* Phosphorus Magnesium Ferritin Total Bilirubin AST ALT Alkaline Phosphatase Total Protein Albumin Vitamin B12 Urine Protein Urine Glucose (UA) Urine Blood Urine Urobilinogen Ur Leukocyte Esterase U Random Total Protein Ur Random Sodium Ur Random Chloride Urine Creatinine Salicylates Acetaminophen Acetone, Qual 04/27/18 04/27/18 04/27/18 20:25 20:50 23:15 WBC RBC Hgb Hct MCV MCH MCHC RDW Absolute Neuts (auto) Monocytes % PT with INR INR PTT (Actin FS) ABG pCO2 at Pt Temp 29.4 L ABG pO2 at Pt Temp 116.0 H ABG HCO3 17.5 L ABG O2 Content 6.5 L* ABG Base Excess -6.5 L POC VBG pCO2 POC VBG pO2 Methemoglobin 0.0 L Sodium Potassium Chloride Carbon Dioxide Anion Gap BUN Creatinine Random Glucose Lactic Acid Phosphorus Magnesium Ferritin Total Bilirubin AST ALT Alkaline Phosphatase Total Protein Albumin Vitamin B12 Urine Protein 2+ H 1+ H Urine Glucose (UA) 3+ H 3+ H Urine Blood 1+ H 1+ H Urine Urobilinogen 4.0 e.u/dl H 4.0 e.u/dl H Ur Leukocyte Esterase 1+ H 1+ H U Random Total Protein Ur Random Sodium Ur Random Chloride Urine Creatinine Salicylates Acetaminophen Acetone, Qual 04/27/18 04/28/18 04/28/18 23:45 02:00 02:00 WBC RBC Hgb Hct MCV MCH MCHC RDW Absolute Neuts (auto) Monocytes % PT with INR INR PTT (Actin FS) ABG pCO2 at Pt Temp ABG pO2 at Pt Temp ABG HCO3 ABG O2 Content ABG Base Excess POC VBG pCO2 POC VBG pO2 Methemoglobin Sodium Potassium Chloride Carbon Dioxide Anion Gap BUN Creatinine Random Glucose Lactic Acid 6.6 H* Phosphorus Magnesium Ferritin Total Bilirubin AST ALT Alkaline Phosphatase Total Protein Albumin Vitamin B12 Urine Protein Urine Glucose (UA) Urine Blood Urine Urobilinogen Ur Leukocyte Esterase U Random Total Protein 116 H Ur Random Sodium < 18 L Ur Random Chloride 22 L Urine Creatinine 66.0 H Salicylates Acetaminophen Acetone, Qual 04/28/18 04/28/18 04/28/18 03:45 03:45 06:30 WBC 21.1 H RBC 2.29 L Hgb 5.6 L* Hct 18.1 L D MCV 79.1 L MCH 24.4 L MCHC 30.9 L RDW 19.3 H Absolute Neuts (auto) 16.8 H Monocytes % 3.6 L PT with INR INR PTT (Actin FS) ABG pCO2 at Pt Temp ABG pO2 at Pt Temp ABG HCO3 ABG O2 Content ABG Base Excess POC VBG pCO2 POC VBG pO2 Methemoglobin Sodium 133 L Potassium Chloride Carbon Dioxide Anion Gap BUN Creatinine Random Glucose 236 H Lactic Acid 3.0 H* Phosphorus Magnesium Ferritin Total Bilirubin AST ALT Alkaline Phosphatase Total Protein Albumin Vitamin B12 Urine Protein Urine Glucose (UA) Urine Blood Urine Urobilinogen Ur Leukocyte Esterase U Random Total Protein Ur Random Sodium Ur Random Chloride Urine Creatinine Salicylates Acetaminophen Acetone, Qual 04/28/18 04/28/18 06:30 06:30 WBC RBC Hgb Hct MCV MCH MCHC RDW Absolute Neuts (auto) Monocytes % PT with INR INR PTT (Actin FS) ABG pCO2 at Pt Temp ABG pO2 at Pt Temp ABG HCO3 ABG O2 Content ABG Base Excess POC VBG pCO2 POC VBG pO2 Methemoglobin Sodium 131 L Potassium Chloride Carbon Dioxide Anion Gap 7 L BUN Creatinine Random Glucose 287 H Lactic Acid Phosphorus 2.0 L Magnesium 1.6 L Ferritin 4200.6 H Total Bilirubin 1.6 H AST 104 H ALT 92 H Alkaline Phosphatase 343 H Total Protein 5.3 L Albumin 1.5 L Vitamin B12 1588 H Urine Protein Urine Glucose (UA) Urine Blood Urine Urobilinogen Ur Leukocyte Esterase U Random Total Protein Ur Random Sodium Ur Random Chloride Urine Creatinine Salicylates Acetaminophen Acetone, Qual Imaging - Results Chest X-ray: Image Reviewed (CXR 04/27: A single AP view of the chest has been submitted. There is a weak inspiration with prominent mediastinum and some increased central markings. Since 03/30/2018, there is not much change. Correlation recommended.) Ultrasound: Image Reviewed (RENAL US 04/28: [facility] (Offical Read Pending)) EKG: Image Reviewed (Sinus Tach in the 120's w/o ectopy, L atrial enlargement, no ST or T-wave aberration, QTc = 453ms, no acute process (My Read).) Problem List - Problems (1) Diabetes Code(s): E11.9 - TYPE 2 DIABETES MELLITUS WITHOUT COMPLICATIONS (2) UTI (urinary tract infection) Code(s): N39.0 - URINARY TRACT INFECTION, SITE NOT SPECIFIED Assessment/Plan ASSESS: This is a 67 y/o woman w/ HTN, IDDM, and uterine CA s/p CHEMO/XRT/RAHUL c/ b DVT, recurrent E. coli UTIs, & psoas abscess, Admitted again now w/ UTI, delerium, & metabolic disarray +/- CAP. PLAN: -Supp FiO2 for an SpoO2 > 92% -Nebs -IS -CPT -Abx -Narrow a/p Clxr data -Central Line -IVFs for a CVP of 7 -Trend LA -Strict I's & O's -Trend BUN/Cr -Replete e-lytes prn -FSs -SQH -SCDS -GI PPX -Transfer to Med Surg Thank Your for this interesting Consult [facility] ICU PULM/CCM 1224 Critical Care Total Critical Care Time (in minutes): 38 Critical Care Statement: The care of this patient involved high complexity decision making to prevent further life threatening deterioration of the patient 's condition and/or to evaluate & treat vital organ system(s) failure or risk of failure.
--- NOTE | 2018-04-28 07:36 | PROC ---
Central Line Insertion Indication: CVP Monitoring, Poor Venous Access, Sepsis Risks and Benefits Explained: Yes Consent on Chart: Yes Central Line: Triple Lumen Catheter Anesthesia: 1% Lidocaine Sterile Technique: Yes Ultrasound Guided Assistance: Yes Position: Right Internal Jugular Post Insertion: Yes: Bilateral Breath Sounds, Bilateral Chest Expansion, Chest X-Ray Ordered Sterile Dressing Applied: Yes
[2018-04-28 07:45] LABS: HEMOGLOBIN 5.6 GM/dL (10.7-15.3)
[2018-04-28] MEDS ORDERED: MAGNESIUM SULF 50% (8.12 MEQ/2 ML-1 GM VIAL) IVPB ONE (08:41)
--- NOTE | 2018-04-28 08:43 | PN ---
Teaching Attending Note ATTENDING PHYSICIAN STATEMENT I saw and evaluated the patient. I reviewed the resident's note and discussed the case with the resident. I agree with the resident's findings and plan as documented. SUBJECTIVE: OBJECTIVE: ASSESSMENT AND PLAN:
--- NOTE | 2018-04-28 08:53 | PN ---
Progress Note (short form) - Note Progress Note: Subjective: Reports having fever at home an increased abd pain in lower abdomen . No diarrhea. no dysuria. has pain in R leg that reaches the foot. received IVF boluses Objective: Vital Signs: Last Vital Signs Temp Pulse Resp BP Pulse Ox 98.2 F 90 25 H 130/64 98 04/28/18 08:00 04/28/18 08:00 04/28/18 08:00 04/28/18 08:00 04/28/18 02:00 Laboratory Results - last 24 hr 04/27/18 04/27/18 04/27/18 20:10 20:10 20:10 WBC 8.2 RBC 3.17 L Hgb 8.4 L Hct 25.6 L MCV 80.9 MCH 26.6 MCHC 32.9 RDW 20.0 H Plt Count 289 MPV 10.5 D Absolute Neuts (auto) 7.0 Neutrophils % 75.0 Lymphocytes % 9.0 D Monocytes % 6.0 Eosinophils % 0.1 Basophils % 0.5 Nucleated RBC % 0 Platelet Estimate Adequate Platelet Comment No clumping noted PT with INR INR PTT (Actin FS) Anticoagulation Therapy Puncture Site ABG pH ABG pCO2 at Pt Temp ABG pO2 at Pt Temp ABG HCO3 ABG O2 Sat (Measured) ABG O2 Content ABG Base Excess [place] Test VBG pH POC VBG pCO2 POC VBG pO2 Mixed VBG HCO3 Carboxyhemoglobin Methemoglobin O2 Delivery Device Oxygen Flow Rate Vent Mode Vent Rate Mechanical Rate Pressure Support Vent Sodium 122 L Potassium 5.5 H Chloride 91 L Carbon Dioxide 18 L Anion Gap 14 BUN 21 H Creatinine 1.4 H Creat Clearance w eGFR 37.74 POC Glucometer Random Glucose 575 H* Lactic Acid Calcium 10.0 Phosphorus Magnesium Ferritin Total Bilirubin 2.4 H AST 230 H ALT 145 H Alkaline Phosphatase 517 H Creatine Kinase 86 Troponin I < 0.02 Total Protein 7.5 Albumin 2.0 L Vitamin B12 Serum Folate Urine Color Urine Appearance Urine pH Ur Specific [place] Urine Protein Urine Glucose (UA) Urine Ketones Urine Blood Urine Nitrite Urine Bilirubin Urine Urobilinogen Ur Leukocyte Esterase Urine WBC (Auto) Urine RBC (Auto) Ur Epithelial Cells Urine Bacteria Hyaline Casts Urine Mucus U Random Total Protein Ur Random Sodium Ur Random Potassium Ur Random Chloride Urine Creatinine Protein/Creatinin Ratio Salicylates < 1.7 L Opiates Screen Methadone Screen Acetaminophen < 2.0 L Barbiturate Screen Phencyclidine Screen Ur Amphetamines Screen MDMA (Ecstasy) Screen Benzodiazepines Screen Cocaine Screen U Marijuana (THC) Screen Acetone, Qual Trace H Influenza A (Rapid) Influenza B (Rapid) Blood Type Antibody Screen 04/27/18 04/27/18 04/27/18 20:10 20:10 20:10 WBC RBC Hgb Hct MCV MCH MCHC RDW Plt Count MPV Absolute Neuts (auto) Neutrophils % Lymphocytes % Monocytes % Eosinophils % Basophils % Nucleated RBC % Platelet Estimate Platelet Comment PT with INR 16.60 H INR 1.40 H PTT (Actin FS) 22.5 L Anticoagulation Therapy Puncture Site ABG pH ABG pCO2 at Pt Temp ABG pO2 at Pt Temp ABG HCO3 ABG O2 Sat (Measured) ABG O2 Content ABG Base Excess [place] Test VBG pH 7.36 POC VBG pCO2 35.5 L POC VBG pO2 16.1 L* Mixed VBG HCO3 19.4 Carboxyhemoglobin Methemoglobin O2 Delivery Device Oxygen Flow Rate Vent Mode Vent Rate Mechanical Rate Pressure Support Vent Sodium Potassium Chloride Carbon Dioxide Anion Gap BUN Creatinine Creat Clearance w eGFR POC Glucometer Random Glucose Lactic Acid 6.4 H* Calcium Phosphorus Magnesium Ferritin Total Bilirubin AST ALT Alkaline Phosphatase Creatine Kinase Troponin I Total Protein Albumin Vitamin B12 Serum Folate Urine Color Urine Appearance Urine pH Ur Specific [place] Urine Protein Urine Glucose (UA) Urine Ketones Urine Blood Urine Nitrite Urine Bilirubin Urine Urobilinogen Ur Leukocyte Esterase Urine WBC (Auto) Urine RBC (Auto) Ur Epithelial Cells Urine Bacteria Hyaline Casts Urine Mucus U Random Total Protein Ur Random Sodium Ur Random Potassium Ur Random Chloride Urine Creatinine Protein/Creatinin Ratio Salicylates Opiates Screen Methadone Screen Acetaminophen Barbiturate Screen Phencyclidine Screen Ur Amphetamines Screen MDMA (Ecstasy) Screen Benzodiazepines Screen Cocaine Screen U Marijuana (THC) Screen Acetone, Qual Influenza A (Rapid) Influenza B (Rapid) Blood Type Antibody Screen 04/27/18 04/27/18 04/27/18 20:10 20:15 20:25 WBC RBC Hgb Hct MCV MCH MCHC RDW Plt Count MPV Absolute Neuts (auto) Neutrophils % Lymphocytes % Monocytes % Eosinophils % Basophils % Nucleated RBC % Platelet Estimate Platelet Comment PT with INR INR PTT (Actin FS) Anticoagulation Therapy Puncture Site ABG pH ABG pCO2 at Pt Temp ABG pO2 at Pt Temp ABG HCO3 ABG O2 Sat (Measured) ABG O2 Content ABG Base Excess [place] Test VBG pH POC VBG pCO2 POC VBG pO2 Mixed VBG HCO3 Carboxyhemoglobin Methemoglobin O2 Delivery Device Oxygen Flow Rate Vent Mode Vent Rate Mechanical Rate Pressure Support Vent Sodium Potassium Chloride Carbon Dioxide Anion Gap BUN Creatinine Creat Clearance w eGFR POC Glucometer Random Glucose Lactic Acid Calcium Phosphorus Magnesium Ferritin Total Bilirubin AST ALT Alkaline Phosphatase Creatine Kinase Troponin I Total Protein Albumin Vitamin B12 Serum Folate Urine Color Dkyellow Urine Appearance Cloudy Urine pH 5.0 Ur Specific [place] 1.016 Urine Protein 2+ H Urine Glucose (UA) 3+ H Urine Ketones Negative Urine Blood 1+ H Urine Nitrite Negative Urine Bilirubin Negative Urine Urobilinogen 4.0 e.u/dl H Ur Leukocyte Esterase 1+ H Urine WBC (Auto) 70 Urine RBC (Auto) 2 Ur Epithelial Cells Rare Urine Bacteria Rare Hyaline Casts 1 Urine Mucus Rare U Random Total Protein Ur Random Sodium Ur Random Potassium Ur Random Chloride Urine Creatinine Protein/Creatinin Ratio Salicylates Opiates Screen Methadone Screen Acetaminophen Barbiturate Screen Phencyclidine Screen Ur Amphetamines Screen MDMA (Ecstasy) Screen Benzodiazepines Screen Cocaine Screen U Marijuana (THC) Screen Acetone, Qual Influenza A (Rapid) Negative Influenza B (Rapid) Negative Blood Type O POSITIVE Antibody Screen Negative 04/27/18 04/27/18 04/27/18 20:50 23:15 23:15 WBC RBC Hgb Hct MCV MCH MCHC RDW Plt Count MPV Absolute Neuts (auto) Neutrophils % Lymphocytes % Monocytes % Eosinophils % Basophils % Nucleated RBC % Platelet Estimate Platelet Comment PT with INR INR PTT (Actin FS) Anticoagulation Therapy No Result Required. Puncture Site Right radial ABG pH 7.39 ABG pCO2 at Pt Temp 29.4 L ABG pO2 at Pt Temp 116.0 H ABG HCO3 17.5 L ABG O2 Sat (Measured) 98.7 ABG O2 Content 6.5 L* ABG Base Excess -6.5 L [place] Test Positive VBG pH POC VBG pCO2 POC VBG pO2 Mixed VBG HCO3 Carboxyhemoglobin 1.7 Methemoglobin 0.0 L O2 Delivery Device Nrm Oxygen Flow Rate 100 Vent Mode No Result Required. Vent Rate No Result Required. Mechanical Rate No Result Required. Pressure Support Vent No Result Required. Sodium Potassium Chloride Carbon Dioxide Anion Gap BUN Creatinine Creat Clearance w eGFR POC Glucometer Random Glucose Lactic Acid Calcium Phosphorus Magnesium Ferritin Total Bilirubin AST ALT Alkaline Phosphatase Creatine Kinase Troponin I Total Protein Albumin Vitamin B12 Serum Folate Urine Color Dkyellow Urine Appearance Cloudy Urine pH 5.0 Ur Specific [place] 1.016 Urine Protein 1+ H Urine Glucose (UA) 3+ H Urine Ketones Negative Urine Blood 1+ H Urine Nitrite Negative Urine Bilirubin Negative Urine Urobilinogen 4.0 e.u/dl H Ur Leukocyte Esterase 1+ H Urine WBC (Auto) 83 Urine RBC (Auto) 2 Ur Epithelial Cells Rare Urine Bacteria Rare Hyaline Casts 7 Urine Mucus Rare U Random Total Protein Ur Random Sodium Ur Random Potassium Ur Random Chloride Urine Creatinine Protein/Creatinin Ratio Salicylates Opiates Screen Negative Methadone Screen Negative Acetaminophen Barbiturate Screen Negative Phencyclidine Screen Negative Ur Amphetamines Screen Negative MDMA (Ecstasy) Screen Negative Benzodiazepines Screen Negative Cocaine Screen Negative U Marijuana (THC) Screen Negative Acetone, Qual Influenza A (Rapid) Influenza B (Rapid) Blood Type Antibody Screen 04/27/18 04/28/18 04/28/18 23:45 00:10 01:50 WBC RBC Hgb Hct MCV MCH MCHC RDW Plt Count MPV Absolute Neuts (auto) Neutrophils % Lymphocytes % Monocytes % Eosinophils % Basophils % Nucleated RBC % Platelet Estimate Platelet Comment PT with INR INR PTT (Actin FS) Anticoagulation Therapy Puncture Site ABG pH ABG pCO2 at Pt Temp ABG pO2 at Pt Temp ABG HCO3 ABG O2 Sat (Measured) ABG O2 Content ABG Base Excess [place] Test VBG pH POC VBG pCO2 POC VBG pO2 Mixed VBG HCO3 Carboxyhemoglobin Methemoglobin O2 Delivery Device Oxygen Flow Rate Vent Mode Vent Rate Mechanical Rate Pressure Support Vent Sodium Potassium Chloride Carbon Dioxide Anion Gap BUN Creatinine Creat Clearance w eGFR POC Glucometer [id number] Random Glucose Lactic Acid 6.6 H* Calcium Phosphorus Magnesium Ferritin Total Bilirubin AST ALT Alkaline Phosphatase Creatine Kinase Troponin I Total Protein Albumin Vitamin B12 Serum Folate Urine Color Urine Appearance Urine pH Ur Specific [place] Urine Protein Urine Glucose (UA) Urine Ketones Urine Blood Urine Nitrite Urine Bilirubin Urine Urobilinogen Ur Leukocyte Esterase Urine WBC (Auto) Urine RBC (Auto) Ur Epithelial Cells Urine Bacteria Hyaline Casts Urine Mucus U Random Total Protein Ur Random Sodium Ur Random Potassium Ur Random Chloride Urine Creatinine Protein/Creatinin Ratio Salicylates Opiates Screen Methadone Screen Acetaminophen Barbiturate Screen Phencyclidine Screen Ur Amphetamines Screen MDMA (Ecstasy) Screen Benzodiazepines Screen Cocaine Screen U Marijuana (THC) Screen Acetone, Qual Influenza A (Rapid) Influenza B (Rapid) Blood Type Antibody Screen 04/28/18 04/28/18 04/28/18 02:00 02:00 03:45 WBC RBC Hgb Hct MCV MCH MCHC RDW Plt Count MPV Absolute Neuts (auto) Neutrophils % Lymphocytes % Monocytes % Eosinophils % Basophils % Nucleated RBC % Platelet Estimate Platelet Comment PT with INR INR PTT (Actin FS) Anticoagulation Therapy Puncture Site ABG pH ABG pCO2 at Pt Temp ABG pO2 at Pt Temp ABG HCO3 ABG O2 Sat (Measured) ABG O2 Content ABG Base Excess [place] Test VBG pH POC VBG pCO2 POC VBG pO2 Mixed VBG HCO3 Carboxyhemoglobin Methemoglobin O2 Delivery Device Oxygen Flow Rate Vent Mode Vent Rate Mechanical Rate Pressure Support Vent Sodium 133 L Potassium 3.7 Chloride 99 Carbon Dioxide 22 Anion Gap 11 BUN 18 Creatinine 0.8 Creat Clearance w eGFR > 60 POC Glucometer Random Glucose 236 H Lactic Acid Calcium 8.9 Phosphorus Magnesium Ferritin Total Bilirubin AST ALT Alkaline Phosphatase Creatine Kinase Troponin I Total Protein Albumin Vitamin B12 Serum Folate Urine Color Urine Appearance Urine pH Ur Specific [place] Urine Protein Urine Glucose (UA) Urine Ketones Urine Blood Urine Nitrite Urine Bilirubin Urine Urobilinogen Ur Leukocyte Esterase Urine WBC (Auto) Urine RBC (Auto) Ur Epithelial Cells Urine Bacteria Hyaline Casts Urine Mucus U Random Total Protein 116 H Ur Random Sodium < 18 L Ur Random Potassium 43.0 Ur Random Chloride 22 L Urine Creatinine 66.0 H Protein/Creatinin Ratio 1.75 Salicylates Opiates Screen Methadone Screen Acetaminophen Barbiturate Screen Phencyclidine Screen Ur Amphetamines Screen MDMA (Ecstasy) Screen Benzodiazepines Screen Cocaine Screen U Marijuana (THC) Screen Acetone, Qual Influenza A (Rapid) Influenza B (Rapid) Blood Type Antibody Screen 04/28/18 04/28/18 04/28/18 03:45 03:47 05:00 WBC RBC Hgb Hct MCV MCH MCHC RDW Plt Count MPV Absolute Neuts (auto) Neutrophils % Lymphocytes % Monocytes % Eosinophils % Basophils % Nucleated RBC % Platelet Estimate Platelet Comment PT with INR INR PTT (Actin FS) Anticoagulation Therapy Puncture Site ABG pH ABG pCO2 at Pt Temp ABG pO2 at Pt Temp ABG HCO3 ABG O2 Sat (Measured) ABG O2 Content ABG Base Excess [place] Test VBG pH POC VBG pCO2 POC VBG pO2 Mixed VBG HCO3 Carboxyhemoglobin Methemoglobin O2 Delivery Device Oxygen Flow Rate Vent Mode Vent Rate Mechanical Rate Pressure Support Vent Sodium Potassium Chloride Carbon Dioxide Anion Gap BUN Creatinine Creat Clearance w eGFR POC Glucometer 243.59134 Random Glucose Lactic Acid 3.0 H* Calcium Phosphorus Magnesium Ferritin Total Bilirubin AST ALT Alkaline Phosphatase Creatine Kinase Troponin I Cancelled Total Protein Albumin Vitamin B12 Serum Folate Cancelled Urine Color Urine Appearance Urine pH Ur Specific [place] Urine Protein Urine Glucose (UA) Urine Ketones Urine Blood Urine Nitrite Urine Bilirubin Urine Urobilinogen Ur Leukocyte Esterase Urine WBC (Auto) Urine RBC (Auto) Ur Epithelial Cells Urine Bacteria Hyaline Casts Urine Mucus U Random Total Protein Ur Random Sodium Ur Random Potassium Ur Random Chloride Urine Creatinine Protein/Creatinin Ratio Salicylates Opiates Screen Methadone Screen Acetaminophen Barbiturate Screen Phencyclidine Screen Ur Amphetamines Screen MDMA (Ecstasy) Screen Benzodiazepines Screen Cocaine Screen U Marijuana (THC) Screen Acetone, Qual Influenza A (Rapid) Influenza B (Rapid) Blood Type Antibody Screen 04/28/18 04/28/18 04/28/18 06:24 06:30 06:30 WBC 21.1 H RBC 2.29 L Hgb 5.6 L* Hct 18.1 L D MCV 79.1 L MCH 24.4 L MCHC 30.9 L RDW 19.3 H Plt Count 181 D MPV 9.3 D Absolute Neuts (auto) 16.8 H Neutrophils % 79.7 Lymphocytes % 16.1 D Monocytes % 3.6 L Eosinophils % 0.1 Basophils % 0.5 Nucleated RBC % 0 Platelet Estimate Platelet Comment PT with INR INR PTT (Actin FS) Anticoagulation Therapy Puncture Site ABG pH ABG pCO2 at Pt Temp ABG pO2 at Pt Temp ABG HCO3 ABG O2 Sat (Measured) ABG O2 Content ABG Base Excess [place] Test VBG pH POC VBG pCO2 POC VBG pO2 Mixed VBG HCO3 Carboxyhemoglobin Methemoglobin O2 Delivery Device Oxygen Flow Rate Vent Mode Vent Rate Mechanical Rate Pressure Support Vent Sodium 131 L Potassium 3.7 Chloride 100 Carbon Dioxide 25 Anion Gap 7 L BUN 16 Creatinine 0.7 Creat Clearance w eGFR > 60 POC Glucometer 311.45036 Random Glucose 287 H Lactic Acid Calcium 8.6 Phosphorus 2.0 L Magnesium 1.6 L Ferritin Total Bilirubin 1.6 H AST 104 H ALT 92 H Alkaline Phosphatase 343 H Creatine Kinase Troponin I < 0.02 Total Protein 5.3 L Albumin 1.5 L Vitamin B12 Serum Folate 9 Urine Color Urine Appearance Urine pH Ur Specific [place] Urine Protein Urine Glucose (UA) Urine Ketones Urine Blood Urine Nitrite Urine Bilirubin Urine Urobilinogen Ur Leukocyte Esterase Urine WBC (Auto) Urine RBC (Auto) Ur Epithelial Cells Urine Bacteria Hyaline Casts Urine Mucus U Random Total Protein Ur Random Sodium Ur Random Potassium Ur Random Chloride Urine Creatinine Protein/Creatinin Ratio Salicylates Opiates Screen Methadone Screen Acetaminophen Barbiturate Screen Phencyclidine Screen Ur Amphetamines Screen MDMA (Ecstasy) Screen Benzodiazepines Screen Cocaine Screen U Marijuana (THC) Screen Acetone, Qual Influenza A (Rapid) Influenza B (Rapid) Blood Type Antibody Screen 04/28/18 04/28/18 06:30 06:30 WBC RBC Hgb Hct MCV MCH MCHC RDW Plt Count MPV Absolute Neuts (auto) Neutrophils % Lymphocytes % Monocytes % Eosinophils % Basophils % Nucleated RBC % Platelet Estimate Platelet Comment PT with INR INR PTT (Actin FS) Anticoagulation Therapy Puncture Site ABG pH ABG pCO2 at Pt Temp ABG pO2 at Pt Temp ABG HCO3 ABG O2 Sat (Measured) ABG O2 Content ABG Base Excess [place] Test VBG pH POC VBG pCO2 POC VBG pO2 Mixed VBG HCO3 Carboxyhemoglobin Methemoglobin O2 Delivery Device Oxygen Flow Rate Vent Mode Vent Rate Mechanical Rate Pressure Support Vent Sodium Cancelled Potassium Cancelled Chloride Cancelled Carbon Dioxide Cancelled Anion Gap Cancelled BUN Cancelled Creatinine Cancelled Creat Clearance w eGFR Cancelled POC Glucometer Random Glucose Cancelled Lactic Acid Calcium Cancelled Phosphorus Magnesium Ferritin 4200.6 H Total Bilirubin Cancelled AST Cancelled ALT Cancelled Alkaline Phosphatase Cancelled Creatine Kinase Troponin I Total Protein Cancelled Albumin Cancelled Vitamin B12 1588 H Serum Folate Urine Color Urine Appearance Urine pH Ur Specific [place] Urine Protein Urine Glucose (UA) Urine Ketones Urine Blood Urine Nitrite Urine Bilirubin Urine Urobilinogen Ur Leukocyte Esterase Urine WBC (Auto) Urine RBC (Auto) Ur Epithelial Cells Urine Bacteria Hyaline Casts Urine Mucus U Random Total Protein Ur Random Sodium Ur Random Potassium Ur Random Chloride Urine Creatinine Protein/Creatinin Ratio Salicylates Opiates Screen Methadone Screen Acetaminophen Barbiturate Screen Phencyclidine Screen Ur Amphetamines Screen MDMA (Ecstasy) Screen Benzodiazepines Screen Cocaine Screen U Marijuana (THC) Screen Acetone, Qual Influenza A (Rapid) Influenza B (Rapid) Blood Type Antibody Screen Physical Exam: NAD , awake, alert, cooperative , little slow in responses dry MM, thick secretions in mouth . CV: RRR, no MRG , no JVD. Lungs: CTAB Abd: soft, NL BS, TTP in suprapubic area, periumbilical area, and RLQ. no guarding. Ext : no edema on legs, R thigh circumference is > L . pain with moving RLE. DP 2+ Lines: R IJ. avila in place Imaging: head CT, prelim read reviewed. cxray reviewed. renal US , pending read . Assessment/Plan: Unfortunate 67 y/o lady with h/o HTN, DM, recent admission with urosepsis/bE coli bacteremia and R psoas abscess s/p drainage ( 03/16-04/10) , h/o DVT, HLP, uterine ca s/p chemo and Rtx. she presented with AMS and poor po intake, and was found ot have urosepsis 1- Severe uro sepsis with G- bacteremia: BP and volume status improved. - blood cx with G-bacilli - cont zosyn. received one dose vanco earlier - ID eval pending , old cx reviewed. - order CT of abd/pelvis to evaluate Psoas - start IVF at 125. MAp in 80s now - follow furhter ID of blood cx. and urine cx. - repeat lactic 2- severe hyperglycemia in setting of ssepsis and not taking her home insulin x 2 nights . - takes 50 units of levemir q HS , with no short acting .also metformine - start diet. taper insulin gtt off and start levemir this am with SSI 3- AMS due to metabolic encephalopathy . improved with hydration - prelim head CT with no acute process. follow repeat 4- Transaminitis: likely due to sepsis , doubt biliary process. - follow US of abd . - trend LFTS 5- RADHA : due to volume depletion . resolved . cont IVF 6- Acute drop in HB : will repeat. if real will transfuse no obvious bleed 6- Check US of RLE , due to increased circumference of R thigh . 7- replete electrolytes
[2018-04-28] MEDS ORDERED: INSULIN (LEVEMIR) 100 UNITS/ML UNITS SQ SCH (09:04)
[2018-04-28] MEDS ORDERED: PT OWN MED DRAWER 7, Y5N ONE ×3 (09:37→12:40)
[2018-04-28] MEDS ORDERED: DEXTROSE 5%-WATER - 50 ML IVPB ONE (09:38)
[2018-04-28] MEDS ORDERED: PIPERACILLIN/TAZOBACTAM 3.375 GM VIAL IVPB ONE (09:38)
[2018-04-28] MEDS ORDERED: MAGNESIUM SULF 50% (8.12 MEQ/2 ML-1 GM VIAL) ONE (09:41)
[2018-04-28 09:43] LABS: HEMATOCRIT 15.7 % (32.4-45.2); MCH 25.8 pg (25.7-33.7); MCHC 33.4 g/dl (32.0-36.0); MEAN CELL VOLUME 77.3 fl (80-96); MEAN PLT VOLUME 9.8 fl (7.5-11.1); PLATELET COUNT 189 K/MM3 (134-434); RBC 2.03 M/mm3 (3.60-5.2); RDW 19.2 % (11.6-15.6); WHITE BLOOD COUNT 17.6 K/mm3 (4.0-10.0)
[2018-04-28] MEDS ORDERED: PIPERACILLIN/TAZOB 3.375 GM 3.375 GM in DEXTROSE 5%-WATER - 50 ML IVPB SCH (10:00)
[2018-04-28 10:01] LABS: HEMOGLOBIN 5.2 GM/dL (10.7-15.3)
[2018-04-28] MEDS: SODIUM CHLORIDE 1,000 ML IV SCH (10:05)
[2018-04-28] MEDS: DULoxetine HCL 30 MG CAPSULE.DR (FP) PO SCH (10:05)
[2018-04-28] MEDS: INSULIN (LEVEMIR) 100 UNITS/ML UNITS SQ SCH (11:07)
[2018-04-28] MEDS: INSULIN SLIDING SCALE (NOVOLOG) 1 VIAL SQ SCH ×3 (12:01→22:22)
[2018-04-28 12:09] LABS: ANISOCYTOSIS 1+
[2018-04-28] MEDS: MUPIROCIN 2% TOPICAL OINTMENT FOR DECOLONIZATION NS SCH ×2 (12:43→22:17)
[2018-04-28] MEDS ORDERED: DESMOPRESSIN ACETATE 4 MCG/ML AMP IVPB ONE (14:37)
--- NOTE | 2018-04-28 14:39 | CON.ID ---
Consult - Past Medical History Cardio/Vascular: Yes: HTN ...: No Endocrine: Yes: Diabetes Mellitus - Alcohol/Substance Use Hx Alcohol Use: No - Smoking History Smoking history: Never smoked Have you smoked in the past 12 months: No Aproximately how many cigarettes per day: 0 Home Medications - Allergies Allergies/Adverse Reactions: Allergies Allergy/AdvReac Type Severity Reaction Status Date / Time No Known Allergies Allergy Verified 04/27/18 20:23 - Home Medications Home Medications: Ambulatory Orders Canagliflozin [Invokana] 100 mg PO DAILY 03/21/17 Duloxetine HCl 60 mg PO DAILY 03/21/17 Lisinopril 10 mg PO DAILY 03/21/17 Montelukast Na [Singulair -] 10 mg PO DAILY 03/21/17 Oxycodone HCl/Acetaminophen [Endocet 5-325 Tablet] 1 tab PO PRN 03/21/17 Prochlorperazine Maleate 10 mg PO DAILY 03/21/17 Famotidine [Pepcid] 20 mg PO BID PRN #28 tablet 03/22/17 Metoprolol Tartrate [Lopressor -] 25 mg PO BID #60 tablet 04/09/18 Victoza - 04/09/18 Physical Exam Vital Signs: Vital Signs Temperature 99 F 04/28/18 14:00 Pulse Rate 90 04/28/18 14:00 Respiratory Rate 23 H 04/28/18 14:00 Blood Pressure 129/63 04/28/18 14:00 O2 Sat by Pulse Oximetry (%) 95 04/28/18 09:00 Labs: CBC, BMP 04/28/18 09:30 04/28/18 06:30
--- NOTE | 2018-04-28 14:49 | HOSP ---
Subjective - Review of Symptoms Events since last encounter: HB dropped. high suspicion for retroperitoneal bleed. transfus 2 units of RBC more info obtained from last admission : she had hematoma , not an abscess, and no drainage was done. change CT to without contrast give DDAVP spoke to Dr. Zhao about the case. he will evaluate patient Physical Examination Vital Signs: Vital Signs Temperature 99 F 04/28/18 14:00 Pulse Rate 90 04/28/18 14:00 Respiratory Rate 23 H 04/28/18 14:00 Blood Pressure 129/63 04/28/18 14:00 O2 Sat by Pulse Oximetry (%) 95 04/28/18 09:00 Labs: CBC, BMP 04/28/18 09:30 04/28/18 06:30
[2018-04-28] MEDS: PIPERACILLIN/TAZOB 4.5 GM 4.5 GM in DEXTROSE 5%-WATER 100 ML IVPB SCH (15:52)
[2018-04-28] MEDS ORDERED: ACETAMINOPHEN 1000 MG/100 ML VIAL (NON FORMULARY) IVPB ONE (18:26)
[2018-04-28 18:27] LABS: HEMATOCRIT 24.1 % (32.4-45.2); HEMOGLOBIN 8.4 GM/dL (10.7-15.3); MCH 26.9 pg (25.7-33.7); MCHC 34.7 g/dl (32.0-36.0); MEAN CELL VOLUME 77.5 fl (80-96); PLATELET COUNT 204 K/MM3 (134-434); RBC 3.11 M/mm3 (3.60-5.2); RDW 16.7 % (11.6-15.6); WHITE BLOOD COUNT 17.9 K/mm3 (4.0-10.0)
[2018-04-28 19:19] LABS: ANION GAP 8 MMOL/L (8-16); BLOOD UREA NITROGEN 9 mg/dL (7-18); CALCIUM 8.2 mg/dL (8.5-10.1); CHLORIDE 101 mmol/L (98-107); CO2 25 mmol/L (21-32); CREATININE 0.6 mg/dL (0.55-1.3); GLUCOSE,RANDOM 237 mg/dL (74-106); POTASSIUM 3.3 mmol/L (3.5-5.1); SODIUM 134 mmol/L (136-145)
[2018-04-28] MEDS: CHLORHEXIDINE GLUCONATE 4% CLEANSER FOR DECOLONIZATION TP SCH (22:17)
[2018-04-29] MEDS ORDERED: ACETAMINOPHEN 1000 MG/100 ML VIAL (NON FORMULARY) IVPB PRN (00:30)
[2018-04-29] MEDS: PIPERACILLIN/TAZOB 4.5 GM 4.5 GM in DEXTROSE 5%-WATER 100 ML IVPB SCH ×3 (02:45→17:13)
[2018-04-29] MEDS: INSULIN SLIDING SCALE (NOVOLOG) 1 VIAL SQ SCH ×4 (06:00→22:43)
[2018-04-29] MEDS: INSULIN (LEVEMIR) 100 UNITS/ML UNITS SQ SCH (06:00)
[2018-04-29 06:01] LABS: BASO % 0.5 % (0-2.0); EOS % 0.3 % (0-4.5); HEMATOCRIT 23.4 % (32.4-45.2); HEMOGLOBIN 7.7 GM/dL (10.7-15.3); LYMPH % 1.8 % (8-40); MCH 25.8 pg (25.7-33.7); MEAN CELL VOLUME 77.9 fl (80-96); MEAN PLT VOLUME 9.9 fl (7.5-11.1); MONO % 6.2 % (3.8-10.2); NEUT % 91.2 % (42.8-82.8); PLATELET COUNT 182 K/MM3 (134-434)
[2018-04-29 06:33] LABS: ALBUMIN 1.4 g/dl (3.4-5.0); ALK PHOS 272 U/L (45-117); ANION GAP 8 MMOL/L (8-16); BLOOD UREA NITROGEN 8 mg/dL (7-18); CALCIUM 8.2 mg/dL (8.5-10.1); CHLORIDE 103 mmol/L (98-107); CO2 25 mmol/L (21-32); CREATININE 0.5 mg/dL (0.55-1.3); GLUCOSE,RANDOM 84 mg/dL (74-106); MAGNESIUM 1.4 mg/dL (1.8-2.4); POTASSIUM 3.2 mmol/L (3.5-5.1); SGOT/AST 27 U/L (15-37); SGPT/ALT 55 U/L (13-61); SODIUM 136 mmol/L (136-145); TOT PROT 5.2 g/dl (6.4-8.2)
[2018-04-29] MEDS ORDERED: INSULIN (LEVEMIR) 100 UNITS/ML UNITS SQ SCH (07:00)
[2018-04-29] MEDS ORDERED: POTASSIUM CHLORIDE TABS 20 MEQ TABLET.ER (FP) PO ONE (07:01)
[2018-04-29] MEDS ORDERED: MAGNESIUM CITRATE 300 ML BOTTLE PO ONE (07:02)
[2018-04-29] MEDS ORDERED: NAPH,MB-DB/K PH,MBDB POWDER PACKET PO ONE (07:03)
[2018-04-29] MEDS ORDERED: MAGNESIUM SULF 50% (8.12 MEQ/2 ML-1 GM VIAL) IVPB ONE (07:09)
[2018-04-29] MEDS ORDERED: PIPERACILLIN/TAZOBACTAM 4.5 GM VIAL IVPB ONE ×2 (07:34→14:55)
[2018-04-29] MEDS ORDERED: DEXTROSE 5%-WATER 100 ML IVPB ONE ×2 (07:34→14:55)
[2018-04-29] MEDS ORDERED: ACETAMINOPHEN 1000 MG/100 ML VIAL (NON FORMULARY) IVPB ONE ×2 (07:45→16:51)
[2018-04-29] MEDS ORDERED: POTASSIUM PHOSPHATE 20 MM in DEXTROSE 5%-WATER - 250 ML IVPB ONE (08:35)
[2018-04-29] MEDS: SODIUM CHLORIDE 1,000 ML IV SCH (09:42)
[2018-04-29] MEDS: MUPIROCIN 2% TOPICAL OINTMENT FOR DECOLONIZATION NS SCH ×2 (09:43→22:43)
[2018-04-29] MEDS: DULoxetine HCL 30 MG CAPSULE.DR (FP) PO SCH (09:43)
[2018-04-29 09:53] LABS: ANISOCYTOSIS 2+; MACROCYTOSIS 0; PLATELET ESTIMATE NORMAL; TARGET CELLS 1+
--- NOTE | 2018-04-29 10:41 | PN ---
Physical Exam: SUBJECTIVE: Patient seen and examined at bedside. Per nurse, pt was arousable only to physical stimuli this morning. During exam today, pt was lethargic, but able to open eyes and answer questions. She denied any chest pain, sob, abd pain. Difficult to elicit responses during rest of exam as patient kept falling asleep. OBJECTIVE: Vital Signs Temperature 99.4 F 04/29/18 10:02 Pulse Rate 98 H 04/29/18 10:02 Respiratory Rate 20 04/29/18 10:02 Blood Pressure 128/64 04/29/18 10:02 O2 Sat by Pulse Oximetry (%) 97 04/29/18 08:30 GENERAL: Lethargic. NAD. Oriented to person. HEENT: AT/NC. EOMI. Dry mucus membranes. NECK: Trachea midline, full range of motion, supple. LUNGS: CTA B/L. No wheezes noted. HEART: RRR. Normal S1, S2. No murmurs noted ABDOMEN: Soft. NT/ND. +Bs in all 4Qs. EXTREMITIES: 2+ pulses, warm, well-perfused, no edema. R thigh circumference > L NEUROLOGICAL: Responds to commands, internet developer hands and opens eyes. CBCD WBC 20.0 K/mm3 (4.0-10.0) H 04/29/18 05:00 RBC 3.00 M/mm3 (3.60-5.2) L 04/29/18 05:00 Hgb 7.7 GM/dL (10.7-15.3) L 04/29/18 05:00 Hct 23.4 % (32.4-45.2) L 04/29/18 05:00 MCV 77.9 fl (80-96) L 04/29/18 05:00 MCHC 33.0 g/dl (32.0-36.0) 04/29/18 05:00 RDW 17.0 % (11.6-15.6) H 04/29/18 05:00 Plt Count 182 K/MM3 (134-434) 04/29/18 05:00 MPV 9.9 fl (7.5-11.1) 04/29/18 05:00 CMP Sodium 136 mmol/L (136-145) 04/29/18 05:00 Potassium 3.2 mmol/L (3.5-5.1) L 04/29/18 05:00 Chloride 103 mmol/L (98-107) 04/29/18 05:00 Carbon Dioxide 25 mmol/L (21-32) 04/29/18 05:00 Anion Gap 8 MMOL/L (8-16) 04/29/18 05:00 BUN 8 mg/dL (7-18) 04/29/18 05:00 Creatinine 0.5 mg/dL (0.55-1.3) L 04/29/18 05:00 Creat Clearance w eGFR > 60 (>60) 04/29/18 05:00 Calcium 8.2 mg/dL (8.5-10.1) L 04/29/18 05:00 Total Bilirubin 1.0 mg/dL (0.2-1) 04/29/18 05:00 AST 27 U/L (15-37) 04/29/18 05:00 ALT 55 U/L (13-61) 04/29/18 05:00 Alkaline Phosphatase 272 U/L (45-117) H 04/29/18 05:00 Total Protein 5.2 g/dl (6.4-8.2) L 04/29/18 05:00 Albumin 1.4 g/dl (3.4-5.0) L 04/29/18 05:00 Active Medications Chlorhexidine Gluconate (Hibiclens For Decolonization -) 1 applic TP HS [facility] Last Admin: 04/28/18 22:17 Dose: 1 applic Duloxetine HCl (Cymbalta -) 60 mg PO DAILY [facility] Last Admin: 04/29/18 09:43 Dose: Not Given Sodium Chloride (Normal Saline -) 1,000 mls @ 125 mls/hr IV ASDIR [facility] Last Admin: 04/29/18 09:42 Dose: Not Given Piperacillin Sod/Tazobactam (Sod 4.5 gm/ Dextrose) 100 mls @ 200 mls/hr IVPB Q8H-IV [facility]; Protocol Last Admin: 04/29/18 09:35 Dose: 200 mls/hr Potassium Phosphate 20 mm/ (Dextrose) 256.6667 mls @ 42.778 mls/hr IVPB ONCE ONE Stop: 04/29/18 14:34 Last Admin: 04/29/18 09:35 Dose: 42.778 mls/hr Insulin Aspart (Novolog Vial Sliding Scale -) 1 vial SQ ACHS [facility]; Protocol Last Admin: 04/29/18 06:00 Dose: Not Given Mupirocin (Bactroban Ointment (For Decolonization) -) 1 applic NS BID [facility] Stop: 05/03/18 09:59 Last Admin: 04/29/18 09:43 Dose: 1 applic Vasc- Dr. Zhao ID- Dr. Gallegos IMAGING: * CTAP: interval enlargement of a nonspecific right iliopsoas lesion is seen as well as associated development of a small amount of air/gas within the lesion. These findings may be on the basis of etiologies such as abscess, abscess with fistula formation, or tumor with superimposed abscess and/or fistula. No gross fistulous tract can be identified on this noncontrast study. Development of associated bone erosion is noted involving the contiguous right iliac bone suspicious for osteomyelitis. Direct neoplastic involvement is probably less likely. CT-guided percutaneous needle biopsy/drainage may be performed. * Abd U/S: Somewhat limited exam due to patient immobility. No obvious abnormality is identified. * RLE U/S: No DVT. ASSESSMENT/PLAN: #Severe Sepsis w/ GNB -Pt has an evolving R retroperitoneal hematoma, febrile, increased WBC. Per ID, hematoma may be infected. Recommend transfer to tertiary care facility as IR drainage was previously attempted here, but unsuccessful with no drainage. -Zosyn 4.5 gm IVPB (started 04/28/18) -IV Tylenol for fever -ID following -Repeat BCx ordered -Will obtain MRI w/ contrast to assess for further evaluation of potential abscess/fistula #Acute Anemia, ; Hgb now 7.7 -s/p 2U pRBCs during this admission, ddAVP previously given -may likely be due to R retroperitoneal hematoma -f/u CBC, transfuse as needed. #DM -ISS ACHS -BGMs ACHS -hold Levemir #Prophylaxis DVT: SCDs FEN -NS @ 125 -recheck lytes in AM, replete PRN -Diabetic diet dispo -cont to monitor in ICU -[facility]. Transfer initiated and accepted for further tertiary care. Per transfer center, awaiting insurance approval; will likely happen in AM. Transfer papers ready. Visit type - Emergency Visit Emergency Visit: Yes ED Registration Date: 04/27/18 Care time: The patient presented to the Emergency Department on the above date and was hospitalized for further evaluation of their emergent condition. - New Patient This patient is new to me today: Yes Date on this admission: 04/29/18 - Critical Care Critical Care patient: Yes Total Critical Care Time (in minutes): 36 Critical Care Statement: The care of this patient involved high complexity decision making to prevent further life threatening deterioration of the patient 's condition and/or to evaluate & treat vital organ system(s) failure or risk of failure.
[2018-04-29] MEDS ORDERED: VANCOMYCIN 1 GRAM (PRE-DOCKED) 1,000 MG/250 ML BAG IVPB ONE (11:20)
[2018-04-29] MEDS ORDERED: POTASSIUM CHLORIDE 10 MEQ PREMIX IVPB (POTASSIUM RIDER) IVPB SCH (11:24)
[2018-04-29] MEDS ORDERED: KCL 10 MEQ IVPB 10 MEQ/100 ML INFUS.BAG IVPB ONE ×3 (11:45→12:45)
--- NOTE | 2018-04-29 12:03 | PN ---
Physical Exam: SUBJECTIVE: Patient seen and examined at bed side , had fever 103.5 this am with chills, denies chest pain , sob, no D/C/N/V OBJECTIVE: Vital Signs Period Temp Pulse Resp BP Sys/Leija Pulse Ox Last 24 Hr 97.2 F-103 F 90-116 18-26 110-169/55-75 94-100 GENERAL: The patient is awake, alert, and fully oriented, in no acute distress. HEAD: Normal with no signs of trauma. EYES: PERRL, extraocular movements intact, sclera anicteric, conjunctiva clear. No ptosis. ENT: Ears normal, nares patent, oropharynx clear without exudates, moist mucous membranes. NECK: Trachea midline, full range of motion, supple. LUNGS: Breath sounds equal, clear to auscultation bilaterally, no wheezes, no crackles, no accessory muscle use. HEART: Regular rate and rhythm, S1, S2 without murmur, rub or gallop. ABDOMEN: Soft, nontender, nondistended, normoactive bowel sounds, no guarding, no rebound, no hepatosplenomegaly, no masses. EXTREMITIES: 2+ pulses, warm, well-perfused, no edema. NEUROLOGICAL: Cranial nerves II through XII grossly intact. Normal speech, gait not observed. PSYCH: Normal mood, normal affect. SKIN: Warm, dry, normal turgor, no rashes or lesions noted Laboratory Results - last 24 hr 04/27/18 04/27/18 04/27/18 20:10 20:16 22:20 WBC RBC Hgb Hct MCV MCH MCHC RDW Plt Count MPV Absolute Neuts (auto) Total Counted Neutrophils % Neutrophils % (Manual) Band Neutrophils % Lymphocytes % Lymphocytes % (Manual) Monocytes % Monocytes % (Manual) Eosinophils % Eosinophils % (Manual) Basophils % Basophils % (Manual) Myelocytes % (Man) Promyelocytes % (Man) Blast Cells % (Manual) Nucleated RBC % Metamyelocytes Hypochromia Platelet Estimate Polychromasia Poikilocytosis Basophilic Stippling Anisocytosis Microcytosis Macrocytosis Spherocytes Target Cells Stomatocytes Sodium Potassium Chloride Carbon Dioxide Anion Gap BUN Creatinine Creat Clearance w eGFR POC Glucometer > 400 > 400 Random Glucose Lactic Acid Calcium Phosphorus Magnesium Total Bilirubin AST ALT Alkaline Phosphatase Total Protein Albumin Blood Type O POSITIVE Antibody Screen Negative Crossmatch See Detail 04/28/18 04/28/18 04/28/18 06:30 11:30 13:29 WBC RBC Hgb Hct MCV MCH MCHC RDW Plt Count MPV Absolute Neuts (auto) Total Counted 100 Neutrophils % Neutrophils % (Manual) 83.0 H Band Neutrophils % 9.0 Lymphocytes % Lymphocytes % (Manual) 6.0 L Monocytes % Monocytes % (Manual) 2 L Eosinophils % Eosinophils % (Manual) Basophils % Basophils % (Manual) Myelocytes % (Man) Promyelocytes % (Man) Blast Cells % (Manual) Nucleated RBC % Metamyelocytes Hypochromia Platelet Estimate Polychromasia Poikilocytosis Basophilic Stippling Anisocytosis 1+ Microcytosis 1+ Macrocytosis Spherocytes Target Cells Stomatocytes 1+ Sodium Potassium Chloride Carbon Dioxide Anion Gap BUN Creatinine Creat Clearance w eGFR POC Glucometer [phone] Random Glucose Lactic Acid Calcium Phosphorus Magnesium Total Bilirubin AST ALT Alkaline Phosphatase Total Protein Albumin Blood Type Antibody Screen Crossmatch 04/28/18 04/28/18 04/28/18 15:49 18:01 18:50 WBC 17.9 H RBC 3.11 L Hgb 8.4 L Hct 24.1 L D MCV 77.5 L MCH 26.9 MCHC 34.7 RDW 16.7 H Plt Count 204 MPV 10.0 Absolute Neuts (auto) Total Counted Neutrophils % Neutrophils % (Manual) Band Neutrophils % Lymphocytes % Lymphocytes % (Manual) Monocytes % Monocytes % (Manual) Eosinophils % Eosinophils % (Manual) Basophils % Basophils % (Manual) Myelocytes % (Man) Promyelocytes % (Man) Blast Cells % (Manual) Nucleated RBC % Metamyelocytes Hypochromia Platelet Estimate Polychromasia Poikilocytosis Basophilic Stippling Anisocytosis Microcytosis Macrocytosis Spherocytes Target Cells Stomatocytes Sodium 134 L Potassium 3.3 L Chloride 101 Carbon Dioxide 25 Anion Gap 8 BUN 9 Creatinine 0.6 Creat Clearance w eGFR > 60 POC Glucometer 264.36334 Random Glucose 237 H Lactic Acid Calcium 8.2 L Phosphorus Magnesium Total Bilirubin AST ALT Alkaline Phosphatase Total Protein Albumin Blood Type Antibody Screen Crossmatch 04/28/18 04/29/18 04/29/18 22:20 05:00 05:00 WBC 20.0 H RBC 3.00 L Hgb 7.7 L Hct 23.4 L MCV 77.9 L MCH 25.8 MCHC 33.0 RDW 17.0 H Plt Count 182 MPV 9.9 Absolute Neuts (auto) 18.2 H Total Counted Neutrophils % 91.2 H Neutrophils % (Manual) 73.7 Band Neutrophils % 20.2 Lymphocytes % 1.8 L D Lymphocytes % (Manual) 4.1 L D Monocytes % 6.2 Monocytes % (Manual) 2 L Eosinophils % 0.3 D Eosinophils % (Manual) 0.0 Basophils % 0.5 Basophils % (Manual) 0.0 Myelocytes % (Man) 0 Promyelocytes % (Man) 0 Blast Cells % (Manual) 0 Nucleated RBC % 0 Metamyelocytes 0 D Hypochromia 0 Platelet Estimate Normal Polychromasia 1+ Poikilocytosis 1+ Basophilic Stippling 1+ Anisocytosis 2+ Microcytosis 2+ Macrocytosis 0 Spherocytes 1+ Target Cells 1+ Stomatocytes Sodium 136 Potassium 3.2 L Chloride 103 Carbon Dioxide 25 Anion Gap 8 BUN 8 Creatinine 0.5 L Creat Clearance w eGFR > 60 POC Glucometer [phone] Random Glucose 84 Lactic Acid Calcium 8.2 L Phosphorus 2.0 L Magnesium 1.4 L Total Bilirubin 1.0 AST 27 ALT 55 Alkaline Phosphatase 272 H Total Protein 5.2 L Albumin 1.4 L Blood Type Antibody Screen Crossmatch 04/29/18 04/29/18 04/29/18 05:00 05:31 11:21 WBC RBC Hgb Hct MCV MCH MCHC RDW Plt Count MPV Absolute Neuts (auto) Total Counted Neutrophils % Neutrophils % (Manual) Band Neutrophils % Lymphocytes % Lymphocytes % (Manual) Monocytes % Monocytes % (Manual) Eosinophils % Eosinophils % (Manual) Basophils % Basophils % (Manual) Myelocytes % (Man) Promyelocytes % (Man) Blast Cells % (Manual) Nucleated RBC % Metamyelocytes Hypochromia Platelet Estimate Polychromasia Poikilocytosis Basophilic Stippling Anisocytosis Microcytosis Macrocytosis Spherocytes Target Cells Stomatocytes Sodium Potassium Chloride Carbon Dioxide Anion Gap BUN Creatinine Creat Clearance w eGFR POC Glucometer [phone] Random Glucose Lactic Acid 1.1 Calcium Phosphorus Magnesium Total Bilirubin AST ALT Alkaline Phosphatase Total Protein Albumin Blood Type Antibody Screen Crossmatch Active Medications Generic Name Dose Route Start Last Admin Trade Name Freq PRN Reason Stop Dose Admin Chlorhexidine Gluconate 1 applic 04/28/18 22:00 04/28/18 22:17 Hibiclens For Decolonization - TP 1 applic HS [facility] Administration Duloxetine HCl 60 mg 04/28/18 10:00 04/29/18 09:43 Cymbalta - PO Not Given DAILY [facility] Sodium Chloride 1,000 mls @ 125 mls/hr 04/28/18 09:00 04/29/18 09:42 Normal Saline - IV Not Given ASDIR [facility] Piperacillin Sod/Tazobactam 100 mls @ 200 mls/hr 04/28/18 14:45 04/29/18 09: 35 Sod 4.5 gm/ Dextrose IVPB 200 mls/hr Q8H-IV [facility] Administration Protocol Potassium Phosphate 20 mm/ 256.6667 mls @ 42.778 mls/hr 04/29/18 08:35 09:35 Dextrose IVPB 04/29/18 14:34 42.778 mls/hr ONCE ONE Administration Vancomycin HCl 1,000 mg in 250 mls @ 166.667 mls/hr 04/29/18 11:20 04/29/18 11:30 Vancomycin (Pre-Docked) IVPB 04/29/18 12:49 166.667 mls/hr ONCE ONE Administration Protocol Potassium Chloride 10 meq in 100 mls @ 200 mls/hr 04/29/18 11:45 04/29/18 11: 55 Potassium Chloride 10 Meq Premix Ivpb - IVPB 04/29/18 12:14 100 mls/hr ONCE ONE Administration Potassium Chloride 10 meq in 100 mls @ 200 mls/hr 04/29/18 12:15 04/29/18 11: 56 Potassium Chloride 10 Meq Premix Ivpb - IVPB 04/29/18 12:44 100 mls/hr ONCE ONE Administration Insulin Aspart 1 vial 04/28/18 11:00 04/29/18 11:24 Novolog Vial Sliding Scale - SQ Not Given ACHS [facility] Protocol Mupirocin 1 applic 04/28/18 10:00 04/29/18 09:43 Bactroban Ointment (For Decolonization) - NS 05/03/18 09:59 1 applic BID [facility] Administration CBC, BMP 04/29/18 05:00 04/29/18 05:00 ASSESSMENT/PLAN: 67 y/o lady with h/o HTN, DM, recent admission with urosepsis/ bE coli bacteremia and R psoas abscess s/p drainage ( 03/16-04/10) , h/o DVT, HLP, uterine ca s/p chemo and Rtx. she presented with AMS and poor po intake, and was found to have urosepsis #Neuro * AAOx3 but lethargic and arousable * AMS due to metabolic encephalopathy has resolved with IV fluids * Head CT is negative for acute pathology # ID -Severe urosepsis with G- bacteremia: - R retroperitoneal hematoma , with acute blood loss anemia * The hematoma in R retroperitonela area is likely infected. * cont zosyn. * follow repeat blood cx this am . * will obtain MRI to further evaluate the retroperitoneal structure and the iliac bone * cont IVF * vasculare consulted recomendation appreciated * Surgery Dr giordano consulted * plan to transfer to tertiary facility # Endo DM * BGM ACHS * ISS * Hold levemer due to hypoglycemia # Cardio Vascular/pulm normotensive , RRR on IV fluids lungs CTA B/L # Heme Anemia likely due to acute blood loss * H/H 7.7/23.4 * monitor H/H * possible due to pswas hematoma retorpertonial #GI Transaminitis * likely due to sepsis * trend LFTS # * avila in place * Hypokalemia , Hypophosphatemia, hypomagnesia : replinished #FEN * F: 125 NS CC/hr * E: monitor and replenished as needed * N: low sodiym diabetes diet # Proph * Dvts: SCDS * GI: Protonix # Dispo * cont to monitor in ICU * primary team working on transfer to tertiary center Visit type - Emergency Visit Emergency Visit: Yes ED Registration Date: 04/27/18 Care time: The patient presented to the Emergency Department on the above date and was hospitalized for further evaluation of their emergent condition. - New Patient This patient is new to me today: Yes Date on this admission: 04/30/18 - Critical Care Critical Care patient: Yes Total Critical Care Time (in minutes): 45 Critical Care Statement: The care of this patient involved high complexity decision making to prevent further life threatening deterioration of the patient 's condition and/or to evaluate & treat vital organ system(s) failure or risk of failure. - Discharge Referral Referred to [facility] No
--- NOTE | 2018-04-29 12:13 | PN ---
Teaching Attending Note Name of Resident: Tatum Fallon ATTENDING PHYSICIAN STATEMENT I saw and evaluated the patient. I reviewed the resident's note and discussed the case with the resident. I agree with the resident's findings and plan as documented. SUBJECTIVE: Had fever last night and this am. has abd pain and R thigh pain . OBJECTIVE: NAD , lethargic but arousable. cooperative and answers most of the questions dry MM CV: RRR, no MRG , no JVD. Lungs: CTAB Abd: soft, NL BS, TTP in suprapubic area, and RLQ. no guarding. Ext : no edema on legs, R thigh circumference is > L. pain with moving RLE. DP 2 + Assessment/Plan: Unfortunate 67 y/o lady with h/o HTN, DM, recent admission with urosepsis/ bE coli bacteremia and R psoas abscess s/p drainage ( 03/16-04/10) , h/o DVT, HLP, uterine ca s/p chemo and Rtx. she presented with AMS and poor po intake, and was found to have urosepsis 1- Severe urosepsis with G- bacteremia: - The hematoma in R retroperitonela area is likely infected. - cont zosyn. - follow repeat blood cx this am . - will obtain MRI to further evaluate the retroperitoneal structure and the iliac bone - cont IVF 2- R retroperitoneal hematoma , with acute blood loss anemia - MRI as above - vascular aware - consult sx - repeat HB and follow closely . transfuse as needed 3- DM : hypoglycemia this am. not eating well - dc long acting insulin - cont SSI. - if sugar elevated can resume levemir 4- AMS due to metabolic encephalopathy . - prelim head CT with no acute process. follow repeat 5- Transaminitis: likely due to sepsis, doubt biliary process. - trend LFTS DVT Px : SCDS dispo : ICU level of care. will start transfer process to a tertiary center. Critical Care Total Critical Care Time (in minutes): 40 Critical Care Statement: The care of this patient involved high complexity decision making to prevent further life threatening deterioration of the patient 's condition and/or to evaluate & treat vital organ system(s) failure or risk of failure.
--- NOTE | 2018-04-29 12:48 | PN ---
Teaching Attending Note Name of Resident: Willie Arreguin ATTENDING PHYSICIAN STATEMENT I saw and evaluated the patient. I reviewed the resident's note and discussed the case with the resident. I agree with the resident's findings and plan as documented. SUBJECTIVE: Pt seen and examined in the ICU. Still with right hip pain. Fevers continue and still with leukocytosis. OBJECTIVE: Vital Signs Period Temp Pulse Resp BP Sys/Leija Pulse Ox Last 24 Hr 97.2 F-103 F 90-116 18-26 110-169/55-75 94-100 Intake & Output 04/26/18 04/27/18 04/28/18 04/29/18 23:59 23:59 23:59 23:59 Intake Total 6150 1025 Output Total 2800 400 Balance 3350 625 Weight 72.575 kg 68.946 kg 74.2 kg Gen: lethargic but arousable Heart: RRR Lung: decreased breath sounds at the bases Abd: soft, nontender Ext: no edema CBC, BMP 04/29/18 05:00 Active Medications Chlorhexidine Gluconate (Hibiclens For Decolonization -) 1 applic TP HS [facility] Last Admin: 04/28/18 22:17 Dose: 1 applic Duloxetine HCl (Cymbalta -) 60 mg PO DAILY [facility] Last Admin: 04/29/18 09:43 Dose: Not Given Sodium Chloride (Normal Saline -) 1,000 mls @ 125 mls/hr IV ASDIR [facility] Last Admin: 04/29/18 09:42 Dose: Not Given Piperacillin Sod/Tazobactam (Sod 4.5 gm/ Dextrose) 100 mls @ 200 mls/hr IVPB Q8H-IV [facility]; Protocol Last Admin: 04/29/18 09:35 Dose: 200 mls/hr Potassium Phosphate 20 mm/ (Dextrose) 256.6667 mls @ 42.778 mls/hr IVPB ONCE ONE Stop: 04/29/18 14:34 Last Admin: 04/29/18 09:35 Dose: 42.778 mls/hr Vancomycin HCl (Vancomycin (Pre-Docked)) 1,000 mg in 250 mls @ 166.667 mls/hr IVPB ONCE ONE; Protocol Stop: 04/29/18 12:49 Last Admin: 04/29/18 11:30 Dose: 166.667 mls/hr Potassium Chloride (Potassium Chloride 10 Meq Premix Ivpb -) 10 meq in 100 mls @ 100 mls/hr IVPB ONCE ONE Stop: 04/29/18 13:44 Insulin Aspart (Novolog Vial Sliding Scale -) 1 vial SQ ACHS [facility]; Protocol Last Admin: 04/29/18 11:24 Dose: Not Given Mupirocin (Bactroban Ointment (For Decolonization) -) 1 applic NS BID [facility] Stop: 05/03/18 09:59 Last Admin: 04/29/18 09:43 Dose: 1 applic ASSESSMENT AND PLAN: R Ileopsoas Abscess with likely Osteomyelitis UTI Gram Negative Bacteremia Severe Sepsis Acute Kidney Injury Lactic Acidosis Elevated LFTs likely ischemic injury DM - IV antibiotics - f/u cultures - IR eval for CT guided drainage catheter - IVF - monitor urine output, creatinine - replete lytes - DVT prophylaxis - continue ICU monitoring until source control critical care time spent in reviewing chart, evaluating patient and formulating plan 35 min
[2018-04-29 13:15] LABS: INR 1.32 (0.83-1.09); PROTHROMBIN TIME (PATIENT) 15.6 SEC (9.7-13.0)
[2018-04-29 13:17] LABS: HEMATOCRIT 21.8 % (32.4-45.2); HEMOGLOBIN 7.6 GM/dL (10.7-15.3); MEAN CELL VOLUME 77.3 fl (80-96); PLATELET COUNT 188 K/MM3 (134-434); RBC 2.83 M/mm3 (3.60-5.2); RDW 17.3 % (11.6-15.6); WHITE BLOOD COUNT 17.7 K/mm3 (4.0-10.0)
[2018-04-29 13:18] LABS: ACTIVATED PTT 26.3 SECONDS (25.2-36.5)
--- NOTE | 2018-04-29 14:04 | PN ---
Progress Note, Physician History of Present Illness: patient more awake and alert still spiking fevers abd pain and thigh pain family in the room - Current Medication List Current Medications: Active Medications Chlorhexidine Gluconate (Hibiclens For Decolonization -) 1 applic TP HS [facility] Last Admin: 04/28/18 22:17 Dose: 1 applic Duloxetine HCl (Cymbalta -) 60 mg PO DAILY [facility] Last Admin: 04/29/18 09:43 Dose: Not Given Sodium Chloride (Normal Saline -) 1,000 mls @ 125 mls/hr IV ASDIR [facility] Last Admin: 04/29/18 09:42 Dose: Not Given Piperacillin Sod/Tazobactam (Sod 4.5 gm/ Dextrose) 100 mls @ 200 mls/hr IVPB Q8H-IV [facility]; Protocol Last Admin: 04/29/18 09:35 Dose: 200 mls/hr Potassium Phosphate 20 mm/ (Dextrose) 256.6667 mls @ 42.778 mls/hr IVPB ONCE ONE Stop: 04/29/18 14:34 Last Admin: 04/29/18 09:35 Dose: 42.778 mls/hr Insulin Aspart (Novolog Vial Sliding Scale -) 1 vial SQ ACHS [facility]; Protocol Last Admin: 04/29/18 11:24 Dose: Not Given Mupirocin (Bactroban Ointment (For Decolonization) -) 1 applic NS BID [facility] Stop: 05/03/18 09:59 Last Admin: 04/29/18 09:43 Dose: 1 applic - Objective Vital Signs: Vital Signs Temperature 99.1 F 04/29/18 12:00 Pulse Rate 96 H 04/29/18 12:00 Respiratory Rate 22 H 04/29/18 12:00 Blood Pressure 110/55 L 04/29/18 12:00 O2 Sat by Pulse Oximetry (%) 97 04/29/18 08:30 Constitutional: Yes: Well Nourished, Moderate Distress, Other Cardiovascular: Yes: Regular Rate and Rhythm Respiratory: Yes: Regular, CTA Bilaterally Gastrointestinal: Yes: Normal Bowel Sounds, Soft Musculoskeletal: Yes: WNL Extremities: Yes: Other (swelling of the right thigh) Neurological: Yes: Alert, Oriented Psychiatric: Yes: Alert, Oriented Labs: CBC, BMP 04/29/18 12:23 04/29/18 05:00 INR, PTT INR 1.32 (0.83-1.09) H 04/29/18 12:23 - ....Imaging Chest X-ray: Report Reviewed, Image Reviewed Cat Scan: Report Reviewed, Image Reviewed Assessment/Plan R Ileopsoas hematoma UTI Gram Negative Bacteremia Severe Sepsis Acute Kidney Injury Lactic Acidosis Elevated LFTs likely ischemic injury DM i think patient could have some lesion at the place and also she has and also had infected hematoma .I am worried that there could also be an abscess now plan would continue abx await for repeat cx if fever does not break then will switch to meropenam consider getting an mri done close watch on h and h rest as per the team cc 40 min
--- NOTE | 2018-04-29 15:11 | ECHO ---
Name: WEAVER, NEGRITA Exam:Adult Echocardiogram Study Date: 04/29/2018 11:24 AM Age: 67 yrs Height: 64 in Weight: 152 lb BSA: 1.7 m2 BP: 144/66 mmHg MMode/2D Measurements & Calculations IVSd: 0.98 cm Ao root diam: 2.7 cm LVIDd: 4.6 cm LVIDs: 2.7 cm LVPWd: 1.1 cm EDV(Teich): 96.2 ml LVOT diam: 1.9 cm ESV(Teich): 26.7 ml TAPSE: 2.6 cm RV S Chace: 17.9 cm/sec Doppler Measurements & Calculations MV E max chace: 104.0 cm/sec TR max chace: 289.6 cm/sec MV A max chace: 111.6 cm/sec TR max P.5 mmHg MV E/A: 0.93 Med Peak E' Chace: 5.9 cm/sec Med E/e': 17.6 Lat Peak E' Chace: 7.3 cm/sec Lat E/e': 14.2 Procedure A complete two-dimensional transthoracic echocardiogram was performed (2D, M-mode, Doppler and color flow Doppler). Left Ventricle The left ventricle is normal in size. Left ventricular systolic function is normal. Ejection Fraction = 65- 70%. No regional wall motion abnormalities noted. Right Ventricle The right ventricle is normal size. The right ventricular systolic function is normal. RV systolic TD I is 18 cm/s. Atria The left atrial size is normal. Right atrial size is normal. Mitral Valve There is mild mitral annular calcification. There is mild mitral regurgitation. Tricuspid Valve The tricuspid valve is normal in structure and function. There is mild tricuspid regurgitation. Pulmo nary artery systolic pressure is at least 37 mmHg assuming RA pressure of 3 mmHg. Aortic Valve There is mild aortic sclerosis.;. Mild aortic regurgitation. Pulmonic Valve The pulmonic valve is not well visualized. Mild pulmonic valvular regurgitation. Great Vessels The aortic root is normal size. Pericardium/Pleura There is no pericardial effusion. Interpretation Summary The left ventricle is normal in size. Left ventricular systolic function is normal. No regional wall motion abnormalities noted. Ejection Fraction = 65-70%. The right ventricular systolic function is normal. The left atrial size is normal. Right atrial size is normal. There is mild mitral annular calcification. There is mild mitral regurgitation. There is mild tricuspid regurgitation. Pulmonary artery systolic pressure is at least 37 mmHg assuming RA pressure of 3 mmHg There is mild aortic sclerosis.; Mild aortic regurgitation. Mild pulmonic valvular regurgitation. There is no pericardial effusion. Previous study is not available for comparison Ulises Jensen MD 04/29/2018 03:10 PM
[2018-04-29 21:21] LABS: HEMATOCRIT 23.2 % (32.4-45.2); HEMOGLOBIN 7.9 GM/dL (10.7-15.3); MCH 26.7 pg (25.7-33.7); MCHC 34.3 g/dl (32.0-36.0); MEAN PLT VOLUME 10.2 fl (7.5-11.1); PLATELET COUNT 199 K/MM3 (134-434); RBC 2.97 M/mm3 (3.60-5.2); RDW 17.6 % (11.6-15.6); WHITE BLOOD COUNT 20.2 K/mm3 (4.0-10.0)
[2018-04-29] MEDS ORDERED: SODIUM CHLORIDE 1,000 ML IV SCH (22:38)
[2018-04-29] MEDS: ACETAMINOPHEN 1000 MG/100 ML VIAL (NON FORMULARY) IVPB PRN (22:42)
[2018-04-29] MEDS: CHLORHEXIDINE GLUCONATE 4% CLEANSER FOR DECOLONIZATION TP SCH (22:43)
[2018-04-30] MEDS ORDERED: PIPERACILLIN/TAZOBACTAM 4.5 GM VIAL IVPB ONE ×2 (03:12→08:27)
[2018-04-30] MEDS ORDERED: DEXTROSE 5%-WATER 100 ML IVPB ONE ×2 (03:12→08:27)
[2018-04-30] MEDS: PIPERACILLIN/TAZOB 4.5 GM 4.5 GM in DEXTROSE 5%-WATER 100 ML IVPB SCH (03:14)
[2018-04-30] MEDS ORDERED: DEXTROSE 5%-0.45% SALINE 1,000 ML IV SCH (03:45)
[2018-04-30 04:15] LABS: SERUM IRON SATURATION 11 % (15-55); TOTAL IRON BINDING CAPACITY 154 ug/dL (250-450); UIBC 137 ug/dL (118-369)
[2018-04-30 06:25] LABS: BASO % 0.2 % (0-2.0); EOS % 0.2 % (0-4.5); HEMATOCRIT 23.3 % (32.4-45.2); HEMOGLOBIN 7.6 GM/dL (10.7-15.3); LYMPH % 2.3 % (8-40); MCH 25.6 pg (25.7-33.7); MCHC 32.5 g/dl (32.0-36.0); MEAN CELL VOLUME 78.6 fl (80-96); MEAN PLT VOLUME 9.7 fl (7.5-11.1); MONO % 6.2 % (3.8-10.2); NEUT % 91.1 % (42.8-82.8); PLATELET COUNT 194 K/MM3 (134-434); RBC 2.96 M/mm3 (3.60-5.2); RDW 17.4 % (11.6-15.6); WHITE BLOOD COUNT 19.6 K/mm3 (4.0-10.0)
[2018-04-30] MEDS: INSULIN SLIDING SCALE (NOVOLOG) 1 VIAL SQ SCH ×4 (06:32→21:24)
[2018-04-30] MEDS: ACETAMINOPHEN 1000 MG/100 ML VIAL (NON FORMULARY) IVPB PRN ×3 (06:47→21:10)
[2018-04-30 06:50] LABS: ALBUMIN 1.3 g/dl (3.4-5.0); ALK PHOS 272 U/L (45-117); ANION GAP 8 MMOL/L (8-16); BILIRUBIN,TOTAL 1.4 mg/dL (0.2-1); BLOOD UREA NITROGEN 6 mg/dL (7-18); CALCIUM 7.8 mg/dL (8.5-10.1); CHLORIDE 103 mmol/L (98-107); CO2 24 mmol/L (21-32); CREATININE 0.5 mg/dL (0.55-1.3); GLUCOSE,RANDOM 89 mg/dL (74-106); MAGNESIUM 1.4 mg/dL (1.8-2.4); PHOSPHOROUS 3.6 mg/dL (2.5-4.9); POTASSIUM 3.2 mmol/L (3.5-5.1); SGOT/AST 18 U/L (15-37); SGPT/ALT 36 U/L (13-61); SODIUM 135 mmol/L (136-145); TOT PROT 5.1 g/dl (6.4-8.2)
[2018-04-30] MEDS ORDERED: INSULIN (LEVEMIR) 100 UNITS/ML UNITS SQ SCH (07:00)
[2018-04-30] MEDS ORDERED: MAGNESIUM SULF 50% (8.12 MEQ/2 ML-1 GM VIAL) IVPB ONE (07:41)
[2018-04-30] MEDS ORDERED: PT OWN MED DRAWER 7, Y5N ONE ×4 (08:27→21:09)
[2018-04-30] MEDS: KCL 10 MEQ IVPB 10 MEQ/100 ML INFUS.BAG IVPB SCH ×3 (08:30→10:38)
[2018-04-30] MEDS: DULoxetine HCL 30 MG CAPSULE.DR (FP) PO SCH (09:45)
[2018-04-30] MEDS: LISINOPRIL 10 MG TABLET (FP) PO SCH (09:46)
[2018-04-30] MEDS ORDERED: MEROPENEM 1 GM in DEXTROSE 5%-WATER 100 ML IVPB ONE (10:00)
[2018-04-30 10:23] LABS: ANISOCYTOSIS 1+; MACROCYTOSIS 0; PLATELET ESTIMATE NORMAL; TARGET CELLS 1+
[2018-04-30] MEDS ORDERED: SODIUM CHLORIDE 1,000 ML IV SCH (10:30)
[2018-04-30] MEDS ORDERED: PROCHLORPERAZINE MALEATE 5 MG TABLET PO PRN (10:32)
[2018-04-30] MEDS: MUPIROCIN 2% TOPICAL OINTMENT FOR DECOLONIZATION NS SCH ×2 (11:50→21:25)
--- NOTE | 2018-04-30 12:14 | PN ---
Teaching Attending Note Name of Resident: La Souza ATTENDING PHYSICIAN STATEMENT I saw and evaluated the patient. I reviewed the resident's note and discussed the case with the resident. I agree with the resident's findings and plan as documented. SUBJECTIVE: cont to have pain in RLQ and R thigh . had fever last night. no diarrhea, no SOB OBJECTIVE: NAD , lethargic but arousable. cooperative dry MM still CV: RRR, no MRG , no JVD. Lungs: CTAB Abd: soft, NL BS, TTP in suprapubic area, and RLQ. no guarding. Ext : no edema on legs, R thigh circumference is > L. DP 2+ Assessment/Plan: Unfortunate 67 y/o lady with h/o HTN, DM, recent admission with urosepsis/ bE coli bacteremia and R psoas abscess s/p drainage ( 03/16-04/10) , h/o DVT, HLP, uterine ca s/p chemo and Rtx. she presented with AMS and poor po intake, and was found to have urosepsis with bacteremia and increase size of the R retroperitoneal collection 1- Severe urosepsis with E coli bacteremia: - The hematoma in R retroperitonela area is likely infected and there is concern of abscess formation - repeat blood cx with growth. - will change Abx to meropenem ( last admission zosyn did not clear her bacteremia and she repsponded to meropenem ) - repeat blood cx this am - MRI is ending to further evaluate the retroperitoneal structure, fistula, and the iliac bone - cont IVF 2- R retroperitoneal hematoma, with acute blood loss anemia - MRI as above - IR declined intervention . - spoke to Dr. Covington, surgeon, who did not recommend sx - follow Hb closely , transfuse for Hb < 7 3- DM : with hypoglycemia due to poor po intake . - off long acting insulin - cont SSI. - cont D5 for now 4- AMS due to metabolic encephalopathy . improved 5- Transaminitis: likely due to sepsis, doubt biliary process. improved - trend LFTS 6- HTN: cont lisinopril. hypotension resolved DVT Px : SCDS dispo : d/w [facility], patient is accepted for transfer . accepting MD is Dr. Donta Gomez . awaiting bed availability
--- NOTE | 2018-04-30 12:43 | PN ---
Teaching Attending Note Name of Resident: August Perez ATTENDING PHYSICIAN STATEMENT I saw and evaluated the patient. I reviewed the resident's note and discussed the case with the resident. I agree with the resident's findings and plan as documented. SUBJECTIVE: Pt seen and examined in the ICU. Still with intermittent fevers. No pressors required. Blood cultures growing E coli resistant to Zosyn. OBJECTIVE: Vital Signs Period Temp Pulse Resp BP Sys/Leija Pulse Ox Last 24 Hr 98.5 F-101.1 F 88-103 16-20 125-173/60-85 97 Intake & Output 04/27/18 04/28/18 04/29/18 04/30/18 23:59 23:59 23:59 23:59 Intake Total 6150 3505 494 Output Total 2800 750 600 Balance 3350 2755 -106 Weight 72.575 kg 68.946 kg 73.936 kg 78.7 kg Gen: mildly tachypneic at rest Heart: tachycardic, regular Lung: decreased breath sounds at the bases Abd: soft, nontender Ext: no edema CBC, BMP 04/30/18 05:15 04/30/18 05:15 Active Medications Acetaminophen (Ofirmev Injection -) 1,000 mg IVPB Q6H PRN PRN Reason: FEVER Last Admin: 04/30/18 06:47 Dose: 1,000 mg Chlorhexidine Gluconate (Hibiclens For Decolonization -) 1 applic TP HS [facility] Last Admin: 04/29/18 22:43 Dose: 1 applic Duloxetine HCl (Cymbalta -) 60 mg PO DAILY [facility] Last Admin: 04/30/18 09:45 Dose: 60 mg Insulin Aspart (Novolog Vial Sliding Scale -) 1 vial SQ ACHS [facility]; Protocol Last Admin: 04/30/18 06:32 Dose: Not Given Lisinopril (Prinivil) 10 mg PO DAILY [facility] Last Admin: 04/30/18 09:46 Dose: 10 mg Mupirocin (Bactroban Ointment (For Decolonization) -) 1 applic NS BID [facility] Stop: 05/03/18 09:59 Last Admin: 04/30/18 11:50 Dose: 1 applic ASSESSMENT AND PLAN: R Ileopsoas Abscess with likely Osteomyelitis UTI Gram Negative Bacteremia Severe Sepsis Acute Kidney Injury Lactic Acidosis Elevated LFTs likely ischemic injury DM - IV antibiotics - f/u pending cultures - replete lytes - monitor urine output, creatinine - DVT prophylaxis - for transfer to tertiary [facility] for further evaluation of mass/ abscess critical care time spent in reviewing chart, evaluating patient and formulating plan 35 min
--- NOTE | 2018-04-30 13:13 | PN ---
Physical Exam: SUBJECTIVE: Patient seen and examined at bedside. Continues spiking fevers. BCx yesterday demonstrated continued lac+ Gnb. Patient affirms ongoing lower abdominal pain. OBJECTIVE: Vital Signs Period Temp Pulse Resp BP Sys/Leija Pulse Ox Last 24 Hr 98.5 F-101.1 F 88-103 16-20 125-173/60-85 97 GENERAL: A&Ox3, in some distress HEAD: NC/AT EYES: PERRLA, EOMI ENT: MMM NECK: Trachea midline, full range of motion, supple. LUNGS: CTA b/l HEART: borderline tachy, regular rhythm, no m/r/g ABDOMEN: +bs, soft, RLQ and suprapubic TTP EXTREMITIES: 2+ pulses, warm, well-perfused, no edema. 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 SKIN: Warm, dry, normal turgor, no rashes or lesions noted Laboratory Results - last 24 hr 04/28/18 04/29/18 04/29/18 06:30 12:23 12:23 WBC 17.7 H RBC 2.83 L Hgb 7.6 L Hct 21.8 L MCV 77.3 L MCH 27.0 MCHC 35.0 RDW 17.3 H Plt Count 188 MPV 10.0 Absolute Neuts (auto) Neutrophils % Neutrophils % (Manual) Band Neutrophils % Lymphocytes % Lymphocytes % (Manual) Monocytes % Monocytes % (Manual) Eosinophils % Eosinophils % (Manual) Basophils % Basophils % (Manual) Myelocytes % (Man) Promyelocytes % (Man) Blast Cells % (Manual) Nucleated RBC % Metamyelocytes Hypochromia Platelet Estimate Polychromasia Poikilocytosis Anisocytosis Microcytosis Macrocytosis Target Cells PT with INR 15.60 H INR 1.32 H PTT (Actin FS) 26.3 Sodium Potassium Chloride Carbon Dioxide Anion Gap BUN Creatinine Creat Clearance w eGFR POC Glucometer Random Glucose Calcium Phosphorus Magnesium Iron 17 L TIBC 154 L Iron Saturation 11 L Total Bilirubin AST ALT Alkaline Phosphatase Total Protein Albumin 04/29/18 04/29/18 04/29/18 16:14 20:30 22:32 WBC 20.2 H RBC 2.97 L Hgb 7.9 L Hct 23.2 L MCV 78.0 L MCH 26.7 MCHC 34.3 RDW 17.6 H Plt Count 199 MPV 10.2 Absolute Neuts (auto) Neutrophils % Neutrophils % (Manual) Band Neutrophils % Lymphocytes % Lymphocytes % (Manual) Monocytes % Monocytes % (Manual) Eosinophils % Eosinophils % (Manual) Basophils % Basophils % (Manual) Myelocytes % (Man) Promyelocytes % (Man) Blast Cells % (Manual) Nucleated RBC % Metamyelocytes Hypochromia Platelet Estimate Polychromasia Poikilocytosis Anisocytosis Microcytosis Macrocytosis Target Cells PT with INR INR PTT (Actin FS) Sodium Potassium Chloride Carbon Dioxide Anion Gap BUN Creatinine Creat Clearance w eGFR POC Glucometer 102.31324 74.41075 Random Glucose Calcium Phosphorus Magnesium Iron TIBC Iron Saturation Total Bilirubin AST ALT Alkaline Phosphatase Total Protein Albumin 04/30/18 04/30/18 04/30/18 00:47 05:15 05:15 WBC 19.6 H RBC 2.96 L Hgb 7.6 L Hct 23.3 L MCV 78.6 L MCH 25.6 L MCHC 32.5 RDW 17.4 H Plt Count 194 MPV 9.7 Absolute Neuts (auto) 17.9 H Neutrophils % 91.1 H Neutrophils % (Manual) 89.9 H Band Neutrophils % 5.1 Lymphocytes % 2.3 L D Lymphocytes % (Manual) 0.0 L Monocytes % 6.2 Monocytes % (Manual) 5 D Eosinophils % 0.2 Eosinophils % (Manual) 0.0 Basophils % 0.2 Basophils % (Manual) 0.0 Myelocytes % (Man) 0 Promyelocytes % (Man) 0 Blast Cells % (Manual) 0 Nucleated RBC % 0 Metamyelocytes 0 Hypochromia 0 Platelet Estimate Normal Polychromasia 0 Poikilocytosis 0 Anisocytosis 1+ Microcytosis 1+ Macrocytosis 0 Target Cells 1+ PT with INR INR PTT (Actin FS) Sodium 135 L Potassium 3.2 L Chloride 103 Carbon Dioxide 24 Anion Gap 8 BUN 6 L Creatinine 0.5 L Creat Clearance w eGFR > 60 POC Glucometer 84.72344 Random Glucose 89 Calcium 7.8 L Phosphorus 3.6 Magnesium 1.4 L Iron TIBC Iron Saturation Total Bilirubin 1.4 H AST 18 ALT 36 Alkaline Phosphatase 272 H Total Protein 5.1 L Albumin 1.3 L 04/30/18 06:31 WBC RBC Hgb Hct MCV MCH MCHC RDW Plt Count MPV Absolute Neuts (auto) Neutrophils % Neutrophils % (Manual) Band Neutrophils % Lymphocytes % Lymphocytes % (Manual) Monocytes % Monocytes % (Manual) Eosinophils % Eosinophils % (Manual) Basophils % Basophils % (Manual) Myelocytes % (Man) Promyelocytes % (Man) Blast Cells % (Manual) Nucleated RBC % Metamyelocytes Hypochromia Platelet Estimate Polychromasia Poikilocytosis Anisocytosis Microcytosis Macrocytosis Target Cells PT with INR INR PTT (Actin FS) Sodium Potassium Chloride Carbon Dioxide Anion Gap BUN Creatinine Creat Clearance w eGFR POC Glucometer 102.67674 Random Glucose Calcium Phosphorus Magnesium Iron TIBC Iron Saturation Total Bilirubin AST ALT Alkaline Phosphatase Total Protein Albumin Active Medications Generic Name Dose Route Start Last Admin Trade Name Freq PRN Reason Stop Dose Admin Acetaminophen 1,000 mg 04/29/18 22:27 04/30/18 06:47 Ofirmev Injection - IVPB 1,000 mg Q6H PRN Administration FEVER Chlorhexidine Gluconate 1 applic 04/28/18 22:00 04/29/18 22:43 Hibiclens For Decolonization - TP 1 applic HS [facility] Administration Duloxetine HCl 60 mg 04/28/18 10:00 04/30/18 09:45 Cymbalta - PO 60 mg DAILY [facility] Administration Insulin Aspart 1 vial 04/28/18 11:00 04/30/18 06:32 Novolog Vial Sliding Scale - SQ Not Given ACHS [facility] Protocol Lisinopril 10 mg 04/30/18 10:00 04/30/18 09:46 Prinivil PO 10 mg DAILY [facility] Administration Mupirocin 1 applic 04/28/18 10:00 04/30/18 11:50 Bactroban Ointment (For Decolonization) - NS 05/03/18 09:59 1 applic BID [facility] Administration ASSESSMENT/PLAN: 67 y/o F w/ PMHx uterine Ca s/p RAHUL and chemoRT, HTN, DM, b/l DVT, recent admission for G- bacteremia 2/2 UTI and R iliopsoas abscess in March, admitted w/ severe urosepsis, blood culture positive for lac+ Gnb. #ID -repeat BCx yesterday demonstrated resistance to Zosyn -ABx switched to meropenem -repeat BCx pending -leukocytosis persistent at 19.6 -CT a/p re-identified R retroperitoneal hematoma, likely nidus of infection -MRI pending -for transfer to tertiary center for further evaluation of hematoma/intervention #nephro -RADHA resolved -IVF d/c'd -monitor urine output -monitor creatinine -monitor lytes -maintain avila #endocrine -SSI -BGM ACHS #GI -LFT abnormalities likely 2/2 ischemia, now downtrending #FEN -no IVF -monitor and replete lytes -diabetic diet #PPx -DVT: SCDs, no pharmacologic AC in setting of hematoma -GI: not indicated #code -full #dispo -transfer pending to [facility], per primary team patient is accepted for transfer , accepting MD is Dr. Donta Gomez, awaiting bed availability Visit type - Emergency Visit Emergency Visit: No - New Patient This patient is new to me today: Yes Date on this admission: 04/30/18 - Critical Care Critical Care patient: Yes Total Critical Care Time (in minutes): 40 Critical Care Statement: The care of this patient involved high complexity decision making to prevent further life threatening deterioration of the patient 's condition and/or to evaluate & treat vital organ system(s) failure or risk of failure.
--- NOTE | 2018-04-30 13:13 | PN ---
Physical Exam: SUBJECTIVE: Patient seen and examined at bedside. Per nurse, pt was febrile overnight at 100.8. OBJECTIVE: Vital Signs Temperature 98.5 F 04/30/18 10:00 Pulse Rate 98 H 04/30/18 12:00 Respiratory Rate 24 H 04/30/18 12:00 Blood Pressure 160/76 04/30/18 12:00 O2 Sat by Pulse Oximetry (%) 97 04/29/18 21:00 GENERAL: Lethargic. NAD. Oriented to person. HEENT: AT/NC. EOMI. Dry mucus membranes. NECK: Trachea midline, full range of motion, supple. LUNGS: CTA B/L. No wheezes noted. HEART: RRR. Normal S1, S2. No murmurs noted ABDOMEN: Soft. NT/ND. +Bs in all 4Qs. EXTREMITIES: 2+ pulses, warm, well-perfused, no edema. 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 CBCD WBC 19.6 K/mm3 (4.0-10.0) H 04/30/18 05:15 RBC 2.96 M/mm3 (3.60-5.2) L 04/30/18 05:15 Hgb 7.6 GM/dL (10.7-15.3) L 04/30/18 05:15 Hct 23.3 % (32.4-45.2) L 04/30/18 05:15 MCV 78.6 fl (80-96) L 04/30/18 05:15 MCHC 32.5 g/dl (32.0-36.0) 04/30/18 05:15 RDW 17.4 % (11.6-15.6) H 04/30/18 05:15 Plt Count 194 K/MM3 (134-434) 04/30/18 05:15 MPV 9.7 fl (7.5-11.1) 04/30/18 05:15 CMP Sodium 135 mmol/L (136-145) L 04/30/18 05:15 Potassium 3.2 mmol/L (3.5-5.1) L 04/30/18 05:15 Chloride 103 mmol/L (98-107) 04/30/18 05:15 Carbon Dioxide 24 mmol/L (21-32) 04/30/18 05:15 Anion Gap 8 MMOL/L (8-16) 04/30/18 05:15 BUN 6 mg/dL (7-18) L 04/30/18 05:15 Creatinine 0.5 mg/dL (0.55-1.3) L 04/30/18 05:15 Creat Clearance w eGFR > 60 (>60) 04/30/18 05:15 Calcium 7.8 mg/dL (8.5-10.1) L 04/30/18 05:15 Total Bilirubin 1.4 mg/dL (0.2-1) H 04/30/18 05:15 AST 18 U/L (15-37) 04/30/18 05:15 ALT 36 U/L (13-61) 04/30/18 05:15 Alkaline Phosphatase 272 U/L (45-117) H 04/30/18 05:15 Total Protein 5.1 g/dl (6.4-8.2) L 04/30/18 05:15 Albumin 1.3 g/dl (3.4-5.0) L 04/30/18 05:15 Active Medications Acetaminophen (Ofirmev Injection -) 1,000 mg IVPB Q6H PRN PRN Reason: FEVER Last Admin: 04/30/18 06:47 Dose: 1,000 mg Chlorhexidine Gluconate (Hibiclens For Decolonization -) 1 applic TP HS [facility] Last Admin: 04/29/18 22:43 Dose: 1 applic Duloxetine HCl (Cymbalta -) 60 mg PO DAILY [facility] Last Admin: 04/30/18 09:45 Dose: 60 mg Insulin Aspart (Novolog Vial Sliding Scale -) 1 vial SQ ACHS [facility]; Protocol Last Admin: 04/30/18 06:32 Dose: Not Given Lisinopril (Prinivil) 10 mg PO DAILY [facility] Last Admin: 04/30/18 09:46 Dose: 10 mg Mupirocin (Bactroban Ointment (For Decolonization) -) 1 applic NS BID [facility] Stop: 05/03/18 09:59 Last Admin: 04/30/18 11:50 Dose: 1 applic ASSESSMENT/PLAN: Vasc- Dr. Pavel ORDAZ- Dr. Gallegos IMAGING: * CTAP: interval enlargement of a nonspecific right iliopsoas lesion is seen as well as associated development of a small amount of air/gas within the lesion. These findings may be on the basis of etiologies such as abscess, abscess with fistula formation, or tumor with superimposed abscess and/or fistula. No gross fistulous tract can be identified on this noncontrast study. Development of associated bone erosion is noted involving the contiguous right iliac bone suspicious for osteomyelitis. Direct neoplastic involvement is probably less likely. CT-guided percutaneous needle biopsy/drainage may be performed. * Abd U/S: Somewhat limited exam due to patient immobility. No obvious abnormality is identified. * RLE U/S: No DVT. ASSESSMENT/PLAN: 67F w/ pmhx of uterine Ca s/p RAHUL and chemo/RT, HTN, DM, b/l DVT, recent admission for G- bacteremia 2/2 UTI and R iliopsoas abscess in March, admitted w/ severe urosepsis, blood culture positive for lac+ Gnb. #Severe Sepsis w/ GNB -Pt has an evolving R retroperitoneal hematoma, febrile, increased WBC. Per ID, hematoma may be infected. Recommend transfer to tertiary care facility as IR drainage was previously attempted here, but unsuccessful with no drainage. -Per ID, switch to Meropenem 1gm (previously on Zosyn 4.5 gm IVPB; started 04/28) -IV Tylenol for fever -ID following -Repeat BCx (04/29) continues to grow lactose-fermenting GNB -Will obtain MRI w/ contrast to assess for further evaluation of potential abscess/fistula #Acute Anemia, ; Hgb now 7.7 -s/p 2U pRBCs during this admission, ddAVP previously given -may likely be due to R retroperitoneal hematoma -f/u CBC, transfuse as needed. #DM -ISS ACHS -BGMs ACHS -hold Levemir #Hypokalemia -K+ 3.2 today. -KCl 10 mEq x3 bags given. Replete PRN -f/u BMP tomorrow #Prophylaxis DVT: SCDs FEN -D5-1/2NS given -recheck lytes in AM, replete PRN -Diabetic diet dispo -cont to monitor in ICU -Case discussed with [facility]. Transfer initiated and accepted for further tertiary care. Called [facility] transfer center today; accepting physician is Dr. Donta Gomez. Awaiting available bed. Family made aware and in agreement. Visit type - Emergency Visit Emergency Visit: Yes ED Registration Date: 04/27/18 Care time: The patient presented to the Emergency Department on the above date and was hospitalized for further evaluation of their emergent condition. - New Patient This patient is new to me today: No - Critical Care Critical Care patient: Yes Total Critical Care Time (in minutes): 40 Critical Care Statement: The care of this patient involved high complexity decision making to prevent further life threatening deterioration of the patient 's condition and/or to evaluate & treat vital organ system(s) failure or risk of failure.
[2018-04-30 16:39] LABS: HEMOGLOBIN 7.6 GM/dL (10.7-15.3); MCH 27.1 pg (25.7-33.7); MCHC 34.6 g/dl (32.0-36.0); MEAN CELL VOLUME 78.2 fl (80-96); MEAN PLT VOLUME 9.9 fl (7.5-11.1); PLATELET COUNT 220 K/MM3 (134-434); RBC 2.82 M/mm3 (3.60-5.2); RDW 17.9 % (11.6-15.6); WHITE BLOOD COUNT 17.3 K/mm3 (4.0-10.0)
--- NOTE | 2018-04-30 18:46 | PN ---
Progress Note, Physician History of Present Illness: better today still with positive blood cx looks more awake and alert pain improving - Current Medication List Current Medications: Active Medications Acetaminophen (Ofirmev Injection -) 1,000 mg IVPB Q6H PRN PRN Reason: FEVER Last Admin: 04/30/18 14:24 Dose: 1,000 mg Chlorhexidine Gluconate (Hibiclens For Decolonization -) 1 applic TP HS [facility] Last Admin: 04/29/18 22:43 Dose: 1 applic Duloxetine HCl (Cymbalta -) 60 mg PO DAILY [facility] Last Admin: 04/30/18 09:45 Dose: 60 mg Insulin Aspart (Novolog Vial Sliding Scale -) 1 vial SQ ACHS [facility]; Protocol Last Admin: 04/30/18 17:05 Dose: 2 units Lisinopril (Prinivil) 10 mg PO DAILY [facility] Last Admin: 04/30/18 09:46 Dose: 10 mg Mupirocin (Bactroban Ointment (For Decolonization) -) 1 applic NS BID [facility] Stop: 05/03/18 09:59 Last Admin: 04/30/18 11:50 Dose: 1 applic - Objective Vital Signs: Vital Signs Temperature 98.8 F 04/30/18 16:00 Pulse Rate 100 H 04/30/18 16:00 Respiratory Rate 25 H 04/30/18 16:00 Blood Pressure 147/65 04/30/18 16:00 O2 Sat by Pulse Oximetry (%) 100 04/30/18 17:06 Constitutional: Yes: No Distress, Calm Cardiovascular: Yes: Regular Rate and Rhythm Respiratory: Yes: Regular, CTA Bilaterally Gastrointestinal: Yes: Normal Bowel Sounds, Soft Musculoskeletal: Yes: Other (swelling of the thigh) Extremities: Yes: Other Neurological: Yes: Alert, Oriented Psychiatric: Yes: Alert, Oriented Labs: CBC, BMP 04/30/18 15:30 04/30/18 05:15 INR, PTT INR 1.32 (0.83-1.09) H 04/29/18 12:23 Assessment/Plan R Ileopsoas hematoma UTI Gram Negative Bacteremia Severe Sepsis Acute Kidney Injury Lactic Acidosis Elevated LFTs likely ischemic injury DM i think patient could have some lesion at the place and also she has and also had infected hematoma .I am worried that there could also be an abscess now plan would continue abx await for repeat cx continue toño repeat blood cx close watch on h and h rest as per the team cc 40 min
[2018-04-30] MEDS: MEROPENEM 1 GM in DEXTROSE 5%-WATER 100 ML IVPB SCH (20:01)
--- NOTE | 2018-04-30 20:52 | CONSULT ---
Consult Consult Specialty:: General Surgery Referred by:: Dr. Sadler Reason for Consultation:: retroperitoneal abscess - History of Present Illness Chief Complaint: R hip pain History of Present Illness: 67yo F with HTN, DM, uterine CA s/p RAHUL/XRT/chemo (last 04/29) complicated by DVT, recent hospitalization for E. coli UTI complicated by R iliopsoas abscess requiring IR drainage, was admitted several days ago from home with altered mental status, night sweats and chills, foul urine and dysuria , noted to be in DKA with septic picture, and has been in ICU. She has RIJ CVC and is on antibiotics per ID for bacteremia, UTI and infected right iliopsoas abscess with features on imaging suggestive of bony erosion/osteomyelitis. She had apparently complained of right leg and hip pain, and had not been doing as well at home since her recent discharge and was failing to thrive. IR has declined to intervene currently. Surgery was asked to evaluate. Primary team plans transfer to tertiary center. She is seen and examined in bed in ICU. There is no family at bedside. Pt admits to pain in R hip area, about the same as before, not better or worse. She appears to be tolerating po. She is alert and responsive, but unable to offer much history, which is taken from the chart, other than her direct answers. - History Source History Provided By: Medical Record Limitations to Obtaining History: Other (lang barrier/Vincentian and clinical condition - pt cannot offer history) - Past Medical History Cardio/Vascular: Yes: Deep Vein Thrombosis, HTN Renal/: Yes: UTI (recent hospitalization w/E. coli UTI and iliopsoas abscess) Reproductive: Yes: Postmenopausal ...: No Heme/Onc: Yes: Cancer (uterine s/p RAHUL/XRT/chemo (last 04/29)) Musculoskeletal: Yes: Osteoarthritis Endocrine: Yes: Diabetes Mellitus - Past Surgical History Past Surgical History: Yes: Hysterectomy Additional Surgical History: IR drainage of R iliopsoas abscess few weeks ago - Alcohol/Substance Use Hx Alcohol Use: No History of Substance Use: reports: None - Smoking History Smoking history: Never smoked Have you smoked in the past 12 months: No Aproximately how many cigarettes per day: 0 Home Medications - Allergies Allergies/Adverse Reactions: Allergies Allergy/AdvReac Type Severity Reaction Status Date / Time No Known Allergies Allergy Verified 04/27/18 20:23 - Home Medications Home Medications: Ambulatory Orders Canagliflozin [Invokana] 100 mg PO DAILY 03/21/17 Duloxetine HCl 60 mg PO DAILY 03/21/17 Lisinopril 10 mg PO DAILY 03/21/17 Montelukast Na [Singulair -] 10 mg PO DAILY 03/21/17 Oxycodone HCl/Acetaminophen [Endocet 5-325 Tablet] 1 tab PO PRN 03/21/17 Metoprolol Tartrate [Lopressor -] 25 mg PO BID #60 tablet 04/09/18 Insulin Degludec [Tresiba Flextouch U-200] 50 unit SQ HS 04/30/18 Metformin HCl [Metformin HCl ER] 1,000 mg PO BID 04/30/18 Ranitidine [Zantac -] 150 mg PO BID 04/30/18 Family Disease History - Family Disease History Family History: Unable to Obtain (pt cannot offer) Review of Systems Unable to obtain ROS, reason: pt cant offer/from chart - Review of Systems Constitutional: reports: Chills, Lethargy, Night Sweats, Weakness Genitourinary: reports: Dysuria Neurological: reports: Change in LOC, Unsteady Gait Physical Exam Vital Signs: Vital Signs Temperature 99.7 F H 04/30/18 20:00 Pulse Rate 110 H 04/30/18 20:00 Respiratory Rate 22 H 04/30/18 20:00 Blood Pressure 148/74 04/30/18 20:00 O2 Sat by Pulse Oximetry (%) 100 04/30/18 20:15 Vital Signs Period Temp Pulse Resp BP Sys/Leija Pulse Ox Last 24 Hr 98.5 F-101.9 F 88-110 16-25 134-173/65-85 100-100 Constitutional: Yes: Well Nourished, No Distress, Calm Eyes: Yes: Conjunctiva Clear, EOM Intact HENT: Yes: Atraumatic, Normocephalic Neck: Yes: Supple, Trachea Midline Cardiovascular: Yes: Tachycardia. No: Pulse Irregular Respiratory: Yes: Regular, CTA Bilaterally, On Nasal O2, Tachypnea Gastrointestinal: Yes: Normal Bowel Sounds, Soft, Distention (mild), Tenderness (RLQ). No: Tenderness, Rebound ...Rectal Exam: Yes: Deferred Renal/: Yes: CVA Tenderness - Right, Toney Present. No: Hematuria Musculoskeletal: Yes: Other (tender over right hip and thigh, right lateral lower trunk) Extremities: Yes: Other (SCDs on). No: Cool, Cyanosis Edema: Yes (mild generalized) Peripheral Pulses WNL: Yes Integumentary: No: Jaundice, Rash Neurological: Yes: Alert, Oriented (? difficult to tell secondary to language barrier, able to answer questions and converse in Vincentian) Psychiatric: Yes: Alert. No: Agitated Labs: CBC, BMP 04/30/18 15:30 04/30/18 05:15 CMP Sodium 135 mmol/L (136-145) L 04/30/18 05:15 Potassium 3.2 mmol/L (3.5-5.1) L 04/30/18 05:15 Chloride 103 mmol/L (98-107) 04/30/18 05:15 Carbon Dioxide 24 mmol/L (21-32) 04/30/18 05:15 Anion Gap 8 MMOL/L (8-16) 04/30/18 05:15 BUN 6 mg/dL (7-18) L 04/30/18 05:15 Creatinine 0.5 mg/dL (0.55-1.3) L 04/30/18 05:15 Creat Clearance w eGFR > 60 (>60) 04/30/18 05:15 POC Glucometer 153.53761 UNITS (80-120) 04/30/18 17:03 Random Glucose 89 mg/dL (74-106) 04/30/18 05:15 Serum Osmolality 289 mosm/kg (278-305) 04/28/18 08:30 Lactic Acid 1.1 mmol/L (0.4-2.0) 04/29/18 05:00 Calcium 7.8 mg/dL (8.5-10.1) L 04/30/18 05:15 Phosphorus 3.6 mg/dL (2.5-4.9) 04/30/18 05:15 Magnesium 1.4 mg/dL (1.8-2.4) L 04/30/18 05:15 Iron 17 ug/dL (27-139) L 04/28/18 06:30 TIBC 154 ug/dL (250-450) L 04/28/18 06:30 Iron Saturation 11 % (15-55) L 04/28/18 06:30 Ferritin 4200.6 ng/ml (8-388) H 04/28/18 06:30 Total Bilirubin 1.4 mg/dL (0.2-1) H 04/30/18 05:15 AST 18 U/L (15-37) 04/30/18 05:15 ALT 36 U/L (13-61) 04/30/18 05:15 Alkaline Phosphatase 272 U/L (45-117) H 04/30/18 05:15 Creatine Kinase 86 IU/L (26-192) 04/27/18 20:10 Troponin I < 0.02 ng/ml (0.00-0.05) 04/28/18 06:30 Total Protein 5.1 g/dl (6.4-8.2) L 04/30/18 05:15 Albumin 1.3 g/dl (3.4-5.0) L 04/30/18 05:15 Vitamin B12 1588 pg/ml (193-986) H 04/28/18 06:30 Serum Folate 9 ng/mL (3.1-17.5) 04/28/18 06:30 INR, PTT INR 1.32 (0.83-1.09) H 04/29/18 12:23 Urine Test Results Urine Color Dkyellow 04/27/18 23:15 Urine Appearance Cloudy 04/27/18 23:15 Urine pH 5.0 (5.0-8.0) 04/27/18 23:15 Ur Specific [place] 1.016 (1.010-1.035) 04/27/18 23:15 Urine Protein 1+ (NEGATIVE) H 04/27/18 23:15 Urine Glucose (UA) 3+ (NEGATIVE) H 04/27/18 23:15 Urine Ketones Negative (NEGATIVE) 04/27/18 23:15 Urine Blood 1+ (NEGATIVE) H 04/27/18 23:15 Urine Nitrite Negative (NEGATIVE) 04/27/18 23:15 Urine Bilirubin Negative (<2.0 mg/dL) 04/27/18 23:15 Ur Leukocyte Esterase 1+ (NEGATIVE) H 04/27/18 23:15 Ur Epithelial Cells Rare /HPF (FEW) 04/27/18 23:15 Urine Bacteria Rare /hpf (NONE SEEN) 04/27/18 23:15 Urine Mucus Rare 04/27/18 23:15 Microbiology 04/27/18 20:26 Blood Culture - Final Blood - Peripheral Venous Lactose Fermenting Neg Bacilli 04/27/18 23:15 Urine Culture - Final Urine - Urine Toney Escherichia Coli 04/27/18 20:26 Blood Culture - Final Blood - Peripheral Venous Escherichia Coli 04/29/18 05:00 Blood Culture - Preliminary Blood - Picc Line Lactose Fermenting Neg Bacilli 04/29/18 05:00 Blood Culture - Preliminary Blood - Picc Line Lactose Fermenting Neg Bacilli Imaging - Results Cat Scan: Report Reviewed, Image Reviewed (right iliac fossa fluid collection ( larger than 03/31) with few bubbles of gas, iliopsoas bursa involvement and erosion of iliac bone & bone marrow, displacement of iliac vessels, edema in upper right thigh and presacral edema) Problem List - Problems (1) Psoas abscess, right Assessment/Plan: recurrent/persistent right iliopsoas abscess with likely osteomyelitis/erosion of bone on antibiotics per ID with E. coli sepsis no role for general surgical intervention recommend IR to consider drainage, culture possibly orthopedic consultation ? if could be related to h/o CA agree with transfer to tertiary center per chart, [facility] accepting, awaiting bed Code(s): K68.12 - PSOAS MUSCLE ABSCESS (2) E. coli sepsis Assessment/Plan: This patient is critically ill. Time spent reviewing chart, examining patient, talking with providers and/or family and documentation is 35 minutes. Code(s): A41.51 - SEPSIS DUE TO ESCHERICHIA COLI [E. COLI] (3) E. coli UTI (urinary tract infection) Assessment/Plan: Toney in place on abx Code(s): N39.0 - URINARY TRACT INFECTION, SITE NOT SPECIFIED; B96.20 - UNSP ESCHERICHIA COLI THE CAUSE OF DISEASES CLASSD ELSWHR (4) H/O cancer of uterus Assessment/Plan: s/p RAHUL, XRT, chemo done in 04/29 Code(s): Z85.42 - PERSONAL HISTORY OF MALIGNANT NEOPLASM OF OTH PRT UTERUS (5) Hypertension Code(s): I10 - ESSENTIAL (PRIMARY) HYPERTENSION Qualifiers: Hypertension type: essential hypertension Qualified Code(s): I10 - Essential (primary) hypertension (6) Diabetes mellitus with insulin therapy Assessment/Plan: DKA resolved Code(s): E11.9 - TYPE 2 DIABETES MELLITUS WITHOUT COMPLICATIONS; Z79.4 - MANAGER AVIATION (CURRENT) USE OF INSULIN
[2018-04-30] MEDS: CHLORHEXIDINE GLUCONATE 4% CLEANSER FOR DECOLONIZATION TP SCH (21:24)
[2018-05-01] MEDS: MEROPENEM 1 GM in DEXTROSE 5%-WATER 100 ML IVPB SCH ×3 (01:59→17:05)
[2018-05-01 06:00] LABS: BASO % 0.3 % (0-2.0); EOS % 0.2 % (0-4.5); HEMATOCRIT 23.5 % (32.4-45.2); HEMOGLOBIN 7.6 GM/dL (10.7-15.3); LYMPH % 12.3 % (8-40); MCH 25.6 pg (25.7-33.7); MCHC 32.3 g/dl (32.0-36.0); MEAN CELL VOLUME 79.2 fl (80-96); MEAN PLT VOLUME 9.7 fl (7.5-11.1); MONO % 3.5 % (3.8-10.2); NEUT % 83.7 % (42.8-82.8); PLATELET COUNT 210 K/MM3 (134-434); RBC 2.97 M/mm3 (3.60-5.2); RDW 17.7 % (11.6-15.6); WHITE BLOOD COUNT 16.9 K/mm3 (4.0-10.0)
[2018-05-01] MEDS ORDERED: MORPHINE SULFATE 2 MG/ML VIAL IVPUSH ONE (06:34)
[2018-05-01] MEDS ORDERED: morphine SULFATE 4 MG/ML VIAL ONE (06:39)
[2018-05-01 06:42] LABS: ALBUMIN 1.4 g/dl (3.4-5.0); ALK PHOS 291 U/L (45-117); ANION GAP 7 MMOL/L (8-16); BLOOD UREA NITROGEN 8 mg/dL (7-18); CHLORIDE 102 mmol/L (98-107); CO2 26 mmol/L (21-32); CREATININE 0.5 mg/dL (0.55-1.3); GLUCOSE,RANDOM 180 mg/dL (74-106); MAGNESIUM 1.6 mg/dL (1.8-2.4); POTASSIUM 3.5 mmol/L (3.5-5.1); SGOT/AST 13 U/L (15-37); SGPT/ALT 27 U/L (13-61); SODIUM 134 mmol/L (136-145); TOT PROT 5.4 g/dl (6.4-8.2)
[2018-05-01] MEDS: INSULIN SLIDING SCALE (NOVOLOG) 1 VIAL SQ SCH ×4 (06:54→21:11)
[2018-05-01] MEDS ORDERED: LABETALOL HCL 5 MG/1 ML (100MG/20 ML VIAL) IVPUSH ONE (06:58)
[2018-05-01] MEDS ORDERED: MAGNESIUM SULF 50% (8.12 MEQ/2 ML-1 GM VIAL) IVPB ONE (07:57)
[2018-05-01] MEDS ORDERED: ACETAMINOPHEN 1000 MG/100 ML VIAL (NON FORMULARY) IVPB ONE (08:06)
[2018-05-01] MEDS ORDERED: PT OWN MED DRAWER 7, Y5N ONE ×2 (08:09→15:33)
--- NOTE | 2018-05-01 08:14 | PN ---
Teaching Attending Note Name of Resident: La Souza ATTENDING PHYSICIAN STATEMENT I saw and evaluated the patient. I reviewed the resident's note and discussed the case with the resident. I agree with the resident's findings and plan as documented. SUBJECTIVE: Patient is a kyrgyz speaking female, translation is done by who is in ICU. Patient is in ICU, has no new complains. OBJECTIVE: Vital Signs Temperature 99.0 F 05/01/18 04:00 Pulse Rate 109 H 05/01/18 06:00 Respiratory Rate 20 05/01/18 06:00 Blood Pressure 182/80 H 05/01/18 06:00 O2 Sat by Pulse Oximetry (%) 100 04/30/18 20:15 GENERAL: Lethargic. NAD. Oriented to person. HEENT: AT/NC. EOMI. Dry mucus membranes. NECK: Trachea midline, full range of motion, supple. LUNGS: CTA B/L. No wheezes noted. HEART: RRR. Normal S1, S2. No murmurs noted ABDOMEN: Soft. NT/ND. positive for BS. EXTREMITIES: 2+ pulses, warm, well-perfused, no edema. R thigh circumference > L NEUROLOGICAL: CN 2-12 grossly intact. CBCD WBC 16.9 K/mm3 (4.0-10.0) H 05/01/18 05:30 RBC 2.97 M/mm3 (3.60-5.2) L 05/01/18 05:30 Hgb 7.6 GM/dL (10.7-15.3) L 05/01/18 05:30 Hct 23.5 % (32.4-45.2) L 05/01/18 05:30 MCV 79.2 fl (80-96) L 05/01/18 05:30 MCHC 32.3 g/dl (32.0-36.0) 05/01/18 05:30 RDW 17.7 % (11.6-15.6) H 05/01/18 05:30 Plt Count 210 K/MM3 (134-434) 05/01/18 05:30 MPV 9.7 fl (7.5-11.1) 05/01/18 05:30 CMP Sodium 134 mmol/L (136-145) L 05/01/18 05:30 Potassium 3.5 mmol/L (3.5-5.1) 05/01/18 05:30 Chloride 102 mmol/L (98-107) 05/01/18 05:30 Carbon Dioxide 26 mmol/L (21-32) 05/01/18 05:30 Anion Gap 7 MMOL/L (8-16) L 05/01/18 05:30 BUN 8 mg/dL (7-18) 05/01/18 05:30 Creatinine 0.5 mg/dL (0.55-1.3) L 05/01/18 05:30 Creat Clearance w eGFR > 60 (>60) 05/01/18 05:30 Random Glucose 180 mg/dL (74-106) H 05/01/18 05:30 Calcium 8.0 mg/dL (8.5-10.1) L 05/01/18 05:30 Total Bilirubin 1.0 mg/dL (0.2-1) 05/01/18 05:30 AST 13 U/L (15-37) L 05/01/18 05:30 ALT 27 U/L (13-61) 05/01/18 05:30 Alkaline Phosphatase 291 U/L (45-117) H 05/01/18 05:30 Total Protein 5.4 g/dl (6.4-8.2) L 05/01/18 05:30 Albumin 1.4 g/dl (3.4-5.0) L 05/01/18 05:30 CARDIAC ENZYMES Creatine Kinase 86 IU/L (26-192) 04/27/18 20:10 Troponin I < 0.02 ng/ml (0.00-0.05) 04/28/18 06:30 Current Medications Generic Name Dose Route Start Last Admin Trade Name Freq PRN Reason Stop Dose Admin Chlorhexidine Gluconate 1 applic 04/28/18 22:00 04/30/18 21:24 Hibiclens For Decolonization - TP 1 applic HS MIRA Administration Duloxetine HCl 60 mg 04/28/18 10:00 04/30/18 09:45 Cymbalta - PO 60 mg DAILY MIRA Administration Meropenem 1 gm/ Dextrose 100 mls @ 200 mls/hr 04/30/18 19:00 05/01/18 01:59 IVPB 200 mls/hr Q8H-IV MIRA Administration Insulin Aspart 1 vial 04/28/18 11:00 05/01/18 06:54 Novolog Vial Sliding Scale - SQ 2 units ACHS MIRA Administration Protocol Lisinopril 10 mg 04/30/18 10:00 04/30/18 09:46 Prinivil PO 10 mg DAILY MIRA Administration Metoprolol Tartrate 25 mg 05/01/18 10:00 Lopressor - PO BID MIRA Mupirocin 1 applic 04/28/18 10:00 04/30/18 21:25 Bactroban Ointment (For Decolonization) - NS 05/03/18 09:59 1 applic BID MIRA Administration Home Medications Medication Instructions Recorded Canagliflozin [Invokana] 100 mg PO DAILY 03/21/17 Duloxetine HCl 60 mg PO DAILY 03/21/17 Lisinopril 10 mg PO DAILY 03/21/17 Montelukast Na [Singulair -] 10 mg PO DAILY 03/21/17 Oxycodone HCl/Acetaminophen 1 tab PO PRN 03/21/17 [Endocet 5-325 Tablet] Metoprolol Tartrate [Lopressor -] 25 mg PO BID #60 tablet 04/09/18 Insulin Degludec [Tresiba 50 unit SQ HS 04/30/18 Flextouch U-200] Metformin HCl [Metformin HCl ER] 1,000 mg PO BID 04/30/18 Ranitidine [Zantac -] 150 mg PO BID 04/30/18 Microbiology 04/29/18 05:00 Blood - Picc Line Blood Culture - Final Escherichia Coli 04/29/18 05:00 Blood - Picc Line Blood Culture - Final Escherichia Coli 04/30/18 09:39 Blood - Peripheral Venous Blood Culture - Preliminary NO GROWTH OBTAINED AFTER 24 HOURS, INCUBATION TO CONTINUE FOR 4 DAYS. 04/30/18 09:35 Blood - Peripheral Venous Blood Culture - Preliminary Lactose Fermenting Neg Bacilli 04/27/18 20:26 Blood - Peripheral Venous Blood Culture - Final Lactose Fermenting Neg Bacilli 04/27/18 23:15 Urine - Urine Toney Urine Culture - Final Escherichia Coli 04/27/18 20:26 Blood - Peripheral Venous Blood Culture - Final Escherichia Coli 04/28/18 02:00 Urine For Antigen Detection Legionella Antigen - Final 04/28/18 02:00 Urine For Antigen Detection Streptococcus pneumoniae Antigen (M - Final ASSESSMENT AND PLAN: Patient is a 67yo female with PMHx of HTN, DM, with recent admission of UTI, sepsis due to having E. coli bacteremia and R psoas abscess s/p drainage ( 03/16 -04/10) , Hx of DVT, HLP, uterine ca s/p chemo and Rtx. she presented with AMS and poor oral intake, and was found to have sepsis due to UTI with Right retroperitoneal collection. # Gram negative septisemia due to E coli UTI. # Right retroperitoneal hematoma with possible concern to having an infected / abscess hematoma. H/H is stable. repeat blood cx with growth. on meropenem as per ID. MRI is pending to evaluate the retroperitoneal hematoma ,IR declined intervention . # T2DM with hypoglycemia due to poor po intake . continue to hold long acting insulin , cont SSI on D5w for now # AMS due to metabolic encephalopathy . improved # Acute transaminitis: likely due to sepsis, trend LFTS # HTN: cont lisinopril. hypotension resolved DVT Px : SCDS dispo :waiting for a bed at [facility]. patient is accepted for transfer . accepting MD is Dr. Donta Gomez . awaiting bed availability
[2018-05-01] MEDS: POTASSIUM CHLORIDE TABS 20 MEQ TABLET.ER (FP) PO ONE ×2 (08:23→08:55)
[2018-05-01] MEDS: METOPROLOL TARTRATE 25 MG TABLET (FP) PO SCH ×2 (08:59→21:02)
[2018-05-01] MEDS: LISINOPRIL 10 MG TABLET (FP) PO SCH (08:59)
--- NOTE | 2018-05-01 08:59 | PN ---
Physical Exam: SUBJECTIVE: Patient seen and examined at bedside. Continues spiking fevers, most recent ~7am to 103. Third BCx yesterday still growing lac+ Gnb. Patient lethargic, minimally communicative this AM. OBJECTIVE: Vital Signs Period Temp Pulse Resp BP Sys/Leija Pulse Ox Last 24 Hr 98.5 F-103.2 F 88-122 17-30 131-182/65-98 100-100 GENERAL: Lethargic but arousable, affirms pain, minimal communication, showing rigors and shaking chills HEAD: NC/AT EYES: PERRLA ENT: MMM NECK: Trachea midline, full range of motion, supple. LUNGS: CTA b/l HEART: tachy, regular rhythm, no m/r/g ABDOMEN: +bs, soft, RLQ and suprapubic TTP EXTREMITIES: right pelvic swelling and tenderness, 2+ pulses, warm, well- perfused, no edema. NEUROLOGICAL: Moving 4 extremities spontaneously, unable to assess further PSYCH: Normal mood, normal affect. SKIN: Warm, dry, normal turgor, no rashes or lesions noted Laboratory Results - last 24 hr 04/30/18 04/30/18 04/30/18 05:15 12:34 15:30 WBC 17.3 H RBC 2.82 L Hgb 7.6 L Hct 22.0 L MCV 78.2 L MCH 27.1 MCHC 34.6 RDW 17.9 H Plt Count 220 MPV 9.9 Absolute Neuts (auto) Neutrophils % Neutrophils % (Manual) 89.9 H Band Neutrophils % 5.1 Lymphocytes % Lymphocytes % (Manual) 0.0 L Monocytes % Monocytes % (Manual) 5 D Eosinophils % Eosinophils % (Manual) 0.0 Basophils % Basophils % (Manual) 0.0 Myelocytes % (Man) 0 Promyelocytes % (Man) 0 Blast Cells % (Manual) 0 Nucleated RBC % Metamyelocytes 0 Hypochromia 0 Platelet Estimate Normal Polychromasia 0 Poikilocytosis 0 Anisocytosis 1+ Microcytosis 1+ Macrocytosis 0 Target Cells 1+ Sodium Potassium Chloride Carbon Dioxide Anion Gap BUN Creatinine Creat Clearance w eGFR POC Glucometer 114.86204 Random Glucose Calcium Phosphorus Magnesium Total Bilirubin AST ALT Alkaline Phosphatase Total Protein Albumin 04/30/18 04/30/18 05/01/18 17:03 21:22 05:30 WBC 16.9 H RBC 2.97 L Hgb 7.6 L Hct 23.5 L MCV 79.2 L MCH 25.6 L MCHC 32.3 RDW 17.7 H Plt Count 210 MPV 9.7 Absolute Neuts (auto) 14.2 H Neutrophils % 83.7 H Neutrophils % (Manual) Band Neutrophils % Lymphocytes % 12.3 D Lymphocytes % (Manual) Monocytes % 3.5 L Monocytes % (Manual) Eosinophils % 0.2 Eosinophils % (Manual) Basophils % 0.3 Basophils % (Manual) Myelocytes % (Man) Promyelocytes % (Man) Blast Cells % (Manual) Nucleated RBC % 0 Metamyelocytes Hypochromia Platelet Estimate Polychromasia Poikilocytosis Anisocytosis Microcytosis Macrocytosis Target Cells Sodium Potassium Chloride Carbon Dioxide Anion Gap BUN Creatinine Creat Clearance w eGFR POC Glucometer 153.30352 204.37503 Random Glucose Calcium Phosphorus Magnesium Total Bilirubin AST ALT Alkaline Phosphatase Total Protein Albumin 05/01/18 05/01/18 05:30 06:53 WBC RBC Hgb Hct MCV MCH MCHC RDW Plt Count MPV Absolute Neuts (auto) Neutrophils % Neutrophils % (Manual) Band Neutrophils % Lymphocytes % Lymphocytes % (Manual) Monocytes % Monocytes % (Manual) Eosinophils % Eosinophils % (Manual) Basophils % Basophils % (Manual) Myelocytes % (Man) Promyelocytes % (Man) Blast Cells % (Manual) Nucleated RBC % Metamyelocytes Hypochromia Platelet Estimate Polychromasia Poikilocytosis Anisocytosis Microcytosis Macrocytosis Target Cells Sodium 134 L Potassium 3.5 Chloride 102 Carbon Dioxide 26 Anion Gap 7 L BUN 8 Creatinine 0.5 L Creat Clearance w eGFR > 60 POC Glucometer 170.30290 Random Glucose 180 H Calcium 8.0 L Phosphorus 3.0 Magnesium 1.6 L Total Bilirubin 1.0 AST 13 L ALT 27 Alkaline Phosphatase 291 H Total Protein 5.4 L Albumin 1.4 L Active Medications Generic Name Dose Route Start Last Admin Trade Name Freq PRN Reason Stop Dose Admin Chlorhexidine Gluconate 1 applic 04/28/18 22:00 04/30/18 21:24 Hibiclens For Decolonization - TP 1 applic HS MIRA Administration Duloxetine HCl 60 mg 04/28/18 10:00 04/30/18 09:45 Cymbalta - PO 60 mg DAILY MIRA Administration Meropenem 1 gm/ Dextrose 100 mls @ 200 mls/hr 04/30/18 19:00 05/01/18 01:59 IVPB 200 mls/hr Q8H-IV MIRA Administration Insulin Aspart 1 vial 04/28/18 11:00 05/01/18 06:54 Novolog Vial Sliding Scale - SQ 2 units ACHS MIRA Administration Protocol Lisinopril 10 mg 04/30/18 10:00 04/30/18 09:46 Prinivil PO 10 mg DAILY MIRA Administration Metoprolol Tartrate 25 mg 05/01/18 10:00 Lopressor - PO BID MIRA Mupirocin 1 applic 04/28/18 10:00 04/30/18 21:25 Bactroban Ointment (For Decolonization) - NS 05/03/18 09:59 1 applic BID MIRA Administration ASSESSMENT/PLAN: 67 y/o F w/ PMHx uterine Ca s/p RAHUL and chemoRT, HTN, DM, b/l DVT, recent admission for G- bacteremia 2/2 UTI and R iliopsoas abscess in March, admitted w/ severe urosepsis, blood culture positive for lac+ Gnb. #ID -3rd BCx yesterday postive for lac+ Gnb -fever 103 this AM, tylenol given -ABx switched to meropenem d/t Zosyn resistance, likely ESBL -Meropenem likely not penetrating abscess -leukocytosis persistent -CT a/p re-identified R retroperitoneal hematoma, likely nidus of infection -for transfer to tertiary center for further evaluation of hematoma/intervention -defer MRI for tertiary center management #CV -hypertensive to 182/80, received labetalol this AM -restarted on Lopressor #nephro -RADHA resolved -IVF d/c'd -monitor urine output -monitor creatinine -monitor lytes -maintain avila #endocrine -SSI -BGM ACHS #GI -LFT abnormalities likely 2/2 ischemia, stable #FEN -no IVF -monitor and replete lytes -diabetic diet #PPx -DVT: SCDs, no pharmacologic AC in setting of hematoma -GI: not indicated #code -full #dispo -transfer pending to [place], per primary team patient is accepted for transfer , accepting MD is Dr. Donta Gomez, awaiting bed availability Visit type - Emergency Visit Emergency Visit: No - New Patient This patient is new to me today: No - Critical Care Critical Care patient: Yes Total Critical Care Time (in minutes): 40 Critical Care Statement: The care of this patient involved high complexity decision making to prevent further life threatening deterioration of the patient 's condition and/or to evaluate & treat vital organ system(s) failure or risk of failure.
[2018-05-01] MEDS: MUPIROCIN 2% TOPICAL OINTMENT FOR DECOLONIZATION NS SCH ×2 (09:00→22:00)
[2018-05-01] MEDS: DULoxetine HCL 30 MG CAPSULE.DR (FP) PO SCH (09:00)
[2018-05-01] MEDS ORDERED: morphine SULFATE 4 MG/ML VIAL IVPUSH ONE (09:51)
--- NOTE | 2018-05-01 10:18 | PN ---
Physical Exam: SUBJECTIVE: Patient seen and examined at bedside. Pt with fever ~103 with rigors. IV Tylenol given. Pt is still complaining of R leg pain but feels better. Pt responding to commands. OBJECTIVE: Vital Signs Period Temp Pulse Resp BP Sys/Leija Pulse Ox Last 24 Hr 98.8 F-103.2 F 98-122 17-30 131-182/65-98 100-100 GENERAL: Lethargic. NAD. Oriented to person. HEENT: AT/NC. EOMI. Dry mucus membranes. NECK: Trachea midline, full range of motion, supple. LUNGS: CTA B/L. No wheezes noted. HEART: RRR. Normal S1, S2. No murmurs noted ABDOMEN: Soft. NT/ND. +Bs in all 4Qs. EXTREMITIES: 2+ pulses, warm, well-perfused, no edema. 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 CBCD WBC 16.9 K/mm3 (4.0-10.0) H 05/01/18 05:30 RBC 2.97 M/mm3 (3.60-5.2) L 05/01/18 05:30 Hgb 7.6 GM/dL (10.7-15.3) L 05/01/18 05:30 Hct 23.5 % (32.4-45.2) L 05/01/18 05:30 MCV 79.2 fl (80-96) L 05/01/18 05:30 MCHC 32.3 g/dl (32.0-36.0) 05/01/18 05:30 RDW 17.7 % (11.6-15.6) H 05/01/18 05:30 Plt Count 210 K/MM3 (134-434) 05/01/18 05:30 MPV 9.7 fl (7.5-11.1) 05/01/18 05:30 CMP Sodium 134 mmol/L (136-145) L 05/01/18 05:30 Potassium 3.5 mmol/L (3.5-5.1) 05/01/18 05:30 Chloride 102 mmol/L (98-107) 05/01/18 05:30 Carbon Dioxide 26 mmol/L (21-32) 05/01/18 05:30 Anion Gap 7 MMOL/L (8-16) L 05/01/18 05:30 BUN 8 mg/dL (7-18) 05/01/18 05:30 Creatinine 0.5 mg/dL (0.55-1.3) L 05/01/18 05:30 Creat Clearance w eGFR > 60 (>60) 05/01/18 05:30 Calcium 8.0 mg/dL (8.5-10.1) L 05/01/18 05:30 Total Bilirubin 1.0 mg/dL (0.2-1) 05/01/18 05:30 AST 13 U/L (15-37) L 05/01/18 05:30 ALT 27 U/L (13-61) 05/01/18 05:30 Alkaline Phosphatase 291 U/L (45-117) H 05/01/18 05:30 Total Protein 5.4 g/dl (6.4-8.2) L 05/01/18 05:30 Albumin 1.4 g/dl (3.4-5.0) L 05/01/18 05:30 Active Medications Chlorhexidine Gluconate (Hibiclens For Decolonization -) 1 applic TP HS [facility] Last Admin: 04/30/18 21:24 Dose: 1 applic Duloxetine HCl (Cymbalta -) 60 mg PO DAILY [facility] Last Admin: 05/01/18 09:00 Dose: 60 mg Meropenem 1 gm/ Dextrose 100 mls @ 200 mls/hr IVPB Q8H-IV [facility] Last Admin: 05/01/18 09:09 Dose: 200 mls/hr Insulin Aspart (Novolog Vial Sliding Scale -) 1 vial SQ ACHS [facility]; Protocol Last Admin: 05/01/18 06:54 Dose: 2 units Lisinopril (Prinivil) 10 mg PO DAILY [facility] Last Admin: 05/01/18 08:59 Dose: 10 mg Metoprolol Tartrate (Lopressor -) 25 mg PO BID [facility] Last Admin: 05/01/18 08:59 Dose: 25 mg Mupirocin (Bactroban Ointment (For Decolonization) -) 1 applic NS BID [facility] Stop: 05/03/18 09:59 Last Admin: 05/01/18 09:00 Dose: 1 applic ASSESSMENT/PLAN: Vasc- Dr. Pavel Gallegos IMAGING: * CTAP: interval enlargement of a nonspecific right iliopsoas lesion is seen as well as associated development of a small amount of air/gas within the lesion. These findings may be on the basis of etiologies such as abscess, abscess with fistula formation, or tumor with superimposed abscess and/or fistula. No gross fistulous tract can be identified on this noncontrast study. Development of associated bone erosion is noted involving the contiguous right iliac bone suspicious for osteomyelitis. Direct neoplastic involvement is probably less likely. CT-guided percutaneous needle biopsy/drainage may be performed. * Abd U/S: Somewhat limited exam due to patient immobility. No obvious abnormality is identified. * RLE U/S: No DVT. ASSESSMENT/PLAN: 67F w/ pmhx of uterine Ca s/p RAHUL and chemo/RT, HTN, DM, b/l DVT, recent admission for G- bacteremia 2/2 UTI and R iliopsoas abscess in March, admitted w/ severe urosepsis, blood culture positive for lac+ Gnb. #Severe Sepsis w/ GNB -Pt has an evolving R retroperitoneal hematoma, febrile, increased WBC. Per ID, hematoma may be infected. Recommend transfer to tertiary care facility as IR drainage was previously attempted here, but unsuccessful with no drainage. -Per ID, switch to Meropenem 1gm (previously on Zosyn 4.5 gm IVPB; started 04/28). Pt still febrile with +BCx growing lactose-fermenting GNB despite new abx therapy. It is possible that IV antibiotics cannot reach suspected infected hematoma. -IV Tylenol for fever -ID following -Repeat BCx (04/29) continues to grow lactose-fermenting GNB -Will defer MRI for tertiary management; awaiting transfer to [place] #Acute Anemia, ; Hgb now 7.7 -s/p 2U pRBCs during this admission, ddAVP previously given -may likely be due to R retroperitoneal hematoma -f/u CBC, transfuse as needed. #DM -ISS ACHS -BGMs ACHS -hold Levemir #Hypokalemia; Resolved. -K+ 3.5 today. Replete PRN #Prophylaxis DVT: SCDs FEN -no IVF -recheck lytes in AM, replete PRN -Diabetic diet dispo -cont to monitor in ICU -Case discussed with [facility]. Transfer initiated and accepted for further tertiary care. Called [facility] today; accepting physician is Dr. Donta Gomez. Awaiting available bed. Family made aware and in agreement. Visit type - Emergency Visit Emergency Visit: Yes ED Registration Date: 04/27/18 Care time: The patient presented to the Emergency Department on the above date and was hospitalized for further evaluation of their emergent condition. - New Patient This patient is new to me today: No - Critical Care Critical Care patient: Yes Total Critical Care Time (in minutes): 40 Critical Care Statement: The care of this patient involved high complexity decision making to prevent further life threatening deterioration of the patient 's condition and/or to evaluate & treat vital organ system(s) failure or risk of failure.
--- NOTE | 2018-05-01 12:32 | PN ---
Teaching Attending Note Name of Resident: August Perez ATTENDING PHYSICIAN STATEMENT I saw and evaluated the patient. I reviewed the resident's note and discussed the case with the resident. I agree with the resident's findings and plan as documented. SUBJECTIVE: Pt seen and examined in the ICU. Still with significant right hip pain and fevers. Last blood cultures still positive. Awaiting transfer. OBJECTIVE: Vital Signs Period Temp Pulse Resp BP Sys/Leija Pulse Ox Last 24 Hr 98.8 F-103.2 F 96-122 17-30 131-182/62-98 100-100 Intake & Output 04/28/18 04/29/18 04/30/18 05/01/18 23:59 23:59 23:59 23:59 Intake Total 6150 3505 1442 100 Output Total 2800 750 2250 1200 Balance 3350 2755 -808 -1100 Weight 68.946 kg 73.936 kg 78.7 kg 75.8 kg Gen: pain with movement Heart: RRR Lung: decreased breath sounds at the bases Abd: soft, nontender Ext: no edema CBC, BMP 05/01/18 05:30 05/01/18 05:30 Active Medications Chlorhexidine Gluconate (Hibiclens For Decolonization -) 1 applic TP HS [facility] Last Admin: 04/30/18 21:24 Dose: 1 applic Duloxetine HCl (Cymbalta -) 60 mg PO DAILY [facility] Last Admin: 05/01/18 09:00 Dose: 60 mg Meropenem 1 gm/ Dextrose 100 mls @ 200 mls/hr IVPB Q8H-IV [facility] Last Admin: 05/01/18 09:09 Dose: 200 mls/hr Insulin Aspart (Novolog Vial Sliding Scale -) 1 vial SQ ACHS [facility]; Protocol Last Admin: 05/01/18 11:25 Dose: 4 units Lisinopril (Prinivil) 10 mg PO DAILY [facility] Last Admin: 05/01/18 08:59 Dose: 10 mg Metoprolol Tartrate (Lopressor -) 25 mg PO BID [facility] Last Admin: 05/01/18 08:59 Dose: 25 mg Mupirocin (Bactroban Ointment (For Decolonization) -) 1 applic NS BID [facility] Stop: 05/03/18 09:59 Last Admin: 05/01/18 09:00 Dose: 1 applic ASSESSMENT AND PLAN: R Ileopsoas Abscess with likely Osteomyelitis UTI Gram Negative Bacteremia Severe Sepsis Acute Kidney Injury Lactic Acidosis Elevated LFTs likely ischemic injury DM - IV antibiotics - f/u pending cultures - replete lytes - monitor urine output, creatinine - DVT prophylaxis - for transfer to tertiary [facility] for further evaluation of mass/ abscess
--- NOTE | 2018-05-01 13:35 | EKG ---
Test Reason : Blood Pressure : / mmHG Vent. Rate : 124 BPM Atrial Rate : 124 BPM P-R Int : 124 ms QRS Dur : 082 ms QT Int : 316 ms P-R-T Axes : 047 040 049 degrees QTc Int : 453 ms SINUS TACHYCARDIA POSSIBLE LEFT ATRIAL ENLARGEMENT BORDERLINE ECG WHEN COMPARED WITH ECG OF 21-MAR-2017 23:44, NONSPECIFIC T WAVE ABNORMALITY NO LONGER EVIDENT IN ANTERIOR LEADS Confirmed by PALMA LOCKETT, MIR ([id number]) on 05/01/2018 1:35:29 PM Referred By: Confirmed By:MIR WALDROP MD
--- NOTE | 2018-05-01 15:40 | PN ---
Progress Note, Physician History of Present Illness: patient spiking fevers still high grade probably dues to hematoma infected /abscess - Current Medication List Current Medications: Active Medications Chlorhexidine Gluconate (Hibiclens For Decolonization -) 1 applic TP HS [facility] Last Admin: 04/30/18 21:24 Dose: 1 applic Duloxetine HCl (Cymbalta -) 60 mg PO DAILY [facility] Last Admin: 05/01/18 09:00 Dose: 60 mg Meropenem 1 gm/ Dextrose 100 mls @ 200 mls/hr IVPB Q8H-IV [facility] Last Admin: 05/01/18 09:09 Dose: 200 mls/hr Insulin Aspart (Novolog Vial Sliding Scale -) 1 vial SQ ACHS [facility]; Protocol Last Admin: 05/01/18 11:25 Dose: 4 units Lisinopril (Prinivil) 10 mg PO DAILY [facility] Last Admin: 05/01/18 08:59 Dose: 10 mg Metoprolol Tartrate (Lopressor -) 25 mg PO BID [facility] Last Admin: 05/01/18 08:59 Dose: 25 mg Mupirocin (Bactroban Ointment (For Decolonization) -) 1 applic NS BID [facility] Stop: 05/03/18 09:59 Last Admin: 05/01/18 09:00 Dose: 1 applic - Objective Vital Signs: Vital Signs Temperature 98.3 F 05/01/18 14:36 Pulse Rate 98 H 05/01/18 14:00 Respiratory Rate 22 H 05/01/18 14:00 Blood Pressure 105/58 L 05/01/18 14:00 O2 Sat by Pulse Oximetry (%) 100 05/01/18 09:33 Constitutional: Yes: No Distress, Calm Cardiovascular: Yes: S1, S2 Respiratory: Yes: Regular, CTA Bilaterally Gastrointestinal: Yes: Normal Bowel Sounds, Soft Musculoskeletal: Yes: WNL Extremities: Yes: Other Neurological: Yes: Alert, Oriented Psychiatric: Yes: Alert, Oriented Labs: CBC, BMP 05/01/18 05:30 05/01/18 05:30 INR, PTT INR 1.32 (0.83-1.09) H 04/29/18 12:23 Assessment/Plan R Ileopsoas hematoma UTI Gram Negative Bacteremia Severe Sepsis Acute Kidney Injury Lactic Acidosis Elevated LFTs likely ischemic injury DM i think patient could have some lesion at the place and also she has and also had infected hematoma .I am worried that there could also be an abscess now plan would continue abx repeat cx noted blood cx reordered continue toño will await for repeat blood report close watch on h and h rest as per the team cc 40 min
[2018-05-01] MEDS: ACETAMINOPHEN 1000 MG/100 ML VIAL (NON FORMULARY) IVPB PRN (20:49)
[2018-05-01] MEDS: CHLORHEXIDINE GLUCONATE 4% CLEANSER FOR DECOLONIZATION TP SCH (21:03)
[2018-05-02] MEDS ORDERED: PT OWN MED DRAWER 7, Y5N ONE ×2 (00:07→09:23)
[2018-05-02] MEDS: MEROPENEM 1 GM in DEXTROSE 5%-WATER 100 ML IVPB SCH ×3 (03:11→17:35)
[2018-05-02] MEDS ORDERED: morphine SULFATE 4 MG/ML VIAL IVPUSH ONE (05:50)
[2018-05-02] MEDS: INSULIN SLIDING SCALE (NOVOLOG) 1 VIAL SQ SCH ×3 (06:33→18:31)
[2018-05-02 06:50] LABS: BASO % 0.1 % (0-2.0); EOS % 0.1 % (0-4.5); HEMATOCRIT 24.6 % (32.4-45.2); HEMOGLOBIN 8.5 GM/dL (10.7-15.3); LYMPH % 5.5 % (8-40); MCH 27.1 pg (25.7-33.7); MCHC 34.5 g/dl (32.0-36.0); MEAN CELL VOLUME 78.7 fl (80-96); MEAN PLT VOLUME 9.6 fl (7.5-11.1); MONO % 3.6 % (3.8-10.2); NEUT % 90.7 % (42.8-82.8); PLATELET COUNT 304 K/MM3 (134-434); RBC 3.13 M/mm3 (3.60-5.2); RDW 18.2 % (11.6-15.6); WHITE BLOOD COUNT 17.6 K/mm3 (4.0-10.0)
[2018-05-02 06:53] LABS: ALBUMIN 1.6 g/dl (3.4-5.0); ALK PHOS 362 U/L (45-117); ANION GAP 9 MMOL/L (8-16); BILIRUBIN,TOTAL 1.1 mg/dL (0.2-1); BLOOD UREA NITROGEN 8 mg/dL (7-18); CALCIUM 8.3 mg/dL (8.5-10.1); CHLORIDE 101 mmol/L (98-107); CO2 25 mmol/L (21-32); CREATININE 0.5 mg/dL (0.55-1.3); GLUCOSE,RANDOM 177 mg/dL (74-106); MAGNESIUM 1.7 mg/dL (1.8-2.4); PHOSPHOROUS 2.5 mg/dL (2.5-4.9); POTASSIUM 3.6 mmol/L (3.5-5.1); SGOT/AST 12 U/L (15-37); SGPT/ALT 22 U/L (13-61); SODIUM 135 mmol/L (136-145); TOT PROT 6.1 g/dl (6.4-8.2)
[2018-05-02] MEDS ORDERED: POTASSIUM CHLORIDE TABS 20 MEQ TABLET.ER (FP) PO ONE (08:45)
[2018-05-02] MEDS ORDERED: MAGNESIUM SULF 50% (8.12 MEQ/2 ML-1 GM VIAL) IVPB ONE (08:45)
--- NOTE | 2018-05-02 09:02 | PN ---
Physical Exam: SUBJECTIVE: Patient seen and examined at bedside. Most recent fever 101 at 8: 30pm. Cultures remain positive however in fewer bottles. Pt is mentally clear this AM, affirms RLQ and RLE pain worsening, holding RLE in abduction. OBJECTIVE: Vital Signs Period Temp Pulse Resp BP Sys/Leija Pulse Ox Last 24 Hr 97.7 F-101.0 F 82-121 12-22 105-165/56-83 98-100 GENERAL: A&Ox3, in pain HEAD: NC/AT EYES: PERRLA, EOMI ENT: MMM NECK: Trachea midline, full range of motion, supple. LUNGS: Mild crackles mid-lung to bases b/l HEART: tachy, regular rhythm, no m/r/g ABDOMEN: +bs, soft, RLQ and suprapubic TTP EXTREMITIES: right pelvic and RLE swelling and tenderness, new onset right calf tenderness, 2+ pulses, warm, well-perfused, no edema. NEUROLOGICAL: CN, motor, sensory systems w/o focal deficits PSYCH: Normal mood, normal affect SKIN: Warm, dry, normal turgor, no rashes or lesions noted Laboratory Results - last 24 hr 04/27/18 05/01/18 05/01/18 20:10 05:30 11:14 Total Counted 100 Neutrophils % (Manual) 85.0 H Band Neutrophils % 4.0 Lymphocytes % (Manual) 4.0 L Monocytes % (Manual) 5 Eosinophils % (Manual) 0.0 Basophils % (Manual) 0.0 Myelocytes % (Man) 1 Metamyelocytes 1 Hypochromia 1+ Polychromasia 1+ Sodium Potassium Chloride Carbon Dioxide Anion Gap BUN Creatinine Creat Clearance w eGFR POC Glucometer [phone] Random Glucose Calcium Phosphorus Magnesium Total Bilirubin AST ALT Alkaline Phosphatase Total Protein Albumin Blood Type O POSITIVE Antibody Screen Negative Crossmatch See Detail 05/01/18 05/01/18 05/02/18 17:06 21:09 05:30 Total Counted Neutrophils % (Manual) Band Neutrophils % Lymphocytes % (Manual) Monocytes % (Manual) Eosinophils % (Manual) Basophils % (Manual) Myelocytes % (Man) Metamyelocytes Hypochromia Polychromasia Sodium 135 L Potassium 3.6 Chloride 101 Carbon Dioxide 25 Anion Gap 9 BUN 8 Creatinine 0.5 L Creat Clearance w eGFR > 60 POC Glucometer [phone] Random Glucose 177 H Calcium 8.3 L Phosphorus 2.5 Magnesium 1.7 L Total Bilirubin 1.1 H AST 12 L ALT 22 Alkaline Phosphatase 362 H Total Protein 6.1 L Albumin 1.6 L Blood Type Antibody Screen Crossmatch 05/02/18 06:31 Total Counted Neutrophils % (Manual) Band Neutrophils % Lymphocytes % (Manual) Monocytes % (Manual) Eosinophils % (Manual) Basophils % (Manual) Myelocytes % (Man) Metamyelocytes Hypochromia Polychromasia Sodium Potassium Chloride Carbon Dioxide Anion Gap BUN Creatinine Creat Clearance w eGFR POC Glucometer [phone] Random Glucose Calcium Phosphorus Magnesium Total Bilirubin AST ALT Alkaline Phosphatase Total Protein Albumin Blood Type Antibody Screen Crossmatch Active Medications Generic Name Dose Route Start Last Admin Trade Name Freq PRN Reason Stop Dose Admin Acetaminophen 1,000 mg 05/01/18 20:22 05/01/18 20:49 Ofirmev Injection - IVPB 1,000 mg Q6H PRN Administration FEVER Chlorhexidine Gluconate 1 applic 04/28/18 22:00 05/01/18 21:03 Hibiclens For Decolonization - TP 1 applic HS [facility] Administration Duloxetine HCl 60 mg 04/28/18 10:00 05/01/18 09:00 Cymbalta - PO 60 mg DAILY [facility] Administration Meropenem 1 gm/ Dextrose 100 mls @ 200 mls/hr 04/30/18 19:00 05/02/18 03:11 IVPB 200 mls/hr Q8H-IV [facility] Administration Insulin Aspart 1 vial 04/28/18 11:00 05/02/18 06:33 Novolog Vial Sliding Scale - SQ 2 units ACHS [facility] Administration Protocol Lisinopril 10 mg 04/30/18 10:00 05/01/18 08:59 Prinivil PO 10 mg DAILY [facility] Administration Metoprolol Tartrate 25 mg 05/01/18 10:00 05/01/18 21:02 Lopressor - PO 25 mg BID [facility] Administration Mupirocin 1 applic 04/28/18 10:00 05/01/18 22:00 Bactroban Ointment (For Decolonization) - NS 05/03/18 09:59 1 applic BID [facility] Administration ASSESSMENT/PLAN: 67 y/o F w/ PMHx uterine Ca s/p RAHUL and chemoRT, HTN, DM, b/l DVT, recent admission for G- bacteremia 2/2 UTI and R iliopsoas abscess in March, admitted w/ severe urosepsis, blood culture positive for lac+ Gnb. #ID -4th BCx positive for lac+ Gnb -fever 101 yesterday evening, currently afebrile -ABx switched to meropenem d/t Zosyn resistance, likely ESBL -Meropenem likely not penetrating abscess -leukocytosis persistent -CT a/p re-identified R retroperitoneal hematoma, likely nidus of infection -for transfer to tertiary center for further evaluation of hematoma/intervention -defer MRI for tertiary center management #calf tenderness -new onset -doppler study pending -not currently on pharmacologic AC #CV -BP stable -restarted on Lopressor #nephro -RADHA resolved -IVF d/c'd -monitor urine output -monitor creatinine -monitor lytes -maintain avila #endocrine -SSI -BGM ACHS #GI -LFT abnormalities likely 2/2 ischemia, stable #FEN -no IVF -monitor and replete lytes -diabetic diet #PPx -DVT: SCDs, no pharmacologic AC in setting of hematoma -GI: not indicated #code -full #dispo -transfer pending to [place], per primary team patient is accepted for transfer , accepting MD is Dr. Donta Gomez, awaiting bed availability Visit type - Emergency Visit Emergency Visit: No - New Patient This patient is new to me today: No - Critical Care Critical Care patient: Yes Total Critical Care Time (in minutes): 40 Critical Care Statement: The care of this patient involved high complexity decision making to prevent further life threatening deterioration of the patient 's condition and/or to evaluate & treat vital organ system(s) failure or risk of failure.
[2018-05-02] MEDS: DULoxetine HCL 30 MG CAPSULE.DR (FP) PO SCH (09:27)
[2018-05-02] MEDS: METOPROLOL TARTRATE 25 MG TABLET (FP) PO SCH ×2 (09:27→21:24)
[2018-05-02] MEDS: LISINOPRIL 10 MG TABLET (FP) PO SCH (09:27)
--- NOTE | 2018-05-02 12:37 | PN ---
Teaching Attending Note Name of Resident: August Perez ATTENDING PHYSICIAN STATEMENT I saw and evaluated the patient. I reviewed the resident's note and discussed the case with the resident. I agree with the resident's findings and plan as documented. SUBJECTIVE: Patient seen and examined in the ICU. Still with significant right hip pain. Still with intermittent fevers but improving. Denies CP or SOB. Awaiting transfer to tertiary care. OBJECTIVE: Intake & Output 04/29/18 04/30/18 05/01/18 05/02/18 23:59 23:59 23:59 23:59 Intake Total 3505 1442 1000 200 Output Total 750 2250 2200 1900 Balance 9715 -808 -1200 -1700 Weight 163 lb 173 lb 8.061 oz 167 lb 1.766 oz 164 lb 3.91 oz Last Vital Signs Temp Pulse Resp BP Pulse Ox 98.9 F 121 H 12 145/81 98 05/02/18 06:00 05/02/18 08:00 05/02/18 08:00 05/02/18 08:00 05/02/18 08:00 Active Medications Acetaminophen (Ofirmev Injection -) 1,000 mg IVPB Q6H PRN PRN Reason: FEVER Last Admin: 05/01/18 20:49 Dose: 1,000 mg Chlorhexidine Gluconate (Hibiclens For Decolonization -) 1 applic TP HS [facility] Last Admin: 05/01/18 21:03 Dose: 1 applic Duloxetine HCl (Cymbalta -) 60 mg PO DAILY [facility] Last Admin: 05/02/18 09:27 Dose: 60 mg Meropenem 1 gm/ Dextrose 100 mls @ 200 mls/hr IVPB Q8H-IV [facility] Last Admin: 05/02/18 09:26 Dose: 200 mls/hr Insulin Aspart (Novolog Vial Sliding Scale -) 1 vial SQ ACHS [facility]; Protocol Last Admin: 05/02/18 12:30 Dose: 4 units Lisinopril (Prinivil) 10 mg PO DAILY [facility] Last Admin: 05/02/18 09:27 Dose: 10 mg Metoprolol Tartrate (Lopressor -) 25 mg PO BID [facility] Last Admin: 05/02/18 09:27 Dose: 25 mg Mupirocin (Bactroban Ointment (For Decolonization) -) 1 applic NS BID [facility] Stop: 05/03/18 09:59 Last Admin: 05/01/18 22:00 Dose: 1 applic Gen: Awake and alert, (+) pain with movement Heart: RRR Lung: decreased breath sounds at the bases Abd: soft, nontender Ext: (+) edema LLE Laboratory Results - last 24 hr 04/27/18 05/01/18 05/01/18 20:10 05:30 17:06 WBC RBC Hgb Hct MCV MCH MCHC RDW Plt Count MPV Absolute Neuts (auto) Total Counted 100 Neutrophils % Neutrophils % (Manual) 85.0 H Band Neutrophils % 4.0 Lymphocytes % Lymphocytes % (Manual) 4.0 L Monocytes % Monocytes % (Manual) 5 Eosinophils % Eosinophils % (Manual) 0.0 Basophils % Basophils % (Manual) 0.0 Myelocytes % (Man) 1 Nucleated RBC % Metamyelocytes 1 Hypochromia 1+ Polychromasia 1+ Sodium Potassium Chloride Carbon Dioxide Anion Gap BUN Creatinine Creat Clearance w eGFR POC Glucometer [phone] Random Glucose Calcium Phosphorus Magnesium Total Bilirubin AST ALT Alkaline Phosphatase Total Protein Albumin Blood Type O POSITIVE Antibody Screen Negative Crossmatch See Detail 05/01/18 05/02/18 05/02/18 21:09 05:30 05:30 WBC 17.6 H RBC 3.13 L Hgb 8.5 L Hct 24.6 L MCV 78.7 L MCH 27.1 MCHC 34.5 RDW 18.2 H Plt Count 304 D MPV 9.6 Absolute Neuts (auto) 16.0 H Total Counted Neutrophils % 90.7 H Neutrophils % (Manual) Band Neutrophils % Lymphocytes % 5.5 L D Lymphocytes % (Manual) Monocytes % 3.6 L Monocytes % (Manual) Eosinophils % 0.1 Eosinophils % (Manual) Basophils % 0.1 Basophils % (Manual) Myelocytes % (Man) Nucleated RBC % 0 Metamyelocytes Hypochromia Polychromasia Sodium 135 L Potassium 3.6 Chloride 101 Carbon Dioxide 25 Anion Gap 9 BUN 8 Creatinine 0.5 L Creat Clearance w eGFR > 60 POC Glucometer [phone] Random Glucose 177 H Calcium 8.3 L Phosphorus 2.5 Magnesium 1.7 L Total Bilirubin 1.1 H AST 12 L ALT 22 Alkaline Phosphatase 362 H Total Protein 6.1 L Albumin 1.6 L Blood Type Antibody Screen Crossmatch 05/02/18 06:31 WBC RBC Hgb Hct MCV MCH MCHC RDW Plt Count MPV Absolute Neuts (auto) Total Counted Neutrophils % Neutrophils % (Manual) Band Neutrophils % Lymphocytes % Lymphocytes % (Manual) Monocytes % Monocytes % (Manual) Eosinophils % Eosinophils % (Manual) Basophils % Basophils % (Manual) Myelocytes % (Man) Nucleated RBC % Metamyelocytes Hypochromia Polychromasia Sodium Potassium Chloride Carbon Dioxide Anion Gap BUN Creatinine Creat Clearance w eGFR POC Glucometer [phone] Random Glucose Calcium Phosphorus Magnesium Total Bilirubin AST ALT Alkaline Phosphatase Total Protein Albumin Blood Type Antibody Screen Crossmatch ASSESSMENT AND PLAN: Right Ileopsoas Abscess with likely Osteomyelitis UTI Gram Negative Bacteremia Severe Sepsis Acute Kidney Injury Lactic Acidosis Elevated LFTs likely ischemic injury DM - IV antibiotics - f/u pending cultures - replete lytes - monitor urine output, creatinine - DVT prophylaxis - for transfer to tertiary care center for further evaluation of mass/abscess Dr De Luna Critical care time spent in reviewing chart, evaluating patient and formulating plan - 36 minutes.
[2018-05-02] MEDS: KCL 10 MEQ IVPB 10 MEQ/100 ML INFUS.BAG IVPB SCH ×2 (14:21→14:39)
--- NOTE | 2018-05-02 14:32 | PN ---
Physical Exam: SUBJECTIVE: Patient seen and examined at bedside. Pt was febrile at 101 this morning. No other acute events overnight. OBJECTIVE: Vital Signs Temperature 97.3 F L 05/02/18 14:00 Pulse Rate 105 H 05/02/18 14:00 Respiratory Rate 22 H 05/02/18 14:00 Blood Pressure 155/73 05/02/18 14:00 O2 Sat by Pulse Oximetry (%) 98 05/02/18 08:00 GENERAL: Lethargic. NAD. Oriented to person. HEENT: AT/NC. EOMI. Dry mucus membranes. NECK: Trachea midline, full range of motion, supple. LUNGS: CTA B/L. No wheezes noted. HEART: RRR. Normal S1, S2. No murmurs noted ABDOMEN: Soft. NT/ND. +Bs in all 4Qs. EXTREMITIES: 2+ pulses, warm, well-perfused, no edema. R thigh circumference > L NEUROLOGICAL: Responds to commands, generator man hands and opens eyes. CBCD WBC 17.6 K/mm3 (4.0-10.0) H 05/02/18 05:30 RBC 3.13 M/mm3 (3.60-5.2) L 05/02/18 05:30 Hgb 8.5 GM/dL (10.7-15.3) L 05/02/18 05:30 Hct 24.6 % (32.4-45.2) L 05/02/18 05:30 MCV 78.7 fl (80-96) L 05/02/18 05:30 MCHC 34.5 g/dl (32.0-36.0) 05/02/18 05:30 RDW 18.2 % (11.6-15.6) H 05/02/18 05:30 Plt Count 304 K/MM3 (134-434) D 05/02/18 05:30 MPV 9.6 fl (7.5-11.1) 05/02/18 05:30 CMP Sodium 135 mmol/L (136-145) L 05/02/18 05:30 Potassium 3.6 mmol/L (3.5-5.1) 05/02/18 05:30 Chloride 101 mmol/L (98-107) 05/02/18 05:30 Carbon Dioxide 25 mmol/L (21-32) 05/02/18 05:30 Anion Gap 9 MMOL/L (8-16) 05/02/18 05:30 BUN 8 mg/dL (7-18) 05/02/18 05:30 Creatinine 0.5 mg/dL (0.55-1.3) L 05/02/18 05:30 Creat Clearance w eGFR > 60 (>60) 05/02/18 05:30 Calcium 8.3 mg/dL (8.5-10.1) L 05/02/18 05:30 Total Bilirubin 1.1 mg/dL (0.2-1) H 05/02/18 05:30 AST 12 U/L (15-37) L 05/02/18 05:30 ALT 22 U/L (13-61) 05/02/18 05:30 Alkaline Phosphatase 362 U/L (45-117) H 05/02/18 05:30 Total Protein 6.1 g/dl (6.4-8.2) L 05/02/18 05:30 Albumin 1.6 g/dl (3.4-5.0) L 05/02/18 05:30 Active Medications Acetaminophen (Ofirmev Injection -) 1,000 mg IVPB Q6H PRN PRN Reason: FEVER Last Admin: 05/01/18 20:49 Dose: 1,000 mg Chlorhexidine Gluconate (Hibiclens For Decolonization -) 1 applic TP HS [facility] Last Admin: 05/01/18 21:03 Dose: 1 applic Duloxetine HCl (Cymbalta -) 60 mg PO DAILY [facility] Last Admin: 05/02/18 09:27 Dose: 60 mg Meropenem 1 gm/ Dextrose 100 mls @ 200 mls/hr IVPB Q8H-IV [facility] Last Admin: 05/02/18 09:26 Dose: 200 mls/hr Potassium Chloride (Potassium Chloride 10 Meq Premix Ivpb -) 10 meq in 100 mls @ 100 mls/hr IVPB Q60M [facility] Stop: 05/02/18 15:14 Last Admin: 05/02/18 14:21 Dose: 100 mls/hr Insulin Aspart (Novolog Vial Sliding Scale -) 1 vial SQ ACHS [facility]; Protocol Last Admin: 05/02/18 12:30 Dose: 4 units Lisinopril (Prinivil) 10 mg PO DAILY [facility] Last Admin: 05/02/18 09:27 Dose: 10 mg Metoprolol Tartrate (Lopressor -) 25 mg PO BID [facility] Last Admin: 05/02/18 09:27 Dose: 25 mg Mupirocin (Bactroban Ointment (For Decolonization) -) 1 applic NS BID [facility] Stop: 05/03/18 09:59 Last Admin: 05/01/18 22:00 Dose: 1 applic Vasc- Dr. Zhao ID- Dr. Gallegos IMAGING: * CTAP: interval enlargement of a nonspecific right iliopsoas lesion is seen as well as associated development of a small amount of air/gas within the lesion. These findings may be on the basis of etiologies such as abscess, abscess with fistula formation, or tumor with superimposed abscess and/or fistula. No gross fistulous tract can be identified on this noncontrast study. Development of associated bone erosion is noted involving the contiguous right iliac bone suspicious for osteomyelitis. Direct neoplastic involvement is probably less likely. CT-guided percutaneous needle biopsy/drainage may be performed. * Abd U/S: Somewhat limited exam due to patient immobility. No obvious abnormality is identified. * RLE U/S: No DVT. ASSESSMENT/PLAN: 67F w/ pmhx of uterine Ca s/p RAHUL and chemo/RT, HTN, DM, b/l DVT, recent admission for G- bacteremia 2/2 UTI and R iliopsoas abscess in March, admitted w/ severe urosepsis, blood culture positive for lac+ Gnb. #Severe Sepsis w/ GNB -Pt has an evolving R retroperitoneal hematoma, febrile, increased WBC. Per ID, hematoma may be infected. Recommend transfer to tertiary care facility as IR drainage was previously attempted here, but unsuccessful with no drainage. -Per ID, switch to Meropenem 1gm (previously on Zosyn 4.5 gm IVPB; started 04/28). Pt still febrile with +BCx growing lactose-fermenting GNB despite new abx therapy. It is possible that IV antibiotics cannot reach suspected infected hematoma. -IV Tylenol for fever -ID following -Repeat BCx (04/29) continues to grow lactose-fermenting GNB -Will defer MRI for tertiary management; awaiting transfer to [facility] #Acute Anemia, ; Hgb now 7.7 -s/p 2U pRBCs during this admission, ddAVP previously given -may likely be due to R retroperitoneal hematoma -f/u CBC, transfuse as needed. #DM -ISS ACHS -BGMs ACHS -hold Levemir #Hypokalemia; Resolved. -K+ 3.5 today. Replete PRN #Prophylaxis DVT: SCDs FEN -no IVF -recheck lytes in AM, replete PRN -Diabetic diet dispo -cont to monitor in ICU -Pt accepted to [facility], await bed availability. Called today for status of bed, still pending. Family made aware and in agreement with transfer. Visit type - Emergency Visit Emergency Visit: Yes ED Registration Date: 04/27/18 Care time: The patient presented to the Emergency Department on the above date and was hospitalized for further evaluation of their emergent condition. - New Patient This patient is new to me today: No - Critical Care Critical Care patient: Yes Total Critical Care Time (in minutes): 36 Critical Care Statement: The care of this patient involved high complexity decision making to prevent further life threatening deterioration of the patient 's condition and/or to evaluate & treat vital organ system(s) failure or risk of failure.
[2018-05-02] MEDS: ACETAMINOPHEN 1000 MG/100 ML VIAL (NON FORMULARY) IVPB PRN (14:34)
--- NOTE | 2018-05-02 14:41 | PN ---
Teaching Attending Note Name of Resident: La Souza ATTENDING PHYSICIAN STATEMENT I saw and evaluated the patient. I reviewed the resident's note and discussed the case with the resident. I agree with the resident's findings and plan as documented. SUBJECTIVE: Patient is in ICU. continues to complain of right hip pain with intermittent fevers, but better. OBJECTIVE: Vital Signs Temperature 97.3 F L 05/02/18 14:00 Pulse Rate 105 H 05/02/18 14:00 Respiratory Rate 22 H 05/02/18 14:00 Blood Pressure 155/73 05/02/18 14:00 O2 Sat by Pulse Oximetry (%) 98 05/02/18 08:00 GENERAL:lying in bed comfortably , NAD. Oriented to person. HEENT: AT/NC. EOMI. Dry mucus membranes. NECK: Trachea midline, full range of motion, supple. LUNGS: CTA B/L. No wheezes noted. HEART: RRR. Normal S1, S2. No murmurs noted ABDOMEN: Soft. NT/ND. positive for BS. EXTREMITIES: 2+ pulses, warm, well-perfused, no edema. R thigh circumference > L NEUROLOGICAL: CN 2-12 grossly intact. CBCD WBC 17.6 K/mm3 (4.0-10.0) H 05/02/18 05:30 RBC 3.13 M/mm3 (3.60-5.2) L 05/02/18 05:30 Hgb 8.5 GM/dL (10.7-15.3) L 05/02/18 05:30 Hct 24.6 % (32.4-45.2) L 05/02/18 05:30 MCV 78.7 fl (80-96) L 05/02/18 05:30 MCHC 34.5 g/dl (32.0-36.0) 05/02/18 05:30 RDW 18.2 % (11.6-15.6) H 05/02/18 05:30 Plt Count 304 K/MM3 (134-434) D 05/02/18 05:30 MPV 9.6 fl (7.5-11.1) 05/02/18 05:30 CMP Sodium 135 mmol/L (136-145) L 05/02/18 05:30 Potassium 3.6 mmol/L (3.5-5.1) 05/02/18 05:30 Chloride 101 mmol/L (98-107) 05/02/18 05:30 Carbon Dioxide 25 mmol/L (21-32) 05/02/18 05:30 Anion Gap 9 MMOL/L (8-16) 05/02/18 05:30 BUN 8 mg/dL (7-18) 05/02/18 05:30 Creatinine 0.5 mg/dL (0.55-1.3) L 05/02/18 05:30 Creat Clearance w eGFR > 60 (>60) 05/02/18 05:30 Random Glucose 177 mg/dL (74-106) H 05/02/18 05:30 Calcium 8.3 mg/dL (8.5-10.1) L 05/02/18 05:30 Total Bilirubin 1.1 mg/dL (0.2-1) H 05/02/18 05:30 AST 12 U/L (15-37) L 05/02/18 05:30 ALT 22 U/L (13-61) 05/02/18 05:30 Alkaline Phosphatase 362 U/L (45-117) H 05/02/18 05:30 Total Protein 6.1 g/dl (6.4-8.2) L 05/02/18 05:30 Albumin 1.6 g/dl (3.4-5.0) L 05/02/18 05:30 CARDIAC ENZYMES Creatine Kinase 86 IU/L (26-192) 04/27/18 20:10 Troponin I < 0.02 ng/ml (0.00-0.05) 04/28/18 06:30 Current Medications Generic Name Dose Route Start Last Admin Trade Name Freq PRN Reason Stop Dose Admin Acetaminophen 1,000 mg 05/01/18 20:22 05/02/18 14:34 Ofirmev Injection - IVPB 1,000 mg Q6H PRN Administration FEVER Chlorhexidine Gluconate 1 applic 04/28/18 22:00 05/01/18 21:03 Hibiclens For Decolonization - TP 1 applic HS [facility] Administration Duloxetine HCl 60 mg 04/28/18 10:00 05/02/18 09:27 Cymbalta - PO 60 mg DAILY [facility] Administration Meropenem 1 gm/ Dextrose 100 mls @ 200 mls/hr 04/30/18 19:00 05/02/18 09:26 IVPB 200 mls/hr Q8H-IV [facility] Administration Potassium Chloride 10 meq in 100 mls @ 100 mls/hr 05/02/18 13:15 05/02/18 14: 39 Potassium Chloride 10 Meq Premix Ivpb - IVPB 05/02/18 15:14 100 mls/hr Q60M [facility] Administration Insulin Aspart 1 vial 04/28/18 11:00 05/02/18 12:30 Novolog Vial Sliding Scale - SQ 4 units ACHS [facility] Administration Protocol Lisinopril 10 mg 04/30/18 10:00 05/02/18 09:27 Prinivil PO 10 mg DAILY [facility] Administration Metoprolol Tartrate 25 mg 05/01/18 10:00 05/02/18 09:27 Lopressor - PO 25 mg BID [facility] Administration Mupirocin 1 applic 04/28/18 10:00 05/01/18 22:00 Bactroban Ointment (For Decolonization) - NS 05/03/18 09:59 1 applic BID [facility] Administration Home Medications Medication Instructions Recorded Canagliflozin [Invokana] 100 mg PO DAILY 03/21/17 Duloxetine HCl 60 mg PO DAILY 03/21/17 Lisinopril 10 mg PO DAILY 03/21/17 Montelukast Na [Singulair -] 10 mg PO DAILY 03/21/17 Oxycodone HCl/Acetaminophen 1 tab PO PRN 03/21/17 [Endocet 5-325 Tablet] Metoprolol Tartrate [Lopressor -] 25 mg PO BID #60 tablet 04/09/18 Insulin Degludec [Tresiba 50 unit SQ HS 04/30/18 Flextouch U-200] Metformin HCl [Metformin HCl ER] 1,000 mg PO BID 04/30/18 Ranitidine [Zantac -] 150 mg PO BID 04/30/18 Microbiology 04/30/18 09:39 Blood - Peripheral Venous Blood Culture - Preliminary NO GROWTH OBTAINED AFTER 48 HOURS, INCUBATION TO CONTINUE FOR 3 DAYS. 04/30/18 09:35 Blood - Peripheral Venous Blood Culture - Final Escherichia Coli 04/29/18 05:00 Blood - Picc Line Blood Culture - Final Escherichia Coli 04/29/18 05:00 Blood - Picc Line Blood Culture - Final Escherichia Coli 04/27/18 20:26 Blood - Peripheral Venous Blood Culture - Final Lactose Fermenting Neg Bacilli 04/27/18 23:15 Urine - Urine Toney Urine Culture - Final Escherichia Coli 04/27/18 20:26 Blood - Peripheral Venous Blood Culture - Final Escherichia Coli 04/28/18 02:00 Urine For Antigen Detection Legionella Antigen - Final 04/28/18 02:00 Urine For Antigen Detection Streptococcus pneumoniae Antigen (M - Final) ASSESSMENT AND PLAN: Patient is a 67yo female with PMHx of HTN, DM, with recent admission of UTI, sepsis due to having E. coli bacteremia and R psoas abscess s/p drainage ( 03/16 -04/10) , Hx of DVT, HLD, uterine ca s/p chemo and RTx. she presented with AMS and poor oral intake, and was found to have sepsis due to UTI with Right retroperitoneal collection. # Gram negative septisemia due to E coli UTI. OnIV antibiotic continue; Meropenem. # Right retroperitoneal hematoma with possibility of having an infected / abscess hematoma. H/H is stable. repeat blood cx with growth. on meropenem as per ID. IR declined further intervention at this time. . # T2DM with hypoglycemia due to poor po intake . continue SSI with coverage. # AMS due to metabolic encephalopathy . improved # Acute transaminitis: likely due to sepsis, trend LFTS # HTN: cont lisinopril. hypotension resolved DVT Px : SCDS dispo :waiting for a bed at [facility]. patient is accepted for transfer . accepting MD is Dr. Donta Gomez . awaiting bed availability
[2018-05-02] MEDS ORDERED: oxyCODONE HCL 5 MG TABLET PO ONE (14:57)
[2018-05-02 15:00] VITALS: BMI 28.1
--- NOTE | 2018-05-02 15:22 | PN ---
Progress Note, Physician - Current Medication List Current Medications: Active Medications Acetaminophen (Ofirmev Injection -) 1,000 mg IVPB Q6H PRN PRN Reason: FEVER Last Admin: 05/02/18 14:34 Dose: 1,000 mg Chlorhexidine Gluconate (Hibiclens For Decolonization -) 1 applic TP HS [facility] Last Admin: 05/01/18 21:03 Dose: 1 applic Duloxetine HCl (Cymbalta -) 60 mg PO DAILY [facility] Last Admin: 05/02/18 09:27 Dose: 60 mg Meropenem 1 gm/ Dextrose 100 mls @ 200 mls/hr IVPB Q8H-IV [facility] Last Admin: 05/02/18 09:26 Dose: 200 mls/hr Insulin Aspart (Novolog Vial Sliding Scale -) 1 vial SQ ACHS [facility]; Protocol Last Admin: 05/02/18 12:30 Dose: 4 units Lisinopril (Prinivil) 10 mg PO DAILY [facility] Last Admin: 05/02/18 09:27 Dose: 10 mg Metoprolol Tartrate (Lopressor -) 25 mg PO BID [facility] Last Admin: 05/02/18 09:27 Dose: 25 mg Mupirocin (Bactroban Ointment (For Decolonization) -) 1 applic NS BID [facility] Stop: 05/03/18 09:59 Last Admin: 05/01/18 22:00 Dose: 1 applic - Objective Vital Signs: Vital Signs Temperature 97.3 F L 05/02/18 14:00 Pulse Rate 105 H 05/02/18 14:00 Respiratory Rate 22 H 05/02/18 14:00 Blood Pressure 155/73 05/02/18 14:00 O2 Sat by Pulse Oximetry (%) 98 05/02/18 09:00 Labs: CBC, BMP 05/02/18 05:30 05/02/18 05:30 INR, PTT INR 1.32 (0.83-1.09) H 04/29/18 12:23
[2018-05-02] MEDS: MUPIROCIN 2% TOPICAL OINTMENT FOR DECOLONIZATION NS SCH ×2 (18:32→21:22)
[2018-05-02] MEDS: CHLORHEXIDINE GLUCONATE 4% CLEANSER FOR DECOLONIZATION TP SCH (21:23)
[2018-05-03] MEDS: INSULIN SLIDING SCALE (NOVOLOG) 1 VIAL SQ SCH ×4 (00:10→17:02)
[2018-05-03] MEDS: MEROPENEM 1 GM in DEXTROSE 5%-WATER 100 ML IVPB SCH ×3 (01:00→17:39)
[2018-05-03] MEDS: ACETAMINOPHEN 1000 MG/100 ML VIAL (NON FORMULARY) IVPB PRN (02:32)
[2018-05-03 06:19] LABS: BASO % 0.2 % (0-2.0); EOS % 0.1 % (0-4.5); HEMATOCRIT 22.4 % (32.4-45.2); HEMOGLOBIN 7.1 GM/dL (10.7-15.3); LYMPH % 8.4 % (8-40); MCH 25.5 pg (25.7-33.7); MCHC 31.6 g/dl (32.0-36.0); MEAN CELL VOLUME 80.8 fl (80-96); MEAN PLT VOLUME 9.4 fl (7.5-11.1); MONO % 5.6 % (3.8-10.2); NEUT % 85.7 % (42.8-82.8); PLATELET COUNT 260 K/MM3 (134-434); RBC 2.78 M/mm3 (3.60-5.2); RDW 17.8 % (11.6-15.6)
[2018-05-03 07:59] LABS: ALBUMIN 1.4 g/dl (3.4-5.0); ALK PHOS 296 U/L (45-117); ANION GAP 8 MMOL/L (8-16); BILIRUBIN,TOTAL 0.7 mg/dL (0.2-1); BLOOD UREA NITROGEN 6 mg/dL (7-18); CALCIUM 8.4 mg/dL (8.5-10.1); CHLORIDE 97 mmol/L (98-107); CO2 29 mmol/L (21-32); CREATININE 0.4 mg/dL (0.55-1.3); GLUCOSE,RANDOM 186 mg/dL (74-106); MAGNESIUM 1.8 mg/dL (1.8-2.4); PHOSPHOROUS 2.2 mg/dL (2.5-4.9); POTASSIUM 3.7 mmol/L (3.5-5.1); SGOT/AST 11 U/L (15-37); SGPT/ALT 16 U/L (13-61); SODIUM 134 mmol/L (136-145); TOT PROT 5.5 g/dl (6.4-8.2)
[2018-05-03] MEDS ORDERED: NAPH,MB-DB/K PH,MBDB POWDER PACKET PO ONE (08:18)
[2018-05-03] MEDS ORDERED: oxyCODONE HCL 5 MG TABLET PO PRN (10:37)
[2018-05-03] MEDS ORDERED: PT OWN MED DRAWER 7, Y5N ONE ×2 (10:53→17:36)
[2018-05-03] MEDS: LISINOPRIL 10 MG TABLET (FP) PO SCH (10:57)
[2018-05-03] MEDS: DULoxetine HCL 30 MG CAPSULE.DR (FP) PO SCH (10:57)
[2018-05-03] MEDS: METOPROLOL TARTRATE 25 MG TABLET (FP) PO SCH (10:57)
[2018-05-03] MEDS ORDERED: CLOTRIMAZOLE 1% CREAM 15 GM TUBE TP SCH (12:30)
--- NOTE | 2018-05-03 13:12 | PN ---
Teaching Attending Note Name of Resident: August Perez ATTENDING PHYSICIAN STATEMENT I saw and evaluated the patient. I reviewed the resident's note and discussed the case with the resident. I agree with the resident's findings and plan as documented. SUBJECTIVE: Patient seen and examined in the ICU. Still with some right hip pain. Still with intermittent fevers but improving. Denies CP or SOB. Still awaiting transfer to tertiary care. OBJECTIVE: Intake & Output 04/30/18 05/01/18 05/02/18 05/03/18 23:59 23:59 23:59 23:59 Intake Total 1442 1000 2000 Output Total 2250 2200 4500 Balance -808 -1200 -2500 Weight 173 lb 8.061 oz 167 lb 1.766 oz 164 lb 3.91 oz Last Vital Signs Temp Pulse Resp BP Pulse Ox 98.2 F 102 H 17 171/90 H 98 05/03/18 10:00 05/03/18 12:00 05/03/18 12:00 05/03/18 12:00 05/02/18 23:18 Active Medications Acetaminophen (Ofirmev Injection -) 1,000 mg IVPB Q6H PRN PRN Reason: FEVER Last Admin: 05/03/18 02:32 Dose: 1,000 mg Chlorhexidine Gluconate (Hibiclens For Decolonization -) 1 applic TP HS [facility] Last Admin: 05/02/18 21:23 Dose: 1 applic Clotrimazole (Lotrimin 1% Cream -) 1 applic TP BID [facility] Duloxetine HCl (Cymbalta -) 60 mg PO DAILY [facility] Last Admin: 05/03/18 10:57 Dose: 60 mg Meropenem 1 gm/ Dextrose 100 mls @ 200 mls/hr IVPB Q8H-IV [facility] Last Admin: 05/03/18 10:56 Dose: 200 mls/hr Insulin Aspart (Novolog Vial Sliding Scale -) 1 vial SQ ACHS [facility]; Protocol Last Admin: 05/03/18 06:19 Dose: 4 units Lisinopril (Prinivil) 10 mg PO DAILY [facility] Last Admin: 05/03/18 10:57 Dose: 10 mg Metoprolol Tartrate (Lopressor -) 25 mg PO BID [facility] Last Admin: 05/03/18 10:57 Dose: 25 mg Oxycodone HCl (Roxicodone -) 5 mg PO Q6H PRN PRN Reason: PAIN LEVEL 6-10 Gen: Awake and alert, (+) pain with movement Heart: RRR Lung: decreased breath sounds at the bases Abd: soft, nontender Ext: (+) edema LLE Laboratory Results - last 24 hr 05/02/18 05/02/18 05/03/18 18:29 23:06 05:30 WBC 14.0 H RBC 2.78 L Hgb 7.1 L Hct 22.4 L MCV 80.8 MCH 25.5 L MCHC 31.6 L RDW 17.8 H Plt Count 260 MPV 9.4 Absolute Neuts (auto) 12.0 H Neutrophils % 85.7 H Lymphocytes % 8.4 D Monocytes % 5.6 Eosinophils % 0.1 Basophils % 0.2 Nucleated RBC % 0 Sodium Potassium Chloride Carbon Dioxide Anion Gap BUN Creatinine Creat Clearance w eGFR POC Glucometer 295.82417 225.70873 Random Glucose Calcium Phosphorus Magnesium Total Bilirubin AST ALT Alkaline Phosphatase Total Protein Albumin 05/03/18 05/03/18 05/03/18 05:30 05:52 12:16 WBC RBC Hgb Hct MCV MCH MCHC RDW Plt Count MPV Absolute Neuts (auto) Neutrophils % Lymphocytes % Monocytes % Eosinophils % Basophils % Nucleated RBC % Sodium 134 L Potassium 3.7 Chloride 97 L Carbon Dioxide 29 Anion Gap 8 BUN 6 L Creatinine 0.4 L Creat Clearance w eGFR > 60 POC Glucometer 206.11727 283.65305 Random Glucose 186 H Calcium 8.4 L Phosphorus 2.2 L Magnesium 1.8 Total Bilirubin 0.7 AST 11 L ALT 16 Alkaline Phosphatase 296 H Total Protein 5.5 L Albumin 1.4 L ASSESSMENT AND PLAN: Right Ileopsoas Abscess with likely Osteomyelitis UTI Gram Negative Bacteremia Severe Sepsis Acute Kidney Injury Lactic Acidosis Elevated LFTs likely ischemic injury DM - ABX coverage - monitor urine output, creatinine - DVT prophylaxis - for transfer to tertiary care center for further evaluation of mass/abscess Dr De Luna
--- NOTE | 2018-05-03 14:57 | PN ---
Physical Exam: SUBJECTIVE: Patient seen and examined at bedside. Last fever 2 days ago. Most recent culture negative. Pt affirms affirms RLQ and RLE pain, holding RLE in abduction. OBJECTIVE: Vital Signs Period Temp Pulse Resp BP Sys/Leija Pulse Ox Last 24 Hr 97.9 F-99.2 F 94-114 10-23 151-174/69-90 98-98 GENERAL: A&Ox3, in pain HEAD: NC/AT EYES: PERRLA, EOMI ENT: MMM NECK: Trachea midline, full range of motion, supple. LUNGS: Mild crackles mid-lung to bases b/l HEART: tachy, regular rhythm, no m/r/g ABDOMEN: +bs, soft, RLQ and suprapubic TTP EXTREMITIES: right pelvic and RLE swelling and tenderness, +right calf tenderness, 2+ pulses, warm, well-perfused, no edema. NEUROLOGICAL: CN, motor, sensory systems w/o focal deficits PSYCH: Normal mood, normal affect SKIN: Warm, dry, normal turgor, no rashes or lesions noted Laboratory Results - last 24 hr 05/02/18 05/02/18 05/03/18 18:29 23:06 05:30 WBC 14.0 H RBC 2.78 L Hgb 7.1 L Hct 22.4 L MCV 80.8 MCH 25.5 L MCHC 31.6 L RDW 17.8 H Plt Count 260 MPV 9.4 Absolute Neuts (auto) 12.0 H Neutrophils % 85.7 H Lymphocytes % 8.4 D Monocytes % 5.6 Eosinophils % 0.1 Basophils % 0.2 Nucleated RBC % 0 Sodium Potassium Chloride Carbon Dioxide Anion Gap BUN Creatinine Creat Clearance w eGFR POC Glucometer 295.24962 225.57687 Random Glucose Calcium Phosphorus Magnesium Total Bilirubin AST ALT Alkaline Phosphatase Total Protein Albumin 05/03/18 05/03/18 05/03/18 05:30 05:52 12:16 WBC RBC Hgb Hct MCV MCH MCHC RDW Plt Count MPV Absolute Neuts (auto) Neutrophils % Lymphocytes % Monocytes % Eosinophils % Basophils % Nucleated RBC % Sodium 134 L Potassium 3.7 Chloride 97 L Carbon Dioxide 29 Anion Gap 8 BUN 6 L Creatinine 0.4 L Creat Clearance w eGFR > 60 POC Glucometer 206.87763 283.68747 Random Glucose 186 H Calcium 8.4 L Phosphorus 2.2 L Magnesium 1.8 Total Bilirubin 0.7 AST 11 L ALT 16 Alkaline Phosphatase 296 H Total Protein 5.5 L Albumin 1.4 L Active Medications Generic Name Dose Route Start Last Admin Trade Name Teja PRN Reason Stop Dose Admin Acetaminophen 1,000 mg 05/01/18 20:22 05/03/18 02:32 Ofirmev Injection - IVPB 1,000 mg Q6H PRN Administration FEVER Chlorhexidine Gluconate 1 applic 04/28/18 22:00 05/02/18 21:23 Hibiclens For Decolonization - TP 1 applic HS [facility] Administration Clotrimazole 1 applic 05/03/18 12:30 Lotrimin 1% Cream - TP BID [facility] Duloxetine HCl 60 mg 04/28/18 10:00 05/03/18 10:57 Cymbalta - PO 60 mg DAILY [facility] Administration Meropenem 1 gm/ Dextrose 100 mls @ 200 mls/hr 04/30/18 19:00 05/03/18 10:56 IVPB 200 mls/hr Q8H-IV [facility] Administration Insulin Aspart 1 vial 04/28/18 11:00 05/03/18 06:19 Novolog Vial Sliding Scale - SQ 4 units ACHS [facility] Administration Protocol Lisinopril 10 mg 04/30/18 10:00 05/03/18 10:57 Prinivil PO 10 mg DAILY [facility] Administration Metoprolol Tartrate 25 mg 05/01/18 10:00 05/03/18 10:57 Lopressor - PO 25 mg BID [facility] Administration Oxycodone HCl 5 mg 05/03/18 10:37 Roxicodone - PO Q6H PRN PAIN LEVEL 6-10 ASSESSMENT/PLAN: 67 y/o F w/ PMHx uterine Ca s/p RAHUL and chemoRT, HTN, DM, b/l DVT, recent admission for G- bacteremia 2/2 UTI and R iliopsoas abscess in March, admitted w/ severe urosepsis, blood culture positive for lac+ Gnb. #ID -most recent culture NGTD -currently afebrile -cont Meropenem -leukocytosis improving -CT a/p re-identified R retroperitoneal hematoma, likely nidus of infection -for transfer to tertiary center for further evaluation of hematoma/intervention -defer MRI for tertiary center management #calf tenderness -doppler study pending -not currently on pharmacologic AC #CV -BP stable -central line removed -restarted on Lopressor #nephro -RADHA resolved -IVF d/c'd -monitor urine output -monitor creatinine -monitor lytes -maintain avila #endocrine -SSI -BGM ACHS #GI -LFT abnormalities likely 2/2 ischemia, stable #FEN -no IVF -monitor and replete lytes -diabetic diet #PPx -DVT: SCDs, no pharmacologic AC in setting of hematoma -GI: not indicated #code -full #dispo -transfer pending to [place], in meantime transfer to med/surg Visit type - Emergency Visit Emergency Visit: No - New Patient This patient is new to me today: No - Critical Care Critical Care patient: Yes Total Critical Care Time (in minutes): 40 Critical Care Statement: The care of this patient involved high complexity decision making to prevent further life threatening deterioration of the patient 's condition and/or to evaluate & treat vital organ system(s) failure or risk of failure.
--- NOTE | 2018-05-03 15:56 | PN ---
Progress Note, Physician History of Present Illness: clinically stable h and h drifting downwards again - Current Medication List Current Medications: Active Medications Acetaminophen (Ofirmev Injection -) 1,000 mg IVPB Q6H PRN PRN Reason: FEVER Last Admin: 05/03/18 02:32 Dose: 1,000 mg Chlorhexidine Gluconate (Hibiclens For Decolonization -) 1 applic TP HS [facility] Last Admin: 05/02/18 21:23 Dose: 1 applic Clotrimazole (Lotrimin 1% Cream -) 1 applic TP BID [facility] Last Admin: 05/03/18 15:21 Dose: 1 applic Duloxetine HCl (Cymbalta -) 60 mg PO DAILY [facility] Last Admin: 05/03/18 10:57 Dose: 60 mg Meropenem 1 gm/ Dextrose 100 mls @ 200 mls/hr IVPB Q8H-IV [facility] Last Admin: 05/03/18 10:56 Dose: 200 mls/hr Insulin Aspart (Novolog Vial Sliding Scale -) 1 vial SQ ACHS [facility]; Protocol Last Admin: 05/03/18 12:00 Dose: 6 units Lisinopril (Prinivil) 10 mg PO DAILY [facility] Last Admin: 05/03/18 10:57 Dose: 10 mg Metoprolol Tartrate (Lopressor -) 25 mg PO BID [facility] Last Admin: 05/03/18 10:57 Dose: 25 mg Oxycodone HCl (Roxicodone -) 5 mg PO Q6H PRN PRN Reason: PAIN LEVEL 6-10 Last Admin: 05/03/18 13:20 Dose: 5 mg - Objective Vital Signs: Vital Signs Temperature 99.4 F 05/03/18 14:57 Pulse Rate 103 H 05/03/18 14:00 Respiratory Rate 21 H 05/03/18 14:00 Blood Pressure 152/72 05/03/18 14:00 O2 Sat by Pulse Oximetry (%) 98 05/03/18 14:51 Constitutional: Yes: Calm, Mild Distress Cardiovascular: Yes: Regular Rate and Rhythm Respiratory: Yes: Regular, CTA Bilaterally Gastrointestinal: Yes: Normal Bowel Sounds, Soft Musculoskeletal: Yes: WNL Extremities: Yes: Other Neurological: Yes: Alert, Oriented Psychiatric: Yes: Alert, Oriented Labs: CBC, BMP 05/03/18 05:30 05/03/18 05:30 INR, PTT INR 1.32 (0.83-1.09) H 04/29/18 12:23 Assessment/Plan R Ileopsoas hematoma UTI Gram Negative Bacteremia Severe Sepsis Acute Kidney Injury Lactic Acidosis Elevated LFTs likely ischemic injury DM i think patient could have some lesion at the place and also she has and also had infected hematoma .I am worried that there could also be an abscess now plan would continue abx monitor h and h rest as per the team awaiting final plan transfusion if needed cc 40 min
--- NOTE | 2018-05-03 17:38 | PN ---
Teaching Attending Note Name of Resident: La Souza ATTENDING PHYSICIAN STATEMENT I saw and evaluated the patient. I reviewed the resident's note and discussed the case with the resident. I agree with the resident's findings and plan as documented. SUBJECTIVE: Patient is comfortable , no further fever. OBJECTIVE: Vital Signs Temperature 99.4 F 05/03/18 14:57 Pulse Rate 113 H 05/03/18 16:00 Respiratory Rate 19 05/03/18 16:00 Blood Pressure 141/69 05/03/18 16:00 O2 Sat by Pulse Oximetry (%) 98 05/03/18 14:51 GENERAL:lying in bed comfortably , NAD. Oriented to person. HEENT: AT/NC. EOMI. Dry mucus membranes. NECK: Trachea midline, full range of motion, supple. LUNGS: CTA B/L. No wheezes noted. HEART: RRR. Normal S1, S2. No murmurs noted ABDOMEN: Soft. NT/ND. positive for BS. EXTREMITIES: 2+ pulses, warm, well-perfused, no edema. R thigh circumference > L NEUROLOGICAL: CN 2-12 grossly intact. CBCD WBC 14.0 K/mm3 (4.0-10.0) H 05/03/18 05:30 RBC 2.78 M/mm3 (3.60-5.2) L 05/03/18 05:30 Hgb 7.1 GM/dL (10.7-15.3) L 05/03/18 05:30 Hct 22.4 % (32.4-45.2) L 05/03/18 05:30 MCV 80.8 fl (80-96) 05/03/18 05:30 MCHC 31.6 g/dl (32.0-36.0) L 05/03/18 05:30 RDW 17.8 % (11.6-15.6) H 05/03/18 05:30 Plt Count 260 K/MM3 (134-434) 05/03/18 05:30 MPV 9.4 fl (7.5-11.1) 05/03/18 05:30 CMP Sodium 134 mmol/L (136-145) L 05/03/18 05:30 Potassium 3.7 mmol/L (3.5-5.1) 05/03/18 05:30 Chloride 97 mmol/L (98-107) L 05/03/18 05:30 Carbon Dioxide 29 mmol/L (21-32) 05/03/18 05:30 Anion Gap 8 MMOL/L (8-16) 05/03/18 05:30 BUN 6 mg/dL (7-18) L 05/03/18 05:30 Creatinine 0.4 mg/dL (0.55-1.3) L 05/03/18 05:30 Creat Clearance w eGFR > 60 (>60) 05/03/18 05:30 Random Glucose 186 mg/dL (74-106) H 05/03/18 05:30 Calcium 8.4 mg/dL (8.5-10.1) L 05/03/18 05:30 Total Bilirubin 0.7 mg/dL (0.2-1) 05/03/18 05:30 AST 11 U/L (15-37) L 05/03/18 05:30 ALT 16 U/L (13-61) 05/03/18 05:30 Alkaline Phosphatase 296 U/L (45-117) H 05/03/18 05:30 Total Protein 5.5 g/dl (6.4-8.2) L 05/03/18 05:30 Albumin 1.4 g/dl (3.4-5.0) L 05/03/18 05:30 CARDIAC ENZYMES Creatine Kinase 86 IU/L (26-192) 04/27/18 20:10 Troponin I < 0.02 ng/ml (0.00-0.05) 04/28/18 06:30 Current Medications Generic Name Dose Route Start Last Admin Trade Name Teja PRN Reason Stop Dose Admin Acetaminophen 1,000 mg 05/01/18 20:22 05/03/18 02:32 Ofirmev Injection - IVPB 1,000 mg Q6H PRN Administration FEVER Chlorhexidine Gluconate 1 applic 04/28/18 22:00 05/02/18 21:23 Hibiclens For Decolonization - TP 1 applic HS MIRA Administration Clotrimazole 1 applic 05/03/18 12:30 05/03/18 15:21 Lotrimin 1% Cream - TP 1 applic BID MIRA Administration Duloxetine HCl 60 mg 04/28/18 10:00 05/03/18 10:57 Cymbalta - PO 60 mg DAILY MIRA Administration Meropenem 1 gm/ Dextrose 100 mls @ 200 mls/hr 04/30/18 19:00 05/03/18 10:56 IVPB 200 mls/hr Q8H-IV MIRA Administration Insulin Aspart 1 vial 04/28/18 11:00 05/03/18 17:02 Novolog Vial Sliding Scale - SQ 6 units ACHS MIRA Administration Protocol Lisinopril 10 mg 04/30/18 10:00 05/03/18 10:57 Prinivil PO 10 mg DAILY MIRA Administration Metoprolol Tartrate 25 mg 05/01/18 10:00 05/03/18 10:57 Lopressor - PO 25 mg BID MIRA Administration Oxycodone HCl 5 mg 05/03/18 10:37 05/03/18 13:20 Roxicodone - PO 5 mg Q6H PRN Administration PAIN LEVEL 6-10 Home Medications Medication Instructions Recorded Canagliflozin [Invokana] 100 mg PO DAILY 03/21/17 Duloxetine HCl 60 mg PO DAILY 03/21/17 Lisinopril 10 mg PO DAILY 03/21/17 Montelukast Na [Singulair -] 10 mg PO DAILY 03/21/17 Oxycodone HCl/Acetaminophen 1 tab PO PRN 03/21/17 [Endocet 5-325 Tablet] Metoprolol Tartrate [Lopressor -] 25 mg PO BID #60 tablet 04/09/18 Insulin Degludec [Tresiba 50 unit SQ HS 04/30/18 Flextouch U-200] Metformin HCl [Metformin HCl ER] 1,000 mg PO BID 04/30/18 Ranitidine [Zantac -] 150 mg PO BID 04/30/18 Microbiology 04/30/18 09:39 Blood - Peripheral Venous Blood Culture - Preliminary NO GROWTH OBTAINED AFTER 72 HOURS, INCUBATION TO CONTINUE FOR 2 DAYS. 05/02/18 05:45 Blood - Peripheral Venous Blood Culture - Preliminary NO GROWTH OBTAINED AFTER 24 HOURS, INCUBATION TO CONTINUE FOR 4 DAYS. 05/02/18 05:30 Blood - Peripheral Venous Blood Culture - Preliminary NO GROWTH OBTAINED AFTER 24 HOURS, INCUBATION TO CONTINUE FOR 4 DAYS. 04/30/18 09:35 Blood - Peripheral Venous Blood Culture - Final Escherichia Coli 04/29/18 05:00 Blood - Picc Line Blood Culture - Final Escherichia Coli 04/29/18 05:00 Blood - Picc Line Blood Culture - Final Escherichia Coli 04/27/18 20:26 Blood - Peripheral Venous Blood Culture - Final Lactose Fermenting Neg Bacilli 04/27/18 23:15 Urine - Urine Toney Urine Culture - Final Escherichia Coli 04/27/18 20:26 Blood - Peripheral Venous Blood Culture - Final Escherichia Coli 04/28/18 02:00 Urine For Antigen Detection Legionella Antigen - Final 04/28/18 02:00 Urine For Antigen Detection Streptococcus pneumoniae Antigen (M - Final ASSESSMENT AND PLAN: Patient is a 67yo female with PMHx of HTN, DM, with recent admission of UTI, sepsis due to having E. coli bacteremia and R psoas abscess s/p drainage ( 03/16 -04/10) , Hx of DVT, HLD, uterine ca s/p chemo and RTx. she presented with AMS and poor oral intake, and was found to have sepsis due to UTI with Right retroperitoneal collection. # Gram negative septicemia due to E coli UTI. On IV antibiotic Meropenem continue. ID on the case, no further fever. repeat blood culture No growth in 3 days # Right retroperitoneal hematoma with possible infected /abscess hematoma can't r/o Osteo.. H/H is stable. repeat blood cx with growth. on meropenem as per ID. IR declined further intervention at this time. # Acute blood loss due to retroperitoneal hematoma ,transfuse below 7.1 # T2DM with hypoglycemia due to poor po intake . continue SSI with coverage. # AMS due to metabolic encephalopathy . improved # Acute transaminitis: likely due to sepsis, trend LFTS # HTN: cont lisinopril. hypotension resolved DVT Px : SCDS For transfer to tertiary care center to [facility] for further evaluation of hematoma /mass/abscess
--- NOTE | 2018-05-03 17:58 | DS ---
Physical Exam: SUBJECTIVE: Patient seen and examined. No acute events overnight. Pt afebrile. OBJECTIVE: Vital Signs Period Temp Pulse Resp BP Sys/Leija Pulse Ox Last 24 Hr 98.2 F-99.4 F 94-114 10-23 141-174/69-90 98-98 PHYSICAL EXAM GENERAL: Lethargic. NAD. Oriented to person. HEENT: AT/NC. EOMI. Dry mucus membranes. NECK: Trachea midline, full range of motion, supple. LUNGS: CTA B/L. No wheezes noted. HEART: RRR. Normal S1, S2. No murmurs noted ABDOMEN: Soft. NT/ND. +Bs in all 4Qs. EXTREMITIES: 2+ pulses, warm, well-perfused, no edema. R thigh circumference > L NEUROLOGICAL: Responds to commands, instrument person hands and opens eyes. LABS Laboratory Results - last 24 hr 05/02/18 05/02/18 05/03/18 18:29 23:06 05:30 WBC 14.0 H RBC 2.78 L Hgb 7.1 L Hct 22.4 L MCV 80.8 MCH 25.5 L MCHC 31.6 L RDW 17.8 H Plt Count 260 MPV 9.4 Absolute Neuts (auto) 12.0 H Neutrophils % 85.7 H Lymphocytes % 8.4 D Monocytes % 5.6 Eosinophils % 0.1 Basophils % 0.2 Nucleated RBC % 0 Sodium Potassium Chloride Carbon Dioxide Anion Gap BUN Creatinine Creat Clearance w eGFR POC Glucometer 295.24515 225.29134 Random Glucose Calcium Phosphorus Magnesium Total Bilirubin AST ALT Alkaline Phosphatase Total Protein Albumin 05/03/18 05/03/18 05/03/18 05:30 05:52 12:16 WBC RBC Hgb Hct MCV MCH MCHC RDW Plt Count MPV Absolute Neuts (auto) Neutrophils % Lymphocytes % Monocytes % Eosinophils % Basophils % Nucleated RBC % Sodium 134 L Potassium 3.7 Chloride 97 L Carbon Dioxide 29 Anion Gap 8 BUN 6 L Creatinine 0.4 L Creat Clearance w eGFR > 60 POC Glucometer 206.12240 283.73905 Random Glucose 186 H Calcium 8.4 L Phosphorus 2.2 L Magnesium 1.8 Total Bilirubin 0.7 AST 11 L ALT 16 Alkaline Phosphatase 296 H Total Protein 5.5 L Albumin 1.4 L 05/03/18 17:01 WBC RBC Hgb Hct MCV MCH MCHC RDW Plt Count MPV Absolute Neuts (auto) Neutrophils % Lymphocytes % Monocytes % Eosinophils % Basophils % Nucleated RBC % Sodium Potassium Chloride Carbon Dioxide Anion Gap BUN Creatinine Creat Clearance w eGFR POC Glucometer [phone] Random Glucose Calcium Phosphorus Magnesium Total Bilirubin AST ALT Alkaline Phosphatase Total Protein Albumin HOSPITAL COURSE: Date of Admission:04/27/18 IMAGING: * CTAP: interval enlargement of a nonspecific right iliopsoas lesion is seen as well as associated development of a small amount of air/gas within the lesion. These findings may be on the basis of etiologies such as abscess, abscess with fistula formation, or tumor with superimposed abscess and/or fistula. No gross fistulous tract can be identified on this noncontrast study. Development of associated bone erosion is noted involving the contiguous right iliac bone suspicious for osteomyelitis. Direct neoplastic involvement is probably less likely. CT-guided percutaneous needle biopsy/drainage may be performed. * Abd U/S: Somewhat limited exam due to patient immobility. No obvious abnormality is identified. * RLE U/S: No DVT. 67F w/ pmhx of uterine Ca s/p RAHLU and chemo/RT, HTN, DM, b/l DVT, recent admission for G- bacteremia 2/2 UTI and R iliopsoas abscess (attempted IR drainage done 03/28/18) admitted w/ severe urosepsis, blood culture positive for lac+ Gnb. During this hospital admission, pt was found to have AMS and lethargy at home and was subsequently brought to the hospital by per family. She was admitted to the ICU. Pt was found to have E. coli bacteremia and was subsequently given Zosyn. Pt remained febrile despite antibiotic therapy and was then switched to Vancomycin. CTAP was done that showed [id number] cm focal lesion seen within the R iliac fossa (previously [id number]). Pt was assessed by surgery, in which she was deemed not a surgical candidate with recommendation to consult IR. Upon IR eval, further drainage was deferred as previous attempt was unsuccessful with minimal drainage. During pt's hospital stay, pt was still febrile after which IV abx were switched to Meropenem. Additionally, mental status had improved throughout hospital course, however she continued to complain of R thigh pain. Pt remained afebrile for 48 hours after which she was downgraded to med-surg. Due to pt's previous medical workup/ surgeries done at [facility], pt's family requested continuation of care at that facility and for possible IR drainage. Request to transfer was called, and pt was accepted. Pt and pt's family made aware of transfer. Date of Discharge: 05/03/18 Minutes to complete discharge: 35 Discharge Summary Reason For Visit: HYPERGLYCEMIA,ALTERED MENTAL STATUS,INCREASED Current Active Problems Diabetes mellitus with insulin therapy (Acute) E. coli UTI (urinary tract infection) (Acute) E. coli sepsis (Acute) H/O cancer of uterus (Acute) Hematoma (Acute) Psoas abscess, right (Acute) Sepsis (Acute) Diabetes (Chronic) Condition: Stable - Instructions Diet, Activity, Other Instructions: You were seen in the hospital for altered mental status. You were found to have an worsening blood collection (hematoma) on your right lower abdomen that may possibly be extending to your right thigh. You are currently on IV antibiotics for infection in the blood. You are being transferred to a higher level of care for possible removal of the blood collection as it might be infected with abscess formation . Please pay attention to all medications prescribed by your new facility as they may change upon discharge. Disposition: TRANSFER ACUTE CARE/OTHER HOSP - Home Medications Comprehensive Discharge Medication List: Ambulatory Orders Canagliflozin [Invokana] 100 mg PO DAILY 03/21/17 Duloxetine HCl 60 mg PO DAILY 03/21/17 Lisinopril 10 mg PO DAILY 03/21/17 Montelukast Na [Singulair -] 10 mg PO DAILY 03/21/17 Oxycodone HCl/Acetaminophen [Endocet 5-325 Tablet] 1 tab PO PRN 03/21/17 Metoprolol Tartrate [Lopressor -] 25 mg PO BID #60 tablet 04/09/18 Insulin Degludec [Tresiba Flextouch U-200] 50 unit SQ HS 04/30/18 Metformin HCl [Metformin HCl ER] 1,000 mg PO BID 04/30/18 Ranitidine [Zantac -] 150 mg PO BID 04/30/18 This patient is new to me today: No Emergency Visit: Yes ED Registration Date: 04/27/18 Care time: The patient presented to the Emergency Department on the above date and was hospitalized for further evaluation of their emergent condition. Critical Care patient: No - Discharge Referral Referred to [facility] Med [facility] No
[2018-05-03 18:27] VITALS: BP 152/78; PULSE 118; TEMP 98.2
== END 2018-05-03 20:27 | disposition short-term general hospital (02) | DRG 871 ==
LOC: JER 19:52 → JERBED 21:56 → JICU 04-28 02:12
PROVIDERS: ADMIT Internal Medicine; ATTEND Internal Medicine
PROC: 5A09357 Assistance with Respiratory Ventilation, Less than 24 Consecutive Hours, Continuous Positive Airway Pressure (ICD-10-PCS; principal; 2018-04-27)
PROC: 30233N1 Transfusion of Nonautologous Red Blood Cells into Peripheral Vein, Percutaneous Approach (ICD-10-PCS; 2018-04-27)
PROC: 05HM33Z Insertion of Infusion Device into Right Internal Jugular Vein, Percutaneous Approach (ICD-10-PCS; 2018-04-28)
PROC: B513ZZA Fluoroscopy of Right Jugular Veins, Guidance (ICD-10-PCS; 2018-04-28)
DX: A41.51 Sepsis due to Escherichia coli [E. coli] (principal); J18.9 Pneumonia, unspecified organism; G93.41 Metabolic encephalopathy; K66.1 Hemoperitoneum; E11.10 Type 2 diabetes mellitus with ketoacidosis without coma; K68.12 Psoas muscle abscess; E87.1 Hypo-osmolality and hyponatremia; E87.2 Acidosis; N39.0 Urinary tract infection, site not specified; N17.9 Acute kidney failure, unspecified; D62 Acute posthemorrhagic anemia; M86.9 Osteomyelitis, unspecified; M60.08 Infective myositis, other site; Z79.4 Long term (current) use of insulin; Z85.42 Personal history of malignant neoplasm of other parts of uterus; Z86.718 Personal history of other venous thrombosis and embolism; I10 Essential (primary) hypertension; Z90.710 Acquired absence of both cervix and uterus; R65.20 Severe sepsis without septic shock; R74.0 Nonspecific elevation of levels of transaminase and lactic acid dehydrogenase [LDH]; E87.6 Hypokalemia; E83.39 Other disorders of phosphorus metabolism; E83.42 Hypomagnesemia; E11.649 Type 2 diabetes mellitus with hypoglycemia without coma; T38.3X5A Adverse effect of insulin and oral hypoglycemic [antidiabetic] drugs, initial encounter; E11.69 Type 2 diabetes mellitus with other specified complication; Z79.84 Long term (current) use of oral hypoglycemic drugs
CPT/HCPCS: 36415; 36430; 36511; 36600; 70450-TC; 71045-TC-FY; 74176-TC; 76700-TC; 76775-TC; 76856-TC; 80048; 80053; 80307; 81003; 81015; 82009; 82375; 82436; 82550; 82570; 82607; 82728; 82746; 82803; 82962; 83050; 83540; 83550; 83605; 83735; 83930; 84100; 84133; 84156; 84300; 84484; 85025; 85027; 85610; 85730; 86850; 86900; 86901; 86922; 87040; 87086; 87186; 87804; 87899; 93005; 93010; 93306-TC; 93970-TC; 93971-TC; 99285-25; J0131; J1644; J2597; J7030; P9038; P9054; P9058